=== PATIENT | female | born 1965 | race American Indian/Alaskan Native ===

== ENCOUNTER 2019-11-11 15:04 | Inpatient (IN) | payer SELFPAY ==
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
[2019-11-11] MEDS ORDERED: ONDANSETRON 4 MG ODT TAB PO ONE (18:42)
[2019-11-11] MEDS ORDERED: KETOROLAC 30 MG/1 ML INJ IM ONE (18:42)
[2019-11-11] MEDS ORDERED: SODIUM CHLORIDE 0.9% 1000 ML 1,000 ML IV ONE (19:28)
[2019-11-11 19:46] LABS: Basophils % (Auto) 0.6 % (0.0-1.8); Eosinophils % (Auto) 0.5 % (0.0-4.3); Hematocrit 33.9 % (30.3-42.9); Hemoglobin 11.8 gm/dl (10.1-14.3); Lymphocytes # (Auto) 2.3 K/mm3 (1.2-5.4); Lymphocytes % (Auto) 33.7 % (13.4-35.0); Mean Corpuscular HGB Conc 35 % (30-34); Mean Corpuscular Volume 93 fl (79-97); Monocytes # (Auto) 0.7 K/mm3 (0.0-0.8); Monocytes % (Auto) 9.9 % (0.0-7.3); Red Blood Count 3.66 M/mm3 (3.65-5.03); Red Cell Distribution Width 15.8 % (13.2-15.2)
[2019-11-11 19:58] LABS: INR 1.1 (0.87-1.13)
[2019-11-11 19:59] LABS: Partial Thromboplastin Time 25.8 Sec. (24.2-36.6)
--- NOTE | 2019-11-11 20:01 | Cat Scan Report ---
CT BRAIN: WITHOUT CONTRAST INDICATION / CLINICAL INFORMATION: headache. COMPARISON: None available. FINDINGS: BRAIN/INTRACRANIAL STRUCTURES: Unenhanced CT images of the brain demonstrate no evidence of acute int racranial abnormality. Ventricles and sulci are normal in size and shape. There is no evidence of hemorrhage or mass. There are no abnormal extra-axial fluid collections. EXTRACRANIAL STRUCTURES: Unremarkable. IMPRESSION: Negative unenhanced CT of the brain. All CT scans at this location are performed using dose reduction to ALARA by means of automated expos ure control. Signer Name: Andrew Lisa MD Signed: 11/11/2019 7:56 PM Workstation Name: [id number]
[2019-11-11 20:19] LABS: BUN/Creatinine Ratio 23; Blood Urea Nitrogen 14 mg/dL (7-17); Calcium 9.1 mg/dL (8.4-10.2); Hemolysis Index 91
[2019-11-11 20:21] LABS: Alanine Aminotransferase 25 units/L (7-56)
[2019-11-11] MEDS ORDERED: dexAMETHasone 20 MG/5 ML VIAL IV ONE (20:23)
[2019-11-11 20:36] LABS: Chol/HDL Ratio 4.02 %; HDL Cholesterol 46 mg/dL (40-59); LDL Cholesterol,Direct 132 mg/dL (50-130)
[2019-11-11 20:38] LABS: Platelet Count TNR K/mm3 (140-440)
--- NOTE | 2019-11-11 20:48 | XRay Report ---
CHEST 2 VIEWS INDICATION / CLINICAL INFORMATION: dyspnea. COMPARISON: None available. FINDINGS: SUPPORT DEVICES: None. HEART / MEDIASTINUM: No significant abnormality. LUNGS / PLEURA: No significant pulmonary or pleural abnormality. No pneumothorax. ADDITIONAL FINDINGS: No significant additional findings. IMPRESSION: 1. No acute findings. Signer Name: Marce Mcguire MD Signed: 11/11/2019 8:44 PM Workstation Name: [id number]
[2019-11-11 22:05] LABS: Bilirubin,Urine NEG (Negative); Blood,Urine MOD (Negative); Color,Urine Yellow (Yellow); Protein,Urine <15 mg/dL mg/dL (Negative); Urobilinogen,Urine < 2.0 mg/dL (<2.0)
[2019-11-11] MEDS ORDERED: MAGNESIUM HYDROXIDE (MOM) ORAL LIQD UDC PO PRN (23:36)
[2019-11-11] MEDS ORDERED: NITROGLYCERIN 0.4 MG TAB SUBL SL PRN (23:36)
[2019-11-11] MEDS ORDERED: ONDANSETRON 4 MG/2 ML INJ IV ONE (23:43)
[2019-11-11] MEDS ORDERED: MORPHINE 4 MG/1 ML INJ IV ONE (23:43)
[2019-11-12 00:04] LABS: Bilirubin,Direct 0.5 mg/dL (0-0.2)
[2019-11-12] MEDS ORDERED: ONDANSETRON 4 MG/2 ML INJ ONE (00:32)
[2019-11-12] MEDS ORDERED: MORPHINE 4 MG/1 ML INJ ONE (00:32)
[2019-11-12 00:36] LABS: Basophils % (Auto) 0.3 % (0.0-1.8); Hematocrit 31.9 % (30.3-42.9); Hemoglobin 11.2 gm/dl (10.1-14.3); Lymphocytes # (Auto) 0.9 K/mm3 (1.2-5.4); Mean Corpuscular HGB Conc 35 % (30-34); Mean Corpuscular Volume 92 fl (79-97); Monocytes # (Auto) 0.2 K/mm3 (0.0-0.8); Monocytes % (Auto) 3.2 % (0.0-7.3); Red Blood Count 3.47 M/mm3 (3.65-5.03); Red Cell Distribution Width 15.7 % (13.2-15.2)
[2019-11-12 00:45] LABS: Platelet Count 12 K/mm3 (140-440)
[2019-11-12 00:58] LABS: BUN/Creatinine Ratio 20; Blood Urea Nitrogen 14 mg/dL (7-17); Hemolysis Index 12
[2019-11-12] MEDS: SODIUM CHLORIDE 0.9% 1000 ML 1,000 ML IV SCH ×2 (02:50→17:42)
--- NOTE | 2019-11-12 03:10 | History and Physical Report ---
History of Present Illness Date of examination: 11/12/19 Date of admission: 11/11/19 23:20 Chief complaint: Headache Blurry vision History of present illness: 54-year-old female presenting to the emergency room today complaining of persistent headache. Headache is said to be frontal. She denies any fever or chills and denies any neck pain however she has been having some blurry vision and occasional double vision. She denies any fall and denies any head injury, denies any slurred speech or weakness in the extremities. Patient denies any chest pain but has had occasional shortness of breath especially on exertion, she also indicates that she had an episode of bloody urine. She denies any dysuria and denies any fever or chills Work-up in the emergency room did not reveal any significant findings on the CT of the head however patient had an elevated troponin and also had a low platelet count. EKG was within normal limits. She was given a dose of Decadron IV. Past History Past Surgical History: hysterectomy, Other (Nephrostomy tube placement in the past) Social history: other (Occasional marijuana use) Family history: no significant family history Medications and Allergies Allergies Allergy/AdvReac Type Severity Reaction Status Date / Time No Known Allergies Allergy Unverified 08/03/13 21:24 Home Medications Medication Instructions Recorded Confirmed Last Taken Type No Known Home Medications [No 11/12/19 11/12/19 Unknown History Reported Home Medications] Active Meds: Active Medications Acetaminophen (Tylenol) 650 mg PO Q4H PRN PRN Reason: Pain MILD(1-3)/Fever >100.5/LEE Sodium Chloride (Nacl 0.9% 1000 Ml) 1,000 mls @ 75 mls/hr IV DIRECT PRAVEEN Last Admin: 11/12/19 02:50 Dose: 75 mls/hr Documented by: Magnesium Hydroxide (Milk Of Magnesia) 30 ml PO Q4H PRN PRN Reason: Constipation Morphine Sulfate (Morphine) 2 mg IV Q4H PRN PRN Reason: Pain, Moderate (4-6) Nitroglycerin (Nitrostat) 0.4 mg SL Q5M PRN PRN Reason: Chest Pain Ondansetron HCl (Zofran) 4 mg IV Q8H PRN PRN Reason: Nausea And Vomiting Sodium Chloride (Sodium Chloride Flush Syringe 10 Ml) 10 ml IV BID PRAVEEN Sodium Chloride (Sodium Chloride Flush Syringe 10 Ml) 10 ml IV PRN PRN PRN Reason: LINE FLUSH Last Admin: 11/12/19 02:50 Dose: 10 ml Documented by: Review of Systems Constitutional: no fever, no chills Eyes: bilateral: blurred vision Cardiovascular: no chest pain, no palpitations, no syncope, no lightheadedness Respiratory: no cough, no shortness of breath, no dyspnea on exertion, no congestion Gastrointestinal: no abdominal pain, no nausea, no vomiting Neurological: headaches, no weakness, no parathesias, no numbness, no change in speech, no confusion, no memory loss, no gait dysfunction Exam - Constitutional Vitals: Temp Pulse Resp BP Pulse Ox 98.4 F 88 18 134/79 95 11/12/19 02:05 11/12/19 02:05 11/12/19 02:05 11/12/19 02:05 11/12/19 02:05 General appearance: Present: no acute distress, well-nourished - EENT Eyes: Present: PERRL, EOM intact ENT: hearing intact, clear oral mucosa, dentition normal - Neck Neck: Present: supple, normal ROM - Respiratory Respiratory effort: normal Respiratory: bilateral: CTA - Cardiovascular Rhythm: regular Heart Sounds: Present: S1 & S2 - Extremities Extremities: no ischemia, pulses intact, No edema, Full ROM Peripheral Pulses: within normal limits - Abdominal General gastrointestinal: Present: soft, non-tender, non-distended - Integumentary Integumentary: Present: clear, warm, dry - Psychiatric Psychiatric: appropriate mood/affect, intact judgment & insight - Neurologic Neurologic: CNII-XII intact, moves all extremities Results - Labs CBC & Chem 7: 11/12/19 05:54 11/12/19 05:54 Labs: Abnormal lab results 11/11/19 11/11/19 11/11/19 Range/Units 19:25 19:25 20:55 RBC (3.65-5.03) M/mm3 MCHC 35 H (30-34) % RDW 15.8 H (13.2-15.2) % Plt Count 14 L* (140-440) K/mm3 Lymph % (Auto) (13.4-35.0) % [place] % (Auto) 9.9 H (0.0-7.3) % Lymph # (1.2-5.4) K/mm3 Seg Neutrophils % (40.0-70.0) % Sodium 136 L (137-145) mmol/L Carbon Dioxide 19 L (22-30) mmol/L Creatinine 0.6 L (0.7-1.2) mg/dL Glucose 101 H (65-100) mg/dL Total Bilirubin 3.20 H (0.1-1.2) mg/dL Direct Bilirubin (0-0.2) mg/dL AST 62 H (5-40) units/L Lactate Dehydrogenase (91-180) units/L Troponin T 0.419 H* (0.00-0.029) ng/mL LDL Cholesterol Direct 132 H (50-130) mg/dL 11/11/19 11/11/19 11/11/19 Range/Units 22:38 23:24 23:59 RBC 3.47 L (3.65-5.03) M/mm3 MCHC 35 H (30-34) % RDW 15.7 H (13.2-15.2) % Plt Count 12 L* (140-440) K/mm3 Lymph % (Auto) 13.0 L (13.4-35.0) % [place] % (Auto) (0.0-7.3) % Lymph # 0.9 L (1.2-5.4) K/mm3 Seg Neutrophils % 83.5 H (40.0-70.0) % Sodium (137-145) mmol/L Carbon Dioxide (22-30) mmol/L Creatinine (0.7-1.2) mg/dL Glucose (65-100) mg/dL Total Bilirubin 3.20 H (0.1-1.2) mg/dL Direct Bilirubin 0.5 H (0-0.2) mg/dL AST (5-40) units/L Lactate Dehydrogenase 1022 H (91-180) units/L Troponin T 0.418 H* (0.00-0.029) ng/mL LDL Cholesterol Direct (50-130) mg/dL 11/11/19 Range/Units 23:59 RBC (3.65-5.03) M/mm3 MCHC (30-34) % RDW (13.2-15.2) % Plt Count (140-440) K/mm3 Lymph % (Auto) (13.4-35.0) % [place] % (Auto) (0.0-7.3) % Lymph # (1.2-5.4) K/mm3 Seg Neutrophils % (40.0-70.0) % Sodium (137-145) mmol/L Carbon Dioxide (22-30) mmol/L Creatinine (0.7-1.2) mg/dL Glucose 143 H (65-100) mg/dL Total Bilirubin (0.1-1.2) mg/dL Direct Bilirubin (0-0.2) mg/dL AST (5-40) units/L Lactate Dehydrogenase (91-180) units/L Troponin T (0.00-0.029) ng/mL LDL Cholesterol Direct (50-130) mg/dL Assessment and Plan - Patient Problems (1) Headache, acute Current Visit: Yes Status: Acute Qualifiers: Headache type: post-traumatic Intractability: not intractable Qualified Code(s): G44.319 - Acute post-traumatic headache, not intractable Plan to address problem: Patient has received analgesic medication with improvement . Work-up so far has been negative. We will place a consult to neurology for evaluation and recommendation. We will also schedule for MRI of the brain. (2) Non-STEMI (non-ST elevated myocardial infarction) Current Visit: Yes Status: Acute Plan to address problem: Patient has denied any chest pain. We will trend cardiac enzymes and monitor EKG. General Repair Mechanic has been consulted for further evaluation and recommendation. (3) Thrombocytopenia Current Visit: Yes Status: Acute Plan to address problem: We will monitor CBC. We also monitor for bleeding. Patient had an episode of hematuria which has since resolved. Heel Buffer was consulted by the ER physician and patient will be promptly evaluated. Patient has received a dose of Decadron in the emergency room. Will check LDH and bilirubin levels. (4) DVT prophylaxis Current Visit: Yes Status: Acute Plan to address problem: Patient has been placed on sequential compression device. Will hold anticoagulation in view of the low platelet counts. (5) Full code status Current Visit: Yes Status: Acute
[2019-11-12] MEDS: MORPHINE 2 MG/1 ML INJ IV PRN ×3 (06:12→18:22)
[2019-11-12 06:32] LABS: Basophils % (Auto) 0.2 % (0.0-1.8); Hematocrit 31.1 % (30.3-42.9); Hemoglobin 10.8 gm/dl (10.1-14.3); Lymphocytes # (Auto) 0.9 K/mm3 (1.2-5.4); Lymphocytes % (Auto) 15.3 % (13.4-35.0); Mean Corpuscular HGB Conc 35 % (30-34); Mean Corpuscular Volume 92 fl (79-97); Monocytes # (Auto) 0.3 K/mm3 (0.0-0.8); Monocytes % (Auto) 5.6 % (0.0-7.3); Red Blood Count 3.37 M/mm3 (3.65-5.03); Red Cell Distribution Width 15.7 % (13.2-15.2)
[2019-11-12 06:38] LABS: Platelet Count 9 K/mm3 (140-440)
[2019-11-12 06:46] LABS: INR 1.11 (0.87-1.13)
[2019-11-12 06:47] LABS: Partial Thromboplastin Time 24.9 Sec. (24.2-36.6)
[2019-11-12 06:52] LABS: BUN/Creatinine Ratio 21; Blood Urea Nitrogen 15 mg/dL (7-17); Calcium 8.7 mg/dL (8.4-10.2); Hemolysis Index 17
--- NOTE | 2019-11-12 08:05 | Event Note ---
Date: 11/12/19 ? [facility] [id number]
[2019-11-12] MEDS ORDERED: IMMUNE GLOBULIN GAMMA IV SCH (09:00)
[2019-11-12] MEDS: ONDANSETRON 4 MG/2 ML INJ IV PRN (09:28)
[2019-11-12] MEDS: PANTOPRAZOLE 40 MG TAB PO SCH (09:28)
[2019-11-12] MEDS: predniSONE 20 MG TAB PO SCH (09:28)
--- NOTE | 2019-11-12 10:58 | Progress Note ---
Subjective Date of service: 11/12/19 Interval history: my idea also on the event note and certainly headaches develop with low platelet count since platelet lysis releases serotonin abnormal counts confirms x two further hx is iniitited to review advise low platelet count precautions Objective - Vital Sign Vital Signs - 12hr 11/11/19 11/12/19 11/12/19 23:00 00:01 01:01 Temperature Pulse Rate 84 79 81 Pulse Rate [ Apical] Respiratory 20 19 15 Rate Blood Pressure 136/90 136/90 130/80 O2 Sat by Pulse 96 96 95 Oximetry 11/12/19 11/12/19 11/12/19 02:05 02:30 04:57 Temperature 98.4 F 98.2 F Pulse Rate 88 86 Pulse Rate [ 84 Apical] Respiratory 18 18 18 Rate Blood Pressure 134/79 128/87 O2 Sat by Pulse 95 95 96 Oximetry 11/12/19 11/12/19 06:12 06:42 Temperature Pulse Rate Pulse Rate [ Apical] Respiratory 18 18 Rate Blood Pressure O2 Sat by Pulse Oximetry - Laboratory Findings CBC and BMP: 11/12/19 05:54 11/12/19 05:54 Abnormal Lab Findings: Abnormal Labs 11/11/19 11/11/19 11/11/19 19:25 19:25 20:55 RBC MCHC 35 H RDW 15.8 H Plt Count 14 L* Lymph % (Auto) [place] % (Auto) 9.9 H Lymph # Seg Neutrophils % Sodium 136 L Carbon Dioxide 19 L Creatinine 0.6 L Glucose 101 H Total Bilirubin 3.20 H Direct Bilirubin AST 62 H Lactate Dehydrogenase Troponin T 0.419 H* LDL Cholesterol Direct 132 H 11/11/19 11/11/19 11/11/19 22:38 23:24 23:59 RBC 3.47 L MCHC 35 H RDW 15.7 H Plt Count 12 L* Lymph % (Auto) 13.0 L [place] % (Auto) Lymph # 0.9 L Seg Neutrophils % 83.5 H Sodium Carbon Dioxide Creatinine Glucose Total Bilirubin 3.20 H Direct Bilirubin 0.5 H AST Lactate Dehydrogenase 1022 H Troponin T 0.418 H* LDL Cholesterol Direct 11/11/19 11/12/19 11/12/19 23:59 05:54 05:54 RBC 3.37 L MCHC 35 H RDW 15.7 H Plt Count 9 L* Lymph % (Auto) [place] % (Auto) Lymph # 0.9 L Seg Neutrophils % 78.9 H Sodium Carbon Dioxide 19 L Creatinine Glucose 143 H 133 H Total Bilirubin Direct Bilirubin AST Lactate Dehydrogenase Troponin T LDL Cholesterol Direct 11/12/19 05:54 RBC MCHC RDW Plt Count Lymph % (Auto) [place] % (Auto) Lymph # Seg Neutrophils % Sodium Carbon Dioxide Creatinine Glucose Total Bilirubin Direct Bilirubin AST Lactate Dehydrogenase Troponin T 0.246 H* D LDL Cholesterol Direct
[2019-11-12 11:04] LABS: Iron 143 ug/dL (37-170); Total Iron Binding Capacity 240 mcg/dL (250-450)
[2019-11-12] MEDS ORDERED: FLU VACC QUAD 2019-20 (3 YR UP)/PF 60 MCG/0.5 ML SYRINGE IM ONE (12:00)
[2019-11-12] MEDS ORDERED: ACETAMINOPHEN 500 MG TAB PO ONE (13:00)
[2019-11-12] MEDS ORDERED: GLY IV ONE (13:00)
[2019-11-12] MEDS ORDERED: IGA OV50 IV ONE (13:00)
[2019-11-12] MEDS ORDERED: diphenhydrAMINE 50 MG/ML VIAL IV ONE (13:00)
[2019-11-12] MEDS ORDERED: IMMUN GLOB IV ONE (13:00)
--- NOTE | 2019-11-12 14:13 | Consultation ---
History of Present Illness Consult date: 11/12/19 Requesting physician: PARADISE KWON Consult reason: elevated troponin History of present illness: 54-year-old patient with no past medical history history started having headache in disturbance in vision came to emergency room was found to have low platelets in the single digits. With abnormal troponin. Patient denies any chest pain or shortness of breath or syncope. States was in relatively good health denies any past medical history of hypertension diabetes cholesterol or anemia. Denies any syncopal episode or seizure type activity. Past History Past Medical History: denies: No medical history Past Surgical History: hysterectomy, Other (Nephrostomy tube placement in the past) Social history: other (Occasional marijuana use) Family history: no significant family history Medications and Allergies Allergies Allergy/AdvReac Type Severity Reaction Status Date / Time No Known Allergies Allergy Unverified 08/03/13 21:24 Home Medications Medication Instructions Recorded Confirmed Last Taken Type No Known Home Medications [No 11/12/19 11/12/19 Unknown History Reported Home Medications] Active Meds: Active Medications Acetaminophen (Tylenol) 650 mg PO Q4H PRN PRN Reason: Pain MILD(1-3)/Fever >100.5/LEE Sodium Chloride (Nacl 0.9% 1000 Ml) 1,000 mls @ 75 mls/hr IV DIRECT PRAVEEN Last Admin: 11/12/19 02:50 Dose: 75 mls/hr Documented by: IMMUN GLOB G(IGG)/GLY/IGA OV50 40 gm/ Miscellaneous Information 400 mls @ 80 mls/hr IV ONCE ONE Stop: 11/12/19 17:59 Last Admin: 11/12/19 13:00 Dose: 80 mls/hr Documented by: Magnesium Hydroxide (Milk Of Magnesia) 30 ml PO Q4H PRN PRN Reason: Constipation Morphine Sulfate (Morphine) 2 mg IV Q4H PRN PRN Reason: Pain, Moderate (4-6) Last Admin: 11/12/19 06:12 Dose: 2 mg Documented by: Nitroglycerin (Nitrostat) 0.4 mg SL Q5M PRN PRN Reason: Chest Pain Ondansetron HCl (Zofran) 4 mg IV Q8H PRN PRN Reason: Nausea And Vomiting Last Admin: 11/12/19 09:28 Dose: 4 mg Documented by: Pantoprazole Sodium (Protonix) 40 mg PO QDAY [facility] Last Admin: 11/12/19 09:28 Dose: 40 mg Documented by: Prednisone (Deltasone) 60 mg PO QDAY [facility] Stop: 11/17/19 23:59 Last Admin: 11/12/19 09:28 Dose: 60 mg Documented by: Sodium Chloride (Sodium Chloride Flush Syringe 10 Ml) 10 ml IV BID [facility] Last Admin: 11/12/19 12:34 Dose: 10 ml Documented by: Sodium Chloride (Sodium Chloride Flush Syringe 10 Ml) 10 ml IV PRN PRN PRN Reason: LINE FLUSH Last Admin: 11/12/19 02:50 Dose: 10 ml Documented by: Review of Systems All systems: negative (as per HPI) Physical Examination Vital Signs Temp Pulse Resp BP Pulse Ox 98.2 F 43 L 18 127/54 100 11/11/19 16:55 11/11/19 16:55 11/11/19 16:55 11/11/19 16:55 11/11/19 16:55 General appearance: no acute distress, well-nourished HEENT: Positive: PERRL, Mucus Membranes Moist Neck: Positive: neck supple, trachea midline Cardiac: Positive: Reg Rate and Rhythm, S1/S2. Negative: Audible Murmur Lungs: Positive: clear to auscultation, Normal Breath Sounds Neuro: Positive: Grossly Intact Abdomen: Positive: Soft, Active Bowel Sounds. Negative: Tender, Distended Female genitourinary: deferred Skin: Positive: Clear Incision: Cardiac Cath Site Musculoskeletal: No Pain, Normal Range of Motion Extremities: Present: normal. Absent: edema Results 11/12/19 05:54 11/12/19 05:54 Cardiac Enzymes 11/11/19 11/11/19 Range/Units 19:25 23:24 AST 62 H (5-40) units/L Lactate Dehydrogenase 1022 H (91-180) units/L Coagulation 11/11/19 11/12/19 Range/Units 19:25 05:54 PT 14.3 14.5 (12.2-14.9) Sec. INR 1.10 1.11 (0.87-1.13) APTT 25.8 24.9 (24.2-36.6) Sec. Lipids 11/11/19 Range/Units 19:25 Triglycerides 105 (2-149) mg/dL Cholesterol 185 (50-199) mg/dL HDL Cholesterol 46 (40-59) mg/dL Cholesterol/HDL Ratio 4.02 % CBC 11/11/19 11/11/19 11/11/19 Range/Units 19:25 20:55 23:59 WBC 6.8 6.8 (4.5-11.0) K/mm3 RBC 3.66 3.47 L (3.65-5.03) M/mm3 Hgb 11.8 11.2 (10.1-14.3) gm/dl Hct 33.9 31.9 (30.3-42.9) % Plt Count TNR 14 L* 12 L* Lymph # 2.3 0.9 L (1.2-5.4) K/mm3 [place] # 0.7 0.2 (0.0-0.8) K/mm3 Eos # 0.0 0.0 (0.0-0.4) K/mm3 Baso # 0.0 0.0 (0.0-0.1) K/mm3 11/12/19 Range/Units 05:54 WBC 6.1 (4.5-11.0) K/mm3 RBC 3.37 L (3.65-5.03) M/mm3 Hgb 10.8 (10.1-14.3) gm/dl Hct 31.1 (30.3-42.9) % Plt Count 9 L* Lymph # 0.9 L (1.2-5.4) K/mm3 [place] # 0.3 (0.0-0.8) K/mm3 Eos # 0.0 (0.0-0.4) K/mm3 Baso # 0.0 (0.0-0.1) K/mm3 Comprehensive Metabolic Panel 11/11/19 11/11/19 11/11/19 Range/Units 19:25 23:24 23:59 Sodium 136 L 141 (137-145) mmol/L Potassium 4.0 4.4 (3.6-5.0) mmol/L Chloride 100.0 104.9 (98-107) mmol/L Carbon Dioxide 19 L 23 (22-30) mmol/L BUN 14 14 (7-17) mg/dL Creatinine 0.6 L 0.7 (0.7-1.2) mg/dL Glucose 101 H 143 H (65-100) mg/dL Calcium 9.1 9.0 (8.4-10.2) mg/dL Direct Bilirubin 0.5 H (0-0.2) mg/dL Indirect Bilirubin 2.7 mg/dL AST 62 H (5-40) units/L ALT 25 (7-56) units/L Alkaline Phosphatase 53 (35-129) units/L Total Protein 7.1 (6.3-8.2) g/dL Albumin 4.0 (3.9-5) g/dL 11/12/19 Range/Units 05:54 Sodium 140 (137-145) mmol/L Potassium 4.5 (3.6-5.0) mmol/L Chloride 105.7 (98-107) mmol/L Carbon Dioxide 19 L (22-30) mmol/L BUN 15 (7-17) mg/dL Creatinine 0.7 (0.7-1.2) mg/dL Glucose 133 H (65-100) mg/dL Calcium 8.7 (8.4-10.2) mg/dL Direct Bilirubin (0-0.2) mg/dL Indirect Bilirubin mg/dL AST (5-40) units/L ALT (7-56) units/L Alkaline Phosphatase (35-129) units/L Total Protein (6.3-8.2) g/dL Albumin (3.9-5) g/dL EKG interpretations - Telemetry EKG Rhythm: Sinus Rhythm (normal sinus rhythm nonspecific ST-T's) Assessment and Plan In view of abnormal troponin will do an echocardiogram for LV function. Patient is not a candidate for oral anticoagulation given low platelets. Monitor heart rate on remote telemetry. May consider low-dose beta russell if need be - Patient Problems (1) Non-STEMI (non-ST elevated myocardial infarction) Current Visit: Yes Status: Acute (2) TIA (transient ischemic attack) Current Visit: Yes Status: Acute (3) Thrombocytopenia Current Visit: Yes Status: Acute
--- NOTE | 2019-11-12 15:28 | Event Note ---
Date: 11/12/19 Patient seen and examined stable at this time intermittently throughout the day reported recurrent headaches. Started again during administration of gammaglobulin this has been held. I reevaluation patient ambulatory, nontoxic appearing. We will continue to monitor patient's progress. Discussed case with air twist operator.
--- NOTE | 2019-11-12 15:38 | Progress Note ---
Assessment and Plan Assessment and plan: Patient is a 54-year-old female presenting to the emergency room today complaining of persistent headache. Headache is said to be frontal. She denies any fever or chills and denies any neck pain however she has been having some blurry vision and occasional double vision. She denies any fall and denies any head injury, denies any slurred speech or weakness in the extremities. Patient denies any chest pain but has had occasional shortness of breath especially on exertion, she also indicates that she had an episode of bloody urine. She denies any dysuria and denies any fever or chills Work-up in the emergency room did not reveal any significant findings on the CT of the head however patient had an elevated troponin and also had a low platelet count. EKG was within normal limits. She was given a dose of Decadron IV. 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 * During the stay patient continues to have intermittent recurrent blurry vision and headaches but subsiding in intensity. Patient Problems (1) Headache, acute Current Visit: Yes Status: Acute Qualifiers: Headache type: post-traumatic Intractability: not intractable Qualified Code(s): G44.319 - Acute post-traumatic headache, not intractable Plan to address problem: Patient has received analgesic medication with improvement. Work-up so far has been negative. Neurology for evaluation and recommendation noted. We will also schedule for MRI of the brain. (2) Non-STEMI (non-ST elevated myocardial infarction) Current Visit: Yes Status: Acute Plan to address problem: Patient has denied any chest pain. We will trend cardiac enzymes and monitor EKG. Sample Puller Input noted Will Start on Low dose BB Patient not a candidate for Anticogulation due to Low plt (3) Thrombocytopenia Concerning for ITP Current Visit: Yes Status: Acute Plan to address problem: We will monitor CBC. We also monitor for bleeding. Patient had an episode of hematuria which has since resolved. Antique Jewelry Repairer was consulted by the ER physician and patient will be promptly evaluated. Patient has received a dose of Decadron in the emergency room. Will check LDH and bilirubin levels. (4) DVT prophylaxis Current Visit: Yes Status: Acute Plan to address problem: Patient has been placed on sequential compression device. Will hold anticoagulation in view of the low platelet counts. (5) Full code status Current Visit: Yes Status: Acute Plan of care discussed with the the patinet and nursing staff. History Interval history: Patient seen and examined this morning ambulating brushing her teeth family at bedside no new complaint reports resolution of headache. Denies any prior history with platelets. She also denies any blurry vision at this time. Hospitalist Physical - Physical exam Narrative exam: VITAL SIGNS: Reviewed. GENERAL: The patient appears normally developed, Vital signs as documented. HEAD: No signs of head trauma. EYES: Pupils are equal. Extraocular motions intact. EARS: Hearing grossly intact. MOUTH: Oropharynx is normal. NECK: No adenopathy, no JVD. CHEST: Chest with clear breath sounds bilaterally. No wheezes, rales, or rhonchi. CARDIAC: Regular rate and rhythm. S1 and S2, without murmurs, gallops, or rubs. VASCULAR: No Edema. Peripheral pulses normal and equal in all extremities. ABDOMEN: Soft, non tender and non distended. No rebound or guarding, and no masses palpated. Bowel Sounds normal. MUSCULOSKELETAL: Good range of motion of all major joints. Extremities without clubbing, cyanosis or edema. NEUROLOGIC EXAM: Alert and oriented x 3 No focal sensory or strength deficits. Speech normal. Follows commands. PSYCHIATRIC: Mood normal. SKIN: detail exam as documented in skin assessment, no petechiae noted. - Constitutional Vitals: Temp Pulse Resp BP Pulse Ox 99 F 117 H 20 155/87 99 11/12/19 14:13 11/12/19 14:13 11/12/19 14:13 11/12/19 14:13 11/12/19 14:13 General appearance: Present: no acute distress, well-nourished Results - Labs CBC & Chem 7: 11/12/19 05:54 11/12/19 05:54 Labs: Laboratory Last Values WBC 6.1 K/mm3 (4.5-11.0) 11/12/19 05:54 RBC 3.37 M/mm3 (3.65-5.03) L 11/12/19 05:54 Hgb 10.8 gm/dl (10.1-14.3) 11/12/19 05:54 Hct 31.1 % (30.3-42.9) 11/12/19 05:54 MCV 92 fl (79-97) 11/12/19 05:54 MCH 32 pg (28-32) 11/12/19 05:54 MCHC 35 % (30-34) H 11/12/19 05:54 RDW 15.7 % (13.2-15.2) H 11/12/19 05:54 Plt Count 9 K/mm3 (140-440) L* 11/12/19 05:54 Lymph % (Auto) 15.3 % (13.4-35.0) 11/12/19 05:54 [place] % (Auto) 5.6 % (0.0-7.3) 11/12/19 05:54 Eos % (Auto) 0.0 % (0.0-4.3) 11/12/19 05:54 Baso % (Auto) 0.2 % (0.0-1.8) 11/12/19 05:54 Lymph # 0.9 K/mm3 (1.2-5.4) L 11/12/19 05:54 [place] # 0.3 K/mm3 (0.0-0.8) 11/12/19 05:54 Eos # 0.0 K/mm3 (0.0-0.4) 11/12/19 05:54 Baso # 0.0 K/mm3 (0.0-0.1) 11/12/19 05:54 Seg Neutrophils % 78.9 % (40.0-70.0) H 11/12/19 05:54 Seg Neutrophils # 4.8 K/mm3 (1.8-7.7) 11/12/19 05:54 PT 14.5 Sec. (12.2-14.9) 11/12/19 05:54 INR 1.11 (0.87-1.13) 11/12/19 05:54 APTT 24.9 Sec. (24.2-36.6) 11/12/19 05:54 Sodium 140 mmol/L (137-145) 11/12/19 05:54 Potassium 4.5 mmol/L (3.6-5.0) 11/12/19 05:54 Chloride 105.7 mmol/L (98-107) 11/12/19 05:54 Carbon Dioxide 19 mmol/L (22-30) L 11/12/19 05:54 Anion Gap 20 mmol/L 11/12/19 05:54 BUN 15 mg/dL (7-17) 11/12/19 05:54 Creatinine 0.7 mg/dL (0.7-1.2) 11/12/19 05:54 Estimated GFR > 60 ml/min 11/12/19 05:54 BUN/Creatinine Ratio 21 % 11/12/19 05:54 Glucose 133 mg/dL (65-100) H 11/12/19 05:54 Calcium 8.7 mg/dL (8.4-10.2) 11/12/19 05:54 Iron 143 ug/dL (37-170) 11/12/19 10:23 TIBC 240 mcg/dL (250-450) L 11/12/19 10:23 Ferritin 911.5 ng/mL (13.0-400.0) H 11/12/19 10:23 Total Bilirubin 3.20 mg/dL (0.1-1.2) H 11/11/19 23:24 Direct Bilirubin 0.5 mg/dL (0-0.2) H 11/11/19 23:24 Indirect Bilirubin 2.7 mg/dL 11/11/19 23:24 AST 62 units/L (5-40) H 11/11/19 19:25 ALT 25 units/L (7-56) 11/11/19 19:25 Alkaline Phosphatase 53 units/L (35-129) 11/11/19 19:25 Lactate Dehydrogenase 1022 units/L (91-180) H 11/11/19 23:24 Troponin T 0.246 ng/mL (0.00-0.029) H* D 11/12/19 05:54 NT-Pro-B Natriuret Pep 633.4 pg/mL (0-900) 11/11/19 19:31 Total Protein 7.1 g/dL (6.3-8.2) 11/11/19 19:25 Albumin 4.0 g/dL (3.9-5) 11/11/19 19:25 Albumin/Globulin Ratio 1.3 % 11/11/19 19:25 Triglycerides 105 mg/dL (2-149) 11/11/19 19:25 Cholesterol 185 mg/dL (50-199) 11/11/19 19:25 LDL Cholesterol Direct 132 mg/dL (50-130) H 11/11/19 19:25 HDL Cholesterol 46 mg/dL (40-59) 11/11/19 19:25 Cholesterol/HDL Ratio 4.02 % 11/11/19 19: Vitamin B12 701.6 pg/mL (211-911) 11/12/19: Folate > 20 ng/mL (7.3-26.0) 11/12/19 10: TSH 3.110 mlU/mL (0.270-4.200) 11/11/19 19:25 Urine Color Yellow (Yellow) 11/11/19 21: Urine Turbidity Clear (Clear) 11/11/19 21: Urine pH 7.0 (5.0-7.0) 11/11/19: Ur Specific Mobile 1.008 (1.003-1.030) 11/11/19: Urine Protein <15 mg/dl mg/dL (Negative) 11/11/19: Urine Glucose (UA) Neg mg/dL (Negative) 11/11/19: Urine Ketones Neg mg/dL (Negative) 11/11/19: Urine Blood Mod (Negative) 11/11/19 21: Urine Nitrite Neg (Negative) 11/11/19: Urine Bilirubin Neg (Negative) 11/11/19: Urine Urobilinogen < 2.0 mg/dL (<2.0) 11/11/19: Ur Leukocyte Esterase Neg (Negative) 11/11/19 21: Urine WBC (Auto) 1.0 /HPF (0.0-6.0) 11/11/19: Urine RBC (Auto) 2.0 /HPF (0.0-6.0) 11/11/19: U Epithel Cells (Auto) 1.0 /HPF (0-13.0) 11/11/19: HIV 1&2 Antibody Rapid Non react (Non React) 11/12/19: HIV P24 Antigen Non react (Non React) 11/12/19 10: Active Medications - Current Medications Current Medications: Generic Name Dose Route Start Last Admin Trade Name Freq PRN Reason Stop Dose Admin Acetaminophen 650 mg 11/11/19 23:36 Tylenol PO Q4H PRN Pain MILD(1-3)/Fever >100.5/LEE Sodium Chloride 1,000 mls @ 75 mls/hr 11/11/19 23:45 11/12/19 02:50 Nacl 0.9% 1000 Ml IV 75 mls/hr DIRECT PRAVEEN Administration IMMUN GLOB G(IGG)/GLY/IGA OV50 400 mls @ 80 mls/hr 11/12/19 13:00 11/12/19 13:00 40 gm/ Miscellaneous IV 11/12/19 17:59 80 mls/hr Information ONCE ONE Administration Magnesium Hydroxide 30 ml 11/11/19 23:36 Milk Of Magnesia PO Q4H PRN Constipation Morphine Sulfate 2 mg 11/11/19 23:36 11/12/19 14:37 Morphine IV 2 mg Q4H PRN Administration Pain, Moderate (4-6) Nitroglycerin 0.4 mg 11/11/19 23:36 Nitrostat SL Q5M PRN Chest Pain Ondansetron HCl 4 mg 11/11/19 23:36 11/12/19 09:28 Zofran IV 4 mg Q8H PRN Administration Nausea And Vomiting Pantoprazole Sodium 40 mg 11/12/19 10:00 11/12/19 09:28 Protonix PO 40 mg QDAY PRAVEEN Administration Prednisone 60 mg 11/12/19 10:00 11/12/19 09:28 Deltasone PO 11/17/19 23:59 60 mg QDAY PRAVEEN Administration Sodium Chloride 10 ml 11/12/19 10:00 11/12/19 12:34 Sodium Chloride Flush Syringe 10 Ml IV 10 ml BID PRAVEEN Administration Sodium Chloride 10 ml 11/11/19 23:36 11/12/19 02:50 Sodium Chloride Flush Syringe 10 Ml IV 10 ml PRN PRN Administration LINE FLUSH
--- NOTE | 2019-11-12 21:09 | Consultation ---
REFERRING PHYSICIAN: Dr. Howard, Dr. Félix Simon/Dr. Bruce Shepherd. REASON FOR CONSULTATION: Thrombocytopenia. HISTORY OF PRESENT ILLNESS: I saw the patient, a 54-year-old female in the medical floor. The patient came to the hospital because of persistent headache in the frontal area. No fever or chills. She had some blurry vision and double vision. CT head was done. This did not show any major issues. Blood test showed low platelets of 9. I was consulted for same. Dexamethasone has been given. The patient denies any previous low platelets. History of recent fever, chills a few weeks ago. 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 At this time, no vomiting, no diarrhea. No chest pain, no shortness of breath, no abdominal pain. No hematemesis, no hematochezia. No skin bruises. PAST MEDICAL HISTORY: Hysterectomy, ureteral injuries. SOCIAL HISTORY: History of occasional marijuana usage. FAMILY HISTORY: Noncontributory. ALLERGIES: None. PHYSICAL EXAMINATION: VITAL SIGNS: Temperature 98, pulse 86, respirations 18, BP 128/87. HEENT: No pallor, icterus present. NECK: No neck lymph nodes. HEART: S1, S2. LUNGS: Clear to auscultation. ABDOMEN: Soft. EXTREMITIES: No calf tenderness. NEUROLOGIC: Alert, awake, oriented. LABORATORY DATA: White cell 6, hemoglobin 10.8, MCV 92, and platelet is 9. PT, PTT normal. Potassium 4.5, creatinine 0.7, calcium 8.7, total bilirubin 3.2, direct 0.5, indirect 2.7, LDH 1000, AST 62. Troponin 0.418. RADIOLOGY: CT head was negative. ASSESSMENT AND PLAN: 1. Thrombocytopenia. This could be immune thrombocytopenic purpura. We will do deficiency investigations, will do human immunodeficiency virus testing. 2. LDH elevated. This may be secondary to LFT abnormalities. 3. High indirect bilirubin, etiology unclear. 4. History of marijuana usage. 5. History of recent malaise until this episode. This may have a role in the low platelets. 6. 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 We will also place the patient on prednisone and proton pump inhibitor and follow the patient. 7. History of ureteral damage. 8. History of hysterectomy. JOB# [id number] CARL/TOMÁS
[2019-11-12] MEDS: carvediloL 3.125 MG TAB PO SCH (21:16)
[2019-11-13] MEDS: ACETAMINOPHEN 325 MG TAB PO PRN (01:25)
[2019-11-13] MEDS: MORPHINE 2 MG/1 ML INJ IV PRN (01:38)
[2019-11-13] MEDS ORDERED: HYDROmorphone 1 MG/1 ML INJ IV ONE (02:20)
--- NOTE | 2019-11-13 02:22 | Event Note ---
Date: 11/13/19 Responded to code mets called. Patient is awake and responsive in mild distress with complaints of headache. Patient just returned from CT scan, previously received morphine before going . New orders received for Dilaudid, awaiting CT results for follow-up.
--- NOTE | 2019-11-13 02:27 | Cat Scan Report ---
CT HEAD/BRAIN WO CON INDICATION / CLINICAL INFORMATION: Headache. TECHNIQUE: All CT scans at this location are performed using CT dose reduction for ALARA by means of automated e xposure control. COMPARISON: Yesterday. FINDINGS: The ventricular system is normal in size and configuration. No focal lesion or mass effect is seen. T here is no evidence of intracranial hemorrhage or major vessel occlusion. The calvarium is intact. Th e visualized paranasal sinuses and mastoid air cells are clear. No significant interval change has oc curred since the prior study. IMPRESSION: No acute abnormality or significant change. Signer Name: Griffin Dey MD Signed: 11/13/2019 2:23 AM Workstation Name: [id number]
[2019-11-13 09:09] LABS: Hematocrit 28.1 % (30.3-42.9); Hemoglobin 9.5 gm/dl (10.1-14.3); Mean Corpuscular HGB Conc 34 % (30-34); Mean Corpuscular Volume 95 fl (79-97); Red Blood Count 2.96 M/mm3 (3.65-5.03); Red Cell Distribution Width 16.6 % (13.2-15.2)
[2019-11-13 09:21] LABS: BUN/Creatinine Ratio 24; Blood Urea Nitrogen 19 mg/dL (7-17); Calcium 8.5 mg/dL (8.4-10.2); Hemolysis Index 18
[2019-11-13 09:26] LABS: Platelet Count 13 K/mm3 (140-440)
--- NOTE | 2019-11-13 10:08 | Progress Note ---
Assessment and Plan Patient's echocardiogram shows normally functioning without significant regurgitations patient's abnormal troponin will treat medically at this time in view of low platelets not a candidate for anticoagulation in view of no chest pain shortness of breath will hold off any ischemic workup at this time patient is being treated for thrombocytopenia - Patient Problems (1) Non-STEMI (non-ST elevated myocardial infarction) Current Visit: Yes Status: Acute (2) TIA (transient ischemic attack) Current Visit: Yes Status: Acute (3) Thrombocytopenia Current Visit: Yes Status: Acute Subjective Date of service: 11/13/19 Principal diagnosis: nstemi Interval history: feeling weak no cp or sob Objective Vital Signs Temp Pulse Resp BP BP Pulse Ox 11/13/19 05:34 98.8 F 64 18 132/87 97 11/13/19 04:05 62 18 121/71 99 11/13/19 02:50 64 154/91 11/13/19 02:40 57 L 155/89 11/13/19 02:30 22 11/13/19 02:15 72 136/103 11/13/19 02:00 96 11/13/19 01:38 22 11/13/19 01:31 98.1 F 18 156/93 11/13/19 01:30 54 L 156/93 11/13/19 01:25 18 11/12/19 21:50 99.1 F 86 17 127/77 98 11/12/19 21:16 82 118/71 11/12/19 21:02 97.9 F 82 18 118/71 96 11/12/19 17:34 99.0 F 103 H 22 134/80 98 11/12/19 17:00 97 F L 107 H 20 128/78 11/12/19 14:13 99 F 117 H 20 155/87 99 11/12/19 13:35 99 F 91 H 20 133/78 99 11/12/19 11:50 99.2 F 83 22 121/71 92 - Physical Examination General: Appears Well HEENT: Positive: PERRL, Mucus Membranes Moist Neck: Positive: neck supple, trachea midline Cardiac: Positive: Reg Rate and Rhythm Lungs: Positive: clear to auscultation Neuro: Positive: Grossly Intact Abdomen: Positive: Soft, Active Bowel Sounds. Negative: Tender, Distended Skin: Positive: Clear Incision: Cardiac Cath Site Musculoskeletal: No Pain, Normal Range of Motion Extremities: Present: normal. Absent: edema - Labs and Meds CBC 11/13/19 Range/Units 08:22 WBC 7.3 (4.5-11.0) K/mm3 RBC 2.96 L (3.65-5.03) M/mm3 Hgb 9.5 L (10.1-14.3) gm/dl Hct 28.1 L (30.3-42.9) % Plt Count 13 L* (140-440) K/mm3 Comprehensive Metabolic Panel 11/13/19 Range/Units 08:22 Sodium 142 (137-145) mmol/L Potassium 4.2 (3.6-5.0) mmol/L Chloride 107.0 (98-107) mmol/L Carbon Dioxide 19 L (22-30) mmol/L BUN 19 H (7-17) mg/dL Creatinine 0.8 (0.7-1.2) mg/dL Glucose 101 H (65-100) mg/dL Calcium 8.5 (8.4-10.2) mg/dL - Imaging and Cardiology Echo: image reviewed (normal lv function, mild tr and no as or mr) - Telemetry EKG Rhythm: Sinus Rhythm
[2019-11-13] MEDS: ONDANSETRON 4 MG/2 ML INJ IV PRN (10:31)
[2019-11-13] MEDS: PANTOPRAZOLE 40 MG TAB PO SCH (10:32)
[2019-11-13] MEDS: carvediloL 3.125 MG TAB PO SCH ×2 (11:01→22:59)
[2019-11-13] MEDS: predniSONE 20 MG TAB PO SCH (11:02)
[2019-11-13] MEDS ORDERED: SODIUM CHLORIDE 0.9% 1000 ML 1,000 ML IV ONE (12:00)
[2019-11-13] MEDS ORDERED: ONDANSETRON 4 MG/2 ML INJ IV PRN (13:17)
--- NOTE | 2019-11-13 13:36 | Progress Note ---
Subjective Date of service: 11/13/19 Principal diagnosis: nstemi Interval history: cross check of the CT from today careful check of areas that are typical for ptechael hemorrhage in ITP... definitely do not see small areas of bleed no no intracranial bleed or brain edema noted Objective - Vital Sign Vital Signs - 12hr 11/13/19 11/13/19 11/13/19 01:38 02:00 02:15 Temperature Pulse Rate 72 Respiratory 22 Rate Blood Pressure Blood Pressure 136/103 [Right] O2 Sat by Pulse 96 Oximetry 11/13/19 11/13/19 11/13/19 02:30 02:40 02:50 Temperature Pulse Rate 57 L 64 Respiratory 22 Rate Blood Pressure Blood Pressure 155/89 154/91 [Right] O2 Sat by Pulse Oximetry 11/13/19 11/13/19 11/13/19 04:05 05:34 11:01 Temperature 98.8 F Pulse Rate 62 64 111 H Respiratory 18 18 Rate Blood Pressure 132/87 142/100 Blood Pressure 121/71 [Right] O2 Sat by Pulse 99 97 Oximetry 11/13/19 11:30 Temperature 98.8 F Pulse Rate 68 Respiratory 22 Rate Blood Pressure 132/81 Blood Pressure [Right] O2 Sat by Pulse 95 Oximetry - Laboratory Findings CBC and BMP: 11/13/19 08:22 11/13/19 08:22 Abnormal Lab Findings: Abnormal Labs 11/11/19 11/11/19 11/11/19 19:25 19:25 20:55 RBC Hgb Hct MCHC 35 H RDW 15.8 H Plt Count 14 L* Lymph % (Auto) [place] % (Auto) 9.9 H Lymph # Seg Neutrophils % Sodium 136 L Carbon Dioxide 19 L BUN Creatinine 0.6 L Glucose 101 H POC Glucose TIBC Ferritin Total Bilirubin 3.20 H Direct Bilirubin AST 62 H Lactate Dehydrogenase Troponin T 0.419 H* LDL Cholesterol Direct 132 H 11/11/19 11/11/19 11/11/19 22:38 23:24 23:59 RBC 3.47 L Hgb Hct MCHC 35 H RDW 15.7 H Plt Count 12 L* Lymph % (Auto) 13.0 L [place] % (Auto) Lymph # 0.9 L Seg Neutrophils % 83.5 H Sodium Carbon Dioxide BUN Creatinine Glucose POC Glucose TIBC Ferritin Total Bilirubin 3.20 H Direct Bilirubin 0.5 H AST Lactate Dehydrogenase 1022 H Troponin T 0.418 H* LDL Cholesterol Direct 11/11/19 11/12/19 11/12/19 23:59 05:54 05:54 RBC 3.37 L Hgb Hct MCHC 35 H RDW 15.7 H Plt Count 9 L* Lymph % (Auto) [place] % (Auto) Lymph # 0.9 L Seg Neutrophils % 78.9 H Sodium Carbon Dioxide 19 L BUN Creatinine Glucose 143 H 133 H POC Glucose TIBC Ferritin Total Bilirubin Direct Bilirubin AST Lactate Dehydrogenase Troponin T LDL Cholesterol Direct 11/12/19 11/12/19 11/12/19 05:54 10:23 10:23 RBC Hgb Hct MCHC RDW Plt Count Lymph % (Auto) [place] % (Auto) Lymph # Seg Neutrophils % Sodium Carbon Dioxide BUN Creatinine Glucose POC Glucose TIBC 240 L Ferritin 911.5 H Total Bilirubin Direct Bilirubin AST Lactate Dehydrogenase Troponin T 0.246 H* D LDL Cholesterol Direct 11/13/19 11/13/19 11/13/19 02:26 08:22 08:22 RBC 2.96 L Hgb 9.5 L Hct 28.1 L MCHC RDW 16.6 H Plt Count 13 L* Lymph % (Auto) [place] % (Auto) Lymph # Seg Neutrophils % Sodium Carbon Dioxide 19 L BUN 19 H Creatinine Glucose 101 H POC Glucose 112 H TIBC Ferritin Total Bilirubin Direct Bilirubin AST Lactate Dehydrogenase Troponin T LDL Cholesterol Direct
[2019-11-13 14:36] LABS: Albumin 4.2 g/dL (3.9-5); Bilirubin,Direct 0.4 mg/dL (0-0.2)
[2019-11-13] MEDS: oxyCODONE /ACETAMINOPHEN 5-325MG TAB PO PRN ×2 (15:12→20:48)
[2019-11-13] MEDS: VERAPAMIL 80 MG TAB PO SCH ×2 (15:12→23:00)
--- NOTE | 2019-11-13 15:15 | Progress Note ---
Assessment and Plan Assessment and plan: Patient is a 54-year-old female presenting to the emergency room today complaining of persistent headache. Headache is said to be frontal. She denies any fever or chills and denies any neck pain however she has been having some blurry vision and occasional double vision. She denies any fall and denies any head injury, denies any slurred speech or weakness in the extremities. Patient denies any chest pain but has had occasional shortness of breath especially on exertion, she also indicates that she had an episode of bloody urine. She denies any dysuria and denies any fever or chills Work-up in the emergency room did not reveal any significant findings on the CT of the head however patient had an elevated troponin and also had a low platelet count. EKG was within normal limits. She was given a dose of Decadron IV. 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 * During the stay patient continues to have intermittent recurrent blurry vision and headaches but subsiding in intensity. * Repeat imaging study this November 13, 2019 g as we are unable to get an MRI . Noncontrast CT head was negative. May need to repeat with contrast for further evaluation. Patient Problems (1) Headache, acute Current Visit: Yes Status: Acute Qualifiers: Headache type: post-traumatic Intractability: not intractable Qualified Code(s): G44.319 - Acute post-traumatic headache, not intractable Plan to address problem: Patient has received analgesic medication with improvement. Work-up so far has been negative. Neurology for evaluation and recommendation noted. We will also schedule for MRI of the brain. Discussed with neurology this could be secondary to lysis syndrome from serotonin in a patient with low platelets According to neurology "cross check of the CT from today careful check of areas that are typical for ptechael hemorrhage in ITP... definitely do not see small areas of bleed no no intracranial bleed or brain edema noted" (2) Non-STEMI (non-ST elevated myocardial infarction) Current Visit: Yes Status: Acute Plan to address problem: Patient has denied any chest pain. We will trend cardiac enzymes and monitor EKG. Cook Barbecue Input noted Continue on Low dose BB Patient not a candidate for Anticogulation due to Low plt (3) Thrombocytopenia Concerning for ITP Current Visit: Yes Status: Acute Plan to address problem: We will monitor CBC. We also monitor for bleeding. Patient had an episode of hematuria which has since resolved. Adhesion Tester was consulted by the ER physician and patient will be promptly evaluated. Patient has received a dose of Decadron in the emergency room. Will check LDH and bilirubin levels. Gammaglobulin may need to be held due to recurrent headaches and blurry vision during infusion. Nevertheless we will give a bolus of fluid as this sometimes will be helpful. Defer to agricultural equipment design engineer oncology for further directions. (4) DVT prophylaxis Current Visit: Yes Status: Acute Plan to address problem: Patient has been placed on sequential compression device. Will hold anticoagulation in view of the low platelet counts. (5) Full code status Current Visit: Yes Status: Acute Plan of care discussed with the the patinet and nursing staff. Patient still with debilitating headache although no phonophobia photophobia associated. History Interval history: Patient seen and examined this morning overnight patient reported to have recurrent severe headache with blurry vision still persisting this morning although intensity has decreased. Imaging study obtained last night was unrevealing. Hospitalist Physical - Physical exam Narrative exam: VITAL SIGNS: Reviewed. GENERAL: The patient appears normally developed, appears uncomfortable. Vital signs as documented. HEAD: No signs of head trauma. EYES: Pupils are equal. Extraocular motions intact. EARS: Hearing grossly intact. MOUTH: Oropharynx is normal. NECK: No adenopathy, no JVD. CHEST: Chest with clear breath sounds bilaterally. No wheezes, rales, or rhonchi. CARDIAC: Regular rate and rhythm. S1 and S2, without murmurs, gallops, or rubs. VASCULAR: No Edema. Peripheral pulses normal and equal in all extremities. ABDOMEN: Soft, non tender and non distended. No rebound or guarding, and no masses palpated. Bowel Sounds normal. MUSCULOSKELETAL: Good range of motion of all major joints. Extremities without clubbing, cyanosis or edema. NEUROLOGIC EXAM: Alert and oriented x 3 No focal sensory or strength deficits. Speech normal. Follows commands. PSYCHIATRIC: Mood normal. SKIN: detail exam as documented in skin assessment, no petechiae noted. - Constitutional Vitals: Temp Pulse Resp BP Pulse Ox 98.8 F 68 22 132/82 95 11/13/19 11:30 11/13/19 15:12 11/13/19 11:30 11/13/19 15:12 11/13/19 11:30 General appearance: Present: no acute distress, well-nourished Results - Labs CBC & Chem 7: 11/13/19 08:22 11/13/19 08:22 Labs: Laboratory Last Values WBC 7.3 K/mm3 (4.5-11.0) 11/13/19 08:22 RBC 2.96 M/mm3 (3.65-5.03) L 11/13/19 08:22 Hgb 9.5 gm/dl (10.1-14.3) L 11/13/19 08:22 Hct 28.1 % (30.3-42.9) L 11/13/19 08:22 MCV 95 fl (79-97) 11/13/19 08:22 MCH 32 pg (28-32) 11/13/19 08:22 MCHC 34 % (30-34) 11/13/19 08:22 RDW 16.6 % (13.2-15.2) H 11/13/19 08:22 Plt Count 13 K/mm3 (140-440) L* 11/13/19 08:22 Lymph % (Auto) 15.3 % (13.4-35.0) 11/12/19 05:54 [place] % (Auto) 5.6 % (0.0-7.3) 11/12/19 05:54 Eos % (Auto) 0.0 % (0.0-4.3) 11/12/19 05:54 Baso % (Auto) 0.2 % (0.0-1.8) 11/12/19 05:54 Lymph # 0.9 K/mm3 (1.2-5.4) L 11/12/19 05:54 [place] # 0.3 K/mm3 (0.0-0.8) 11/12/19 05:54 Eos # 0.0 K/mm3 (0.0-0.4) 11/12/19 05:54 Baso # 0.0 K/mm3 (0.0-0.1) 11/12/19 05:54 Seg Neutrophils % 78.9 % (40.0-70.0) H 11/12/19 05:54 Seg Neutrophils # 4.8 K/mm3 (1.8-7.7) 11/12/19 05:54 PT 14.5 Sec. (12.2-14.9) 11/12/19 05:54 INR 1.11 (0.87-1.13) 11/12/19 05:54 APTT 24.9 Sec. (24.2-36.6) 11/12/19 05:54 Sodium 142 mmol/L (137-145) 11/13/19 08:22 Potassium 4.2 mmol/L (3.6-5.0) 11/13/19 08:22 Chloride 107.0 mmol/L (98-107) 11/13/19 08:22 Carbon Dioxide 19 mmol/L (22-30) L 11/13/19 08:22 Anion Gap 20 mmol/L 11/13/19 08:22 BUN 19 mg/dL (7-17) H 11/13/19 08:22 Creatinine 0.8 mg/dL (0.7-1.2) 11/13/19 08:22 Estimated GFR > 60 ml/min 11/13/19 08:22 BUN/Creatinine Ratio 24 % 11/13/19 08:22 Glucose 101 mg/dL (65-100) H 11/13/19 08:22 POC Glucose 112 (70-105) H 11/13/19 02:26 Calcium 8.5 mg/dL (8.4-10.2) 11/13/19 08:22 Iron 143 ug/dL (37-170) 11/12/19 10:23 TIBC 240 mcg/dL (250-450) L 11/12/19 10:23 Ferritin 911.5 ng/mL (13.0-400.0) H 11/12/19 10:23 Total Bilirubin 2.70 mg/dL (0.1-1.2) H 11/13/19 08:22 Direct Bilirubin 0.4 mg/dL (0-0.2) H 11/13/19 08:22 Indirect Bilirubin 2.3 mg/dL 11/13/19 08:22 AST 61 units/L (5-40) H 11/13/19 08:22 ALT 49 units/L (7-56) 11/13/19 08:22 Alkaline Phosphatase 63 units/L (35-129) 11/13/19 08:22 Lactate Dehydrogenase 1022 units/L (91-180) H 11/11/19 23:24 Troponin T 0.246 ng/mL (0.00-0.029) H* D 11/12/19 05:54 NT-Pro-B Natriuret Pep 633.4 pg/mL (0-900) 11/11/19 19:31 Total Protein 7.0 g/dL (6.3-8.2) 11/13/19 08:22 Albumin 4.2 g/dL (3.9-5) 11/13/19 08:22 Albumin/Globulin Ratio 1.5 % 11/13/19 08:22 Triglycerides 105 mg/dL (2-149) 11/11/19 19:25 Cholesterol 185 mg/dL (50-199) 11/11/19 19:25 LDL Cholesterol Direct 132 mg/dL (50-130) H 11/11/19 19:25 HDL Cholesterol 46 mg/dL (40-59) 11/11/19 19:25 Cholesterol/HDL Ratio 4.02 % 11/11/19 19:25 Vitamin B12 701.6 pg/mL (211-911) 11/12/19 10:23 Folate > 20 ng/mL (7.3-26.0) 11/12/19 10:23 TSH 3.110 mlU/mL (0.270-4.200) 11/11/19 19:25 Urine Color Yellow (Yellow) 11/11/19 21: Urine Turbidity Clear (Clear) 11/11/19 21: Urine pH 7.0 (5.0-7.0) 11/11/19 21: Ur Specific [place] 1.008 (1.003-1.030) 11/11/19 21: Urine Protein <15 mg/dl mg/dL (Negative) 11/11/19 21: Urine Glucose (UA) Neg mg/dL (Negative) 11/11/19 21: Urine Ketones Neg mg/dL (Negative) 11/11/19 21: Urine Blood Mod (Negative) 11/11/19 21: Urine Nitrite Neg (Negative) 11/11/19 21: Urine Bilirubin Neg (Negative) 11/11/19: Urine Urobilinogen < 2.0 mg/dL (<2.0) 11/11/19 21: Ur Leukocyte Esterase Neg (Negative) 11/11/19 21:26 Urine WBC (Auto) 1.0 /HPF (0.0-6.0) 11/11/19 21:26 Urine RBC (Auto) 2.0 /HPF (0.0-6.0) 11/11/19 21:26 U Epithel Cells (Auto) 1.0 /HPF (0-13.0) 11/11/19 21:26 HIV 1&2 Antibody Rapid Non react (Non React) 11/12/19 10:23 HIV P24 Antigen Non react (Non React) 11/12/19 10:23 Active Medications - Current Medications Current Medications: Generic Name Dose Route Start Last Admin Trade Name Freq PRN Reason Stop Dose Admin Acetaminophen 650 mg 11/11/19 23:36 11/13/19 01:25 Tylenol PO 650 mg Q4H PRN Administration Pain MILD(1-3)/Fever >100.5/LEE Carvedilol 3.125 mg 11/12/19 22:00 11/13/19 11:01 Coreg PO 3.125 mg BID PRAVEEN Administration Sodium Chloride 1,000 mls @ 75 mls/hr 11/11/19 23:45 11/12/19 17:42 Nacl 0.9% 1000 Ml IV 75 mls/hr DIRECT PRAVEEN Administration Magnesium Hydroxide 30 ml 11/11/19 23:36 Milk Of Magnesia PO Q4H PRN Constipation Morphine Sulfate 2 mg 11/11/19 23:36 11/13/19 01:38 Morphine IV 2 mg Q4H PRN Administration Pain, Moderate (4-6) Ondansetron HCl 4 mg 11/13/19 13:17 Zofran IV Q4H PRN nausea Oxycodone/Acetaminophen 1 tab 11/13/19 12:00 11/13/19 15:12 Percocet 5/325 PO 1 tab Q6H PRN Administration Pain, Moderate (4-6) Pantoprazole Sodium 40 mg 11/12/19 10:00 11/13/19 10:32 Protonix PO 40 mg QDAY PRAVEEN Administration Prednisone 60 mg 11/12/19 10:00 11/13/19 11:02 Deltasone PO 11/17/19 23:59 60 mg QDAY PRAVEEN Administration Sodium Chloride 10 ml 11/12/19 10:00 11/13/19 10:44 Sodium Chloride Flush Syringe 10 Ml IV 10 ml BID PRAVEEN Administration Sodium Chloride 10 ml 11/11/19 23:36 11/12/19 02:50 Sodium Chloride Flush Syringe 10 Ml IV 10 ml PRN PRN Administration LINE FLUSH Verapamil HCl 40 mg 11/13/19 14:00 11/13/19 15:12 Calan PO 40 mg Q8HR PRAVEEN Administration
[2019-11-13] MEDS ORDERED: GLY IV ONE (16:00)
[2019-11-13] MEDS ORDERED: IMMUNE GLOBULIN IV ONE (16:00)
[2019-11-13] MEDS ORDERED: IGA OV50 IV ONE (16:00)
[2019-11-13] MEDS ORDERED: IMMUN GLOB IV ONE (16:00)
[2019-11-13] MEDS ORDERED: [UNRECOGNIZED DRUG - OTHER] IV ONE (16:00)
--- NOTE | 2019-11-13 16:18 | Cat Scan Report ---
CT head/brain wo/w con INDICATION / CLINICAL INFORMATION: 54 years Female; blurry vision. TECHNIQUE: Routine CT head with and without contrast. All CT scans at this location are performed usi ng CT dose reduction for TAHIRA by means of automated exposure control. COMPARISON: 11/13 and 11/11/2027. FINDINGS: BRAIN / INTRACRANIAL CONTENTS: There are small areas of peripheral decreased attenuation in the infer ior parietal lobule posteriorly on the right. Very small branch MCA infarcts may be present. These fi ndings are much more apparent when compared with prior exams. No associated enhancement seen followin g contrast. Otherwise, no acute hemorrhage, mass effect, midline shift, hydrocephalus, or acute, large territori al infarct. No chronic infarct or atrophy appreciated. There may be minimal, nonspecific white matter disease. No other signs of abnormal enhancement seen following contrast administration. CRANIOCERVICAL JUNCTION: No significant abnormality. ORBITS: No significant abnormality of visualized orbits. SINUSES / MASTOIDS: No significant abnormality the visualized paranasal sinuses or mastoid air cells. ADDITIONAL FINDINGS: None. IMPRESSION: 1. Subtle areas of decreased attenuation peripherally in the posterior right parietal lobe, which cou ld represent small branch MCA infarcts. Diffusion imaging by MRI may be helpful for further evaluatio n, if clinically warranted. 2. Otherwise, no focal mass, hemorrhage, hydrocephalus, or large infarct appreciated. Signer Name: Hero López MD, III Signed: 11/13/2019 4:13 PM Workstation Name: [id number]
[2019-11-13] MEDS ORDERED: CYCLOBENZAPRINE 10 MG TAB PO ONE (20:00)
[2019-11-13] MEDS: HYDROmorphone 1 MG/1 ML INJ IV PRN (20:57)
[2019-11-14] MEDS: HYDROmorphone 1 MG/1 ML INJ IV PRN ×4 (00:09→18:51)
[2019-11-14] MEDS: VERAPAMIL 80 MG TAB PO SCH ×3 (06:07→22:51)
--- NOTE | 2019-11-14 07:07 | Hem/Onc Progress Note ---
Assessment and Plan 1. Thrombocytopenia. This could be immune thrombocytopenic purpura. deficiency investigations, human immunodeficiency virus testing. 2. LDH elevated. This may be secondary to LFT abnormalities. 3. High indirect bilirubin, etiology unclear. 4. History of marijuana usage. 5. History of recent malaise until this episode. This may have a role in the low platelets. 6. 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 the patient on prednisone and proton pump inhibitor and follow the patient. 7. History of ureteral damage. 8. History of hysterectomy. On IVIG trial - day 3 today - will await CBC pt on steroids and PPI - b12 - folate normal day 2 started today AM will do labs today MRI head planned - Patient Problems (1) Thrombocytopenia Current Visit: Yes Status: Acute Subjective Date of service: 11/14/19 Principal diagnosis: LOW PLT Interval history: h/o headache due MRI head Objective - Exam Narrative Exam: Pain - none General appearance - alert Performance status limited self care Eyes - no icterus ENT - no bleeding LNs cervical not palpable Neck - no LN Respiratory Normal - on o2 Breath sounds - CTA anteriorly CVS S1 S2 + Extremities nil acute General GI Soft Rectal deferred female - deferred Skin warm Musculoskeletal - moving limbs Neurologically alert awake - Constitutional Vitals: Last Vital Signs Temp 98.3 F 11/14/19 04:00 Pulse 76 11/14/19 06:07 Resp 20 11/14/19 04:00 BP 123/76 11/14/19 06:07 Pulse Ox 94 11/14/19 04:00 - Labs Lab Results: Laboratory Results - last 24 hr 11/13/19 11/13/19 11/13/19 08:22 08:22 08:22 WBC 7.3 RBC 2.96 L Hgb 9.5 L Hct 28.1 L MCV 95 MCH 32 MCHC 34 RDW 16.6 H Plt Count 13 L* Sodium 142 Potassium 4.2 Chloride 107.0 Carbon Dioxide 19 L Anion Gap 20 BUN 19 H Creatinine 0.8 Estimated GFR > 60 BUN/Creatinine Ratio 24 Glucose 101 H Calcium 8.5 Total Bilirubin 2.70 H Direct Bilirubin 0.4 H Indirect Bilirubin 2.3 AST 61 H ALT 49 Alkaline Phosphatase 63 Total Protein 7.0 Albumin 4.2 Albumin/Globulin Ratio 1.5 Medications & Allergies - Medications Allergies/Adverse Reactions: Allergies No Known Allergies Allergy (Unverified 08/03/13 21:24) Home Medications: Home Medications Medication Instructions Recorded Confirmed Last Taken Type No Known Home Medications [No 11/12/19 11/12/19 Unknown History Reported Home Medications] Active Medications: Generic Name Dose Route Start Last Admin Trade Name Freq PRN Reason Stop Dose Admin Acetaminophen 650 mg 11/11/19 23:36 11/13/19 01:25 Tylenol PO 650 mg Q4H PRN Administration Pain MILD(1-3)/Fever >100.5/LEE Carvedilol 3.125 mg 11/12/19 22:00 11/13/19 22:59 Coreg PO 3.125 mg BID PRAVEEN Administration Hydromorphone HCl 0.5 mg 11/13/19 18:51 11/14/19 00:09 Dilaudid IV 0.5 mg Q3H PRN Administration Pain , Severe (7-10) Sodium Chloride 1,000 mls @ 75 mls/hr 11/11/19 23:45 11/12/19 17:42 Nacl 0.9% 1000 Ml IV 75 mls/hr DIRECT PRAVEEN Administration Magnesium Hydroxide 30 ml 11/11/19 23:36 Milk Of Magnesia PO Q4H PRN Constipation Morphine Sulfate 2 mg 11/11/19 23:36 11/13/19 01:38 Morphine IV 2 mg Q4H PRN Administration Pain, Moderate (4-6) Ondansetron HCl 4 mg 11/13/19 13:17 Zofran IV Q4H PRN nausea Oxycodone/Acetaminophen 1 tab 11/13/19 12:00 11/13/19 20:48 Percocet 5/325 PO 1 tab Q6H PRN Administration Pain, Moderate (4-6) Pantoprazole Sodium 40 mg 11/12/19 10:00 11/13/19 10:32 Protonix PO 40 mg QDAY PRAVEEN Administration Prednisone 60 mg 11/12/19 10:00 11/13/19 11:02 Deltasone PO 11/17/19 23:59 60 mg QDAY PRAVEEN Administration Sodium Chloride 10 ml 11/12/19 10:00 11/13/19 23:08 Sodium Chloride Flush Syringe 10 Ml IV 10 ml BID PRAVEEN Administration Sodium Chloride 10 ml 11/11/19 23:36 11/12/19 02:50 Sodium Chloride Flush Syringe 10 Ml IV 10 ml PRN PRN Administration LINE FLUSH Verapamil HCl 40 mg 11/13/19 14:00 11/14/19 06:07 Calan PO 40 mg Q8HR PRAVEEN Administration
--- NOTE | 2019-11-14 08:12 | Progress Note ---
Subjective Date of service: 11/14/19 Principal diagnosis: LOW PLT Interval history: p'an to check the MRI today the last CT prersonally checked carefully and is normal Heme note checked suspect one issue was medication induced sedation see event note Objective - Vital Sign Vital Signs - 12hr 11/13/19 11/13/19 11/13/19 21:38 22:59 23:00 Temperature 98.4 F Pulse Rate 84 84 84 Respiratory 18 Rate Blood Pressure 125/85 125/85 125/85 O2 Sat by Pulse 99 85 Oximetry 11/14/19 11/14/19 04:00 06:07 Temperature 98.3 F Pulse Rate 75 76 Respiratory 20 Rate Blood Pressure 123/76 123/76 O2 Sat by Pulse 94 Oximetry - Laboratory Findings CBC and BMP: 11/13/19 08:22 11/13/19 08:22 Abnormal Lab Findings: Abnormal Labs 11/11/19 11/11/19 11/11/19 19:25 19:25 20:55 RBC Hgb Hct MCHC 35 H RDW 15.8 H Plt Count 14 L* Lymph % (Auto) [place] % (Auto) 9.9 H Lymph # Seg Neutrophils % Sodium 136 L Carbon Dioxide 19 L BUN Creatinine 0.6 L Glucose 101 H POC Glucose TIBC Ferritin Total Bilirubin 3.20 H Direct Bilirubin AST 62 H Lactate Dehydrogenase Troponin T 0.419 H* LDL Cholesterol Direct 132 H 11/11/19 11/11/19 11/11/19 22:38 23:24 23:59 RBC 3.47 L Hgb Hct MCHC 35 H RDW 15.7 H Plt Count 12 L* Lymph % (Auto) 13.0 L [place] % (Auto) Lymph # 0.9 L Seg Neutrophils % 83.5 H Sodium Carbon Dioxide BUN Creatinine Glucose POC Glucose TIBC Ferritin Total Bilirubin 3.20 H Direct Bilirubin 0.5 H AST Lactate Dehydrogenase 1022 H Troponin T 0.418 H* LDL Cholesterol Direct 11/11/19 11/12/19 11/12/19 23:59 05:54 05:54 RBC 3.37 L Hgb Hct MCHC 35 H RDW 15.7 H Plt Count 9 L* Lymph % (Auto) [place] % (Auto) Lymph # 0.9 L Seg Neutrophils % 78.9 H Sodium Carbon Dioxide 19 L BUN Creatinine Glucose 143 H 133 H POC Glucose TIBC Ferritin Total Bilirubin Direct Bilirubin AST Lactate Dehydrogenase Troponin T LDL Cholesterol Direct 11/12/19 11/12/19 11/12/19 05:54 10:23 10:23 RBC Hgb Hct MCHC RDW Plt Count Lymph % (Auto) [place] % (Auto) Lymph # Seg Neutrophils % Sodium Carbon Dioxide BUN Creatinine Glucose POC Glucose TIBC 240 L Ferritin 911.5 H Total Bilirubin Direct Bilirubin AST Lactate Dehydrogenase Troponin T 0.246 H* D LDL Cholesterol Direct 11/13/19 11/13/19 11/13/19 02:26 08:22 08:22 RBC 2.96 L Hgb 9.5 L Hct 28.1 L MCHC RDW 16.6 H Plt Count 13 L* Lymph % (Auto) [place] % (Auto) Lymph # Seg Neutrophils % Sodium Carbon Dioxide 19 L BUN 19 H Creatinine Glucose 101 H POC Glucose 112 H TIBC Ferritin Total Bilirubin Direct Bilirubin AST Lactate Dehydrogenase Troponin T LDL Cholesterol Direct 11/13/19 08:22 RBC Hgb Hct MCHC RDW Plt Count Lymph % (Auto) [place] % (Auto) Lymph # Seg Neutrophils % Sodium Carbon Dioxide BUN Creatinine Glucose POC Glucose TIBC Ferritin Total Bilirubin 2.70 H Direct Bilirubin 0.4 H AST 61 H Lactate Dehydrogenase Troponin T LDL Cholesterol Direct
[2019-11-14] MEDS: oxyCODONE /ACETAMINOPHEN 5-325MG TAB PO PRN ×2 (09:48→22:55)
[2019-11-14] MEDS: PANTOPRAZOLE 40 MG TAB PO SCH (09:49)
[2019-11-14] MEDS: predniSONE 20 MG TAB PO SCH (09:49)
[2019-11-14 09:55] LABS: Basophils % (Auto) 0.4 % (0.0-1.8); Eosinophils % (Auto) 0.3 % (0.0-4.3); Hematocrit 25.6 % (30.3-42.9); Hemoglobin 8.9 gm/dl (10.1-14.3); Lymphocytes # (Auto) 2.3 K/mm3 (1.2-5.4); Mean Corpuscular HGB Conc 35 % (30-34); Mean Corpuscular Volume 94 fl (79-97); Monocytes # (Auto) 0.7 K/mm3 (0.0-0.8); Monocytes % (Auto) 9.4 % (0.0-7.3); Red Blood Count 2.72 M/mm3 (3.65-5.03)
[2019-11-14] MEDS: carvediloL 3.125 MG TAB PO SCH ×2 (09:55→22:49)
[2019-11-14 10:07] LABS: Platelet Count 14 K/mm3 (140-440)
[2019-11-14 10:17] LABS: Alanine Aminotransferase 89 units/L (7-56); Albumin 3.8 g/dL (3.9-5); BUN/Creatinine Ratio 26; Blood Urea Nitrogen 18 mg/dL (7-17); Calcium 8.5 mg/dL (8.4-10.2); Hemolysis Index 11
--- NOTE | 2019-11-14 10:55 | Progress Note ---
Assessment and Plan Patient's echocardiogram shows normally functioning without significant regurgitations patient's abnormal troponin will treat medically at this time in view of low platelets not a candidate for anticoagulation in view of no chest pain shortness of breath will hold off any ischemic workup at this time patient is being treated for thrombocytopenia The patient has been seen in conjunction with Dr. Waldo De La Vega who agrees with the assessment and plan of care. - Patient Problems (1) Anemia Current Visit: Yes Status: Acute (2) Thrombocytopenia Current Visit: Yes Status: Acute (3) Idiopathic thrombocytopenic purpura (ITP) Current Visit: Yes Status: Suspected (4) TIA (transient ischemic attack) Current Visit: Yes Status: Suspected (5) Non-STEMI (non-ST elevated myocardial infarction) Current Visit: Yes Status: Acute Plan to address problem: suspect type II Subjective Date of service: 11/14/19 Principal diagnosis: LOW PLT Interval history: pt resting in bed, no current cardiac complaints. daughter at bedside. in SR/SB on tele, HR 40s overnight. Objective Last Vital Signs Temp 98.3 F 11/14/19 04:00 Pulse 76 11/14/19 06:07 Resp 20 11/14/19 04:00 BP 139/86 11/14/19 09:55 Pulse Ox 94 11/14/19 04:00 - Physical Examination General: Appears Well HEENT: Positive: PERRL, Mucus Membranes Moist Neck: Positive: neck supple, trachea midline Cardiac: Positive: Reg Rate and Rhythm, S1/S2 Lungs: Positive: Decreased Breath Sounds Neuro: Positive: Grossly Intact Abdomen: Positive: Soft, Active Bowel Sounds. Negative: Tender, Distended Skin: Positive: Clear Incision: Cardiac Cath Site Musculoskeletal: No Pain, Normal Range of Motion Extremities: Present: normal. Absent: edema - Labs and Meds Cardiac Enzymes 11/13/19 11/14/19 Range/Units 08:22 09:08 AST 61 H 72 H (5-40) units/L CBC 11/14/19 Range/Units 09:08 WBC 7.6 (4.5-11.0) K/mm3 RBC 2.72 L (3.65-5.03) M/mm3 Hgb 8.9 L (10.1-14.3) gm/dl Hct 25.6 L (30.3-42.9) % Plt Count 14 L* (140-440) K/mm3 Lymph # 2.3 (1.2-5.4) K/mm3 [place] # 0.7 (0.0-0.8) K/mm3 Eos # 0.0 (0.0-0.4) K/mm3 Baso # 0.0 (0.0-0.1) K/mm3 Comprehensive Metabolic Panel 11/13/19 11/14/19 Range/Units 08:22 09:08 Sodium 141 (137-145) mmol/L Potassium 3.5 L (3.6-5.0) mmol/L Chloride 105.4 (98-107) mmol/L Carbon Dioxide 21 L (22-30) mmol/L BUN 18 H (7-17) mg/dL Creatinine 0.7 (0.7-1.2) mg/dL Glucose 108 H (65-100) mg/dL Calcium 8.5 (8.4-10.2) mg/dL Direct Bilirubin 0.4 H (0-0.2) mg/dL Indirect Bilirubin 2.3 mg/dL AST 61 H 72 H (5-40) units/L ALT 49 89 H (7-56) units/L Alkaline Phosphatase 63 65 (35-129) units/L Total Protein 7.0 7.5 (6.3-8.2) g/dL Albumin 4.2 3.8 L (3.9-5) g/dL - Imaging and Cardiology Echo: image reviewed (normal lv function, mild tr and no as or mr)
--- NOTE | 2019-11-14 13:47 | Magnetic Resonance Report ---
Unenhanced and contrast-enhanced MR scan of the brain: INDICATION / CLINICAL INFORMATION: Blurred vision; headaches; dizziness TECHNIQUE: Multiplanar, multisequence MR images of the brain were noncontrast MRI brain normal brain MR obtained before and after 17 mL of MultiHance COMPARISON: CT scan of the head from 11/13/2019 and 11/11/2019 FINDINGS: BRAIN / INTRACRANIAL CONTENTS: This is an abnormal MRI scan. Subacute infarction is seen in the right temporal occipital border zone , more than 8 hours old but less than 3 days old. Ischemic changes are also seen in the left occipita l lobe without diffusion changes. This infarction is probably more than several days old but less jazmín n 2 weeks old. In the gradient echo images, hemorrhagic changes are seen. In the contrast enhanced series, subtle parenchymal enhancement is seen bilaterally. I do not see int ravascular or meningeal enhancement. Volume loss is seen in the cerebellar vermis. Brainstem is normal. There may be subtle chronic ischemic changes in the right corpus stratum.. Craniocervical junction: No significant abnormality Vascular flow-voids: Normal Orbits and paranasal sinuses: Normal CRANIOCERVICAL JUNCTION: No significant abnormality. VASCULAR FLOW-VOIDS: No significant abnormality. ORBITS: No significant abnormality of visualized orbits. SINUSES / MASTOIDS: No significant abnormality of visualized sinuses and mastoid air cells. ADDITIONAL FINDINGS: None. IMPRESSION: Subacute infarction in the right occipital lobe Infarction in the left occipital lobe ligament. Base but less than 2 weeks old No hemorrhagic changes Signer Name: Darien Gray MD Signed: 11/14/2019 1:43 PM Workstation Name: [id number]
[2019-11-14] MEDS: SODIUM CHLORIDE 0.9% 1000 ML 1,000 ML IV SCH (14:48)
--- NOTE | 2019-11-14 15:28 | Progress Note ---
Assessment and Plan Assessment and plan: Patient is a 54-year-old female presenting to the emergency room today complaining of persistent headache. Headache is said to be frontal. She denies any fever or chills and denies any neck pain however she has been having some blurry vision and occasional double vision. She denies any fall and denies any head injury, denies any slurred speech or weakness in the extremities. Patient denies any chest pain but has had occasional shortness of breath especially on exertion, she also indicates that she had an episode of bloody urine. She denies any dysuria and denies any fever or chills Work-up in the emergency room did not reveal any significant findings on the CT of the head however patient had an elevated troponin and also had a low platelet count. EKG was within normal limits. She was given a dose of Decadron IV. 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 * During the stay patient continues to have intermittent recurrent blurry vision and headaches but subsiding in intensity. * Repeat imaging study this November 13, 2019 g as we are unable to get an MRI . Noncontrast CT head was negative. May need to repeat with contrast for further evaluation. Patient Problems (1) Headache, acute Current Visit: Yes Status: Acute Qualifiers: Headache type: post-traumatic Intractability: not intractable Qualified Code(s): G44.319 - Acute post-traumatic headache, not intractable Plan to address problem: Patient has received analgesic medication with improvement. Work-up so far has been negative. Neurology for evaluation and recommendation noted. We will also schedule for MRI of the brain. Discussed with neurology this could be secondary to lysis syndrome from serotonin in a patient with low platelets According to neurology "cross check of the CT from today careful check of areas that are typical for ptechael hemorrhage in ITP... definitely do not see small areas of bleed no no intracranial bleed or brain edema noted" (2) Thrombocytopenia Concerning for ITP Current Visit: Yes Status: Acute Plan to address problem: We will monitor CBC. We also monitor for bleeding. Patient had an episode of hematuria which has since resolved. Assembled [employer] Repairer was consulted by the ER physician and patient will be promptly evaluated. Patient has received a dose of Decadron in the emergency room. Will check LDH and bilirubin levels. Gammaglobulin may need to be held due to recurrent headaches and blurry vision during infusion. Nevertheless we will give a bolus of fluid as this sometimes will be helpful. Defer to line builder oncology for further directions. (4) Non-STEMI (non-ST elevated myocardial infarction) Current Visit: Yes Status: Acute Plan to address problem: Patient has denied any chest pain. We will trend cardiac enzymes and monitor EKG. Edge Inker Input noted Continue on Low dose BB Patient not a candidate for Anticogulation due to Low plt (3) DVT prophylaxis Current Visit: Yes Status: Acute Plan to address problem: Patient has been placed on sequential compression device. Will hold anticoagulation in view of the low platelet counts. (5) Full code status Current Visit: Yes Status: Acute Plan of care discussed with the the patinet and nursing staff. Patient still with debilitating headache although no phonophobia photophobia associated. unfortuately the patient hads not had a diakysis [facility]mber [facility] History Interval history: Patient seen and examined this morning overnight patient reported to have recurrent severe headache with blurry vision still persisting this morning although intensity has decreased. still with lethargy intermittently. Hospitalist Physical - Physical exam Narrative exam: VITAL SIGNS: Reviewed. GENERAL: The patient appears normally developed, appears uncomfortable. Vital signs as documented. HEAD: No signs of head trauma. EYES: Pupils are equal. Extraocular motions intact. EARS: Hearing grossly intact. MOUTH: Oropharynx is normal. NECK: No adenopathy, no JVD. CHEST: Chest with clear breath sounds bilaterally. No wheezes, rales, or rhonchi. CARDIAC: Regular rate and rhythm. S1 and S2, without murmurs, gallops, or rubs. VASCULAR: No Edema. Peripheral pulses normal and equal in all extremities. ABDOMEN: Soft, non tender and non distended. No rebound or guarding, and no masses palpated. Bowel Sounds normal. MUSCULOSKELETAL: Good range of motion of all major joints. Extremities without clubbing, cyanosis or edema. NEUROLOGIC EXAM: Alert and oriented x 3 No focal sensory or strength deficits. Speech normal. Follows commands. PSYCHIATRIC: Mood normal. SKIN: detail exam as documented in skin assessment, no petechiae noted. - Constitutional Vitals: Temp Pulse Resp BP Pulse Ox 98.4 F 70 18 134/73 94 11/14/19 12:36 11/14/19 14:50 11/14/19 12:36 11/14/19 14:50 11/14/19 12:36 General appearance: Present: no acute distress, well-nourished Results - Labs CBC & Chem 7: 11/14/19 09:08 11/14/19 09:08 Labs: Laboratory Last Values WBC 7.6 K/mm3 (4.5-11.0) 11/14/19 09:08 RBC 2.72 M/mm3 (3.65-5.03) L 11/14/19 09:08 Hgb 8.9 gm/dl (10.1-14.3) L 11/14/19 09:08 Hct 25.6 % (30.3-42.9) L 11/14/19 09:08 MCV 94 fl (79-97) 11/14/19 09:08 MCH 33 pg (28-32) H 11/14/19 09:08 MCHC 35 % (30-34) H 11/14/19 09:08 RDW 17.0 % (13.2-15.2) H 11/14/19 09:08 Plt Count 14 K/mm3 (140-440) L* 11/14/19 09:08 Lymph % (Auto) 31.0 % (13.4-35.0) 11/14/19 09:08 [place] % (Auto) 9.4 % (0.0-7.3) H 11/14/19 09:08 Eos % (Auto) 0.3 % (0.0-4.3) 11/14/19 09:08 Baso % (Auto) 0.4 % (0.0-1.8) 11/14/19 09:08 Lymph # 2.3 K/mm3 (1.2-5.4) 11/14/19 09:08 [place] # 0.7 K/mm3 (0.0-0.8) 11/14/19 09:08 Eos # 0.0 K/mm3 (0.0-0.4) 11/14/19 09:08 Baso # 0.0 K/mm3 (0.0-0.1) 11/14/19 09:08 Add Manual Diff Complete 11/14/19 09:08 Seg Neutrophils % 58.9 % (40.0-70.0) 11/14/19 09:08 Seg Neutrophils # 4.5 K/mm3 (1.8-7.7) 11/14/19 09:08 PT 14.5 Sec. (12.2-14.9) 11/12/19 05:54 INR 1.11 (0.87-1.13) 11/12/19 05:54 APTT 24.9 Sec. (24.2-36.6) 11/12/19 05:54 Sodium 141 mmol/L (137-145) 11/14/19 09:08 Potassium 3.5 mmol/L (3.6-5.0) L 11/14/19 09:08 Chloride 105.4 mmol/L (98-107) 11/14/19 09:08 Carbon Dioxide 21 mmol/L (22-30) L 11/14/19 09:08 Anion Gap 18 mmol/L 11/14/19 09:08 BUN 18 mg/dL (7-17) H 11/14/19 09:08 Creatinine 0.7 mg/dL (0.7-1.2) 11/14/19 09:08 Estimated GFR > 60 ml/min 11/14/19 09:08 BUN/Creatinine Ratio 26 % 11/14/19 09:08 Glucose 108 mg/dL (65-100) H 11/14/19 09:08 POC Glucose 112 (70-105) H 11/13/19 02:26 Calcium 8.5 mg/dL (8.4-10.2) 11/14/19 09:08 Iron 143 ug/dL (37-170) 11/12/19 10:23 TIBC 240 mcg/dL (250-450) L 11/12/19 10:23 Ferritin 911.5 ng/mL (13.0-400.0) H 11/12/19 10:23 Total Bilirubin 3.00 mg/dL (0.1-1.2) H 11/14/19 09:08 Direct Bilirubin 0.4 mg/dL (0-0.2) H 11/13/19 08:22 Indirect Bilirubin 2.3 mg/dL 11/13/19 08:22 AST 72 units/L (5-40) H 11/14/19 09:08 ALT 89 units/L (7-56) H 11/14/19 09:08 Alkaline Phosphatase 65 units/L (35-129) 11/14/19 09:08 Lactate Dehydrogenase 1022 units/L (91-180) H 11/11/19 23:24 Troponin T 0.246 ng/mL (0.00-0.029) H* D 11/12/19 05:54 NT-Pro-B Natriuret Pep 633.4 pg/mL (0-900) 11/11/19 19:31 Total Protein 7.5 g/dL (6.3-8.2) 11/14/19 09:08 Albumin 3.8 g/dL (3.9-5) L 11/14/19 09:08 Albumin/Globulin Ratio 1.0 % 11/14/19 09:08 Triglycerides 105 mg/dL (2-149) 11/11/19 19:25 Cholesterol 185 mg/dL (50-199) 11/11/19 19:25 LDL Cholesterol Direct 132 mg/dL (50-130) H 11/11/19 19:25 HDL Cholesterol 46 mg/dL (40-59) 11/11/19 19:25 Cholesterol/HDL Ratio 4.02 % 11/11/19 19:25 Vitamin B12 701.6 pg/mL (211-911) 11/12/19 10:23 Folate > 20 ng/mL (7.3-26.0) 11/12/19 10:23 TSH 3.110 mlU/mL (0.270-4.200) 11/11/19 19:25 Urine Color Yellow (Yellow) 11/11/19 21:26 Urine Turbidity Clear (Clear) 11/11/19 21: Urine pH 7.0 (5.0-7.0) 11/11/19 21:26 Ur Specific [place] 1.008 (1.003-1.030) 11/11/19 21: Urine Protein <15 mg/dl mg/dL (Negative) 11/11/19 21: Urine Glucose (UA) Neg mg/dL (Negative) 11/11/19 21: Urine Ketones Neg mg/dL (Negative) 11/11/19 21: Urine Blood Mod (Negative) 11/11/19 21: Urine Nitrite Neg (Negative) 11/11/19 21: Urine Bilirubin Neg (Negative) 11/11/19 21: Urine Urobilinogen < 2.0 mg/dL (<2.0) 11/11/19 21:26 Ur Leukocyte Esterase Neg (Negative) 11/11/19 21:26 Urine WBC (Auto) 1.0 /HPF (0.0-6.0) 11/11/19 21:26 Urine RBC (Auto) 2.0 /HPF (0.0-6.0) 11/11/19 21:26 U Epithel Cells (Auto) 1.0 /HPF (0-13.0) 11/11/19 21:26 HIV 1&2 Antibody Rapid Non react (Non React) 11/12/19 10:23 HIV P24 Antigen Non react (Non React) 11/12/19 10:23 Active Medications - Current Medications Current Medications: Generic Name Dose Route Start Last Admin Trade Name Freq PRN Reason Stop Dose Admin Acetaminophen 650 mg 11/11/19 23:36 11/13/19 01:25 Tylenol PO 650 mg Q4H PRN Administration Pain MILD(1-3)/Fever >100.5/LEE Carvedilol 3.125 mg 11/12/19 22:00 11/14/19 09:55 Coreg PO 3.125 mg BID PRAVEEN Administration Hydromorphone HCl 0.5 mg 11/13/19 18:51 11/14/19 10:30 Dilaudid IV 0.5 mg Q3H PRN Administration Pain , Severe (7-10) Sodium Chloride 1,000 mls @ 75 mls/hr 11/11/19 23:45 11/14/19 14:48 Nacl 0.9% 1000 Ml IV 75 mls/hr DIRECT PRAVEEN Administration Magnesium Hydroxide 30 ml 11/11/19 23:36 Milk Of Magnesia PO Q4H PRN Constipation Morphine Sulfate 2 mg 11/11/19 23:36 11/13/19 01:38 Morphine IV 2 mg Q4H PRN Administration Pain, Moderate (4-6) Ondansetron HCl 4 mg 11/13/19 13:17 11/14/19 07:54 Zofran IV 4 mg Q4H PRN Administration nausea Oxycodone/Acetaminophen 1 tab 11/13/19 12:00 11/14/19 09:48 Percocet 5/325 PO 1 tab Q6H PRN Administration Pain, Moderate (4-6) Pantoprazole Sodium 40 mg 11/12/19 10:00 11/14/19 09:49 Protonix PO 40 mg QDAY PRAVEEN Administration Prednisone 60 mg 11/12/19 10:00 11/14/19 09:49 Deltasone PO 11/17/19 23:59 60 mg QDAY PRAVEEN Administration Sodium Chloride 10 ml 11/12/19 10:00 11/14/19 10:06 Sodium Chloride Flush Syringe 10 Ml IV 10 ml BID PRAVEEN Administration Sodium Chloride 10 ml 11/11/19 23:36 11/12/19 02:50 Sodium Chloride Flush Syringe 10 Ml IV 10 ml PRN PRN Administration LINE FLUSH Verapamil HCl 40 mg 11/13/19 14:00 11/14/19 14:50 Calan PO Not Given Q8HR PRAVEEN
[2019-11-15] MEDS: VERAPAMIL 80 MG TAB PO SCH ×3 (06:03→23:02)
--- NOTE | 2019-11-15 07:47 | Hem/Onc Progress Note ---
Assessment and Plan 1. Thrombocytopenia. This could be immune thrombocytopenic purpura. deficiency investigations, human immunodeficiency virus testing. 2. LDH elevated. This may be secondary to LFT abnormalities. 3. High indirect bilirubin, etiology unclear. 4. History of marijuana usage. 5. History of recent malaise until this episode. This may have a role in the low platelets. 6. 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 the patient was started on prednisone and proton pump inhibitor and follow the patient. 7. History of ureteral damage. 8. History of hysterectomy. s/p 1 and half day of IVIG trial - stopped due to headache MRI brain done agitation - ? cause ? steroid psychosis - will hold and follow - Patient Problems (1) Thrombocytopenia Current Visit: Yes Status: Acute Subjective Date of service: 11/15/19 Principal diagnosis: ITP Interval history: headache - confusion Objective - Exam Narrative Exam: Pain - none General appearance - alert Performance status limited self care Eyes - no icterus ENT - no bleeding LNs cervical not palpable Neck - no LN Respiratory Normal - on o2 Breath sounds - CTA anteriorly CVS S1 S2 + Extremities nil acute General GI Soft Rectal deferred female - deferred Skin warm Musculoskeletal - moving limbs Neurologically awake agitated - Constitutional Vitals: Last Vital Signs Temp 98.3 F 11/15/19 05:01 Pulse 82 11/15/19 05:01 Resp 20 11/15/19 05:01 BP 137/79 11/15/19 05:01 Pulse Ox 97 11/15/19 05:01 - Labs Lab Results: Laboratory Results - last 24 hr 11/14/19 11/14/19 11/14/19 09:08 09:08 16:15 WBC 7.6 RBC 2.72 L Hgb 8.9 L Hct 25.6 L MCV 94 MCH 33 H MCHC 35 H RDW 17.0 H Plt Count 14 L* Lymph % (Auto) 31.0 [place] % (Auto) 9.4 H Eos % (Auto) 0.3 Baso % (Auto) 0.4 Lymph # 2.3 [place] # 0.7 Eos # 0.0 Baso # 0.0 Add Manual Diff Complete Seg Neutrophils % 58.9 Seg Neutrophils # 4.5 Sodium 141 Potassium 3.5 L Chloride 105.4 Carbon Dioxide 21 L Anion Gap 18 BUN 18 H Creatinine 0.7 Estimated GFR > 60 BUN/Creatinine Ratio 26 Glucose 108 H Calcium 8.5 Total Bilirubin 3.00 H AST 72 H ALT 89 H Alkaline Phosphatase 65 Total Protein 7.5 Albumin 3.8 L Albumin/Globulin Ratio 1.0 Rheumatoid Factor < 10 Medications & Allergies - Medications Allergies/Adverse Reactions: Allergies No Known Allergies Allergy (Unverified 08/03/13 21:24) Home Medications: Home Medications Medication Instructions Recorded Confirmed Last Taken Type No Known Home Medications [No 11/12/19 11/12/19 Unknown History Reported Home Medications] Active Medications: Generic Name Dose Route Start Last Admin Trade Name Freq PRN Reason Stop Dose Admin Acetaminophen 650 mg 11/11/19 23:36 11/13/19 01:25 Tylenol PO 650 mg Q4H PRN Administration Pain MILD(1-3)/Fever >100.5/LEE Atorvastatin Calcium 40 mg 11/14/19 22:00 11/14/19 22:50 Lipitor PO Not Given QHS PRAVEEN Carvedilol 3.125 mg 11/12/19 22:00 11/14/19 22:49 Coreg PO Not Given BID PRAVEEN Sodium Chloride 1,000 mls @ 75 mls/hr 11/11/19 23:45 11/14/19 14:48 Nacl 0.9% 1000 Ml IV 75 mls/hr DIRECT PRAVEEN Administration Magnesium Hydroxide 30 ml 11/11/19 23:36 Milk Of Magnesia PO Q4H PRN Constipation Morphine Sulfate 2 mg 11/11/19 23:36 11/13/19 01:38 Morphine IV 2 mg Q4H PRN Administration Pain, Moderate (4-6) Ondansetron HCl 4 mg 11/13/19 13:17 11/14/19 07:54 Zofran IV 4 mg Q4H PRN Administration nausea Oxycodone/Acetaminophen 1 tab 11/13/19 12:00 11/14/19 22:55 Percocet 5/325 PO 1 tab Q6H PRN Administration Pain, Moderate (4-6) Pantoprazole Sodium 40 mg 11/12/19 10:00 11/14/19 09:49 Protonix PO 40 mg QDAY PRAVEEN Administration Prednisone 60 mg 11/12/19 10:00 11/14/19 09:49 Deltasone PO 11/17/19 23:59 60 mg QDAY PRAVEEN Administration Sodium Chloride 10 ml 11/12/19 10:00 11/14/19 10:06 Sodium Chloride Flush Syringe 10 Ml IV 10 ml BID PRAVEEN Administration Sodium Chloride 10 ml 11/11/19 23:36 11/12/19 02:50 Sodium Chloride Flush Syringe 10 Ml IV 10 ml PRN PRN Administration LINE FLUSH Verapamil HCl 40 mg 11/13/19 14:00 11/14/19 22:51 Calan PO Not Given Q8HR PRAVEEN
[2019-11-15] MEDS: carvediloL 3.125 MG TAB PO SCH ×2 (10:10→23:01)
[2019-11-15] MEDS: ACETAMINOPHEN 325 MG TAB PO PRN ×3 (10:11→20:03)
[2019-11-15] MEDS: PANTOPRAZOLE 40 MG TAB PO SCH (10:11)
--- NOTE | 2019-11-15 11:44 | Progress Note ---
Assessment and Plan Brain MRI shows subacute infarction in right occipital lobe, infarction in the left occipital lobe ligament. neurology is following. Patient's echocardiogram shows normally functioning without significant regurgitations patient's abnormal troponin will treat medically at this time in view of low platelets not a candidate for anticoagulation in view of no chest pain shortness of breath will hold off any ischemic workup at this time patient is being treated for thrombocytopenia The patient has been seen in conjunction with Dr. Waldo De La Vega who agrees with the assessment and plan of care. - Patient Problems (1) CVA (cerebral vascular accident) Current Visit: Yes Status: Acute (2) Anemia Current Visit: Yes Status: Acute (3) Thrombocytopenia Current Visit: Yes Status: Acute (4) Idiopathic thrombocytopenic purpura (ITP) Current Visit: Yes Status: Suspected (5) Non-STEMI (non-ST elevated myocardial infarction) Current Visit: Yes Status: Acute Plan to address problem: suspect type II Subjective Date of service: 11/15/19 Principal diagnosis: LOW PLT Interval history: pt resting in bed, no current cardiac complaints, c/o headache. daughter at bedside states that pt has been disoriented. in SR/SB on tele, HR 40s overnight. Objective Last Vital Signs Temp 98.3 F 11/15/19 05:01 Pulse 82 11/15/19 10:10 Resp 20 11/15/19 05:01 BP 144/85 11/15/19 10:10 Pulse Ox 97 11/15/19 05:01 - Physical Examination General: Appears Well HEENT: Positive: PERRL, Mucus Membranes Moist Neck: Positive: neck supple, trachea midline Cardiac: Positive: Reg Rate and Rhythm, S1/S2 Lungs: Positive: Decreased Breath Sounds Neuro: Positive: Grossly Intact Abdomen: Positive: Soft, Active Bowel Sounds. Negative: Tender, Distended Skin: Positive: Clear Incision: Cardiac Cath Site Musculoskeletal: No Pain, Normal Range of Motion Extremities: Present: normal. Absent: edema - Imaging and Cardiology Echo: image reviewed (normal lv function, mild tr and no as or mr)
[2019-11-15 13:47] LABS: Hematocrit 26.3 % (30.3-42.9); Hemoglobin 9.4 gm/dl (10.1-14.3); Mean Corpuscular HGB Conc 36 % (30-34); Mean Corpuscular Volume 93 fl (79-97); Red Blood Count 2.84 M/mm3 (3.65-5.03); Red Cell Distribution Width 16.7 % (13.2-15.2)
[2019-11-15 14:10] LABS: Alanine Aminotransferase 61 units/L (7-56); Albumin 3.9 g/dL (3.9-5); BUN/Creatinine Ratio 19; Blood Urea Nitrogen 13 mg/dL (7-17); Calcium 8.9 mg/dL (8.4-10.2); Hemolysis Index 12
[2019-11-15 15:58] LABS: Platelet Count 14 K/mm3 (140-440)
--- NOTE | 2019-11-15 16:48 | Vascular Lab Report ---
Bilateral Carotid Doppler Ultrasound INDICATION : CVA TECHNIQUE: Grayscale and color Doppler imaging performed through the neck. COMPARISON: None FINDINGS: Right: There is no significant atherosclerotic disease. Peak systolic velocity in the CCA is 57 cm/ s with end-diastolic velocity of 18 cm/s. Peak systolic velocity in the proximal ICA is 89 cm/s with end-diastolic velocity of 32 cm/s. ICA to CCA ratio is less than 2. There is antegrade flow in the E CA and the vertebral artery. Left: There is no significant atherosclerotic disease. Peak systolic velocity in the CCA is 78 cm/s w ith end-diastolic velocity of 30 cm/s. Peak systolic velocity in the proximal ICA is 79 cm/s with end -diastolic velocity of 41 cm/s. ICA to CCA ratio is less than 2. There is antegrade flow in the ECA and the vertebral artery. IMPRESSION: No hemodynamically significant stenosis by NASCET criteria. Signer Name: Yobany Granado MD Signed: 11/15/2019 4:44 PM Workstation Name: [id number]
[2019-11-15] MEDS: SODIUM CHLORIDE 0.9% 1000 ML 1,000 ML IV SCH (19:14)
--- NOTE | 2019-11-15 22:11 | Progress Note ---
Assessment and Plan Assessment and plan: Patient is a 54-year-old woman without any known chronic medical problems who presents to [facility] ED with persistent headache and vision disturbances. She was admitted on 11/12/2019 as plt count was 14 then 9. Troponin level was 0.419 with normal renal function. Cardiology consulted, no heparin given or intervention done as platelet count was 9. Senior Military Analyst was consulted and suspected ITP and started IGG and steroids. Acute CVA: treat with statin, no aspirin due to severely low plt ITP s/p IGG: continue steroids, Heme/Onc pending NSTEMI with type II NM: medical management Hypokalemia: replete as needed History Interval history: Patient was seen and examined. 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 Overnight uneventful as no events directly reported to me. Patient denies any chest pain, shortness breath, nausea/vomiting or severe headaches. Imaging, nursing note, chart, labs and old chart reviewed. Discussed with patient with daughter Jocelyn at bedside. Hospitalist Physical - Physical exam Narrative exam: Gen: ill appearing, WDWN, NAD, Awake, Alert, Orientated HEENT: NCAT, EOMI, PERRL, OP Clear Neck: supple, no adenopathy, no thyromegaly, no JVD CVS/Heart: RRR, normal S1S2, pulses present bilaterally Chest/Lungs: CTA B, Symmetrical chest expansion, good air entry bilaterally GI/Abdomen: soft, NTND, good bowel sounds, no guarding or rebound /Bladder: no suprapubic tenderness, no CVA or paraspinal tenderness Extermity/Skin: no c/c/e, no obvious rash MSK: FROM x 4 Neuro: CN 2-12 grossly intact except for vision, no new focal deficits, personality change, Psych: odd behavior, not her baseline. One minute she is fine and resting comfortably then next second, she quickly grabs her forehead and pouts, then she refuses to take medicine, her daughter Jocelyn has to give the tylenol in apples auce, in a playful child like way (mimi-mimi here comes the train way) - Constitutional Vitals: Temp Pulse Resp BP Pulse Ox 99.6 F 78 16 119/65 98 11/15/19 16:15 11/15/19 16:15 11/15/19 16:15 11/15/19 16:14 11/15/19 16:15 General appearance: Present: no acute distress, well-nourished Results - Labs CBC & Chem 7: 11/15/19 13:02 11/15/19 13:02 Labs: Laboratory Last Values WBC 8.0 K/mm3 (4.5-11.0) 11/15/19 13:02 RBC 2.84 M/mm3 (3.65-5.03) L 11/15/19 13:02 Hgb 9.4 gm/dl (10.1-14.3) L 11/15/19 13:02 Hct 26.3 % (30.3-42.9) L 11/15/19 13:02 MCV 93 fl (79-97) 11/15/19 13:02 MCH 33 pg (28-32) H 11/15/19 13:02 MCHC 36 % (30-34) H 11/15/19 13:02 RDW 16.7 % (13.2-15.2) H 11/15/19 13:02 Plt Count 14 K/mm3 (140-440) L* 11/15/19 13:02 Lymph % (Auto) 31.0 % (13.4-35.0) 11/14/19 09:08 [place] % (Auto) 9.4 % (0.0-7.3) H 11/14/19 09:08 Eos % (Auto) 0.3 % (0.0-4.3) 11/14/19 09:08 Baso % (Auto) 0.4 % (0.0-1.8) 11/14/19 09:08 Lymph # 2.3 K/mm3 (1.2-5.4) 11/14/19 09:08 [place] # 0.7 K/mm3 (0.0-0.8) 11/14/19 09:08 Eos # 0.0 K/mm3 (0.0-0.4) 11/14/19 09:08 Baso # 0.0 K/mm3 (0.0-0.1) 11/14/19 09:08 Add Manual Diff Complete 11/14/19 09:08 Seg Neutrophils % 58.9 % (40.0-70.0) 11/14/19 09:08 Seg Neutrophils # 4.5 K/mm3 (1.8-7.7) 11/14/19 09:08 PT 14.5 Sec. (12.2-14.9) 11/12/19 05:54 INR 1.11 (0.87-1.13) 11/12/19 05:54 APTT 24.9 Sec. (24.2-36.6) 11/12/19 05:54 Sodium 141 mmol/L (137-145) 11/15/19 13:02 Potassium 3.2 mmol/L (3.6-5.0) L 11/15/19 13:02 Chloride 102.3 mmol/L (98-107) 11/15/19 13:02 Carbon Dioxide 25 mmol/L (22-30) 11/15/19 13:02 Anion Gap 17 mmol/L 11/15/19 13:02 BUN 13 mg/dL (7-17) 11/15/19 13:02 Creatinine 0.7 mg/dL (0.7-1.2) 11/15/19 13:02 Estimated GFR > 60 ml/min 11/15/19 13:02 BUN/Creatinine Ratio 19 % 11/15/19 13:02 Glucose 109 mg/dL (65-100) H 11/15/19 13:02 POC Glucose 112 (70-105) H 11/13/19 02:26 Calcium 8.9 mg/dL (8.4-10.2) 11/15/19 13:02 Iron 143 ug/dL (37-170) 11/12/19 10:23 TIBC 240 mcg/dL (250-450) L 11/12/19 10:23 Ferritin 911.5 ng/mL (13.0-400.0) H 11/12/19 10:23 Total Bilirubin 4.40 mg/dL (0.1-1.2) H 11/15/19 13:02 Direct Bilirubin 0.4 mg/dL (0-0.2) H 11/13/19 08:22 Indirect Bilirubin 2.3 mg/dL 11/13/19 08:22 AST 57 units/L (5-40) H 11/15/19 13:02 ALT 61 units/L (7-56) H 11/15/19 13:02 Alkaline Phosphatase 62 units/L (35-129) 11/15/19 13:02 Lactate Dehydrogenase 1022 units/L (91-180) H 11/11/19 23:24 Troponin T 0.246 ng/mL (0.00-0.029) H* D 11/12/19 05:54 NT-Pro-B Natriuret Pep 633.4 pg/mL (0-900) 11/11/19 19:31 Total Protein 7.5 g/dL (6.3-8.2) 11/15/19 13:02 Albumin 3.9 g/dL (3.9-5) 11/15/19 13:02 Albumin/Globulin Ratio 1.1 % 11/15/19 13:02 Triglycerides 105 mg/dL (2-149) 11/11/19 19:25 Cholesterol 185 mg/dL (50-199) 11/11/19 19:25 LDL Cholesterol Direct 132 mg/dL (50-130) H 11/11/19 19:25 HDL Cholesterol 46 mg/dL (40-59) 11/11/19 19:25 Cholesterol/HDL Ratio 4.02 % 11/11/19 19:25 Vitamin B12 701.6 pg/mL (211-911) 11/12/19 10:23 Folate > 20 ng/mL (7.3-26.0) 11/12/19 10:23 TSH 3.110 mlU/mL (0.270-4.200) 11/11/19 19:25 Urine Color Yellow (Yellow) 11/11/19 21:26 Urine Turbidity Clear (Clear) 11/11/19 21: Urine pH 7.0 (5.0-7.0) 11/11/19 21:26 Ur Specific [place] 1.008 (1.003-1.030) 11/11/19 21: Urine Protein <15 mg/dl mg/dL (Negative) 11/11/19 21: Urine Glucose (UA) Neg mg/dL (Negative) 11/11/19 21: Urine Ketones Neg mg/dL (Negative) 11/11/19 21: Urine Blood Mod (Negative) 11/11/19 21: Urine Nitrite Neg (Negative) 11/11/19 21: Urine Bilirubin Neg (Negative) 11/11/19 21: Urine Urobilinogen < 2.0 mg/dL (<2.0) 11/11/19 21:26 Ur Leukocyte Esterase Neg (Negative) 11/11/19 21:26 Urine WBC (Auto) 1.0 /HPF (0.0-6.0) 11/11/19 21:26 Urine RBC (Auto) 2.0 /HPF (0.0-6.0) 11/11/19 21:26 U Epithel Cells (Auto) 1.0 /HPF (0-13.0) 11/11/19 21:26 Rheumatoid Factor < 10 IU/ml (0-13) 11/14/19 16:15 HIV 1&2 Antibody Rapid Non react (Non React) 11/12/19 10:23 HIV P24 Antigen Non react (Non React) 11/12/19 10:23 Active Medications - Current Medications Current Medications: Generic Name Dose Route Start Last Admin Trade Name Freq PRN Reason Stop Dose Admin Acetaminophen 650 mg 11/11/19 23:36 11/15/19 20:03 Tylenol PO 650 mg Q4H PRN Administration Pain MILD(1-3)/Fever >100.5/LEE Atorvastatin Calcium 40 mg 11/14/19 22:00 11/14/19 22:50 Lipitor PO Not Given QHS PRAVEEN Carvedilol 3.125 mg 11/12/19 22:00 11/15/19 10:10 Coreg PO 3.125 mg BID PRAVEEN Administration Sodium Chloride 1,000 mls @ 75 mls/hr 11/11/19 23:45 11/15/19 19:14 Nacl 0.9% 1000 Ml IV 75 mls/hr DIRECT PRAVEEN Administration Magnesium Hydroxide 30 ml 11/11/19 23:36 Milk Of Magnesia PO Q4H PRN Constipation Morphine Sulfate 2 mg 11/11/19 23:36 11/13/19 01:38 Morphine IV 2 mg Q4H PRN Administration Pain, Moderate (4-6) Ondansetron HCl 4 mg 11/13/19 13:17 11/14/19 07:54 Zofran IV 4 mg Q4H PRN Administration nausea Oxycodone/Acetaminophen 1 tab 11/13/19 12:00 11/14/19 09:48 Percocet 5/325 PO 1 tab Q6H PRN Administration Pain, Moderate (4-6) Pantoprazole Sodium 40 mg 11/12/19 10:00 11/15/19 10:11 Protonix PO 40 mg QDAY PRAVEEN Administration Sodium Chloride 10 ml 11/12/19 10:00 11/15/19 10:12 Sodium Chloride Flush Syringe 10 Ml IV 10 ml BID PRAVEEN Administration Sodium Chloride 10 ml 11/11/19 23:36 11/12/19 02:50 Sodium Chloride Flush Syringe 10 Ml IV 10 ml PRN PRN Administration LINE FLUSH Verapamil HCl 40 mg 11/13/19 14:00 11/15/19 13:16 Calan PO Not Given Q8HR PRAVEEN
[2019-11-16] MEDS: ACETAMINOPHEN 325 MG TAB PO PRN ×4 (00:40→22:04)
[2019-11-16] MEDS: VERAPAMIL 80 MG TAB PO SCH (06:04)
--- NOTE | 2019-11-16 07:41 | Hem/Onc Progress Note ---
Assessment and Plan 1. Thrombocytopenia. This could be immune thrombocytopenic purpura. deficiency investigations, human immunodeficiency virus testing. 2. LDH elevated. This may be secondary to LFT abnormalities. 3. High indirect bilirubin, etiology unclear. 4. History of marijuana usage. 5. History of recent malaise until this episode. This may have a role in the low platelets. 6. 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 the patient was started on prednisone and proton pump inhibitor and follow the patient. 7. History of ureteral damage. 8. History of hysterectomy. s/p 1 and half day of IVIG trial - stopped due to headache MRI brain done agitation - ? cause ? steroid psychosis - was held for 1 day will restart prednisone - family wants lower dose explained taht it is 1mg/kg - they are keen for lower dose will give 50 mg daily d/w dr turner - ? CVA - neurologist - urine TOX - Patient Problems (1) Thrombocytopenia Current Visit: Yes Status: Acute Subjective Date of service: 11/16/19 Principal diagnosis: LOW PLT - ITP Interval history: headache since thursday less confused family thinks IVIG daughter wants lower dose steroids Objective - Exam Narrative Exam: Pain - none General appearance - alert Performance status limited self care Eyes - no icterus ENT - no bleeding LNs cervical not palpable Neck - no LN Respiratory Normal - on o2 Breath sounds - CTA anteriorly CVS S1 S2 + Extremities nil acute General GI Soft Rectal deferred female - deferred Skin warm Musculoskeletal - moving limbs Neurologically awake - answers Questions - Constitutional Vitals: Last Vital Signs Temp 98.3 F 11/16/19 05:56 Pulse 80 11/16/19 06:04 Resp 18 11/16/19 05:56 BP 115/75 11/16/19 06:04 Pulse Ox 96 11/16/19 05:57 - Labs Lab Results: Laboratory Results - last 24 hr 11/15/19 11/15/19 13:02 13:02 WBC 8.0 RBC 2.84 L Hgb 9.4 L Hct 26.3 L MCV 93 MCH 33 H MCHC 36 H RDW 16.7 H Plt Count 14 L* Sodium 141 Potassium 3.2 L Chloride 102.3 Carbon Dioxide 25 Anion Gap 17 BUN 13 Creatinine 0.7 Estimated GFR > 60 BUN/Creatinine Ratio 19 Glucose 109 H Calcium 8.9 Total Bilirubin 4.40 H AST 57 H ALT 61 H Alkaline Phosphatase 62 Total Protein 7.5 Albumin 3.9 Albumin/Globulin Ratio 1.1 Medications & Allergies - Medications Allergies/Adverse Reactions: Allergies No Known Allergies Allergy (Unverified 08/03/13 21:24) Home Medications: Home Medications Medication Instructions Recorded Confirmed Last Taken Type No Known Home Medications [No 11/12/19 11/12/19 Unknown History Reported Home Medications] Active Medications: Generic Name Dose Route Start Last Admin Trade Name Freq PRN Reason Stop Dose Admin Acetaminophen 650 mg 11/11/19 23:36 11/16/19 00:40 Tylenol PO 650 mg Q4H PRN Administration Pain MILD(1-3)/Fever >100.5/LEE Atorvastatin Calcium 40 mg 11/14/19 22:00 11/15/19 23:01 Lipitor PO 40 mg QHS PRAVEEN Administration Carvedilol 3.125 mg 11/12/19 22:00 11/15/19 23:01 Coreg PO 3.125 mg BID PRAVEEN Administration Sodium Chloride 1,000 mls @ 75 mls/hr 11/11/19 23:45 11/15/19 19:14 Nacl 0.9% 1000 Ml IV 75 mls/hr DIRECT PRAVEEN Administration Magnesium Hydroxide 30 ml 11/11/19 23:36 Milk Of Magnesia PO Q4H PRN Constipation Morphine Sulfate 2 mg 11/11/19 23:36 11/13/19 01:38 Morphine IV 2 mg Q4H PRN Administration Pain, Moderate (4-6) Ondansetron HCl 4 mg 11/13/19 13:17 11/14/19 07:54 Zofran IV 4 mg Q4H PRN Administration nausea Oxycodone/Acetaminophen 1 tab 11/13/19 12:00 11/14/19 09:48 Percocet 5/325 PO 1 tab Q6H PRN Administration Pain, Moderate (4-6) Pantoprazole Sodium 40 mg 11/12/19 10:00 11/15/19 10:11 Protonix PO 40 mg QDAY PRAVEEN Administration Sodium Chloride 10 ml 11/12/19 10:00 11/15/19 23:10 Sodium Chloride Flush Syringe 10 Ml IV 10 ml BID PRAVEEN Administration Sodium Chloride 10 ml 11/11/19 23:36 11/12/19 02:50 Sodium Chloride Flush Syringe 10 Ml IV 10 ml PRN PRN Administration LINE FLUSH Verapamil HCl 40 mg 11/13/19 14:00 11/16/19 06:04 Calan PO Not Given Q8HR PRAVEEN
--- NOTE | 2019-11-16 08:34 | Progress Note ---
Assessment and Plan Assessment and plan: Patient is a 54-year-old woman with history of urinary retention problems and marijuana use who presents to [facility] ED with persistent headache and vision disturbances. She was admitted on 11/12/2019 as plt count was 14 then 9. Troponin level was 0.419 with normal renal function. Cardiology consulted, no he debi given or intervention done as platelet count was 9. Human Resources Officer was consulted and suspected ITP and started IGG and steroids. * CT brain with and without contrast IMPRESSION: 1. Subtle areas of decreased attenuation peripherally in the posterior right parietal lobe, which could represent small branch MCA infarcts. Diffusion imaging by MRI may be helpful for further evaluation, if clinically warranted. 2. Otherwise, no focal mass, hemorrhage, hydrocephalus, or large infarct appreciated. * Brain MRI with and without contrast IMPRESSION: Subacute infarction in the right occipital lobe Infarction in the left occipital lobe ligament. Base but less than 2 weeks old No hemorrhagic changes * Carotid doppler IMPRESSION: No hemodynamically significant stenosis by NASCET criteria. * 2v CXR IMPRESSION: 1. No acute findings. * TTE Conclusions: Mild to moderated LVH, est EF 55-60%, abnormal LV diastolic function, mild AR Acute Ischemic stroke/CVA with persistent headache: treat with statin, no aspirin due to severely low plt Thrombocytopenia, suspected ITP s/p IGG: continue steroids, Heme/Onc consulted, input noted, monitor CBC closely Acute metabolic encephalopathy, poa: treat medically NSTEMI: medical management, Cardiology consulted, input noted Hypokalemia: replete as needed H/o Urinary retention 2014: need more collateral information h/o Marijuana use: UDS requested by Dr. Coker DVT ppx: SCD only due to severe low plt counts full code Disposition: continue inpatient care, d/c once plt counts stabilize and cleared by Cardiology Patient has been on Black seed oil which can cause plt dysfunction/ITP History Interval history: Patient was seen and examined. 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 Overnight uneventful as no events directly reported to me. Patient denies any chest pain, shortness breath, nausea/vomiting or severe headaches. Imaging, nursing note, chart, labs and old chart reviewed. Discussed with patient with daughter Jocelyn at bedside. Hospitalist Physical - Physical exam Narrative exam: Gen: ill appearing, WDWN, NAD, Awake, Alert, Orientated HEENT: NCAT, EOMI, PERRL, OP Clear Neck: supple, no adenopathy, no thyromegaly, no JVD CVS/Heart: RRR, normal S1S2, pulses present bilaterally Chest/Lungs: CTA B, Symmetrical chest expansion, good air entry bilaterally GI/Abdomen: soft, NTND, good bowel sounds, no guarding or rebound /Bladder: no suprapubic tenderness, no CVA or paraspinal tenderness Extermity/Skin: no c/c/e, no obvious rash MSK: FROM x 4 Neuro: CN 2-12 grossly intact except for vision, no new focal deficits, personality change, Psych: odd behavior, not her baseline. One minute she is fine and resting comfortably then next second, she quickly grabs her forehead and pouts, then she refuses to take medicine, her daughter Jocelyn has to give the tylenol in applesauce, in a playful child like way (mimi-mimi here comes the train way) - Constitutional Vitals: Temp Pulse Resp BP Pulse Ox 98.3 F 80 18 115/75 96 11/16/19 05:56 11/16/19 06:04 11/16/19 05:56 11/16/19 06:04 11/16/19 05:57 General appearance: Present: no acute distress, well-nourished Results - Labs CBC & Chem 7: 11/16/19 09:07 11/15/19 13:02 Labs: Laboratory Last Values WBC 8.0 K/mm3 (4.5-11.0) 11/15/19 13:02 RBC 2.84 M/mm3 (3.65-5.03) L 11/15/19 13:02 Hgb 9.4 gm/dl (10.1-14.3) L 11/15/19 13:02 Hct 26.3 % (30.3-42.9) L 11/15/19 13:02 MCV 93 fl (79-97) 11/15/19 13:02 MCH 33 pg (28-32) H 11/15/19 13:02 MCHC 36 % (30-34) H 11/15/19 13:02 RDW 16.7 % (13.2-15.2) H 11/15/19 13:02 Plt Count 14 K/mm3 (140-440) L* 11/15/19 13:02 Lymph % (Auto) 31.0 % (13.4-35.0) 11/14/19 09:08 [place] % (Auto) 9.4 % (0.0-7.3) H 11/14/19 09:08 Eos % (Auto) 0.3 % (0.0-4.3) 11/14/19 09:08 Baso % (Auto) 0.4 % (0.0-1.8) 11/14/19 09:08 Lymph # 2.3 K/mm3 (1.2-5.4) 11/14/19 09:08 [place] # 0.7 K/mm3 (0.0-0.8) 11/14/19 09:08 Eos # 0.0 K/mm3 (0.0-0.4) 11/14/19 09:08 Baso # 0.0 K/mm3 (0.0-0.1) 11/14/19 09:08 Add Manual Diff Complete 11/14/19 09:08 Seg Neutrophils % 58.9 % (40.0-70.0) 11/14/19 09:08 Seg Neutrophils # 4.5 K/mm3 (1.8-7.7) 11/14/19 09:08 PT 14.5 Sec. (12.2-14.9) 11/12/19 05:54 INR 1.11 (0.87-1.13) 11/12/19 05:54 APTT 24.9 Sec. (24.2-36.6) 11/12/19 05:54 Sodium 141 mmol/L (137-145) 11/15/19 13:02 Potassium 3.2 mmol/L (3.6-5.0) L 11/15/19 13:02 Chloride 102.3 mmol/L (98-107) 11/15/19 13:02 Carbon Dioxide 25 mmol/L (22-30) 11/15/19 13:02 Anion Gap 17 mmol/L 11/15/19 13:02 BUN 13 mg/dL (7-17) 11/15/19 13:02 Creatinine 0.7 mg/dL (0.7-1.2) 11/15/19 13:02 Estimated GFR > 60 ml/min 11/15/19 13:02 BUN/Creatinine Ratio 19 % 11/15/19 13:02 Glucose 109 mg/dL (65-100) H 11/15/19 13:02 POC Glucose 112 (70-105) H 11/13/19 02:26 Calcium 8.9 mg/dL (8.4-10.2) 11/15/19 13:02 Iron 143 ug/dL (37-170) 11/12/19 10:23 TIBC 240 mcg/dL (250-450) L 11/12/19 10:23 Ferritin 911.5 ng/mL (13.0-400.0) H 11/12/19 10:23 Total Bilirubin 4.40 mg/dL (0.1-1.2) H 11/15/19 13:02 Direct Bilirubin 0.4 mg/dL (0-0.2) H 11/13/19 08:22 Indirect Bilirubin 2.3 mg/dL 11/13/19 08:22 AST 57 units/L (5-40) H 11/15/19 13:02 ALT 61 units/L (7-56) H 11/15/19 13:02 Alkaline Phosphatase 62 units/L (35-129) 11/15/19 13:02 Lactate Dehydrogenase 1022 units/L (91-180) H 11/11/19 23:24 Troponin T 0.246 ng/mL (0.00-0.029) H* D 11/12/19 05:54 NT-Pro-B Natriuret Pep 633.4 pg/mL (0-900) 11/11/19 19:31 Total Protein 7.5 g/dL (6.3-8.2) 11/15/19 13:02 Albumin 3.9 g/dL (3.9-5) 11/15/19 13:02 Albumin/Globulin Ratio 1.1 % 11/15/19 13:02 Triglycerides 105 mg/dL (2-149) 11/11/19 19:25 Cholesterol 185 mg/dL (50-199) 11/11/19 19:25 LDL Cholesterol Direct 132 mg/dL (50-130) H 11/11/19 19:25 HDL Cholesterol 46 mg/dL (40-59) 11/11/19 19:25 Cholesterol/HDL Ratio 4.02 % 11/11/19 19:25 Vitamin B12 701.6 pg/mL (211-911) 11/12/19 10: Folate > 20 ng/mL (7.3-26.0) 11/12/19 10: TSH 3.110 mlU/mL (0.270-4.200) 11/11/19 19:25 Urine Color Yellow (Yellow) 11/11/19 21: Urine Turbidity Clear (Clear) 11/11/19 21: Urine pH 7.0 (5.0-7.0) 11/11/19 21: Ur Specific [place] 1.008 (1.003-1.030) 11/11/19 21: Urine Protein <15 mg/dl mg/dL (Negative) 11/11/19 21: Urine Glucose (UA) Neg mg/dL (Negative) 11/11/19: Urine Ketones Neg mg/dL (Negative) 11/11/19 21: Urine Blood Mod (Negative) 11/11/19 21: Urine Nitrite Neg (Negative) 11/11/19 21: Urine Bilirubin Neg (Negative) 11/11/19 21: Urine Urobilinogen < 2.0 mg/dL (<2.0) 11/11/19 21:26 Ur Leukocyte Esterase Neg (Negative) 11/11/19 21: Urine WBC (Auto) 1.0 /HPF (0.0-6.0) 11/11/19 21: Urine RBC (Auto) 2.0 /HPF (0.0-6.0) 11/11/19 21: U Epithel Cells (Auto) 1.0 /HPF (0-13.0) 11/11/19 21: Rheumatoid Factor < 10 IU/ml (0-13) 11/14/19 16:15 HIV 1&2 Antibody Rapid Non react (Non React) 11/12/19 10:23 HIV P24 Antigen Non react (Non React) 11/12/19 10:23 Active Medications - Current Medications Current Medications: Generic Name Dose Route Start Last Admin Trade Name Freq PRN Reason Stop Dose Admin Acetaminophen 650 mg 11/11/19 23:36 11/16/19 08:18 Tylenol PO 650 mg Q4H PRN Administration Pain MILD(1-3)/Fever >100.5/LEE Atorvastatin Calcium 40 mg 11/14/19 22:00 11/15/19 23:01 Lipitor PO 40 mg QHS PRAVEEN Administration Carvedilol 3.125 mg 11/12/19 22:00 11/15/19 23:01 Coreg PO 3.125 mg BID PRAVEEN Administration Sodium Chloride 1,000 mls @ 75 mls/hr 11/11/19 23:45 11/15/19 19:14 Nacl 0.9% 1000 Ml IV 75 mls/hr DIRECT PRAVEEN Administration Magnesium Hydroxide 30 ml 11/11/19 23:36 11/16/19 08:17 Milk Of Magnesia PO 30 ml Q4H PRN Administration Constipation Morphine Sulfate 2 mg 11/11/19 23:36 11/13/19 01:38 Morphine IV 2 mg Q4H PRN Administration Pain, Moderate (4-6) Ondansetron HCl 4 mg 11/13/19 13:17 11/14/19 07:54 Zofran IV 4 mg Q4H PRN Administration nausea Oxycodone/Acetaminophen 1 tab 11/13/19 12:00 11/14/19 09:48 Percocet 5/325 PO 1 tab Q6H PRN Administration Pain, Moderate (4-6) Pantoprazole Sodium 40 mg 11/12/19 10:00 11/15/19 10:11 Protonix PO 40 mg QDAY PRAVEEN Administration Sodium Chloride 10 ml 11/12/19 10:00 11/15/19 23:10 Sodium Chloride Flush Syringe 10 Ml IV 10 ml BID PRAVEEN Administration Sodium Chloride 10 ml 11/11/19 23:36 11/12/19 02:50 Sodium Chloride Flush Syringe 10 Ml IV 10 ml PRN PRN Administration LINE FLUSH Verapamil HCl 40 mg 11/13/19 14:00 11/16/19 06:04 Calan PO Not Given Q8HR PRAVEEN
[2019-11-16] MEDS: PANTOPRAZOLE 40 MG TAB PO SCH (09:51)
[2019-11-16] MEDS: predniSONE 50 MG TAB PO SCH (09:51)
[2019-11-16] MEDS: carvediloL 3.125 MG TAB PO SCH ×2 (09:52→22:00)
[2019-11-16 09:53] LABS: Hematocrit 25.6 % (30.3-42.9); Mean Corpuscular HGB Conc 35 % (30-34); Mean Corpuscular Volume 94 fl (79-97); Red Blood Count 2.71 M/mm3 (3.65-5.03); Red Cell Distribution Width 17.3 % (13.2-15.2)
[2019-11-16] MEDS: SODIUM CHLORIDE 0.9% 1000 ML 1,000 ML IV SCH ×2 (10:47→23:53)
[2019-11-16 10:50] LABS: Platelet Count 12 K/mm3 (140-440)
--- NOTE | 2019-11-16 11:03 | Progress Note ---
Assessment and Plan Brain MRI shows subacute infarction in right occipital lobe, infarction in the left occipital lobe ligament. neurology is following. Patient's echocardiogram shows normally functioning without significant regurgitations patient's abnormal troponin will treat medically at this time in view of low platelets not a candidate for anticoagulation in view of no chest pain shortness of breath will hold off any ischemic workup at this time patient is being treated for thrombocytopenia currently stable cardiac status. nothing further to add from cardiac perspective at this time. will follow on as needed basis. The patient has been seen in conjunction with Dr. KAYLA De La Vega who agrees with the assessment and plan of care. - Patient Problems (1) CVA (cerebral vascular accident) Current Visit: Yes Status: Acute (2) Anemia Current Visit: Yes Status: Acute (3) Thrombocytopenia Current Visit: Yes Status: Acute (4) Idiopathic thrombocytopenic purpura (ITP) Current Visit: Yes Status: Suspected (5) Non-STEMI (non-ST elevated myocardial infarction) Current Visit: Yes Status: Acute Subjective Date of service: 11/16/19 Principal diagnosis: LOW PLT - ITP Interval history: pt resting in bed, no current cardiac complaints, remains intermittently confused but responding appropriately to commands. daughter at bedside. in SR/SB on tele. Objective Last Vital Signs Temp 98.3 F 11/16/19 05:56 Pulse 92 H 11/16/19 09:52 Resp 18 11/16/19 05:56 BP 107/71 11/16/19 09:52 Pulse Ox 96 11/16/19 05:57 - Physical Examination General: No Apparent Distress HEENT: Positive: PERRL, Mucus Membranes Moist Neck: Positive: neck supple, trachea midline Cardiac: Positive: Reg Rate and Rhythm, S1/S2 Lungs: Positive: Decreased Breath Sounds Neuro: Positive: Grossly Intact Abdomen: Positive: Soft, Active Bowel Sounds. Negative: Tender, Distended Skin: Positive: Clear Incision: Cardiac Cath Site Musculoskeletal: No Pain, Normal Range of Motion Extremities: Present: normal. Absent: edema - Labs and Meds Cardiac Enzymes 11/15/19 Range/Units 13:02 AST 57 H (5-40) units/L CBC 11/15/19 11/16/19 Range/Units 13:02 09:07 WBC 8.0 6.9 (4.5-11.0) K/mm3 RBC 2.84 L 2.71 L (3.65-5.03) M/mm3 Hgb 9.4 L 9.0 L (10.1-14.3) gm/dl Hct 26.3 L 25.6 L (30.3-42.9) % Plt Count 14 L* 12 L* (140-440) K/mm3 Comprehensive Metabolic Panel 11/15/19 Range/Units 13:02 Sodium 141 (137-145) mmol/L Potassium 3.2 L (3.6-5.0) mmol/L Chloride 102.3 (98-107) mmol/L Carbon Dioxide 25 (22-30) mmol/L BUN 13 (7-17) mg/dL Creatinine 0.7 (0.7-1.2) mg/dL Glucose 109 H (65-100) mg/dL Calcium 8.9 (8.4-10.2) mg/dL AST 57 H (5-40) units/L ALT 61 H (7-56) units/L Alkaline Phosphatase 62 (35-129) units/L Total Protein 7.5 (6.3-8.2) g/dL Albumin 3.9 (3.9-5) g/dL - Imaging and Cardiology Echo: image reviewed (normal lv function, mild tr and no as or mr)
[2019-11-16] MEDS: oxyCODONE /ACETAMINOPHEN 5-325MG TAB PO PRN (23:56)
[2019-11-17] MEDS: ACETAMINOPHEN 325 MG TAB PO PRN ×2 (04:31→12:50)
--- NOTE | 2019-11-17 07:32 | Hem/Onc Progress Note ---
Assessment and Plan 1. Thrombocytopenia. This could be immune thrombocytopenic purpura. deficiency investigations, human immunodeficiency virus testing. 2. LDH elevated. This may be secondary to LFT abnormalities. 3. High indirect bilirubin, etiology unclear. 4. History of marijuana usage. 5. History of recent malaise until this episode. This may have a role in the low platelets. 6. 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 the patient was started on prednisone and proton pump inhibitor and follow the patient. 7. History of ureteral damage. 8. History of hysterectomy. s/p 1 and half day of IVIG trial - stopped due to headache MRI brain done agitation - ? cause ? steroid psychosis - was held for 1 day restarted prednisone on 11/16 - family wants lower dose explained that it is 1mg/kg - they are keen for lower dose will give 50 mg daily on 11/16 - d/w dr turner - ? CVA - neurologist - urine TOX 11/17 - blood sugar monitoring urine tox d/w family that prednisone dose is not really changing option of IVIG back vs Anti D pt to do blood tests now option of dexa - but family reluctant for high dose steroids they want to restart IVIG reviewed UPTODATE medical data - Patient Problems (1) Thrombocytopenia Current Visit: Yes Status: Acute Subjective Date of service: 11/17/19 Principal diagnosis: ITP Interval history: headache + no bleeding Objective - Exam Narrative Exam: Pain - none General appearance - alert Performance status limited self care Eyes - no icterus ENT - no bleeding LNs cervical not palpable Neck - no LN Respiratory Normal - on o2 Breath sounds - CTA anteriorly CVS S1 S2 + Extremities nil acute General GI Soft Rectal deferred female - deferred Skin warm Musculoskeletal - moving limbs Neurologically awake - answers Questions - Constitutional Vitals: Last Vital Signs Temp 98.6 F 11/17/19 05:21 Pulse 87 11/17/19 05:21 Resp 18 11/17/19 05:21 BP 145/87 11/17/19 05:21 Pulse Ox 99 11/17/19 05:21 - Labs Lab Results: Laboratory Results - last 24 hr 11/16/19 09:07 WBC 6.9 RBC 2.71 L Hgb 9.0 L Hct 25.6 L MCV 94 MCH 33 H MCHC 35 H RDW 17.3 H Plt Count 12 L* Medications & Allergies - Medications Allergies/Adverse Reactions: Allergies No Known Allergies Allergy (Unverified 08/03/13 21:24) Home Medications: Home Medications Medication Instructions Recorded Confirmed Last Taken Type No Known Home Medications [No 11/12/19 11/12/19 Unknown History Reported Home Medications] Active Medications: Generic Name Dose Route Start Last Admin Trade Name Freq PRN Reason Stop Dose Admin Acetaminophen 650 mg 11/11/19 23:36 11/17/19 04:31 Tylenol PO 650 mg Q4H PRN Administration Pain MILD(1-3)/Fever >100.5/LEE Atorvastatin Calcium 40 mg 11/14/19 22:00 11/16/19 22:00 Lipitor PO 40 mg QHS PRAVEEN Administration Carvedilol 3.125 mg 11/12/19 22:00 11/16/19 22:00 Coreg PO 3.125 mg BID PRAVEEN Administration Sodium Chloride 1,000 mls @ 75 mls/hr 11/11/19 23:45 11/16/19 23:53 Nacl 0.9% 1000 Ml IV 75 mls/hr DIRECT PRAVEEN Administration Magnesium Hydroxide 30 ml 11/11/19 23:36 11/16/19 08:17 Milk Of Magnesia PO 30 ml Q4H PRN Administration Constipation Morphine Sulfate 2 mg 11/11/19 23:36 11/13/19 01:38 Morphine IV 2 mg Q4H PRN Administration Pain, Moderate (4-6) Ondansetron HCl 4 mg 11/13/19 13:17 11/14/19 07:54 Zofran IV 4 mg Q4H PRN Administration nausea Oxycodone/Acetaminophen 1 tab 11/13/19 12:00 11/16/19 23:56 Percocet 5/325 PO 1 tab Q6H PRN Administration Pain, Moderate (4-6) Pantoprazole Sodium 40 mg 11/12/19 10:00 11/16/19 09:51 Protonix PO 40 mg QDAY PRAVEEN Administration Prednisone 50 mg 11/16/19 10:00 11/16/19 09:51 Deltasone PO 50 mg QDAY PRAVEEN Administration Sodium Chloride 10 ml 11/12/19 10:00 11/16/19 21:50 Sodium Chloride Flush Syringe 10 Ml IV 10 ml BID PRAVEEN Administration Sodium Chloride 10 ml 11/11/19 23:36 11/12/19 02:50 Sodium Chloride Flush Syringe 10 Ml IV 10 ml PRN PRN Administration LINE FLUSH
[2019-11-17 09:51] LABS: Hematocrit 24.3 % (30.3-42.9); Hemoglobin 8.4 gm/dl (10.1-14.3); Mean Corpuscular HGB Conc 35 % (30-34); Mean Corpuscular Volume 96 fl (79-97); Red Blood Count 2.52 M/mm3 (3.65-5.03); Red Cell Distribution Width 19.1 % (13.2-15.2)
[2019-11-17 10:08] LABS: BUN/Creatinine Ratio 19; Blood Urea Nitrogen 13 mg/dL (7-17); Calcium 8.5 mg/dL (8.4-10.2); Hemolysis Index 16
[2019-11-17 10:47] LABS: Platelet Count 17 K/mm3 (140-440)
[2019-11-17] MEDS: carvediloL 3.125 MG TAB PO SCH ×2 (10:50→22:43)
[2019-11-17] MEDS: PANTOPRAZOLE 40 MG TAB PO SCH (10:51)
[2019-11-17] MEDS: predniSONE 50 MG TAB PO SCH (10:51)
[2019-11-17] MEDS ORDERED: IMMUN GLOB IV SCH (12:00)
[2019-11-17] MEDS ORDERED: GLY IV SCH (12:00)
[2019-11-17] MEDS ORDERED: IGA OV50 IV SCH (12:00)
[2019-11-17] MEDS: MORPHINE 2 MG/1 ML INJ IV PRN ×3 (14:07→22:38)
[2019-11-17] MEDS: SODIUM CHLORIDE 0.9% 1000 ML 1,000 ML IV SCH (14:08)
[2019-11-17 14:14] LABS: Amphetamine Screen,Urine PRESUMPTIVE NEGATIVE; Benzodiazepines Screen,Urine PRESUMPTIVE NEGATIVE; Cannabinoid Screen,Urine PRESUMPTIVE NEGATIVE; Cocaine Screen,Urine PRESUMPTIVE NEGATIVE; Methadone Screen,Urine PRESUMPTIVE NEGATIVE; Opiate Screen,Urine PRESUMPTIVE NEGATIVE
[2019-11-17] MEDS: [UNRECOGNIZED DRUG - OTHER] IV SCH (15:20)
--- NOTE | 2019-11-17 18:04 | Progress Note ---
Assessment and Plan Assessment and plan: Patient is a 54-year-old woman with history of urinary retention problems and marijuana use who presents to [facility] with persistent headache and vision disturbances. She was admitted on 11/12/2019 as plt count was 14 then 9. Troponin level was 0.419 with normal renal function. Cardiology consulted, no he debi given or intervention done as platelet count was 9. Senior Logistics Manager was consulted and suspected ITP and started IGG and steroids. * CT brain with and without contrast IMPRESSION: 1. Subtle areas of decreased attenuation peripherally in the posterior right parietal lobe, which could represent small branch MCA infarcts. Diffusion imaging by MRI may be helpful for further evaluation, if clinically warranted. 2. Otherwise, no focal mass, hemorrhage, hydrocephalus, or large infarct appreciated. * Brain MRI with and without contrast IMPRESSION: Subacute infarction in the right occipital lobe Infarction in the left occipital lobe ligament. Base but less than 2 weeks old No hemorrhagic changes * Carotid doppler IMPRESSION: No hemodynamically significant stenosis by NASCET criteria. * 2v CXR IMPRESSION: 1. No acute findings. * TTE Conclusions: Mild to moderated LVH, est EF 55-60%, abnormal LV diastolic function, mild W[place] Acute Ischemic stroke/CVA with persistent headache: treat with statin, no aspirin due to severely low plt Thrombocytopenia, suspected ITP s/p IGG: continue steroids, Heme/Onc consulted, input noted, monitor CBC closely Acute metabolic encephalopathy, poa: treat medically NSTEMI: medical management, Cardiology consulted, input noted Hypokalemia: replete as needed H/o Urinary retention 2014: need more collateral information h/o Marijuana use: UDS requested by Dr. Coker DVT ppx: SCD only due to severe low plt counts full code Disposition: continue inpatient care, d/c once plt counts stabilize and cleared by Cardiology Patient has been on Black seed oil which can cause plt dysfunction/ITP History Interval history: Patient was seen and examined. 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 Overnight uneventful as no events directly reported to me. Patient denies any chest pain, shortness breath, nausea/vomiting or severe headaches. Imaging, nursing note, chart, labs and old chart reviewed. Discussed with patient with daughter Jocelyn at bedside. Hospitalist Physical - Physical exam Narrative exam: Gen: ill appearing, WDWN, NAD, Awake, Alert, Orientated HEENT: NCAT, EOMI, PERRL, OP Clear Neck: supple, no adenopathy, no thyromegaly, no JVD CVS/Heart: RRR, normal S1S2, pulses present bilaterally Chest/Lungs: CTA B, Symmetrical chest expansion, good air entry bilaterally GI/Abdomen: soft, NTND, good bowel sounds, no guarding or rebound /Bladder: no suprapubic tenderness, no CVA or paraspinal tenderness Extermity/Skin: no c/c/e, no obvious rash MSK: FROM x 4 Neuro: CN 2-12 grossly intact except for vision, no new focal deficits, personality change, Psych: odd behavior, not her baseline. One minute she is fine and resting comfortably then next second, she quickly grabs her forehead and pouts, then she refuses to take medicine, her daughter Jocelyn has to give the tylenol in applesauce, in a playful child like way (mimi-mimi here comes the train way) - Constitutional Vitals: Temp Pulse Resp BP Pulse Ox 99.9 F H 89 20 134/78 99 11/17/19 15:55 11/17/19 15:55 11/17/19 16:13 11/17/19 15:55 11/17/19 15:55 General appearance: Present: no acute distress, well-nourished Results - Labs CBC & Chem 7: 11/17/19 09:24 11/17/19 09:24 Labs: Laboratory Last Values WBC 9.1 K/mm3 (4.5-11.0) 11/17/19 09:24 RBC 2.52 M/mm3 (3.65-5.03) L 11/17/19 09:24 Hgb 8.4 gm/dl (10.1-14.3) L 11/17/19 09:24 Hct 24.3 % (30.3-42.9) L 11/17/19 09:24 MCV 96 fl (79-97) 11/17/19 09:24 MCH 33 pg (28-32) H 11/17/19 09:24 MCHC 35 % (30-34) H 11/17/19 09:24 RDW 19.1 % (13.2-15.2) H 11/17/19 09:24 Plt Count 17 K/mm3 (140-440) L* 11/17/19 09:24 Lymph % (Auto) 31.0 % (13.4-35.0) 11/14/19 09:08 [place] % (Auto) 9.4 % (0.0-7.3) H 11/14/19 09:08 Eos % (Auto) 0.3 % (0.0-4.3) 11/14/19 09:08 Baso % (Auto) 0.4 % (0.0-1.8) 11/14/19 09:08 Lymph # 2.3 K/mm3 (1.2-5.4) 11/14/19 09:08 [place] # 0.7 K/mm3 (0.0-0.8) 11/14/19 09:08 Eos # 0.0 K/mm3 (0.0-0.4) 11/14/19 09:08 Baso # 0.0 K/mm3 (0.0-0.1) 11/14/19 09:08 Add Manual Diff Complete 11/14/19 09:08 Seg Neutrophils % 58.9 % (40.0-70.0) 11/14/19 09:08 Seg Neutrophils # 4.5 K/mm3 (1.8-7.7) 11/14/19 09:08 Percent Retic 16.24 % (0.78-2.58) H 11/17/19 09:24 PT 14.5 Sec. (12.2-14.9) 11/12/19 05:54 INR 1.11 (0.87-1.13) 11/12/19 05:54 APTT 24.9 Sec. (24.2-36.6) 11/12/19 05:54 Sodium 140 mmol/L (137-145) 11/17/19 09:24 Potassium 3.6 mmol/L (3.6-5.0) 11/17/19 09:24 Chloride 106.8 mmol/L (98-107) 11/17/19 09:24 Carbon Dioxide 19 mmol/L (22-30) L 11/17/19 09:24 Anion Gap 18 mmol/L 11/17/19 09:24 BUN 13 mg/dL (7-17) 11/17/19 09:24 Creatinine 0.7 mg/dL (0.7-1.2) 11/17/19 09:24 Estimated GFR > 60 ml/min 11/17/19 09:24 BUN/Creatinine Ratio 19 % 11/17/19 09:24 Glucose 141 mg/dL (65-100) H 11/17/19 09:24 POC Glucose 112 (70-105) H 11/13/19 02:26 Calcium 8.5 mg/dL (8.4-10.2) 11/17/19 09:24 Iron 143 ug/dL (37-170) 11/12/19 10:23 TIBC 240 mcg/dL (250-450) L 11/12/19 10:23 Ferritin 911.5 ng/mL (13.0-400.0) H 11/12/19 10:23 Total Bilirubin 4.40 mg/dL (0.1-1.2) H 11/15/19 13:02 Direct Bilirubin 0.4 mg/dL (0-0.2) H 11/13/19 08:22 Indirect Bilirubin 2.3 mg/dL 11/13/19 08:22 AST 57 units/L (5-40) H 11/15/19 13:02 ALT 61 units/L (7-56) H 11/15/19 13:02 Alkaline Phosphatase 62 units/L (35-129) 11/15/19 13:02 Lactate Dehydrogenase 1022 units/L (91-180) H 11/11/19 23:24 Troponin T 0.246 ng/mL (0.00-0.029) H* D 11/12/19 05:54 NT-Pro-B Natriuret Pep 633.4 pg/mL (0-900) 11/11/19 19:31 Total Protein 7.5 g/dL (6.3-8.2) 11/15/19 13:02 Albumin 3.9 g/dL (3.9-5) 11/15/19 13:02 Albumin/Globulin Ratio 1.1 % 11/15/19 13:02 Triglycerides 105 mg/dL (2-149) 11/11/19 19:25 Cholesterol 185 mg/dL (50-199) 11/11/19 19:25 LDL Cholesterol Direct 132 mg/dL (50-130) H 11/11/19 19:25 HDL Cholesterol 46 mg/dL (40-59) 11/11/19 19:25 Cholesterol/HDL Ratio 4.02 % 11/11/19 19: Vitamin B12 701.6 pg/mL (211-911) 11/12/19: Folate > 20 ng/mL (7.3-26.0) 11/12/19 10: TSH 3.110 mlU/mL (0.270-4.200) 11/11/19 19:25 Urine Color Yellow (Yellow) 11/11/19 21: Urine Turbidity Clear (Clear) 11/11/19 21: Urine pH 7.0 (5.0-7.0) 11/11/19 21: Ur Specific [place] 1.008 (1.003-1.030) 11/11/19 21: Urine Protein <15 mg/dl mg/dL (Negative) 11/11/19: Urine Glucose (UA) Neg mg/dL (Negative) 11/11/19 21: Urine Ketones Neg mg/dL (Negative) 11/11/19 21: Urine Blood Mod (Negative) 11/11/19 21: Urine Nitrite Neg (Negative) 11/11/19 21: Urine Bilirubin Neg (Negative) 11/11/19: Urine Urobilinogen < 2.0 mg/dL (<2.0) 11/11/19 21:26 Ur Leukocyte Esterase Neg (Negative) 11/11/19 21: Urine WBC (Auto) 1.0 /HPF (0.0-6.0) 11/11/19 21: Urine RBC (Auto) 2.0 /HPF (0.0-6.0) 11/11/19 21:26 U Epithel Cells (Auto) 1.0 /HPF (0-13.0) 11/11/19 21:26 Urine Opiates Screen Presumptive negative 11/17/19 13:10 Urine Methadone Screen Presumptive negative 11/17/19 13:10 Ur Barbiturates Screen Presumptive negative 11/17/19 13:10 Ur Phencyclidine Scrn Presumptive negative 11/17/19 13:10 Ur Amphetamines Screen Presumptive negative 11/17/19 13:10 U Benzodiazepines Scrn Presumptive negative 11/17/19 13:10 Urine Cocaine Screen Presumptive negative 11/17/19 13:10 U Marijuana (THC) Screen Presumptive negative 11/17/19 13:10 Drugs of Abuse Note Disclamer 11/17/19 13:10 Rheumatoid Factor < 10 IU/ml (0-13) 11/14/19 16:15 HIV 1&2 Antibody Rapid Non react (Non React) 11/12/19 10:23 HIV P24 Antigen Non react (Non React) 11/12/19 10:23 Blood Type B POSITIVE 11/17/19 09:24 Direct Antiglob Test Negative 11/17/19 09:24 NATALI, Poly Interpret Negative 11/17/19 09:24 Active Medications - Current Medications Current Medications: Generic Name Dose Route Start Last Admin Trade Name Freq PRN Reason Stop Dose Admin Acetaminophen 650 mg 11/11/19 23:36 11/17/19 12:50 Tylenol PO 650 mg Q4H PRN Administration Pain MILD(1-3)/Fever >100.5/LEE Atorvastatin Calcium 40 mg 11/14/19 22:00 11/16/19 22:00 Lipitor PO 40 mg QHS PRAVEEN Administration Carvedilol 3.125 mg 11/12/19 22:00 11/17/19 10:50 Coreg PO 3.125 mg BID PRAVEEN Administration Sodium Chloride 1,000 mls @ 75 mls/hr 11/11/19 23:45 11/17/19 14:08 Nacl 0.9% 1000 Ml IV 75 mls/hr DIRECT PRAVEEN Administration IMMUN GLOBG(IGG)/MALT/IGA OV50 400 mls @ 50 mls/hr 11/17/19 14:00 11/17/19 15:20 40 gm/ Sodium Chloride IV 11/19/19 19:59 50 mls/hr Q24HR@1200 PRAVEEN Administration Magnesium Hydroxide 30 ml 11/11/19 23:36 11/16/19 08:17 Milk Of Magnesia PO 30 ml Q4H PRN Administration Constipation Morphine Sulfate 2 mg 11/11/19 23:36 11/17/19 16:13 Morphine IV 2 mg Q4H PRN Administration Pain, Moderate (4-6) Ondansetron HCl 4 mg 11/13/19 13:17 11/14/19 07:54 Zofran IV 4 mg Q4H PRN Administration nausea Oxycodone/Acetaminophen 1 tab 11/13/19 12:00 11/16/19 23:56 Percocet 5/325 PO 1 tab Q6H PRN Administration Pain, Moderate (4-6) Pantoprazole Sodium 40 mg 11/12/19 10:00 11/17/19 10:51 Protonix PO 40 mg QDAY PRAVEEN Administration Prednisone 50 mg 11/16/19 10:00 11/17/19 10:51 Deltasone PO 50 mg QDAY PRAVEEN Administration Sodium Chloride 10 ml 11/12/19 10:00 11/17/19 10:51 Sodium Chloride Flush Syringe 10 Ml IV 10 ml BID PRAVEEN Administration Sodium Chloride 10 ml 11/11/19 23:36 11/12/19 02:50 Sodium Chloride Flush Syringe 10 Ml IV 10 ml PRN PRN Administration LINE FLUSH
[2019-11-17 21:41] LABS: ANA Screen, IFA Positive (Negative)
[2019-11-18] MEDS: oxyCODONE /ACETAMINOPHEN 5-325MG TAB PO PRN (04:26)
--- NOTE | 2019-11-18 06:52 | Hem/Onc Progress Note ---
Assessment and Plan 1. Thrombocytopenia. This could be immune thrombocytopenic purpura. deficiency investigations, human immunodeficiency virus testing. 2. LDH elevated. This may be secondary to LFT abnormalities. 3. High indirect bilirubin, etiology unclear. 4. History of marijuana usage. 5. History of recent malaise until this episode. This may have a role in the low platelets. 6. 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 the patient was started on prednisone and proton pump inhibitor and follow the patient. 7. History of ureteral damage. 8. History of hysterectomy. s/p 1 and half day of IVIG trial - stopped due to headache MRI brain done agitation - ? cause ? steroid psychosis - was held for 1 day restarted prednisone on 11/16 - family wants lower dose explained that it is 1mg/kg - they are keen for lower dose will give 50 mg daily 11/18 - blood sugar monitoring urine tox done - negative colin negative blood group B Rh + d/w family that prednisone dose is not really changing option of IVIG back vs Anti D option of dexa - but family reluctant for high dose steroids on IVIG day 3 reviewed UPTODATE medical data if no improvement - ? need Rituxan pt also has anemia - with high LDH - ? hemolytic - will follow same Price syndrome a possibility high indirect bili - high LDH - Patient Problems (1) Thrombocytopenia Current Visit: Yes Status: Acute Subjective Date of service: 11/18/19 Principal diagnosis: ITP - anemia Interval history: s/p IVIG Objective - Exam Narrative Exam: Pain - none General appearance - alert Performance status limited self care Eyes - no icterus ENT - no bleeding LNs cervical not palpable Neck - no LN Respiratory Normal - on o2 Breath sounds - CTA anteriorly CVS S1 S2 + Extremities nil acute General GI Soft Rectal deferred female - deferred Skin warm Musculoskeletal - moving limbs Neurologically awake - answers Questions - Constitutional Vitals: Last Vital Signs Temp 99.2 F 11/18/19 04:29 Pulse 63 11/18/19 04:29 Resp 16 11/18/19 05:26 BP 130/63 11/18/19 04:29 Pulse Ox 100 11/18/19 04:29 - Labs Lab Results: Laboratory Results - last 24 hr 11/14/19 11/17/19 11/17/19 16:15 09:24 09:24 WBC 9.1 RBC 2.52 L Hgb 8.4 L Hct 24.3 L MCV 96 MCH 33 H MCHC 35 H RDW 19.1 H Plt Count 17 L* Percent Retic Sodium 140 Potassium 3.6 Chloride 106.8 Carbon Dioxide 19 L Anion Gap 18 BUN 13 Creatinine 0.7 Estimated GFR > 60 BUN/Creatinine Ratio 19 Glucose 141 H Calcium 8.5 Urine Opiates Screen Urine Methadone Screen Ur Barbiturates Screen Ur Phencyclidine Scrn Ur Amphetamines Screen U Benzodiazepines Scrn Urine Cocaine Screen U Marijuana (THC) Screen Drugs of Abuse Note KHADAR Screen Positive H Blood Type Direct Antiglob Test NATALI, Poly Interpret 11/17/19 11/17/19 11/17/19 09:24 09:24 13:10 WBC RBC Hgb Hct MCV MCH MCHC RDW Plt Count Percent Retic 16.24 H Sodium Potassium Chloride Carbon Dioxide Anion Gap BUN Creatinine Estimated GFR BUN/Creatinine Ratio Glucose Calcium Urine Opiates Screen Presumptive negative Urine Methadone Screen Presumptive negative Ur Barbiturates Screen Presumptive negative Ur Phencyclidine Scrn Presumptive negative Ur Amphetamines Screen Presumptive negative U Benzodiazepines Scrn Presumptive negative Urine Cocaine Screen Presumptive negative U Marijuana (THC) Screen Presumptive negative Drugs of Abuse Note Disclamer KHADAR Screen Blood Type B POSITIVE Direct Antiglob Test Negative NATALI, Poly Interpret Negative Medications & Allergies - Medications Allergies/Adverse Reactions: Allergies No Known Allergies Allergy (Unverified 08/03/13 21:24) Home Medications: Home Medications Medication Instructions Recorded Confirmed Last Taken Type No Known Home Medications [No 11/12/19 11/12/19 Unknown History Reported Home Medications] Active Medications: Generic Name Dose Route Start Last Admin Trade Name [place] PRN Reason Stop Dose Admin Acetaminophen 650 mg 11/11/19 23:36 11/17/19 12:50 Tylenol PO 650 mg Q4H PRN Administration Pain MILD(1-3)/Fever >100.5/LEE Atorvastatin Calcium 40 mg 11/14/19 22:00 11/17/19 22:43 Lipitor PO 40 mg QHS PRAVEEN Administration Carvedilol 3.125 mg 11/12/19 22:00 11/17/19 22:43 Coreg PO 3.125 mg BID PRAVEEN Administration Sodium Chloride 1,000 mls @ 75 mls/hr 11/11/19 23:45 11/17/19 14:08 Nacl 0.9% 1000 Ml IV 75 mls/hr DIRECT PRAVEEN Administration IMMUN GLOBG(IGG)/MALT/IGA OV50 400 mls @ 50 mls/hr 11/17/19 14:00 11/17/19 15:20 40 gm/ Sodium Chloride IV 11/19/19 19:59 50 mls/hr Q24HR@1200 PRAVEEN Administration Magnesium Hydroxide 30 ml 11/11/19 23:36 11/16/19 08:17 Milk Of Magnesia PO 30 ml Q4H PRN Administration Constipation Morphine Sulfate 2 mg 11/11/19 23:36 11/17/19 22:38 Morphine IV 2 mg Q4H PRN Administration Pain, Moderate (4-6) Ondansetron HCl 4 mg 11/13/19 13:17 11/14/19 07:54 Zofran IV 4 mg Q4H PRN Administration nausea Oxycodone/Acetaminophen 1 tab 11/13/19 12:00 11/18/19 04:26 Percocet 5/325 PO 1 tab Q6H PRN Administration Pain, Moderate (4-6) Pantoprazole Sodium 40 mg 11/12/19 10:00 11/17/19 10:51 Protonix PO 40 mg QDAY PRAVEEN Administration Prednisone 50 mg 11/16/19 10:00 11/17/19 10:51 Deltasone PO 50 mg QDAY PRAVEEN Administration Sodium Chloride 10 ml 11/12/19 10:00 11/17/19 22:46 Sodium Chloride Flush Syringe 10 Ml IV 10 ml BID PRAVEEN Administration Sodium Chloride 10 ml 11/11/19 23:36 11/12/19 02:50 Sodium Chloride Flush Syringe 10 Ml IV 10 ml PRN PRN Administration LINE FLUSH
[2019-11-18 07:12] LABS: Hematocrit 23.1 % (30.3-42.9); Hemoglobin 7.9 gm/dl (10.1-14.3); Mean Corpuscular HGB Conc 34 % (30-34); Mean Corpuscular Volume 97 fl (79-97); Red Blood Count 2.37 M/mm3 (3.65-5.03)
[2019-11-18 07:24] LABS: Red Cell Distribution Width 20.8 % (13.2-15.2)
[2019-11-18 08:19] LABS: BUN/Creatinine Ratio 21; Blood Urea Nitrogen 15 mg/dL (7-17); Calcium 8.7 mg/dL (8.4-10.2); Hemolysis Index 6
[2019-11-18 08:39] LABS: Platelet Count 10 K/mm3 (140-440)
[2019-11-18] MEDS: carvediloL 3.125 MG TAB PO SCH ×2 (10:00→22:24)
[2019-11-18] MEDS: predniSONE 50 MG TAB PO SCH (10:00)
[2019-11-18] MEDS: PANTOPRAZOLE 40 MG TAB PO SCH (10:00)
--- NOTE | 2019-11-18 16:41 | Progress Note ---
Assessment and Plan Assessment and plan: Patient is a 54-year-old woman with history of urinary retention problems and marijuana use who presents to [facility] ED with persistent headache and vision disturbances. She was admitted on 11/12/2019 as plt count was 14 then 9. Troponin level was 0.419 with normal renal function. Cardiology consulted, no he debi given or intervention done as platelet count was 9. Cmo was consulted and suspected ITP and started IGG and steroids. Patient has been on Black seed oil which can cause plt dysfunction/ITP * CT brain with and without contrast IMPRESSION: 1. Subtle areas of decreased attenuation peripherally in the posterior right parietal lobe, which could represent small branch MCA infarcts. Diffusion imaging by MRI may be helpful for further evaluation, if clinically warranted. 2. Otherwise, no focal mass, hemorrhage, hydrocephalus, or large infarct appreciated. * Brain MRI with and without contrast IMPRESSION: Subacute infarction in the right occipital lobe Infarction in the left occipital lobe ligament. Base but less than 2 weeks old No hemorrhagic changes * Carotid doppler IMPRESSION: No hemodynamically significant stenosis by NASCET criteria. * 2v CXR IMPRESSION: 1. No acute findings. * TTE Conclusions: Mild to moderated LVH, est EF 55-60%, abnormal LV diastolic function, mild NV Acute Ischemic stroke/CVA with persistent headache: treat with statin, no aspirin due to severely low plt Thrombocytopenia, suspected ITP s/p IGG: continue steroids, Heme/Onc consulted, input noted, monitor CBC closely Acute metabolic encephalopathy, poa: treat medically NSTEMI: medical management, Cardiology consulted, input noted Hypokalemia: replete as needed H/o Urinary retention 2013: need more collateral information h/o Marijuana use: UDS requested by Dr. Coker DVT ppx: SCD only due to severe low plt counts full code Disposition: continue inpatient care, d/c once plt counts stabilize and cleared by Cardiology IVIG started on 11/12/2019 and then on 11/13/2019 IVIG infusion was stopped prior to completion of the second bottle due to headaches. Then Brain MRI was done on 11/14/2019. I started following patient on 11/15/2019. IVIG infusion started back again on 11/17/2019. So, patient had 1.5 of IVIG and stopped on day 2 prior to the completion of the second bottle. History Interval history: Patient was seen and examined. 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 Overnight uneventful as no events directly reported to me. Patient denies any chest pain, shortness breath, nausea/vomiting or severe headaches. Imaging, nursing note, chart, labs and old chart reviewed. Discussed with patient with daughter Jocelyn at bedside. Hospitalist Physical - Physical exam Narrative exam: Gen: ill appearing, WDWN, NAD, Awake, Alert, Orientated HEENT: NCAT, EOMI, PERRL, OP Clear Neck: supple, no adenopathy, no thyromegaly, no JVD CVS/Heart: RRR, normal S1S2, pulses present bilaterally Chest/Lungs: CTA B, Symmetrical chest expansion, good air entry bilaterally GI/Abdomen: soft, NTND, good bowel sounds, no guarding or rebound /Bladder: no suprapubic tenderness, no CVA or paraspinal tenderness Extermity/Skin: no c/c/e, no obvious rash MSK: FROM x 4 Neuro: CN 2-12 grossly intact except for vision, no new focal deficits, personality change, Psych: odd behavior, not her baseline. One minute she is fine and resting comfortably then next second, she quickly grabs her forehead and pouts, then she refuses to take medicine, her daughter Jocelyn has to give the tylenol in applesauce, in a playful child like way (mimi-mimi here comes the train way) - Constitutional Vitals: Temp Pulse Resp BP Pulse Ox 98.2 F 70 16 116/81 98 11/18/19 12:20 11/18/19 12:20 11/18/19 12:20 11/18/19 12:20 11/18/19 12:20 General appearance: Present: no acute distress, well-nourished Results - Labs CBC & Chem 7: 11/18/19 06:52 11/18/19 06:52 Labs: Laboratory Last Values WBC 9.5 K/mm3 (4.5-11.0) 11/18/19 06:52 RBC 2.37 M/mm3 (3.65-5.03) L 11/18/19 06:52 Hgb 7.9 gm/dl (10.1-14.3) L 11/18/19 06:52 Hct 23.1 % (30.3-42.9) L 11/18/19 06:52 MCV 97 fl (79-97) 11/18/19 06:52 MCH 33 pg (28-32) H 11/18/19 06:52 MCHC 34 % (30-34) 11/18/19 06:52 RDW 20.8 % (13.2-15.2) H 11/18/19 06:52 Plt Count 10 K/mm3 (140-440) L* 11/18/19 06:52 Lymph % (Auto) 31.0 % (13.4-35.0) 11/14/19 09:08 [place] % (Auto) 9.4 % (0.0-7.3) H 11/14/19 09:08 Eos % (Auto) 0.3 % (0.0-4.3) 11/14/19 09:08 Baso % (Auto) 0.4 % (0.0-1.8) 11/14/19 09:08 Lymph # 2.3 K/mm3 (1.2-5.4) 11/14/19 09:08 [place] # 0.7 K/mm3 (0.0-0.8) 11/14/19 09:08 Eos # 0.0 K/mm3 (0.0-0.4) 11/14/19 09:08 Baso # 0.0 K/mm3 (0.0-0.1) 11/14/19 09:08 Add Manual Diff Complete 11/14/19 09:08 Seg Neutrophils % 58.9 % (40.0-70.0) 11/14/19 09:08 Seg Neutrophils # 4.5 K/mm3 (1.8-7.7) 11/14/19 09:08 Percent Retic 16.24 % (0.78-2.58) H 11/17/19 09:24 PT 14.5 Sec. (12.2-14.9) 11/12/19 05:54 INR 1.11 (0.87-1.13) 11/12/19 05:54 APTT 24.9 Sec. (24.2-36.6) 11/12/19 05:54 Sodium 141 mmol/L (137-145) 11/18/19 06:52 Potassium 3.4 mmol/L (3.6-5.0) L 11/18/19 06:52 Chloride 105.0 mmol/L (98-107) 11/18/19 06:52 Carbon Dioxide 21 mmol/L (22-30) L 11/18/19 06:52 Anion Gap 18 mmol/L 11/18/19 06:52 BUN 15 mg/dL (7-17) 11/18/19 06:52 Creatinine 0.7 mg/dL (0.7-1.2) 11/18/19 06:52 Estimated GFR > 60 ml/min 11/18/19 06:52 BUN/Creatinine Ratio 21 % 11/18/19 06:52 Glucose 112 mg/dL (65-100) H 11/18/19 06:52 POC Glucose 112 (70-105) H 11/13/19 02:26 Calcium 8.7 mg/dL (8.4-10.2) 11/18/19 06:52 Iron 143 ug/dL (37-170) 11/12/19 10:23 TIBC 240 mcg/dL (250-450) L 11/12/19 10:23 Ferritin 911.5 ng/mL (13.0-400.0) H 11/12/19 10:23 Total Bilirubin 4.40 mg/dL (0.1-1.2) H 11/15/19 13:02 Direct Bilirubin 0.4 mg/dL (0-0.2) H 11/13/19 08:22 Indirect Bilirubin 2.3 mg/dL 11/13/19 08:22 AST 57 units/L (5-40) H 11/15/19 13:02 ALT 61 units/L (7-56) H 11/15/19 13:02 Alkaline Phosphatase 62 units/L (35-129) 11/15/19 13:02 Lactate Dehydrogenase 1022 units/L (91-180) H 11/11/19 23:24 Troponin T 0.246 ng/mL (0.00-0.029) H* D 11/12/19 05:54 NT-Pro-B Natriuret Pep 633.4 pg/mL (0-900) 11/11/19 19:31 Total Protein 7.5 g/dL (6.3-8.2) 11/15/19 13:02 Albumin 3.9 g/dL (3.9-5) 11/15/19 13:02 Albumin/Globulin Ratio 1.1 % 11/15/19 13:02 Triglycerides 105 mg/dL (2-149) 11/11/19 19: Cholesterol 185 mg/dL (50-199) 11/11/19 19:25 LDL Cholesterol Direct 132 mg/dL (50-130) H 11/11/19 19:25 HDL Cholesterol 46 mg/dL (40-59) 11/11/19 19:25 Cholesterol/HDL Ratio 4.02 % 11/11/19 19: Vitamin B12 701.6 pg/mL (211-911) 11/12/19 10: Folate > 20 ng/mL (7.3-26.0) 11/12/19 10: TSH 3.110 mlU/mL (0.270-4.200) 11/11/19 19: Urine Color Yellow (Yellow) 11/11/19 21: Urine Turbidity Clear (Clear) 11/11/19 21: Urine pH 7.0 (5.0-7.0) 11/11/19 21: Ur Specific [place] 1.008 (1.003-1.030) 11/11/19 21: Urine Protein <15 mg/dl mg/dL (Negative) 11/11/19 21: Urine Glucose (UA) Neg mg/dL (Negative) 11/11/19 21: Urine Ketones Neg mg/dL (Negative) 11/11/19 21: Urine Blood Mod (Negative) 11/11/19 21: Urine Nitrite Neg (Negative) 11/11/19 21: Urine Bilirubin Neg (Negative) 11/11/19 21: Urine Urobilinogen < 2.0 mg/dL (<2.0) 11/11/19 21:26 Ur Leukocyte Esterase Neg (Negative) 11/11/19 21:26 Urine WBC (Auto) 1.0 /HPF (0.0-6.0) 11/11/19 21:26 Urine RBC (Auto) 2.0 /HPF (0.0-6.0) 11/11/19 21: U Epithel Cells (Auto) 1.0 /HPF (0-13.0) 11/11/19 21:26 Urine Opiates Screen Presumptive negative 11/17/19 13:10 Urine Methadone Screen Presumptive negative 11/17/19 13:10 Ur Barbiturates Screen Presumptive negative 11/17/19 13:10 Ur Phencyclidine Scrn Presumptive negative 11/17/19 13:10 Ur Amphetamines Screen Presumptive negative 11/17/19 13:10 U Benzodiazepines Scrn Presumptive negative 11/17/19 13:10 Urine Cocaine Screen Presumptive negative 11/17/19 13:10 U Marijuana (THC) Screen Presumptive negative 11/17/19 13:10 Drugs of Abuse Note Disclamer 11/17/19 13:10 Rheumatoid Factor < 10 IU/ml (0-13) 11/14/19 16:15 KHADAR Screen Positive (Negative) H 11/14/19 16:15 HIV 1&2 Antibody Rapid Non react (Non React) 11/12/19 10:23 HIV P24 Antigen Non react (Non React) 11/12/19 10:23 Blood Type B POSITIVE 11/17/19 09:24 Direct Antiglob Test Negative 11/17/19 09:24 NATALI, Poly Interpret Negative 11/17/19 09:24 Active Medications - Current Medications Current Medications: Generic Name Dose Route Start Last Admin Trade Name Freq PRN Reason Stop Dose Admin Acetaminophen 650 mg 11/11/19 23:36 11/17/19 12:50 Tylenol PO 650 mg Q4H PRN Administration Pain MILD(1-3)/Fever >100.5/LEE Atorvastatin Calcium 40 mg 11/14/19 22:00 11/17/19 22:43 Lipitor PO 40 mg QHS PRAVEEN Administration Carvedilol 3.125 mg 11/12/19 22:00 11/17/19 22:43 Coreg PO 3.125 mg BID PRAVEEN Administration Sodium Chloride 1,000 mls @ 75 mls/hr 11/11/19 23:45 11/17/19 14:08 Nacl 0.9% 1000 Ml IV 75 mls/hr DIRECT PRAVEEN Administration IMMUN GLOBG(IGG)/MALT/IGA OV50 400 mls @ 50 mls/hr 11/17/19 14:00 11/17/19 15:20 40 gm/ Sodium Chloride IV 11/19/19 19:59 50 mls/hr Q24HR@1200 PRAVEEN Administration Magnesium Hydroxide 30 ml 11/11/19 23:36 11/16/19 08:17 Milk Of Magnesia PO 30 ml Q4H PRN Administration Constipation Morphine Sulfate 2 mg 11/11/19 23:36 11/17/19 22:38 Morphine IV 2 mg Q4H PRN Administration Pain, Moderate (4-6) Ondansetron HCl 4 mg 11/13/19 13:17 11/14/19 07:54 Zofran IV 4 mg Q4H PRN Administration nausea Oxycodone/Acetaminophen 1 tab 11/13/19 12:00 11/18/19 04:26 Percocet 5/325 PO 1 tab Q6H PRN Administration Pain, Moderate (4-6) Pantoprazole Sodium 40 mg 11/12/19 10:00 11/17/19 10:51 Protonix PO 40 mg QDAY PRAVEEN Administration Prednisone 50 mg 11/16/19 10:00 11/17/19 10:51 Deltasone PO 50 mg QDAY PRAVEEN Administration Sodium Chloride 10 ml 11/12/19 10:00 11/17/19 22:46 Sodium Chloride Flush Syringe 10 Ml IV 10 ml BID PRAVEEN Administration Sodium Chloride 10 ml 11/11/19 23:36 11/12/19 02:50 Sodium Chloride Flush Syringe 10 Ml IV 10 ml PRN PRN Administration LINE FLUSH Nutrition/Malnutrition Assess - Dietary Evaluation Nutrition/Malnutrition Findings: Nutrition Notes Start: 11/18/19 11:15 Freq: Status: Active Protocol: Document 11/18/19 11:16 IDALIA (Rec: 11/18/19 11:30 IDALIA [id number]) Co-Sign 11/18/19 11:16 LP Nutrition Notes Need for Assessment generated from: LOS Initial or Follow up Assessment Current Diagnosis Stroke Other Pertinent Diagnosis Headache, blurry vision, acute CVA Current Diet Cardiac Labs/Tests Reviewed Pertinent Medications Lipitor Prednisone Height 5 ft 4 in Weight 86.8 kg [place] Body Weight (kg) 54.54 BMI 32.8 Intake Prior to Admission Good Subjective/Other Information RD screen for LOS. Pt reported no wt loss. Pt stated that her appetite has been bad and the food doesn't taste good due to her being sick. 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 Pt ate 0% of breakfast. Preferences were noted. Ensure offered, pt denied it. Burn Absent Trauma Absent GI Symptoms None Current % PO Negligible Minimum of two criteria No Energy Intake (non-severe) <75% Estimated Energy Requirement >7 days #1 Nutrition Diagnosis Inadequate oral intake Etiology Decreased appetite As Evidenced by Signs and Symptoms 0% of breakfast eaten Is patient on ventilator? No Is Patient Ambulatory and/or Out of Bed Yes REE-([place]-St. Jeor-ambulatory/OOB) [ 1882.400 NUTR.MSJOOB] Kcal/Kg value to use for calculation 18 Approximate Energy Requirements Using 1562 kcal/Kg Calculation Used for Recommendations Kcal/kg Additional Notes Protein: 57-71g (0.8-1g/kg AdjBW 71g) Fluid: 1 ml/kcal Nutrition Intervention Change Diet Order: Continue current Goal #1 Meet at least 75% of energy and protein needs Anticipated Discharge Needs: Cardiac diet Follow-Up By: 11/23/19 Additional Comments F/U for PO intakes
[2019-11-18] MEDS ORDERED: POTASSIUM CHLORIDE ER 20 MEQ TAB PO ONE (16:54)
[2019-11-18] MEDS: MORPHINE 2 MG/1 ML INJ IV PRN (20:36)
[2019-11-18] MEDS: ACETAMINOPHEN 325 MG TAB PO PRN (22:23)
[2019-11-19 07:49] LABS: Alanine Aminotransferase 37 units/L (7-56); Albumin 3.6 g/dL (3.9-5); BUN/Creatinine Ratio 17; Blood Urea Nitrogen 12 mg/dL (7-17); Calcium 8.7 mg/dL (8.4-10.2); Hemolysis Index 3
[2019-11-19 08:30] LABS: Hematocrit 24.3 % (30.3-42.9); Hemoglobin 8.3 gm/dl (10.1-14.3); Mean Corpuscular HGB Conc 34 % (30-34); Mean Corpuscular Volume 99 fl (79-97); Red Blood Count 2.46 M/mm3 (3.65-5.03)
[2019-11-19 08:33] LABS: Red Cell Distribution Width 22.3 % (13.2-15.2)
[2019-11-19 08:36] LABS: Platelet Count 19 K/mm3 (140-440)
[2019-11-19] MEDS: PANTOPRAZOLE 40 MG TAB PO SCH (09:42)
[2019-11-19] MEDS: carvediloL 3.125 MG TAB PO SCH ×2 (09:42→22:20)
[2019-11-19] MEDS: predniSONE 50 MG TAB PO SCH (09:42)
[2019-11-19] MEDS: [UNRECOGNIZED DRUG - OTHER] IV SCH ×2 (11:56→12:39)
--- NOTE | 2019-11-19 15:22 | Progress Note ---
Assessment and Plan Assessment and plan: Patient is a 54-year-old woman with history of urinary retention problems and marijuana use who presents to [facility] ED with persistent headache and vision disturbances. She was admitted on 11/12/2019 as plt count was 14 then 9. Troponin level was 0.419 with normal renal function. Cardiology consulted, no he debi given or intervention done as platelet count was 9. 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 Patient has been on Black seed oil which can cause plt dysfunction/ITP * CT brain with and without contrast IMPRESSION: 1. Subtle areas of decreased attenuation peripherally in the posterior right parietal lobe, which could represent small branch MCA infarcts. Diffusion imaging by MRI may be helpful for further evaluation, if clinically warranted. 2. Otherwise, no focal mass, hemorrhage, hydrocephalus, or large infarct appreciated. * Brain MRI with and without contrast IMPRESSION: Subacute infarction in the right occipital lobe Infarction in the left occipital lobe ligament. Base but less than 2 weeks old No hemorrhagic changes * Carotid doppler IMPRESSION: No hemodynamically significant stenosis by NASCET criteria. * 2v CXR IMPRESSION: 1. No acute findings. * TTE Conclusions: Mild to moderated LVH, est EF 55-60%, abnormal LV diastolic function, mild NV Acute Ischemic stroke/CVA with persistent headache: treat with statin, no aspirin due to severely low plt Thrombocytopenia, suspected ITP s/p IGG: continue steroids, Heme/Onc consulted, input noted, monitor CBC closely Acute metabolic encephalopathy, poa: treat medically NSTEMI: medical management, Cardiology consulted, input noted Hypokalemia: replete as needed H/o Urinary retention 2013: need more collateral information h/o Marijuana use: UDS requested by Dr. Coker DVT ppx: SCD only due to severe low plt counts full code Disposition: continue inpatient care, d/c once plt counts stabilize and cleared by Cardiology IVIG started on 11/12/2019 and then on 11/13/2019 IVIG infusion was stopped prior to completion of the second bottle due to headaches. Then Brain MRI was done on 11/14/2019. I started following patient on 11/15/2019. IVIG infusion started back again on 11/17/2019. So, patient had 1.5 of IVIG and stopped on day 2 prior to the completion of the second bottle. History Interval history: Patient was seen and examined. 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 Overnight uneventful as no events directly reported to me. Patient denies any chest pain, shortness breath, nausea/vomiting or severe headaches. Imaging, nursing note, chart, labs and old chart reviewed. Discussed with patient. Feeling better. Hospitalist Physical - Physical exam Narrative exam: Gen: ill appearing, WDWN, NAD, Awake, Alert, Orientated HEENT: NCAT, EOMI, PERRL, OP Clear Neck: supple, no adenopathy, no thyromegaly, no JVD CVS/Heart: RRR, normal S1S2, pulses present bilaterally Chest/Lungs: CTA B, Symmetrical chest expansion, good air entry bilaterally GI/Abdomen: soft, NTND, good bowel sounds, no guarding or rebound /Bladder: no suprapubic tenderness, no CVA or paraspinal tenderness Extermity/Skin: no c/c/e, no obvious rash MSK: FROM x 4 Neuro: CN 2-12 grossly intact except for vision, no new focal deficits, personality change, Psych: odd behavior, not her baseline. One minute she is fine and resting comfortably then next second, she quickly grabs her forehead and pouts, then she refuses to take medicine, her daughter Jocelyn has to give the tylenol in applesauce, in a playful child like way (mimi-mimi here comes the train way) - Constitutional Vitals: Temp Pulse Resp BP Pulse Ox 98.6 F 96 H 18 107/70 98 11/19/19 11:51 11/19/19 11:51 11/19/19 11:51 11/19/19 11:51 11/19/19 11:51 General appearance: Present: no acute distress, well-nourished Results - Labs CBC & Chem 7: 11/19/19 06:51 11/19/19 06:51 Labs: Laboratory Last Values WBC 8.2 K/mm3 (4.5-11.0) 11/19/19 06:51 RBC 2.46 M/mm3 (3.65-5.03) L 11/19/19 06:51 Hgb 8.3 gm/dl (10.1-14.3) L 11/19/19 06:51 Hct 24.3 % (30.3-42.9) L 11/19/19 06:51 MCV 99 fl (79-97) H 11/19/19 06:51 MCH 34 pg (28-32) H 11/19/19 06:51 MCHC 34 % (30-34) 11/19/19 06:51 RDW 22.3 % (13.2-15.2) H 11/19/19 06:51 Plt Count 19 K/mm3 (140-440) L* 11/19/19 06:51 Lymph % (Auto) 31.0 % (13.4-35.0) 11/14/19 09:08 [place] % (Auto) 9.4 % (0.0-7.3) H 11/14/19 09:08 Eos % (Auto) 0.3 % (0.0-4.3) 11/14/19 09:08 Baso % (Auto) 0.4 % (0.0-1.8) 11/14/19 09:08 Lymph # 2.3 K/mm3 (1.2-5.4) 11/14/19 09:08 [place] # 0.7 K/mm3 (0.0-0.8) 11/14/19 09:08 Eos # 0.0 K/mm3 (0.0-0.4) 11/14/19 09:08 Baso # 0.0 K/mm3 (0.0-0.1) 11/14/19 09:08 Add Manual Diff Complete 11/14/19 09:08 Seg Neutrophils % 58.9 % (40.0-70.0) 11/14/19 09:08 Seg Neutrophils # 4.5 K/mm3 (1.8-7.7) 11/14/19 09:08 Percent Retic 16.93 % (0.78-2.58) H 11/19/19 06:51 PT 14.5 Sec. (12.2-14.9) 11/12/19 05:54 INR 1.11 (0.87-1.13) 11/12/19 05:54 APTT 24.9 Sec. (24.2-36.6) 11/12/19 05:54 Sodium 139 mmol/L (137-145) 11/19/19 06:51 Potassium 3.4 mmol/L (3.6-5.0) L 11/19/19 06:51 Chloride 103.7 mmol/L (98-107) 11/19/19 06:51 Carbon Dioxide 23 mmol/L (22-30) 11/19/19 06:51 Anion Gap 16 mmol/L 11/19/19 06:51 BUN 12 mg/dL (7-17) 11/19/19 06:51 Creatinine 0.7 mg/dL (0.7-1.2) 11/19/19 06:51 Estimated GFR > 60 ml/min 11/19/19 06:51 BUN/Creatinine Ratio 17 % 11/19/19 06:51 Glucose 103 mg/dL (65-100) H 11/19/19 06:51 POC Glucose 129 (70-105) H 11/19/19 11:38 Calcium 8.7 mg/dL (8.4-10.2) 11/19/19 06:51 Iron 143 ug/dL (37-170) 11/12/19 10:23 TIBC 240 mcg/dL (250-450) L 11/12/19 10:23 Ferritin 911.5 ng/mL (13.0-400.0) H 11/12/19 10:23 Total Bilirubin 1.70 mg/dL (0.1-1.2) H 11/19/19 06:51 Direct Bilirubin 0.4 mg/dL (0-0.2) H 11/13/19 08:22 Indirect Bilirubin 2.3 mg/dL 11/13/19 08:22 AST 28 units/L (5-40) 11/19/19 06:51 ALT 37 units/L (7-56) 11/19/19 06:51 Alkaline Phosphatase 54 units/L (35-129) 11/19/19 06:51 Lactate Dehydrogenase 862 units/L (91-180) H 11/19/19 06:51 Troponin T 0.246 ng/mL (0.00-0.029) H* D 11/12/19 05:54 NT-Pro-B Natriuret Pep 633.4 pg/mL (0-900) 11/11/19 19:31 Total Protein 7.7 g/dL (6.3-8.2) 11/19/19 06:51 Albumin 3.6 g/dL (3.9-5) L 11/19/19 06:51 Albumin/Globulin Ratio 0.9 % 11/19/19 06:51 Triglycerides 105 mg/dL (2-149) 11/11/19 19:25 Cholesterol 185 mg/dL (50-199) 11/11/19 19:25 LDL Cholesterol Direct 132 mg/dL (50-130) H 11/11/19 19:25 HDL Cholesterol 46 mg/dL (40-59) 11/11/19 19:25 Cholesterol/HDL Ratio 4.02 % 11/11/19 19:25 Vitamin B12 701.6 pg/mL (211-911) 11/12/19 10: Folate > 20 ng/mL (7.3-26.0) 11/12/19 10:23 TSH 3.110 mlU/mL (0.270-4.200) 11/11/19 19:25 Urine Color Yellow (Yellow) 11/11/19 21: Urine Turbidity Clear (Clear) 11/11/19 21: Urine pH 7.0 (5.0-7.0) 11/11/19 21: Ur Specific [place] 1.008 (1.003-1.030) 11/11/19 21:26 Urine Protein <15 mg/dl mg/dL (Negative) 11/11/19 21:26 Urine Glucose (UA) Neg mg/dL (Negative) 11/11/19 21: Urine Ketones Neg mg/dL (Negative) 11/11/19 21:26 Urine Blood Mod (Negative) 11/11/19 21:26 Urine Nitrite Neg (Negative) 11/11/19 21: Urine Bilirubin Neg (Negative) 11/11/19 21: Urine Urobilinogen < 2.0 mg/dL (<2.0) 11/11/19 21:26 Ur Leukocyte Esterase Neg (Negative) 11/11/19 21:26 Urine WBC (Auto) 1.0 /HPF (0.0-6.0) 11/11/19 21:26 Urine RBC (Auto) 2.0 /HPF (0.0-6.0) 11/11/19 21:26 U Epithel Cells (Auto) 1.0 /HPF (0-13.0) 11/11/19 21:26 Urine Opiates Screen Presumptive negative 11/17/19 13:10 Urine Methadone Screen Presumptive negative 11/17/19 13:10 Ur Barbiturates Screen Presumptive negative 11/17/19 13:10 Ur Phencyclidine Scrn Presumptive negative 11/17/19 13:10 Ur Amphetamines Screen Presumptive negative 11/17/19 13:10 U Benzodiazepines Scrn Presumptive negative 11/17/19 13:10 Urine Cocaine Screen Presumptive negative 11/17/19 13:10 U Marijuana (THC) Screen Presumptive negative 11/17/19 13:10 Drugs of Abuse Note Disclamer 11/17/19 13:10 Rheumatoid Factor < 10 IU/ml (0-13) 11/14/19 16:15 KHADAR Screen Positive (Negative) H 11/14/19 16:15 HIV 1&2 Antibody Rapid Non react (Non React) 11/12/19 10:23 HIV P24 Antigen Non react (Non React) 11/12/19 10:23 Blood Type B POSITIVE 11/17/19 09:24 Direct Antiglob Test Negative 11/17/19 09:24 NATALI, Poly Interpret Negative 11/17/19 09:24 Active Medications - Current Medications Current Medications: Generic Name Dose Route Start Last Admin Trade Name Freq PRN Reason Stop Dose Admin Acetaminophen 650 mg 11/11/19 23:36 11/18/19 22:23 Tylenol PO 650 mg Q4H PRN Administration Pain MILD(1-3)/Fever >100.5/LEE Atorvastatin Calcium 40 mg 11/14/19 22:00 11/18/19 22:25 Lipitor PO 40 mg QHS PRAVEEN Administration Carvedilol 3.125 mg 11/12/19 22:00 11/19/19 09:42 Coreg PO 3.125 mg BID PRAVEEN Administration Sodium Chloride 1,000 mls @ 75 mls/hr 11/11/19 23:45 11/17/19 14:08 Nacl 0.9% 1000 Ml IV 75 mls/hr DIRECT PRAVEEN Administration IMMUN GLOBG(IGG)/MALT/IGA OV50 400 mls @ 50 mls/hr 11/17/19 14:00 11/19/19 12:39 40 gm/ Sodium Chloride IV 11/19/19 19:59 50 mls/hr Q24HR@1200 PRAVEEN Administration Magnesium Hydroxide 30 ml 11/11/19 23:36 11/16/19 08:17 Milk Of Magnesia PO 30 ml Q4H PRN Administration Constipation Morphine Sulfate 2 mg 11/11/19 23:36 01/17/20 20:36 Morphine IV 2 mg Q4H PRN Administration Pain, Moderate (4-6) Ondansetron HCl 4 mg 11/13/19 13:17 11/14/19 07:54 Zofran IV 4 mg Q4H PRN Administration nausea Oxycodone/Acetaminophen 1 tab 11/13/19 12:00 11/18/19 04:26 Percocet 5/325 PO 1 tab Q6H PRN Administration Pain, Moderate (4-6) Pantoprazole Sodium 40 mg 11/12/19 10:00 11/19/19 09:42 Protonix PO 40 mg QDAY PRAVEEN Administration Prednisone 50 mg 11/16/19 10:00 11/19/19 09:42 Deltasone PO 50 mg QDAY PRAVEEN Administration Sodium Chloride 10 ml 11/12/19 10:00 11/19/19 09:43 Sodium Chloride Flush Syringe 10 Ml IV Not Given BID PRAVEEN Sodium Chloride 10 ml 11/11/19 23:36 11/12/19 02:50 Sodium Chloride Flush Syringe 10 Ml IV 10 ml PRN PRN Administration LINE FLUSH Nutrition/Malnutrition Assess - Dietary Evaluation Nutrition/Malnutrition Findings: Nutrition Notes Start: 11/18/19 11:15 Freq: Status: Active Protocol: Document 11/18/19 11:16 IDALIA (Rec: 11/18/19 11:30 [email or web address] [id number]) Co-Sign 11/18/19 11:16 LP Nutrition Notes Need for Assessment generated from: LOS Initial or Follow up Assessment Current Diagnosis Stroke Other Pertinent Diagnosis Headache, blurry vision, acute CVA Current Diet Cardiac Labs/Tests Reviewed Pertinent Medications Lipitor Prednisone Height 5 ft 4 in Weight 86.8 kg [place] Body Weight (kg) 54.54 BMI 32.8 Intake Prior to Admission Good Subjective/Other Information RD screen for LOS. Pt reported no wt loss. Pt stated that her appetite has been bad and the food doesn't taste good due to her being sick. 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 Pt ate 0% of breakfast. Preferences were noted. Ensure offered, pt denied it. Burn Absent Trauma Absent GI Symptoms None Current % PO Negligible Minimum of two criteria No Energy Intake (non-severe) <75% Estimated Energy Requirement >7 days #1 Nutrition Diagnosis Inadequate oral intake Etiology Decreased appetite As Evidenced by Signs and Symptoms 0% of breakfast eaten Is patient on ventilator? No Is Patient Ambulatory and/or Out of Bed Yes REE-([place]-St. Jeor-ambulatory/OOB) [ 1882.400 NUTR.MSJOOB] Kcal/Kg value to use for calculation 18 Approximate Energy Requirements Using 1562 kcal/Kg Calculation Used for Recommendations Kcal/kg Additional Notes Protein: 57-71g (0.8-1g/kg AdjBW 71g) Fluid: 1 ml/kcal Nutrition Intervention Change Diet Order: Continue current Goal #1 Meet at least 75% of energy and protein needs Anticipated Discharge Needs: Cardiac diet Follow-Up By: 11/23/19 Additional Comments F/U for PO intakes
[2019-11-19] MEDS: SODIUM CHLORIDE 0.9% 1000 ML 1,000 ML IV SCH (18:13)
[2019-11-20] MEDS: SODIUM CHLORIDE 0.9% 1000 ML 1,000 ML IV SCH ×2 (07:56→22:17)
[2019-11-20] MEDS: carvediloL 3.125 MG TAB PO SCH ×2 (09:58→22:14)
[2019-11-20] MEDS: predniSONE 50 MG TAB PO SCH (09:58)
[2019-11-20] MEDS: PANTOPRAZOLE 40 MG TAB PO SCH (09:58)
[2019-11-20] MEDS: ACETAMINOPHEN 325 MG TAB PO PRN ×2 (10:03→22:14)
--- NOTE | 2019-11-20 11:22 | Progress Note ---
Assessment and Plan Assessment and plan: Patient is a 54-year-old woman with history of urinary retention problems and marijuana use who presents to [facility] ED with persistent headache and vision disturbances. She was admitted on 11/12/2019 as plt count was 14 then 9. Troponin level was 0.419 with normal renal function. Cardiology consulted, no he debi given or intervention done as platelet count was 9. Therapist Radiation was consulted and suspected ITP and started IGG and steroids. Patient has been on Black seed oil which can cause plt dysfunction/ITP * CT brain with and without contrast IMPRESSION: 1. Subtle areas of decreased attenuation peripherally in the posterior right parietal lobe, which could represent small branch MCA infarcts. Diffusion imaging by MRI may be helpful for further evaluation, if clinically warranted. 2. Otherwise, no focal mass, hemorrhage, hydrocephalus, or large infarct appreciated. * Brain MRI with and without contrast IMPRESSION: Subacute infarction in the right occipital lobe Infarction in the left occipital lobe ligament. Base but less than 2 weeks old No hemorrhagic changes * Carotid doppler IMPRESSION: No hemodynamically significant stenosis by NASCET criteria. * 2v CXR IMPRESSION: 1. No acute findings. * TTE Conclusions: Mild to moderated LVH, est EF 55-60%, abnormal LV diastolic function, mild [place] Acute Ischemic stroke/CVA with persistent headache: treat with statin, no aspirin due to severely low plt Thrombocytopenia, suspected ITP s/p IGG: continue steroids, Heme/Onc consulted, input noted, monitor CBC closely Acute metabolic encephalopathy, poa: treat medically NSTEMI: medical management, Cardiology consulted, input noted Hypokalemia: replete as needed H/o Urinary retention 2013: need more collateral information h/o Marijuana use: UDS requested by Dr. Coker DVT ppx: SCD only due to severe low plt counts full code Disposition: continue inpatient care, d/c once plt counts stabilize and cleared by Cardiology IVIG started on 11/12/2019 and then on 11/13/2019 IVIG infusion was stopped prior to completion of the second bottle due to headaches. Then Brain MRI was done on 11/14/2019. I started following patient on 11/15/2019. IVIG infusion started back again on 11/17/2019. So, patient had 1.5 of IVIG and stopped on day 2 prior to the completion of the second bottle. History Interval history: Patient was seen and examined. 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 Overnight uneventful as no events directly reported to me. Patient denies any chest pain, shortness breath, nausea/vomiting or severe headaches. Imaging, nursing note, chart, labs and old chart reviewed. Discussed with patient. She had headaches overnight Hospitalist Physical - Physical exam Narrative exam: Gen: ill appearing, WDWN, NAD, Awake, Alert, Orientated HEENT: NCAT, EOMI, PERRL, OP Clear Neck: supple, no adenopathy, no thyromegaly, no JVD CVS/Heart: RRR, normal S1S2, pulses present bilaterally Chest/Lungs: CTA B, Symmetrical chest expansion, good air entry bilaterally GI/Abdomen: soft, NTND, good bowel sounds, no guarding or rebound /Bladder: no suprapubic tenderness, no CVA or paraspinal tenderness Extermity/Skin: no c/c/e, no obvious rash MSK: FROM x 4 Neuro: CN 2-12 grossly intact except for vision, no new focal deficits, personality change, Psych: odd behavior, not her baseline. One minute she is fine and resting comfortably then next second, she quickly grabs her forehead and pouts, then she refuses to take medicine, her daughter Jocelyn has to give the tylenol in applesauce, in a playful child like way (mimi-mimi here comes the train way) - Constitutional Vitals: Temp Pulse Resp BP Pulse Ox 98.2 F 92 H 16 116/88 99 11/20/19 05:00 11/20/19 09:58 11/20/19 05:00 11/20/19 09:58 11/20/19 05:00 General appearance: Present: no acute distress, well-nourished Results - Labs CBC & Chem 7: 11/19/19 06:51 11/19/19 06:51 Labs: Laboratory Last Values WBC 8.2 K/mm3 (4.5-11.0) 11/19/19 06:51 RBC 2.46 M/mm3 (3.65-5.03) L 11/19/19 06:51 Hgb 8.3 gm/dl (10.1-14.3) L 11/19/19 06:51 Hct 24.3 % (30.3-42.9) L 11/19/19 06:51 MCV 99 fl (79-97) H 11/19/19 06:51 MCH 34 pg (28-32) H 11/19/19 06:51 MCHC 34 % (30-34) 11/19/19 06:51 RDW 22.3 % (13.2-15.2) H 11/19/19 06:51 Plt Count 19 K/mm3 (140-440) L* 11/19/19 06:51 Lymph % (Auto) 31.0 % (13.4-35.0) 11/14/19 09:08 [place] % (Auto) 9.4 % (0.0-7.3) H 11/14/19 09:08 Eos % (Auto) 0.3 % (0.0-4.3) 11/14/19 09:08 Baso % (Auto) 0.4 % (0.0-1.8) 11/14/19 09:08 Lymph # 2.3 K/mm3 (1.2-5.4) 11/14/19 09:08 [place] # 0.7 K/mm3 (0.0-0.8) 11/14/19 09:08 Eos # 0.0 K/mm3 (0.0-0.4) 11/14/19 09:08 Baso # 0.0 K/mm3 (0.0-0.1) 11/14/19 09:08 Add Manual Diff Complete 11/14/19 09:08 Seg Neutrophils % 58.9 % (40.0-70.0) 11/14/19 09:08 Seg Neutrophils # 4.5 K/mm3 (1.8-7.7) 11/14/19 09:08 Percent Retic 16.93 % (0.78-2.58) H 11/19/19 06:51 PT 14.5 Sec. (12.2-14.9) 11/12/19 05:54 INR 1.11 (0.87-1.13) 11/12/19 05:54 APTT 24.9 Sec. (24.2-36.6) 11/12/19 05:54 Sodium 139 mmol/L (137-145) 11/19/19 06:51 Potassium 3.4 mmol/L (3.6-5.0) L 11/19/19 06:51 Chloride 103.7 mmol/L (98-107) 11/19/19 06:51 Carbon Dioxide 23 mmol/L (22-30) 11/19/19 06:51 Anion Gap 16 mmol/L 11/19/19 06:51 BUN 12 mg/dL (7-17) 11/19/19 06:51 Creatinine 0.7 mg/dL (0.7-1.2) 11/19/19 06:51 Estimated GFR > 60 ml/min 11/19/19 06:51 BUN/Creatinine Ratio 17 % 11/19/19 06:51 Glucose 103 mg/dL (65-100) H 11/19/19 06:51 POC Glucose 88 (70-105) 11/20/19 08:28 Calcium 8.7 mg/dL (8.4-10.2) 11/19/19 06:51 Iron 143 ug/dL (37-170) 11/12/19 10:23 TIBC 240 mcg/dL (250-450) L 11/12/19 10:23 Ferritin 911.5 ng/mL (13.0-400.0) H 11/12/19 10:23 Total Bilirubin 1.70 mg/dL (0.1-1.2) H 11/19/19 06:51 Direct Bilirubin 0.4 mg/dL (0-0.2) H 11/13/19 08:22 Indirect Bilirubin 2.3 mg/dL 11/13/19 08:22 AST 28 units/L (5-40) 11/19/19 06:51 ALT 37 units/L (7-56) 11/19/19 06:51 Alkaline Phosphatase 54 units/L (35-129) 11/19/19 06:51 Lactate Dehydrogenase 862 units/L (91-180) H 11/19/19 06:51 Troponin T 0.246 ng/mL (0.00-0.029) H* D 11/12/19 05:54 NT-Pro-B Natriuret Pep 633.4 pg/mL (0-900) 11/11/19 19:31 Total Protein 7.7 g/dL (6.3-8.2) 11/19/19 06:51 Albumin 3.6 g/dL (3.9-5) L 11/19/19 06:51 Albumin/Globulin Ratio 0.9 % 11/19/19 06:51 Triglycerides 105 mg/dL (2-149) 11/11/19 19:25 Cholesterol 185 mg/dL (50-199) 11/11/19 19:25 LDL Cholesterol Direct 132 mg/dL (50-130) H 11/11/19 19:25 HDL Cholesterol 46 mg/dL (40-59) 11/11/19 19:25 Cholesterol/HDL Ratio 4.02 % 11/11/19 19:25 Vitamin B12 701.6 pg/mL (211-911) 11/12/19 10: Folate > 20 ng/mL (7.3-26.0) 11/12/19 10:23 TSH 3.110 mlU/mL (0.270-4.200) 11/11/19 19:25 Urine Color Yellow (Yellow) 11/11/19 21: Urine Turbidity Clear (Clear) 11/11/19 21: Urine pH 7.0 (5.0-7.0) 11/11/19 21: Ur Specific [place] 1.008 (1.003-1.030) 11/11/19 21:26 Urine Protein <15 mg/dl mg/dL (Negative) 11/11/19 21:26 Urine Glucose (UA) Neg mg/dL (Negative) 11/11/19 21: Urine Ketones Neg mg/dL (Negative) 11/11/19 21:26 Urine Blood Mod (Negative) 11/11/19 21:26 Urine Nitrite Neg (Negative) 11/11/19 21: Urine Bilirubin Neg (Negative) 11/11/19 21: Urine Urobilinogen < 2.0 mg/dL (<2.0) 11/11/19 21:26 Ur Leukocyte Esterase Neg (Negative) 11/11/19 21:26 Urine WBC (Auto) 1.0 /HPF (0.0-6.0) 11/11/19 21:26 Urine RBC (Auto) 2.0 /HPF (0.0-6.0) 11/11/19 21:26 U Epithel Cells (Auto) 1.0 /HPF (0-13.0) 11/11/19 21:26 Urine Opiates Screen Presumptive negative 11/17/19 13:10 Urine Methadone Screen Presumptive negative 11/17/19 13:10 Ur Barbiturates Screen Presumptive negative 11/17/19 13:10 Ur Phencyclidine Scrn Presumptive negative 11/17/19 13:10 Ur Amphetamines Screen Presumptive negative 11/17/19 13:10 U Benzodiazepines Scrn Presumptive negative 11/17/19 13:10 Urine Cocaine Screen Presumptive negative 11/17/19 13:10 U Marijuana (THC) Screen Presumptive negative 11/17/19 13:10 Drugs of Abuse Note Disclamer 11/17/19 13:10 Rheumatoid Factor < 10 IU/ml (0-13) 11/14/19 16:15 KHADAR Screen Positive (Negative) H 11/14/19 16:15 HIV 1&2 Antibody Rapid Non react (Non React) 11/12/19 10:23 HIV P24 Antigen Non react (Non React) 11/12/19 10:23 Blood Type B POSITIVE 11/17/19 09:24 Direct Antiglob Test Negative 11/17/19 09:24 NATALI, Poly Interpret Negative 11/17/19 09:24 Active Medications - Current Medications Current Medications: Generic Name Dose Route Start Last Admin Trade Name Freq PRN Reason Stop Dose Admin Acetaminophen 650 mg 11/11/19 23:36 11/20/19 10:03 Tylenol PO 650 mg Q4H PRN Administration Pain MILD(1-3)/Fever >100.5/LEE Atorvastatin Calcium 40 mg 11/14/19 22:00 11/19/19 22:20 Lipitor PO Not Given QHS PRAVEEN Carvedilol 3.125 mg 11/12/19 22:00 11/20/19 09:58 Coreg PO 3.125 mg BID PRAVEEN Administration Sodium Chloride 1,000 mls @ 75 mls/hr 11/11/19 23:45 11/20/19 07:56 Nacl 0.9% 1000 Ml IV 75 mls/hr DIRECT PRAVEEN Administration Magnesium Hydroxide 30 ml 11/11/19 23:36 11/16/19 08:17 Milk Of Magnesia PO 30 ml Q4H PRN Administration Constipation Morphine Sulfate 2 mg 11/11/19 23:36 11/18/19 20:36 Morphine IV 2 mg Q4H PRN Administration Pain, Moderate (4-6) Ondansetron HCl 4 mg 11/13/19 13:17 11/14/19 07:54 Zofran IV 4 mg Q4H PRN Administration nausea Oxycodone/Acetaminophen 1 tab 11/13/19 12:00 11/18/19 04:26 Percocet 5/325 PO 1 tab Q6H PRN Administration Pain, Moderate (4-6) Pantoprazole Sodium 40 mg 11/12/19 10:00 11/20/19 09:58 Protonix PO 40 mg QDAY PRAVEEN Administration Prednisone 50 mg 11/16/19 10:00 11/20/19 09:58 Deltasone PO 50 mg QDAY PRAVEEN Administration Sodium Chloride 10 ml 11/12/19 10:00 11/20/19 09:58 Sodium Chloride Flush Syringe 10 Ml IV Not Given BID PRAVEEN Sodium Chloride 10 ml 11/11/19 23:36 11/12/19 02:50 Sodium Chloride Flush Syringe 10 Ml IV 10 ml PRN PRN Administration LINE FLUSH Nutrition/Malnutrition Assess - Dietary Evaluation Nutrition/Malnutrition Findings: Nutrition Notes Start: 11/18/19 11:15 Freq: Status: Active Protocol: Document 11/18/19 11:16 IDALIA (Rec: 11/18/19 11:30 IDALIA [id number]) Co-Sign 11/18/19 11:16 LP Nutrition Notes Need for Assessment generated from: LOS Initial or Follow up Assessment Current Diagnosis Stroke Other Pertinent Diagnosis Headache, blurry vision, acute CVA Current Diet Cardiac Labs/Tests Reviewed Pertinent Medications Lipitor Prednisone Height 5 ft 4 in Weight 86.8 kg [place] Body Weight (kg) 54.54 BMI 32.8 Intake Prior to Admission Good Subjective/Other Information RD screen for LOS. Pt reported no wt loss. Pt stated that her appetite has been bad and the food doesn't taste good due to her being sick. 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 Pt ate 0% of breakfast. Preferences were noted. Ensure offered, pt denied it. Burn Absent Trauma Absent GI Symptoms None Current % PO Negligible Minimum of two criteria No Energy Intake (non-severe) <75% Estimated Energy Requirement >7 days #1 Nutrition Diagnosis Inadequate oral intake Etiology Decreased appetite As Evidenced by Signs and Symptoms 0% of breakfast eaten Is patient on ventilator? No Is Patient Ambulatory and/or Out of Bed Yes REE-(Cavalier-St. Jeor-ambulatory/OOB) [ 1882.400 NUTR.MSJOOB] Kcal/Kg value to use for calculation 18 Approximate Energy Requirements Using 1562 kcal/Kg Calculation Used for Recommendations Kcal/kg Additional Notes Protein: 57-71g (0.8-1g/kg AdjBW 71g) Fluid: 1 ml/kcal Nutrition Intervention Change Diet Order: Continue current Goal #1 Meet at least 75% of energy and protein needs Anticipated Discharge Needs: Cardiac diet Follow-Up By: 11/23/19 Additional Comments F/U for PO intakes
[2019-11-20 16:37] LABS: Hematocrit 27.8 % (30.3-42.9); Hemoglobin 9.3 gm/dl (10.1-14.3); Mean Corpuscular HGB Conc 34 % (30-34); Mean Corpuscular Volume 101 fl (79-97); Red Blood Count 2.74 M/mm3 (3.65-5.03)
[2019-11-20 16:49] LABS: Platelet Count 56 K/mm3 (140-440)
[2019-11-21 07:45] LABS: Hematocrit 23.8 % (30.3-42.9); Hemoglobin 8.1 gm/dl (10.1-14.3); Mean Corpuscular HGB Conc 34 % (30-34); Mean Corpuscular Volume 101 fl (79-97); Red Blood Count 2.36 M/mm3 (3.65-5.03)
--- NOTE | 2019-11-21 08:01 | Hem/Onc Progress Note ---
Assessment and Plan 1. Thrombocytopenia. This could be immune thrombocytopenic purpura. deficiency investigations, human immunodeficiency virus testing. 2. LDH elevated. This may be secondary to LFT abnormalities. 3. High indirect bilirubin, etiology unclear. 4. History of marijuana usage. 5. History of recent malaise until this episode. This may have a role in the low platelets. 6. 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 the patient was started on prednisone and proton pump inhibitor and follow the patient. 7. History of ureteral damage. 8. History of hysterectomy. s/p 1 and half day of IVIG trial - stopped due to headache MRI brain done agitation - ? cause ? steroid psychosis - was held for 1 day restarted prednisone on 11/16 - family wants lower dose explained that it is 1mg/kg - they are keen for lower dose will give 50 mg daily 11/18 - blood sugar monitoring urine tox done - negative colin negative blood group B Rh + d/w family that prednisone dose is not really changing option of IVIG back vs Anti D option of dexa - but family reluctant for high dose steroids reviewed UPTODATE medical data if no improvement - ? need Rituxan pt also has anemia - with high LDH - ? hemolytic - will follow same Price syndrome a possibility high indirect bili - high LDH PLT 56 on 11/20 - pending todays - if PLt > 50 - OP follow up an option with same dose steroids and also PPI - Patient Problems (1) Thrombocytopenia Current Visit: Yes Status: Acute Subjective Date of service: 11/21/19 Principal diagnosis: ITP Interval history: on steroids PO s/p IVIG Objective - Exam Narrative Exam: Pain - none General appearance - alert Performance status limited self care Eyes - no icterus ENT - no bleeding LNs cervical not palpable Neck - no LN Respiratory Normal - on o2 Breath sounds - CTA anteriorly CVS S1 S2 + Extremities nil acute General GI Soft Rectal deferred female - deferred Skin warm Musculoskeletal - moving limbs Neurologically awake - answers Questions - Constitutional Vitals: Last Vital Signs Temp 99.4 F 11/20/19 22:14 Pulse 102 H 11/20/19 22:14 Resp 18 11/20/19 23:14 BP 122/85 11/20/19 22:14 Pulse Ox 99 11/20/19 22:14 - Labs Lab Results: Laboratory Results - last 24 hr 11/20/19 11/20/19 11/20/19 08:28 11:25 16:08 WBC 9.3 RBC 2.74 L Hgb 9.3 L Hct 27.8 L MCV 101 H MCH 34 H MCHC 34 RDW 23.0 H Plt Count 56 L D POC Glucose 88 128 H 11/20/19 11/20/19 11/21/19 16:49 21:34 07:05 WBC 11.4 H RBC 2.36 L Hgb 8.1 L Hct 23.8 L MCV 101 H MCH 34 H MCHC 34 RDW 23.0 H Plt Count POC Glucose 127 H 121 H 11/21/19 07:58 WBC RBC Hgb Hct MCV MCH MCHC RDW Plt Count POC Glucose 87 Medications & Allergies - Medications Allergies/Adverse Reactions: Allergies No Known Allergies Allergy (Unverified 08/03/13 21:24) Home Medications: Home Medications Medication Instructions Recorded Confirmed Last Taken Type No Known Home Medications [No 11/12/19 11/12/19 Unknown History Reported Home Medications] Active Medications: Generic Name Dose Route Start Last Admin Trade Name Freq PRN Reason Stop Dose Admin Acetaminophen 650 mg 11/11/19 23:36 11/20/19 22:14 Tylenol PO 650 mg Q4H PRN Administration Pain MILD(1-3)/Fever >100.5/LEE Atorvastatin Calcium 40 mg 11/14/19 22:00 11/20/19 22:14 Lipitor PO 40 mg QHS PRAVEEN Administration Carvedilol 3.125 mg 11/12/19 22:00 11/20/19 22:14 Coreg PO 3.125 mg BID PRAVEEN Administration Sodium Chloride 1,000 mls @ 75 mls/hr 11/11/19 23:45 11/20/19 22:17 Nacl 0.9% 1000 Ml IV 75 mls/hr DIRECT PRAVEEN Administration Magnesium Hydroxide 30 ml 11/11/19 23:36 11/16/19 08:17 Milk Of Magnesia PO 30 ml Q4H PRN Administration Constipation Morphine Sulfate 2 mg 11/11/19 23:36 11/18/19 20:36 Morphine IV 2 mg Q4H PRN Administration Pain, Moderate (4-6) Ondansetron HCl 4 mg 11/13/19 13:17 11/14/19 07:54 Zofran IV 4 mg Q4H PRN Administration nausea Oxycodone/Acetaminophen 1 tab 11/13/19 12:00 11/18/19 04:26 Percocet 5/325 PO 1 tab Q6H PRN Administration Pain, Moderate (4-6) Pantoprazole Sodium 40 mg 11/12/19 10:00 11/20/19 09:58 Protonix PO 40 mg QDAY PRAVEEN Administration Prednisone 50 mg 11/16/19 10:00 11/20/19 09:58 Deltasone PO 50 mg QDAY PRAVEEN Administration Sodium Chloride 10 ml 11/12/19 10:00 11/20/19 22:59 Sodium Chloride Flush Syringe 10 Ml IV Not Given BID PRAVEEN Sodium Chloride 10 ml 11/11/19 23:36 11/12/19 02:50 Sodium Chloride Flush Syringe 10 Ml IV 10 ml PRN PRN Administration LINE FLUSH
[2019-11-21 08:15] LABS: BUN/Creatinine Ratio 23; Blood Urea Nitrogen 16 mg/dL (7-17); Calcium 8.5 mg/dL (8.4-10.2)
[2019-11-21 08:16] LABS: Hemolysis Index 4
[2019-11-21 08:51] LABS: Platelet Count 51 K/mm3 (140-440)
[2019-11-21] MEDS ORDERED: POTASSIUM CHLORIDE ER 20 MEQ TAB PO SCH (09:00)
[2019-11-21] MEDS: PANTOPRAZOLE 40 MG TAB PO SCH (10:28)
[2019-11-21] MEDS: carvediloL 3.125 MG TAB PO SCH (10:29)
[2019-11-21] MEDS: predniSONE 50 MG TAB PO SCH (10:30)
--- NOTE | 2019-11-21 11:25 | Discharge Summary ---
Providers - Providers Date of Admission: 11/11/19 23:20 Date of discharge: 11/21/19 Attending physician: ERIC FELIPE 11/11/19 23:19 Consult to Physician [CONS] Stat Comment: Will evaluate the patient in the morning Consulting Provider: ANNA COKER Physician Instructions: Reason For Exam: Thrombocytopenia 11/12/19 08:52 Consult to Physician [CONS] Routine Comment: Consulting Provider: YRIS RAHMAN Physician Instructions: Reason For Exam: tia Primary care physician: MANAGER POLICY Hospitalization Condition: Stable Hospital course: Patient is a 54-year-old woman with history of urinary retention problems and marijuana use who presents to [facility] ED with persistent headache and vision disturbances. She was admitted on 11/12/2019 as plt count was 14 then 9. Troponin level was 0.419 with normal renal function. Cardiology consulted, no heparin given or intervention done as platelet count was 9. Respite Coordinator was consulted and suspected ITP and started IGG and steroids. Patient has been on Black seed oil which can cause plt dysfunction/ITP. IVIG started on 11/12/2019 and then on 11/13/2019 IVIG infusion but was stopped prior to completion of the second bottle due to headaches. Then Brain MRI was done on 11/14/2019, which showed a stroke prior to IVIG begun (subacute but new/acute to patient). I started following patient on 11/15/2019. IVIG infusion started back again on 11/17/2019. So, patient had 1.5 of IVIG and stopped on day 2 prior to the completion of the second bottle. She completed a total of 5 days of IVIG and plt count is [address] Coker has cleared to go home. * CT brain with and without contrast IMPRESSION: 1. Subtle areas of decreased attenuation peripherally in the posterior right parietal lobe, which could represent small branch MCA infarcts. Diffusion imaging by MRI may be helpful for further evaluation, if clinically warranted. 2. Otherwise, no focal mass, hemorrhage, hydrocephalus, or large infarct appreciated. * Brain MRI with and without contrast IMPRESSION: Subacute infarction in the right occipital lobe Infarction in the left occipital lobe ligament. Base but less than 2 weeks old No hemorrhagic changes * Carotid doppler IMPRESSION: No hemodynamically significant stenosis by NASCET criteria. * 2v CXR IMPRESSION: 1. No acute findings. * TTE Conclusions: Mild to moderated LVH, est EF 55-60%, abnormal LV diastolic function, mild [place] Acute Ischemic stroke/CVA with persistent headache: treat with statin, no aspirin due to severely low plt Thrombocytopenia, suspected ITP s/p IVIG: continue steroids, Heme/Onc consulted, input noted, monitor CBC closely Acute metabolic encephalopathy, poa: treat medically NSTEMI: medical management, Cardiology consulted, input noted, Dr. Henriquez, if no chest pains then medical management and outpatient follow up Hypokalemia: replete as needed H/o Urinary retention 2014: need more collateral information h/o Marijuana use: UDS requested by Dr. Coker DVT ppx: SCD only due to severe low plt counts full code Disposition: home Disposition: DC-01 TO HOME OR SELFCARE Time spent for discharge: 35 minutes Core Measure Documentation - Palliative Care Palliative Care/ Comfort Measures: Not Applicable - Core Measures Any of the following diagnoses?: acute [place], stroke - VTE Discharge Requirements Deep Vein Thrombosis/Pulmonary Embolism Present on Admission: No Has pt received <5 days of overlap therapy or INR<2.0: No Anticoagulant overlap therapy prescribed at discharge: No Contraindication No Overlap Therapy order at DC: Not Indicated - Acute IN Discharge Requirements Aspirin at discharge: No Reason for no aspirin on DC: Medical contraindication BHASKAR/ARB for LVSD if EF <40%: Not Applicable Beta russell at discharge: Yes Statin for LDL = or >100 mg/dl on DC: Yes - Stroke Discharge Requirements Statin for LDL = or >70 mg/dl on DC: Yes Anticoag for atrial fib/atrial flutter: No Reason for no anticoag for AF/F on DC: Not Indicated Antithrombotic for ischemic stroke: No Reason for no antithrombotic on DC: Medical Contraindication Exam - Physical Exam Narrative exam: Gen: ill appearing, WDWN, NAD, Awake, Alert, Orientated HEENT: NCAT, EOMI, PERRL, OP Clear Neck: supple, no adenopathy, no thyromegaly, no JVD CVS/Heart: RRR, normal S1S2, pulses present bilaterally Chest/Lungs: CTA B, Symmetrical chest expansion, good air entry bilaterally GI/Abdomen: soft, NTND, good bowel sounds, no guarding or rebound /Bladder: no suprapubic tenderness, no CVA or paraspinal tenderness Extermity/Skin: no c/c/e, no obvious rash MSK: FROM x 4 Neuro: CN 2-12 grossly intact except for vision, no new focal deficits, personality change, Psych: odd behavior, not her baseline. One minute she is fine and resting comfortably then next second, she quickly grabs her forehead and pouts, then she refuses to take medicine, her daughter Jocelyn has to give the tylenol in applesauce, in a playful child like way (mimi-mimi here comes the train way) - Constitutional Vitals: Temp Pulse Resp BP Pulse Ox 99.4 F 97 H 18 123/81 99 11/20/19 22:14 11/21/19 10:29 11/20/19 23:14 11/21/19 10:29 11/20/19 22:14 Plan Activity: no driving until cleared by PCP, other (no strenous activity unless cleared by PCP) Diet: low salt Additional Instructions: MUST see Dr. Coker in 1 week to see if you need anymore Prednisone. Must wean yourself off Prednisone under the care of Dr. Coker Follow up with: ANNA COKER MD [Staff Physician] - 7 Days KELLI HENRIQUEZ MD [Staff Physician] - 7 Days [facility] [Provider Group] - 7 Days Prescriptions: AtorvaSTATin [Lipitor] 40 mg PO QHS #30 tablet carvediloL [Coreg] 3.125 mg PO BID #60 tablet predniSONE [Deltasone] 50 mg PO QDAY #30 tablet Potassium Chloride [K-Dur] 1 tab PO QDAY #30 tablet oxyCODONE /ACETAMINOPHEN [Percocet 5/325 mg] 1 tab PO Q6H PRN #15 tablet PRN Reason: Pain , Severe (7-10) Pantoprazole [Protonix TAB] 40 mg PO QDAY #30 tablet
[2019-11-21 12:34] VITALS: BP 119/76
== END 2019-11-21 16:15 | disposition home or self-care (01) | DRG 64 ==
LOC: ED 15:04 → 3A 23:20
PROVIDERS: ADMIT Internal Medicine Geriatric Medicine; ATTEND Internal Medicine
DX: I63.9 Cerebral infarction, unspecified (principal); G93.41 Metabolic encephalopathy; I21.A1 Myocardial infarction type 2; D69.3 Immune thrombocytopenic purpura; D69.6 Thrombocytopenia, unspecified; F12.90 Cannabis use, unspecified, uncomplicated; G44.319 Acute post-traumatic headache, not intractable; E87.6 Hypokalemia; D64.9 Anemia, unspecified; Z90.710 Acquired absence of both cervix and uterus
CPT/HCPCS: 36415; 70450; 70470; 70553; 71046; 80048; 80053; 80061; 80076; 80307; 81001; 82247; 82248; 82271; 82607; 82728; 82747; 82962; 83010; 83550; 83615; 83880; 84443; 84484; 85025; 85027; 85045; 85049; 85610; 85730; 86038; 86431; 86880; 86900; 86901; 87806; 90686; 93005; 93010; 93306; 93880; 96361; 96372; 96374; 96375; G0378; A9270-GY; A9577; J1100; J1170; J1200; J1459; J1561; J1885; J2270; J2405; J7030; J7512; Q0162; Q9967

== ENCOUNTER 2019-12-13 16:27 | Inpatient (IN) | payer OTHER ==
[2019-12-13] MEDS ORDERED: ACETAMINOPHEN 500 MG TAB ONE (16:39)
[2019-12-13] MEDS ORDERED: ACETAMINOPHEN 500 MG TAB PO ONE (16:39)
--- NOTE | 2019-12-13 16:44 | Event Note ---
ED Screening Note Date of service: 12/13/19 Time: 16:40 ED Screening Note: 54 y/o female comes in for worsting headache. Patient recently had a CVA within the last 3 weeks. Exam no neuro deficits on neuro exam This initial assessment/diagnostic orders/clinical plan/treatment(s) is/are subj ect to change based on patients health status, clinical progression and re- assessment by fellow clinical providers in the ED. Further treatment and workup at subsequent clinical providers discretion. Patient/guardian urged not to elope from the ED as their condition may be serious if not clinically assessed and managed. Initial orders include:
[2019-12-13 17:13] LABS: Basophils % (Auto) 0.3 % (0.0-1.8); Eosinophils # (Auto) 0.1 K/mm3 (0.0-0.4); Eosinophils % (Auto) 0.6 % (0.0-4.3); Hematocrit 28.8 % (30.3-42.9); Hemoglobin 9.5 gm/dl (10.1-14.3); Lymphocytes # (Auto) 2.7 K/mm3 (1.2-5.4); Lymphocytes % (Auto) 31.7 % (13.4-35.0); Mean Corpuscular HGB Conc 33 % (30-34); Mean Corpuscular Volume 107 fl (79-97); Monocytes # (Auto) 0.7 K/mm3 (0.0-0.8); Monocytes % (Auto) 8.4 % (0.0-7.3)
[2019-12-13] MEDS ORDERED: MORPHINE 4 MG/1 ML INJ IV ONE (17:21)
[2019-12-13 17:22] LABS: Platelet Count 35 K/mm3 (140-440); Red Cell Distribution Width 21.1 % (13.2-15.2)
[2019-12-13] MEDS ORDERED: ONDANSETRON 4 MG/2 ML INJ IV ONE (17:22)
[2019-12-13 17:36] LABS: Alanine Aminotransferase 22 units/L (7-56); Albumin 4.1 g/dL (3.9-5); BUN/Creatinine Ratio 23; Blood Urea Nitrogen 21 mg/dL (7-17); Calcium 9.2 mg/dL (8.4-10.2); Hemolysis Index 61
--- NOTE | 2019-12-13 17:52 | Cat Scan Report ---
CT head/brain wo con INDICATION: worsening headache recent CVA. TECHNIQUE: CT without contrast. All CT scans at this location are performed using CT dose reduction for ALARA by means of automated exposure control. COMPARISON: Brain MRI on 11/14/2019 FINDINGS: There is expected maturation in the known recent bilateral occipital lobe infarcts. No definite new i nfarct is identified. There is normal zamora-white differentiation. There is no acute hemorrhage, hydro cephalus, or adverse mass effect. Paranasal sinuses are clear. IMPRESSION: 1. No acute intracranial abnormality. 2. Expected evolution of previously demonstrated occipital lobe infarcts. Findings called to Dr. Quach at 4:46 pm central time on 12/13/19. Signer Name: Jack Rivers MD Signed: 12/13/2019 5:47 PM Workstation Name: [id number]
--- NOTE | 2019-12-13 17:53 | Emergency Department Report ---
ED Neuro Deficit HPI - General Chief Complaint: Headache Stated Complaint: HEADACHE POSS STROKE Time Seen by Provider: 12/13/19 16:34 Source: patient Mode of arrival: Wheelchair Limitations: No Limitations - History of Present Illness Initial Comments: [facility] Tele[facility]urology [facility] Date of Service: 12/13/2019 17:22:10 Impression: RO Acute Ischemic Stroke Comments: 54 year old female who presents with severe headache in the setting of thrombocytopenia and recent stroke. Presentation is likely due to complex migraine but intracranial bleed and TIA should be ruled out. Mechanism of Stroke: Not Clear Metrics: Last Known Well: 12/12/2019 20:00:00 [facility] Notification Time: 12/13/2019 17:21:20 Arrival Time: 12/13/2019 16:27:00 Stamp Time: 12/13/2019 17:22:10 Time First Login Attempt: 12/13/2019 17:29:00 Video Start Time: 12/13/2019 17:29:00 Symptoms: Headache NIHSS Start Assessment Time: 12/13/2019 17:35:00 Patient is not a candidate for tPA. Patient was not deemed candidate for tPA thrombolytics because of Last Well Known Above 4.5 Hours. Video End Time: 12/13/2019 17:40:00 CT head was reviewed. Presentation is not suggestive of Large Vessel Occlusive disease. Advanced imaging is to be reviewed by ED physician and STACE[facility]. Advanced imaging CTA head and neck obtained. ED Physician notified of diagnostic impression and management plan on 12/13/2019 17:48:41 Our recommendations are outlined below. Recommendations: Activate Stroke Protocol Admission/Order Set Stroke/Telemetry Floor Neuro Checks Bedside Swallow Eval DVT Prophylaxis IV Fluids, Normal Saline Head of Bed Below 30 Degrees Euglycemia and Avoid Hyperthermia (PRN Acetaminophen) Hold Antithrombotics for Now Recommended Scan: MRI Head Without Contrast Echocardiogram - Transthoracic Echocardiogram Lipid Panel to Be Obtained, if Not Done in the Last Three Months Therapies: Physical Therapy, Occupational Therapy, Speech Therapy Assessment When Applicable Dysphaghia Screen: Swallow Evaluation, Bedside NPO Until Swallow Evaluation DVT prophylaxis: Choice of Primary Team Disposition: Follow up with Teleneurology Follow up Sign Out: Discussed with Emergency Department Provider History of Present Illness: Patient is a 54 year old Female. Patient was brought by EMS for symptoms of Headache 54 year old female who presents with severe headache. 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 This morning patient woke up at 4am with severe headache and right facial droop. Symptoms improved and then around 4pm symptoms recurred. On exam, however, symptoms seemed to have resolved except for the severe headache. 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 CT head was reviewed. Examination: 1A: Level of Consciousness - Alert; keenly responsive + 0 1B: Ask Month and Age - Both Questions Right + 0 1C: Blink Eyes & Squeeze Hands - Performs Both Tasks + 0 2: Test Horizontal Extraocular Movements - Normal + 0 3: Test Visual [place] - No Visual Loss + 0 4: Test Facial Palsy (Use Grimace if Obtunded) - Normal symmetry + 0 5A: Test Left Arm Motor Drift - No Drift for 10 Seconds + 0 5B: Test Right Arm Motor Drift - No Drift for 10 Seconds + 0 6A: Test Left Leg Motor Drift - No Drift for 5 Seconds + 0 6B: Test Right Leg Motor Drift - No Drift for 5 Seconds + 0 7: Test Limb Ataxia (FNF/Heel-Ibrahim) - No Ataxia + 0 8: Test Sensation - Normal; No sensory loss + 0 9: Test Language/Aphasia - Normal; No aphasia + 0 10: Test Dysarthria - Normal + 0 11: Test Extinction/Inattention - No abnormality + 0 NIHSS Score: 0 Patient was informed the Neurology Consult would happen via TeleHealth consult by way of interactive audio and video telecommunications and consented to receiving care in this manner. Due to the immediate potential for life-threatening deterioration due to underlying acute neurologic illness, I spent 35 minutes providing critical care. This time includes time for face to face visit via telemedicine, review of m edical records, imaging studies and discussion of findings with providers, the patient and/or family. Dr Gina Powers [facility] Case [id number] - Related Data Home Medications: Previous Rx's Medication Instructions Recorded Last Taken Type Acetaminophen [Acetaminophen TAB] 650 mg PO Q4H PRN #15 tablet 11/21/19 Unknown Rx AtorvaSTATin [Lipitor] 40 mg PO QHS #30 tablet 11/21/19 Unknown Rx Pantoprazole [Protonix TAB] 40 mg PO QDAY #30 tablet 11/21/19 Unknown Rx Potassium Chloride [K-Dur] 1 tab PO QDAY #30 tablet 11/21/19 Unknown Rx carvediloL [Coreg] 3.125 mg PO BID #60 tablet 11/21/19 Unknown Rx oxyCODONE /ACETAMINOPHEN [Percocet 1 tab PO Q6H PRN #15 tablet 11/21/19 Unknown Rx 5/325 mg] predniSONE [Deltasone] 50 mg PO QDAY #30 tablet 11/21/19 Unknown Rx Allergies/Adverse Reactions: Allergies Allergy/AdvReac Type Severity Reaction Status Date / Time No Known Allergies Allergy Verified 12/13/19 16:42 ED Review of Systems ROS: Stated complaint: HEADACHE POSS STROKE Other details as noted in HPI ED Past Medical Hx - Past Medical History Previous Medical History?: Yes Hx Hypertension: No Hx Heart Attack/AMI: Yes (non-STEMI(non-ST elevated myocardial infarction) Acute) Hx Congestive Heart Failure: No Hx Diabetes: No Hx Deep Vein Thrombosis: No Hx Headaches / Migraines: Yes Hx Asthma: No Hx COPD: No Hx Tuberculosis: No Hx HIV: No Additional medical history: urethral blockage - Surgical History Past Surgical History?: Yes Additional Surgical History: nephrostomy tube, hysterectomy - Social History Smoking Status: Never Smoker Substance Use Type: None - Medications Home Medications: Home Medications Medication Instructions Recorded Confirmed Last Taken Type Acetaminophen [Acetaminophen TAB] 650 mg PO Q4H PRN #15 tablet 11/21/19 Unknown Rx AtorvaSTATin [Lipitor] 40 mg PO QHS #30 tablet 11/21/19 Unknown Rx Pantoprazole [Protonix TAB] 40 mg PO QDAY #30 tablet 11/21/19 Unknown Rx Potassium Chloride [K-Dur] 1 tab PO QDAY #30 tablet 11/21/19 Unknown Rx carvediloL [Coreg] 3.125 mg PO BID #60 tablet 11/21/19 Unknown Rx oxyCODONE /ACETAMINOPHEN [Percocet 1 tab PO Q6H PRN #15 tablet 11/21/19 Unknown Rx 5/325 mg] predniSONE [Deltasone] 50 mg PO QDAY #30 tablet 11/21/19 Unknown Rx ED Neuro Physical Exam - General Limitations: No Limitations Suspected Stroke: Yes - NIHSS Assessment Interval: Baseline 1a. Level of Consciousness: alert/keenly responsive 1b. LOC Questions: answers both correctly 1c. LOC Commands: performs tasks correctly 2. Best Gaze: normal 3. Visual: no visual loss 4. Facial Palsy: normal symmetrical movement 5b. Motor Arm Right: no drift 5a. Motor Arm Left: no drift 6a. Motor Leg Left: no drift 6b. Motor Leg Right: no drift 7. Limb Ataxia: absent 8. Sensory: normal 9. Best Language: no aphasia 10. Dysarthria: normal 11. Extinction/Inattention: no abnormality Total Score: 0 Stroke Severity: No Stroke Symptoms ED Course Vital Signs 12/13/19 12/13/19 16:36 17:07 Temperature 99.4 F Pulse Rate 105 H 93 H Respiratory 18 12 Rate Blood Pressure 144/89 142/85 [Right] O2 Sat by Pulse 99 100 Oximetry - Lab Data Result diagrams: 12/13/19 16:51 12/13/19 16:51 Lab Results 12/13/19 12/13/19 12/13/19 Range/Units 16:47 16:51 16:51 WBC 8.5 (4.5-11.0) K/mm3 RBC 2.70 L (3.65-5.03) M/mm3 Hgb 9.5 L (10.1-14.3) gm/dl Hct 28.8 L (30.3-42.9) % MCV 107 H (79-97) fl MCH 35 H (28-32) pg MCHC 33 (30-34) % RDW 21.1 H (13.2-15.2) % Plt Count 35 L (140-440) K/mm3 Lymph % (Auto) 31.7 (13.4-35.0) % [place] % (Auto) 8.4 H (0.0-7.3) % Eos % (Auto) 0.6 (0.0-4.3) % Baso % (Auto) 0.3 (0.0-1.8) % Lymph # 2.7 (1.2-5.4) K/mm3 [place] # 0.7 (0.0-0.8) K/mm3 Eos # 0.1 (0.0-0.4) K/mm3 Baso # 0.0 (0.0-0.1) K/mm3 Seg Neutrophils % 59.0 (40.0-70.0) % Seg Neutrophils # 5.0 (1.8-7.7) K/mm3 Sodium 141 (137-145) mmol/L Potassium 3.7 (3.6-5.0) mmol/L Chloride 102.8 (98-107) mmol/L Carbon Dioxide 20 L (22-30) mmol/L Anion Gap 22 mmol/L BUN 21 H (7-17) mg/dL Creatinine 0.9 (0.7-1.2) mg/dL Estimated GFR > 60 ml/min BUN/Creatinine Ratio 23 % Glucose 102 H (65-100) mg/dL POC Glucose 114 H (70-105) Calcium 9.2 (8.4-10.2) mg/dL Total Bilirubin 3.70 H (0.1-1.2) mg/dL AST 47 H (5-40) units/L ALT 22 (7-56) units/L Alkaline Phosphatase 47 (35-129) units/L Total Protein 7.3 (6.3-8.2) g/dL Albumin 4.1 (3.9-5) g/dL Albumin/Globulin Ratio 1.3 % 12/13/19 Range/Units 17:45 WBC (4.5-11.0) K/mm3 RBC (3.65-5.03) M/mm3 Hgb (10.1-14.3) gm/dl Hct (30.3-42.9) % MCV (79-97) fl MCH (28-32) pg MCHC (30-34) % RDW (13.2-15.2) % Plt Count (140-440) K/mm3 Lymph % (Auto) (13.4-35.0) % [place] % (Auto) (0.0-7.3) % Eos % (Auto) (0.0-4.3) % Baso % (Auto) (0.0-1.8) % Lymph # (1.2-5.4) K/mm3 [place] # (0.0-0.8) K/mm3 Eos # (0.0-0.4) K/mm3 Baso # (0.0-0.1) K/mm3 Seg Neutrophils % (40.0-70.0) % Seg Neutrophils # (1.8-7.7) K/mm3 Sodium (137-145) mmol/L Potassium (3.6-5.0) mmol/L Chloride (98-107) mmol/L Carbon Dioxide (22-30) mmol/L Anion Gap mmol/L BUN (7-17) mg/dL Creatinine (0.7-1.2) mg/dL Estimated GFR ml/min BUN/Creatinine Ratio % Glucose (65-100) mg/dL POC Glucose 113 H (70-105) Calcium (8.4-10.2) mg/dL Total Bilirubin (0.1-1.2) mg/dL AST (5-40) units/L ALT (7-56) units/L Alkaline Phosphatase (35-129) units/L Total Protein (6.3-8.2) g/dL Albumin (3.9-5) g/dL Albumin/Globulin Ratio % Critical care attestation.: If time is entered above; I have spent that time in minutes in the direct care of this critically ill patient, excluding procedure time. ED Disposition Clinical Impression: Headache Disposition: [id number] OP ADMIT IP TO THIS HOSP Is pt being admited?: Yes Does the pt Need Aspirin: No Condition: Stable
[2019-12-13 18:03] LABS: INR 1.07 (0.87-1.13); Partial Thromboplastin Time 23.2 Sec. (24.2-36.6)
[2019-12-13 18:04] LABS: Thrombin Time 16.4 Sec. (15.1-19.6)
[2019-12-13 18:09] LABS: Creatine Kinase MB 1.7 ng/mL (0.0-4.0)
[2019-12-13 19:24] LABS: Chol/HDL Ratio 3.08 %
--- NOTE | 2019-12-13 19:45 | Emergency Department Report ---
ED Neuro Deficit HPI - General Chief Complaint: Headache Stated Complaint: HEADACHE POSS STROKE Time Seen by Provider: 12/13/19 16:34 Source: patient Mode of arrival: Wheelchair Limitations: No Limitations - History of Present Illness Initial Comments: Patient is a 54-year-old F [place] female who is presenting with probable TIA. Patient was recently released from our hospital on 11/21/2019 with a diagnosis of ITP. Patient was on IVIG and steroid therapies. Patient's platelet count did increase to 51 before being discharged. During the patient's clinical stay the patient was found to have a subacute CVA found on MRI on 11/14/2019. This was thought to be at least close to 2 weeks old. Patient did have some headaches but no focal neurological deficits during her actual visit. Patient states this morning approximately 4 AM she was awakened with a severe headache and right facial droop. Patient states that the facial droop stopped approximately 10 minutes after it began. She is continued to have off-and-on headaches throughout the day however. Patient did not try to seek evaluation at the 4 AM. Patient was with her daughter 4 PM and the daughter witnessed another episode of the right-sided facial droop. Patient also was having difficulty raising the right arm and speaking at that time. Her daughter states that symptoms lasted approximately 10 minutes and seemed to resolve although the patient's headache has persisted. Patient denies any focal neurological deficits on her arrival. She denies cough cold congestion fevers chills nausea vomiting. - Related Data Home Medications: Previous Rx's Medication Instructions Recorded Last Taken Type Acetaminophen [Acetaminophen TAB] 650 mg PO Q4H PRN #15 tablet 11/21/19 Unknown Rx AtorvaSTATin [Lipitor] 40 mg PO QHS #30 tablet 11/21/19 Unknown Rx Pantoprazole [Protonix TAB] 40 mg PO QDAY #30 tablet 11/21/19 Unknown Rx Potassium Chloride [K-Dur] 1 tab PO QDAY #30 tablet 11/21/19 Unknown Rx carvediloL [Coreg] 3.125 mg PO BID #60 tablet 11/21/19 Unknown Rx oxyCODONE /ACETAMINOPHEN [Percocet 1 tab PO Q6H PRN #15 tablet 11/21/19 Unknown Rx 5/325 mg] predniSONE [Deltasone] 50 mg PO QDAY #30 tablet 11/21/19 Unknown Rx Allergies/Adverse Reactions: Allergies Allergy/AdvReac Type Severity Reaction Status Date / Time No Known Allergies Allergy Verified 12/13/19 16:42 ED Review of Systems ROS: Stated complaint: HEADACHE POSS STROKE Other details as noted in HPI Comment: All other systems reviewed and negative ED Past Medical Hx - Past Medical History Previous Medical History?: Yes Hx Hypertension: No Hx Heart Attack/AMI: Yes (non-STEMI(non-ST elevated myocardial infarction) Acute) Hx Congestive Heart Failure: No Hx Diabetes: No Hx Deep Vein Thrombosis: No Hx Headaches / Migraines: Yes Hx Asthma: No Hx COPD: No Hx Tuberculosis: No Hx HIV: No Additional medical history: urethral blockage - Surgical History Past Surgical History?: Yes Additional Surgical History: nephrostomy tube, hysterectomy - Social History Smoking Status: Never Smoker Substance Use Type: None - Medications Home Medications: Home Medications Medication Instructions Recorded Confirmed Last Taken Type Acetaminophen [Acetaminophen TAB] 650 mg PO Q4H PRN #15 tablet 11/21/19 Unknown Rx AtorvaSTATin [Lipitor] 40 mg PO QHS #30 tablet 11/21/19 Unknown Rx Pantoprazole [Protonix TAB] 40 mg PO QDAY #30 tablet 11/21/19 Unknown Rx Potassium Chloride [K-Dur] 1 tab PO QDAY #30 tablet 11/21/19 Unknown Rx carvediloL [Coreg] 3.125 mg PO BID #60 tablet 11/21/19 Unknown Rx oxyCODONE /ACETAMINOPHEN [Percocet 1 tab PO Q6H PRN #15 tablet 11/21/19 Unknown Rx 5/325 mg] predniSONE [Deltasone] 50 mg PO QDAY #30 tablet 11/21/19 Unknown Rx ED Neuro Physical Exam - General Limitations: No Limitations General appearance: alert, in distress (secondary to pain) - Head Head exam: Present: atraumatic, normocephalic - Eye Eye exam: Present: normal appearance, PERRL, EOMI - ENT ENT exam: Present: mucous membranes moist - Neck Neck exam: Present: normal inspection - Respiratory Respiratory exam: Present: normal lung sounds bilaterally. Absent: respiratory distress, wheezes, rales, rhonchi - Cardiovascular Cardiovascular Exam: Present: regular rate, normal rhythm, normal heart sounds. Absent: systolic murmur, diastolic murmur, rubs, gallop - GI/Abdominal GI/Abdominal exam: Present: soft, normal bowel sounds. Absent: distended, tenderness, guarding, rebound - Extremities Exam Extremities exam: Present: normal inspection - Back Exam Back exam: Present: normal inspection - Neurological Exam Neurological exam: Present: alert, oriented X3 - NIHSS Assessment Interval: Baseline 1a. Level of Consciousness: alert/keenly responsive 1b. LOC Questions: answers both correctly 1c. LOC Commands: performs tasks correctly 2. Best Gaze: normal 3. Visual: no visual loss 4. Facial Palsy: normal symmetrical movement 5b. Motor Arm Right: no drift 5a. Motor Arm Left: no drift 6a. Motor Leg Left: no drift 6b. Motor Leg Right: no drift 7. Limb Ataxia: absent 8. Sensory: normal 9. Best Language: no aphasia 10. Dysarthria: normal 11. Extinction/Inattention: no abnormality Total Score: 0 Stroke Severity: No Stroke Symptoms - Psychiatric Psychiatric exam: Present: normal affect, normal mood - Skin Skin exam: Present: warm, dry, intact, normal color. Absent: rash ED Course Vital Signs 12/13/19 12/13/19 12/13/19 16:36 17:04 17:07 Temperature 99.4 F Pulse Rate 105 H 98 H 93 H Respiratory 18 12 12 Rate Blood Pressure Blood Pressure 144/89 142/85 [Right] O2 Sat by Pulse 99 100 Oximetry 12/13/19 12/13/19 12/13/19 17:15 17:33 17:44 Temperature Pulse Rate 84 Respiratory 15 20 Rate Blood Pressure 142/85 142/85 Blood Pressure [Right] O2 Sat by Pulse 100 Oximetry 12/13/19 12/13/19 12/13/19 17:45 18:00 18:15 Temperature Pulse Rate 100 H 89 93 H Respiratory 19 20 20 Rate Blood Pressure 126/83 119/67 132/78 Blood Pressure [Right] O2 Sat by Pulse 97 99 97 Oximetry 12/13/19 12/13/19 12/13/19 18:30 18:43 18:45 Temperature Pulse Rate 97 H 96 H Respiratory 20 18 17 Rate Blood Pressure 128/84 113/76 Blood Pressure [Right] O2 Sat by Pulse 97 95 Oximetry 12/13/19 19:00 Temperature Pulse Rate 91 H Respiratory 13 Rate Blood Pressure 111/76 Blood Pressure [Right] O2 Sat by Pulse 97 Oximetry - Lab Data Result diagrams: 12/13/19 16:51 12/13/19 16:51 Lab Results 12/13/19 12/13/1912/13/20 Range/Units 16:47 16:51 16:51 WBC 8.5 (4.5-11.0) K/mm3 RBC 2.70 L (3.65-5.03) M/mm3 Hgb 9.5 L (10.1-14.3) gm/dl Hct 28.8 L (30.3-42.9) % MCV 107 H (79-97) fl MCH 35 H (28-32) pg MCHC 33 (30-34) % RDW 21.1 H (13.2-15.2) % Plt Count 35 L (140-440) K/mm3 Lymph % (Auto) 31.7 (13.4-35.0) % [place] % (Auto) 8.4 H (0.0-7.3) % Eos % (Auto) 0.6 (0.0-4.3) % Baso % (Auto) 0.3 (0.0-1.8) % Lymph # 2.7 (1.2-5.4) K/mm3 [place] # 0.7 (0.0-0.8) K/mm3 Eos # 0.1 (0.0-0.4) K/mm3 Baso # 0.0 (0.0-0.1) K/mm3 Seg Neutrophils % 59.0 (40.0-70.0) % Seg Neutrophils # 5.0 (1.8-7.7) K/mm3 PT (12.2-14.9) Sec. INR (0.87-1.13) APTT (24.2-36.6) Sec. Thrombin Time (15.1-19.6) Sec. Sodium 141 (137-145) mmol/L Potassium 3.7 (3.6-5.0) mmol/L Chloride 102.8 (98-107) mmol/L Carbon Dioxide 20 L (22-30) mmol/L Anion Gap 22 mmol/L BUN 21 H (7-17) mg/dL Creatinine 0.9 (0.7-1.2) mg/dL Estimated GFR > 60 ml/min BUN/Creatinine Ratio 23 % Glucose 102 H (65-100) mg/dL POC Glucose 114 H (70-105) Calcium 9.2 (8.4-10.2) mg/dL Total Bilirubin 3.70 H (0.1-1.2) mg/dL AST 47 H (5-40) units/L ALT 22 (7-56) units/L Alkaline Phosphatase 47 (35-129) units/L Total Creatine Kinase (30-135) units/L CK-MB (CK-2) (0.0-4.0) ng/mL CK-MB (CK-2) Rel Index (0-4) Troponin T (0.00-0.029) ng/mL Total Protein 7.3 (6.3-8.2) g/dL Albumin 4.1 (3.9-5) g/dL Albumin/Globulin Ratio 1.3 % Triglycerides (2-149) mg/dL Cholesterol (50-199) mg/dL LDL Cholesterol Direct (50-130) mg/dL HDL Cholesterol (40-59) mg/dL Cholesterol/HDL Ratio % 12/13/19 12/13/19 12/13/19 Range/Units 17:45 17:46 17:46 WBC (4.5-11.0) K/mm3 RBC (3.65-5.03) M/mm3 Hgb (10.1-14.3) gm/dl Hct (30.3-42.9) % MCV (79-97) fl MCH (28-32) pg MCHC (30-34) % RDW (13.2-15.2) % Plt Count (140-440) K/mm3 Lymph % (Auto) (13.4-35.0) % [place] % (Auto) (0.0-7.3) % Eos % (Auto) (0.0-4.3) % Baso % (Auto) (0.0-1.8) % Lymph # (1.2-5.4) K/mm3 [place] # (0.0-0.8) K/mm3 Eos # (0.0-0.4) K/mm3 Baso # (0.0-0.1) K/mm3 Seg Neutrophils % (40.0-70.0) % Seg Neutrophils # (1.8-7.7) K/mm3 PT 14.0 (12.2-14.9) Sec. INR 1.07 (0.87-1.13) APTT 23.2 L (24.2-36.6) Sec. Thrombin Time 16.4 (15.1-19.6) Sec. Sodium (137-145) mmol/L Potassium (3.6-5.0) mmol/L Chloride (98-107) mmol/L Carbon Dioxide (22-30) mmol/L Anion Gap mmol/L BUN (7-17) mg/dL Creatinine (0.7-1.2) mg/dL Estimated GFR ml/min BUN/Creatinine Ratio % Glucose (65-100) mg/dL POC Glucose 113 H (70-105) Calcium (8.4-10.2) mg/dL Total Bilirubin (0.1-1.2) mg/dL AST (5-40) units/L ALT (7-56) units/L Alkaline Phosphatase (35-129) units/L Total Creatine Kinase 51 (30-135) units/L CK-MB (CK-2) 1.7 (0.0-4.0) ng/mL CK-MB (CK-2) Rel Index 3.3 (0-4) Troponin T 0.090 H (0.00-0.029) ng/mL Total Protein (6.3-8.2) g/dL Albumin (3.9-5) g/dL Albumin/Globulin Ratio % Triglycerides 149 (2-149) mg/dL Cholesterol 139 (50-199) mg/dL LDL Cholesterol Direct 80 (50-130) mg/dL HDL Cholesterol 45 (40-59) mg/dL Cholesterol/HDL Ratio 3.08 % - EKG Data -: EKG Interpreted by Ut EKG shows normal: sinus rhythm, axis, intervals, QRS complexes, ST-T waves Rate: normal Interpretation: [facility] - Radiology Data CT head/brain wo con INDICATION: worsening headache recent CVA. TECHNIQUE: CT without contrast. All CT scans at this location are performed using CT dose reduction for ALARA by means of automated exposure control. COMPARISON: Brain MRI on 11/14/2019 FINDINGS: There is expected maturation in the known recent bilateral occipital lobe infarcts. No definite new infarct is identified. There is normal zamora-white differentiation. There is no acute hemorrhage, hydrocephalus, or adverse mass effect. Paranasal sinuses are clear. IMPRESSION: 1. No acute intracranial abnormality. 2. Expected evolution of previously demonstrated occipital lobe infarcts. Findings called to Dr. Quach at 4:46 pm central time on 12/13/19. Signer Name: Jack Rivers MD Signed: 12/13/2019 5:47 PM Workstation Name: [id number] Transcribed By: SIERRA Dictated By: Jack Rivers MD Electronically Authenticated By: Jack Rivers MD Signed Date/Time: 12/13/19 1747 - Medical Decision Making Patient is a 54-year-old F [place] female recently was diagnosed with ITP and MRI showed that she had a subacute stroke sometime in the last 2 to 3 weeks from today. Patient is here for neurological symptoms that have come and gone at least twice today they have been accompanied with a headache. Patient likely with complicated/complex migraine with brief neurological deficits however TIA cannot be ruled out at this time. Teleneurologist has suggested the patient be admitted to the hospital for further management and possible MRI to be defin itive Critical care attestation.: If time is entered above; I have spent that time in minutes in the direct care of this critically ill patient, excluding procedure time. ED Disposition Disposition: DC-09 OP ADMIT IP TO THIS HOSP Condition: Stable
[2019-12-13] MEDS ORDERED: PROMETHAZINE 25 MG RECT SUPP PR PRN (20:04)
[2019-12-13] MEDS ORDERED: ONDANSETRON 4 MG/2 ML INJ IV PRN (20:04)
[2019-12-13] MEDS ORDERED: MAGNESIUM HYDROXIDE (MOM) ORAL LIQD UDC PO PRN (20:04)
[2019-12-13] MEDS ORDERED: SODIUM CHLORIDE 0.9% 1000 ML 1,000 ML IV SCH (20:15)
--- NOTE | 2019-12-13 20:22 | Cat Scan Report ---
CTA HEAD AND NECK WITH CONTRAST HISTORY: Transient CVA symptoms COMPARISON: Head CT done earlier on 12/13/2019. Brain MRI on 11/14/2019. TECHNIQUE: All CT scans at this location are performed using CT dose reduction for ALARA by means of automated exposure control.. 3-D/MIP reformats postprocessed. Percentage stenosis is determined by d irect quantitative measurements of diseased internal carotid artery diameter compared with normal dis kashmir internal carotid artery reference segments or by criteria similar to NASCET where applicable. CONTRAST: 100 ml of Omnipaque 350 FINDINGS: CTA HEAD: Intracranial vertebral arteries: No significant abnormality. Basilar artery: No significant abnormality. Posterior cerebral arteries: No significant abnormality. Intracranial internal carotid arteries: No significant abnormality. Anterior cerebral arteries: No significant abnormality. Middle cerebral arteries: No significant abnormality. Dural venous sinuses:Not optimally opacified. No significant abnormality. CTA NECK: Aortic arch: No significant abnormality. Cervical vertebral arteries: No significant abnormality. Common carotid arteries: No significant abnormality. Cervical internal carotid arteries: No significant abnormality. Additional findings: None. IMPRESSION: 1. No significant stenosis or large vessel occlusion in the cervical or intracranial arteries. Signer Name: Jack Rivers MD Signed: 12/13/2019 8:17 PM Workstation Name: [id number]
--- NOTE | 2019-12-13 21:39 | History and Physical Report ---
History of Present Illness Date of examination: 12/13/19 Date of admission: 12/13/19 20:04 Chief complaint: Right facial droop, slurred speech, headache History of present illness: 54-year-old -[place] female with history of thrombocytopenia (suspicion for ITP), CVA, NSTEMI, migraines, and urethral blockage who presents to [facility] ED with complaints of headache, right facial droop and slurred speech. Patient's and daughter present at bedside and have assisted with providing history. Patient states that around 4 AM this morning she was awakened with severe frontal headache and right facial droop. Her symptoms resolved within 10 minutes then she went back to bed. She states that she continued to have headaches on and off throughout the day. At approximately 4 PM this afternoon patient complained of severe frontal headache. At this time her daughter noticed her speech was slurred, she had a right facial droop, had difficulty raising her right arm. Again, her symptoms resolved in about 10 to 15 minutes. Under advice of her daughter patient decided to seek medical treatment. Upon arrival to our facility patient's neuro symptoms have resolved. Tele-neurology was consulted and evaluated patient. Denies nausea, vomiting, fever, headache, visual disturbances, alterations in gait, or recent sick contact. At the time of my examination she is sitting up in stretcher and talking with family. She has 5/5 motor strength in all extremities with no drift. Her speech is normal, and no facial droop is noted. Will admit for further evaluation and treatment. Will consult inpatient neurology. Medications and Allergies Allergies Allergy/AdvReac Type Severity Reaction Status Date / Time No Known Allergies Allergy Verified 12/13/19 16:42 Home Medications Medication Instructions Recorded Confirmed Last Taken Type AtorvaSTATin [Lipitor] 40 mg PO QHS #30 tablet 11/21/19 12/13/19 Unknown Rx Potassium Chloride [K-Dur] 1 tab PO QDAY #30 tablet 11/21/19 12/13/19 Unknown Rx carvediloL [Coreg] 3.125 mg PO BID #60 tablet 11/21/19 12/13/19 Unknown Rx oxyCODONE /ACETAMINOPHEN [Percocet 1 tab PO Q6H PRN #15 tablet 11/21/19 12/13/19 Unknown Rx 5/325 mg] predniSONE [Deltasone] 50 mg PO QDAY #30 tablet 11/21/19 12/13/19 Unknown Rx Active Meds: Active Medications Acetaminophen (Tylenol) 650 mg PO Q4H PRN PRN Reason: Pain, Mild (1-3) Atorvastatin Calcium (Lipitor) 40 mg PO QHS PR[facility]EN Bisacodyl (Dulcolax) [address] QDAY PRN PRN Reason: Constipation Docusate Sodium (Colace) 100 mg PO BID [facility] Sodium Chloride (Nacl 0.9% 1000 Ml) 1,000 mls @ 75 mls/hr IV DIRECT PRAVEEN Stop: 12/14/19 11:00 Magnesium Hydroxide (Milk Of Magnesia) 30 ml PO Q4H PRN PRN Reason: Constipation Ondansetron HCl (Zofran) 4 mg IV Q8H PRN PRN Reason: Nausea And Vomiting Prednisone (Deltasone) 50 mg PO QDAY PRAVEEN Promethazine HCl (Phenergan) [address] Q6H PRN PRN Reason: Nausea And Vomiting Sodium Chloride (Sodium Chloride Flush Syringe 10 Ml) 10 ml IV PRN PRN PRN Reason: LINE FLUSH Stop: 12/13/19 23:59 Exam - Constitutional Vitals: Temp Pulse Resp BP Pulse Ox 99.4 F 95 H 15 105/68 100 12/13/19 16:36 12/13/19 21:01 12/13/19 21:01 12/13/19 21:01 12/13/19 21:01 Results - Labs CBC & Chem 7: 12/13/19 16:51 12/13/19 16:51 Labs: Laboratory Last Values WBC 8.5 K/mm3 (4.5-11.0) 12/13/19 16:51 RBC 2.70 M/mm3 (3.65-5.03) L 12/13/19 16:51 Hgb 9.5 gm/dl (10.1-14.3) L 12/13/19 16:51 Hct 28.8 % (30.3-42.9) L 12/13/19 16:51 MCV 107 fl (79-97) H 12/13/19 16:51 MCH 35 pg (28-32) H 12/13/19 16:51 MCHC 33 % (30-34) 12/13/19 16:51 RDW 21.1 % (13.2-15.2) H 12/13/19 16:51 Plt Count 35 K/mm3 (140-440) L 12/13/19 16:51 Lymph % (Auto) 31.7 % (13.4-35.0) 12/13/19 16:51 [place] % (Auto) 8.4 % (0.0-7.3) H 12/13/19 16:51 Eos % (Auto) 0.6 % (0.0-4.3) 12/13/19 16:51 Baso % (Auto) 0.3 % (0.0-1.8) 12/13/19 16:51 Lymph # 2.7 K/mm3 (1.2-5.4) 12/13/19 16:51 [place] # 0.7 K/mm3 (0.0-0.8) 12/13/19 16:51 Eos # 0.1 K/mm3 (0.0-0.4) 12/13/19 16:51 Baso # 0.0 K/mm3 (0.0-0.1) 12/13/19 16:51 Seg Neutrophils % 59.0 % (40.0-70.0) 12/13/19 16:51 Seg Neutrophils # 5.0 K/mm3 (1.8-7.7) 12/13/19 16:51 PT 14.0 Sec. (12.2-14.9) 12/13/19 17:46 INR 1.07 (0.87-1.13) 12/13/19 17:46 APTT 23.2 Sec. (24.2-36.6) L 12/13/19 17:46 Thrombin Time 16.4 Sec. (15.1-19.6) 12/13/19 17:46 Sodium 141 mmol/L (137-145) 12/13/19 16:51 Potassium 3.7 mmol/L (3.6-5.0) 12/13/19 16:51 Chloride 102.8 mmol/L (98-107) 12/13/19 16:51 Carbon Dioxide 20 mmol/L (22-30) L 12/13/19 16:51 Anion Gap 22 mmol/L 12/13/19 16:51 BUN 21 mg/dL (7-17) H 12/13/19 16:51 Creatinine 0.9 mg/dL (0.7-1.2) 12/13/19 16:51 Estimated GFR > 60 ml/min 12/13/19 16:51 BUN/Creatinine Ratio 23 % 12/13/19 16:51 Glucose 102 mg/dL (65-100) H 12/13/19 16:51 POC Glucose 113 (70-105) H 12/13/19 17:45 Calcium 9.2 mg/dL (8.4-10.2) 12/13/19 16:51 Total Bilirubin 3.70 mg/dL (0.1-1.2) H 12/13/19 16:51 AST 47 units/L (5-40) H 12/13/19 16:51 ALT 22 units/L (7-56) 12/13/19 16:51 Alkaline Phosphatase 47 units/L (35-129) 12/13/19 16:51 Total Creatine Kinase 51 units/L (30-135) 12/13/19 17:46 CK-MB (CK-2) 1.7 ng/mL (0.0-4.0) 12/13/19 17:46 CK-MB (CK-2) Rel Index 3.3 (0-4) 12/13/19 17:46 Troponin T 0.090 ng/mL (0.00-0.029) H 12/13/19 17:46 Total Protein 7.3 g/dL (6.3-8.2) 12/13/19 16:51 Albumin 4.1 g/dL (3.9-5) 12/13/19 16:51 Albumin/Globulin Ratio 1.3 % 12/13/19 16:51 Triglycerides 149 mg/dL (2-149) 12/13/19 17:46 Cholesterol 139 mg/dL (50-199) 12/13/19 17:46 LDL Cholesterol Direct 80 mg/dL (50-130) 12/13/19 17:46 HDL Cholesterol 45 mg/dL (40-59) 12/13/19 17:46 Cholesterol/HDL Ratio 3.08 % 12/13/19 17:46 - Imaging and Cardiology Imaging and Cardiology: CT Head: FINDINGS: There is expected maturation in the known recent bilateral occipital lobe infarcts. No definite new infarct is identified. There is normal zamora-white differentiation. There is no acute hemorrhage, hydrocephalus, or adverse mass effect. Paranasal sinuses are clear. IMPRESSION: 1. No acute intracranial abnormality. 2. Expected evolution of previously demonstrated occipital lobe infarcts. CT angio Head: FINDINGS: Intracranial vertebral arteries: No significant abnormality. Basilar artery: No significant abnormality. Posterior cerebral arteries: No significant abnormality. Intracranial internal carotid arteries: No significant abnormality. Anterior cerebral arteries: No significant abnormality. Middle cerebral arteries: No significant abnormality. Dural venous sinuses:Not optimally opacified. No significant abnormality. IMPRESSION: 1. No significant stenosis or large vessel occlusion in the cervical or intracranial arteries. CT angio Neck: Aortic arch: No significant abnormality. Cervical vertebral arteries: No significant abnormality. Common carotid arteries: No significant abnormality. Cervical internal carotid arteries: No significant abnormality. Additional findings: None. IMPRESSION: 1. No significant stenosis or large vessel occlusion in the cervical or intracranial arteries. Assessment and Plan Assessment and plan: 54-year-old -[place] female with history of thrombocytopenia (suspicion for ITP), CVA, NSTEMI, migraines, and urethral blockage who presents to [facility] ED with complaints of headache, right facial droop and slurred speech. TIA R/O CVA -CT Head shows Expected evolution of previously demonstrated occipital lobe infarcts. negative for acute intracranial abnormality -CT angio Head and CT angio Neck negative -Hx CVA MRI on 11/14/2019 revealed: Subacute infarction in the right occipital lobe Infarction in the left occipital lobe ligament. Base but less than 2 weeks old -Tele-Neurology consulted; recommendations appreciated -MRI Head and Echo pending -Neurology consulted -Neuro Checks -PT/OT eval pending -Speech eval Pending -On statin -Hold off on oral and anticoagulation due to thrombocytopenia -Continue supportive care Thrombocytopenia -Suspicion for ITP -Plt 35 on admission -Received trial of IVIG in -Currently on Prednisone -Continue Prednisone -Hematology (Dr. Coker) consulted Elevated Trop -at 0.090 -Continue to trend -Denies chest pain -Cardiology consulted Dehydration -Mild -BUN 21 -Gentle hydration with IVF -Continue to monitor labs DVT PPX -On SCD's -Hold off on systemic anticoagulation d/t thrombocytopenia Advance Directives: No VTE prophylaxis?: Mechanical
[2019-12-13] MEDS: DOCUSATE SODIUM 100 MG CAP PO SCH (22:53)
[2019-12-13] MEDS: carvediloL 3.125 MG TAB PO SCH (22:54)
[2019-12-14] MEDS: ACETAMINOPHEN 325 MG TAB PO PRN (03:00)
--- NOTE | 2019-12-14 07:54 | Hem/Onc Consultation ---
History of Present Illness - Reason for Consult Consult date: 12/14/19 LOW PLT Requesting physician: ERIC FELIPE - History of Present Illness h/o patient had headache. She also had right side weakness for 10 minutes She had a twisting of face lasting 5 minutes. She was here in the hospital a few weeks ago and platelet was less than 10 she received IVIG a few days course and she was discharged with prednisone she did not keep follow-up appointment to the clinic at discharge platelet for more than 50 stop I have been consulted as platelets now are in the 30s. Past History Past Medical History: other (low PLT - ITP) Medications and Allergies Allergies Allergy/AdvReac Type Severity Reaction Status Date / Time No Known Allergies Allergy Verified 12/13/19 16:42 Home Medications Medication Instructions Recorded Confirmed Last Taken Type AtorvaSTATin [Lipitor] 40 mg PO QHS #30 tablet 11/21/19 12/13/19 Unknown Rx Potassium Chloride [K-Dur] 1 tab PO QDAY #30 tablet 11/21/19 12/13/19 Unknown Rx carvediloL [Coreg] 3.125 mg PO BID #60 tablet 11/21/19 12/13/19 Unknown Rx oxyCODONE /ACETAMINOPHEN [Percocet 1 tab PO Q6H PRN #15 tablet 11/21/19 12/13/19 Unknown Rx 5/325 mg] predniSONE [Deltasone] 50 mg PO QDAY #30 tablet 11/21/19 12/13/19 Unknown Rx Active Meds: Active Medications Acetaminophen (Tylenol) 650 mg PO Q4H PRN PRN Reason: Pain, Mild (1-3) Last Admin: 12/14/19 03:00 Dose: 650 mg Documented by: Atorvastatin Calcium (Lipitor) 40 mg PO QHS [facility] Last Admin: 12/13/19 22:54 Dose: 40 mg Documented by: Bisacodyl (Dulcolax) 10 mg [place] QDAY PRN PRN Reason: Constipation Carvedilol (Coreg) 3.125 mg PO BID [facility] Last Admin: 12/13/19 22:54 Dose: Not Given Documented by: Docusate Sodium (Colace) 100 mg PO BID [facility] Last Admin: 12/13/19 22:53 Dose: 100 mg Documented by: Sodium Chloride (Nacl 0.9% 1000 Ml) 1,000 mls @ 75 mls/hr IV DIRECT [facility] Stop: 12/14/19 11:00 Last Admin: 12/14/19 04:00 Dose: 75 mls/hr Documented by: Magnesium Hydroxide (Milk Of Magnesia) 30 ml PO Q4H PRN PRN Reason: Constipation Ondansetron HCl (Zofran) 4 mg IV Q8H PRN PRN Reason: Nausea And Vomiting Oxycodone/Acetaminophen (Percocet 5/325) 1 tab PO Q6H PRN PRN Reason: Pain , Severe (7-10) Prednisone (Deltasone) 50 mg PO QDAY [facility] Promethazine HCl (Phenergan) 25 mg [place] Q6H PRN PRN Reason: Nausea And Vomiting Review of Systems Constitutional: no fever, no chills Ears, nose, mouth and throat: no epistaxis Cardiovascular: no chest pain, no palpitations Respiratory: no cough Gastrointestinal: no abdominal pain Rectal: no bleeding Neurological: headaches, motor disturbance (says rt arm weak for 10 mins and twisting fgace for 5 mins) Exam - Exam Narrative Exam: Vitals were reviewed. No pallor No icterus No neck lymph nodes Heart S1-S2 present Lungs clear to auscultation anteriorly Abdomen soft Leg no edema Female genitalia not examined alert awake oriented - Constitutional Vitals: Last Vital Signs Temp 97.4 F L 12/14/19 03:08 Pulse 64 12/14/19 04:29 Resp 22 12/14/19 07:28 BP 105/54 12/14/19 03:08 Pulse Ox 98 12/14/19 03:08 Results - Labs lab Results: Laboratory Results - last 24 hr 12/13/19 12/13/19 12/13/19 16:47 16:51 16:51 WBC 8.5 RBC 2.70 L Hgb 9.5 L Hct 28.8 L MCV 107 H MCH 35 H MCHC 33 RDW 21.1 H Plt Count 35 L Lymph % (Auto) 31.7 [place] % (Auto) 8.4 H Eos % (Auto) 0.6 Baso % (Auto) 0.3 Lymph # 2.7 [place] # 0.7 Eos # 0.1 Baso # 0.0 Seg Neutrophils % 59.0 Seg Neutrophils # 5.0 PT INR APTT Thrombin Time Sodium 141 Potassium 3.7 Chloride 102.8 Carbon Dioxide 20 L Anion Gap 22 BUN 21 H Creatinine 0.9 Estimated GFR > 60 BUN/Creatinine Ratio 23 Glucose 102 H POC Glucose 114 H Calcium 9.2 Total Bilirubin 3.70 H AST 47 H ALT 22 Alkaline Phosphatase 47 Total Creatine Kinase CK-MB (CK-2) CK-MB (CK-2) Rel Index Troponin T Total Protein 7.3 Albumin 4.1 Albumin/Globulin Ratio 1.3 Triglycerides Cholesterol LDL Cholesterol Direct HDL Cholesterol Cholesterol/HDL Ratio 12/13/19 12/13/19 12/13/19 17:45 17:46 17:46 WBC RBC Hgb Hct MCV MCH MCHC RDW Plt Count Lymph % (Auto) [place] % (Auto) Eos % (Auto) Baso % (Auto) Lymph # [place] # Eos # Baso # Seg Neutrophils % Seg Neutrophils # PT 14.0 INR 1.07 APTT 23.2 L Thrombin Time 16.4 Sodium Potassium Chloride Carbon Dioxide Anion Gap BUN Creatinine Estimated GFR BUN/Creatinine Ratio Glucose POC Glucose 113 H Calcium Total Bilirubin AST ALT Alkaline Phosphatase Total Creatine Kinase 51 CK-MB (CK-2) 1.7 CK-MB (CK-2) Rel Index 3.3 Troponin T 0.090 H Total Protein Albumin Albumin/Globulin Ratio Triglycerides 149 Cholesterol 139 LDL Cholesterol Direct 80 HDL Cholesterol 45 Cholesterol/HDL Ratio 3.08 12/13/19 20:35 WBC RBC Hgb Hct MCV MCH MCHC RDW Plt Count Lymph % (Auto) [place] % (Auto) Eos % (Auto) Baso % (Auto) Lymph # [place] # Eos # Baso # Seg Neutrophils % Seg Neutrophils # PT INR APTT Thrombin Time Sodium Potassium Chloride Carbon Dioxide Anion Gap BUN Creatinine Estimated GFR BUN/Creatinine Ratio Glucose POC Glucose Calcium Total Bilirubin AST ALT Alkaline Phosphatase Total Creatine Kinase CK-MB (CK-2) CK-MB (CK-2) Rel Index Troponin T 0.077 H Total Protein Albumin Albumin/Globulin Ratio Triglycerides Cholesterol LDL Cholesterol Direct HDL Cholesterol Cholesterol/HDL Ratio Assessment and Plan Patient had low platelet at admission it was in the 30s. In past platelets were less than 10 and she received a few days of IVIG. She was discharged with prednisone however she did not keep follow-up appointment. As per the daughter patient is still taking prednisone the dose is unclear. She came to the hospital this time because of severe headache right arm weakness and twisting her face neurology has been consulted Regarding low platelets we will give prednisone 1 mg/kg grams and follow the patient I reviewed the deficiency investigations done last time. Today hemoglobin was 9.5 MCV 107 in recent past and mid-November serum iron was 143 ferritin 900 total bilirubin 3.7 B12 701 folate more than 20 Patient's MCV is high we will do haptoglobin LDH Colin testing. 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 In past colin negative blood group B Rh + pt also has anemia - with high LDH - ? hemolytic - will follow same Price syndrome a possibility high indirect bili - high LDH - Patient Problems (1) Thrombocytopenia Current Visit: No Status: Acute
[2019-12-14] MEDS: DOCUSATE SODIUM 100 MG CAP PO SCH ×2 (10:34→21:09)
[2019-12-14] MEDS: predniSONE 50 MG TAB PO SCH (10:34)
--- NOTE | 2019-12-14 10:34 | Consultation ---
History of Present Illness Consult date: 12/14/19 Requesting physician: JOHN GUO Consult reason: elevated troponin History of present illness: Pt is a 46 y.o. AA female with a past medical hx of CVA and chronic thrombocytopenia with suspected ITP. She has been seen by our practice during prior hospitalizations. Pt presented with c/o headache, intermittent loss of vision, facial droop, and right arm weakness that started yesterday morning. She states that her sx resolved in about 15 min. Pt also reports SOB, SOTO, and orthopnea that has been ongoing since her previous discharge s/p CVA in November. She denies CP, palpitations, and edema. Cardiology has been consulted for elevated troponin. ECG shows no acute ischemic changes. Last echo completed 11/11/19 - showed EF 55-60%; mild-mod LVH; abnormal LV diastolic function; mild pulmonic regurg. Past History Past Medical History: stroke, other (low PLT - ITP) Past Surgical History: No surgical history Social history: denies: smoking, alcohol abuse, prescription drug abuse Family history: no significant family history Medications and Allergies Allergies Allergy/AdvReac Type Severity Reaction Status Date / Time No Known Allergies Allergy Verified 12/13/19 16:42 Home Medications Medication Instructions Recorded Confirmed Last Taken Type AtorvaSTATin [Lipitor] 40 mg PO QHS #30 tablet 11/21/19 12/13/19 Unknown Rx Potassium Chloride [K-Dur] 1 tab PO QDAY #30 tablet 11/21/19 12/13/19 Unknown Rx carvediloL [Coreg] 3.125 mg PO BID #60 tablet 11/21/19 12/13/19 Unknown Rx oxyCODONE /ACETAMINOPHEN [Percocet 1 tab PO Q6H PRN #15 tablet 11/21/19 12/13/19 Unknown Rx 5/325 mg] predniSONE [Deltasone] 50 mg PO QDAY #30 tablet 11/21/19 12/13/19 Unknown Rx Active Meds: Active Medications Acetaminophen (Tylenol) 650 mg PO Q4H PRN PRN Reason: Pain, Mild (1-3) Last Admin: 12/14/19 03:00 Dose: 650 mg Documented by: Atorvastatin Calcium (Lipitor) 40 mg PO QHS [facility] Last Admin: 12/13/19 22:54 Dose: 40 mg Documented by: Bisacodyl (Dulcolax) 10 mg [place] QDAY PRN PRN Reason: Constipation Carvedilol (Coreg) 3.125 mg PO BID [facility] Last Admin: 12/13/19 22:54 Dose: Not Given Documented by: Docusate Sodium (Colace) 100 mg PO BID [facility] Last Admin: 12/13/19 22:53 Dose: 100 mg Documented by: Sodium Chloride (Nacl 0.9% 1000 Ml) 1,000 mls @ 75 mls/hr IV DIRECT [facility] Stop: 12/14/19 11:00 Last Admin: 12/14/19 04:00 Dose: 75 mls/hr Documented by: Magnesium Hydroxide (Milk Of Magnesia) 30 ml PO Q4H PRN PRN Reason: Constipation Ondansetron HCl (Zofran) 4 mg IV Q8H PRN PRN Reason: Nausea And Vomiting Oxycodone/Acetaminophen (Percocet 5/325) 1 tab PO Q6H PRN PRN Reason: Pain , Severe (7-10) Prednisone (Deltasone) 50 mg PO QDAY [facility] Promethazine HCl (Phenergan) 25 mg [place] Q6H PRN PRN Reason: Nausea And Vomiting Review of Systems Constitutional: no fever, no chills Eyes: bilateral: loss of vision (intermittent loss of vision associated w/headache) Ears, nose, mouth and throat: no decreased hearing, no dysphagia Breasts: normal Cardiovascular: orthopnea, shortness of breath, dyspnea on exertion, no chest pain, no palpitations, no edema, no syncope, no lightheadedness Respiratory: shortness of breath, dyspnea on exertion, other (orthopnea), no cough Gastrointestinal: no abdominal pain, no nausea, no vomiting Genitourinary Female: no pelvic pain Musculoskeletal: muscle weakness (generalized muscle weakness s/p CVA), no muscle cramps Integumentary: no rash, no wounds Neurological: headaches, loss of vision, no paralysis, no parathesias, no nu mbness, no tingling, no seizures, no syncope Endocrine: no cold intolerance, no heat intolerance Hematologic/Lymphatic: no easy bruising, no easy bleeding Allergic/Immunologic: no urticaria Physical Examination Last Vital Signs Temp 98.8 F 12/14/19 07:42 Pulse 92 H 12/14/19 07:42 Resp 18 12/14/19 07:42 BP 95/60 12/14/19 07:42 Pulse Ox 96 12/14/19 08:31 General appearance: no acute distress HEENT: Positive: PERRL, EOMI, Normocephaly, Mucus Membranes Moist Neck: Positive: neck supple, trachea midline Cardiac: Positive: Reg Rate and Rhythm, S1/S2 Lungs: Positive: clear to auscultation, No Wheeze, Rales, Rhonchi Neuro: Positive: Grossly Intact. Negative: Coordination Normal Abdomen: Positive: Soft, Active Bowel Sounds. Negative: Tender Skin: Positive: Clear. Negative: Rash, Wound Musculoskeletal: No Pain Extremities: Present: normal, upper extr. pulses, lower extr. pulses. Absent: edema Results 12/13/19 16:51 12/13/19 16:51 Cardiac Enzymes 12/13/19 12/13/19 12/14/19 Range/Units 16:51 17:46 08:14 AST 47 H (5-40) units/L Lactate Dehydrogenase 1073 H (91-180) units/L CK-MB (CK-2) 1.7 (0.0-4.0) ng/mL Coagulation 12/13/19 Range/Units 17:46 PT 14.0 (12.2-14.9) Sec. INR 1.07 (0.87-1.13) APTT 23.2 L (24.2-36.6) Sec. Lipids 12/13/19 Range/Units 17:46 Triglycerides 149 (2-149) mg/dL Cholesterol 139 (50-199) mg/dL HDL Cholesterol 45 (40-59) mg/dL Cholesterol/HDL Ratio 3.08 % CBC 12/13/19 Range/Units 16:51 WBC 8.5 (4.5-11.0) K/mm3 RBC 2.70 L (3.65-5.03) M/mm3 Hgb 9.5 L (10.1-14.3) gm/dl Hct 28.8 L (30.3-42.9) % Plt Count 35 L (140-440) K/mm3 Lymph # 2.7 (1.2-5.4) K/mm3 [place] # 0.7 (0.0-0.8) K/mm3 Eos # 0.1 (0.0-0.4) K/mm3 Baso # 0.0 (0.0-0.1) K/mm3 Comprehensive Metabolic Panel 12/13/19 Range/Units 16:51 Sodium 141 (137-145) mmol/L Potassium 3.7 (3.6-5.0) mmol/L Chloride 102.8 (98-107) mmol/L Carbon Dioxide 20 L (22-30) mmol/L BUN 21 H (7-17) mg/dL Creatinine 0.9 (0.7-1.2) mg/dL Glucose 102 H (65-100) mg/dL Calcium 9.2 (8.4-10.2) mg/dL AST 47 H (5-40) units/L ALT 22 (7-56) units/L Alkaline Phosphatase 47 (35-129) units/L Total Protein 7.3 (6.3-8.2) g/dL Albumin 4.1 (3.9-5) g/dL - Imaging and Cardiology Echo: pending, report reviewed (11/11/19 - EF 55-60%; mild-mod LVH; abnormal LV diastolic function; mild pulmonic regurg) EKG: report reviewed, image reviewed - EKG Interpretation EKG: no acute changes EKG interpretations - Telemetry EKG Rhythm: Sinus Rhythm (NSR/sinus tach) - EKG Sinus rhythms and dysrhythmias: sinus rhythm AV and intraventricular conduction: left anterior fascicular Assessment and Plan Minimal troponin elevation currently non-specific in setting of suspected CVA, anemia, and thrombocytopenia. Pt denies CP. ECG - no acute findings. Continue to trend Aldo. F/u ECG in AM. Limited echo w/bubble study pending. Will perform Lexiscan stress MPI tomorrow AM. NPO after midnight. Recommend outpatient f/u at [facility] for suspected ITP. Discussed with Dr. Coppola. The patient has been seen in conjunction with Dr. Reed, who agrees with the assessment and plan of care. - Patient Problems (1) CVA (cerebral vascular accident) Current Visit: Yes Status: Suspected (2) Headache, acute Current Visit: Yes Status: Acute Qualifiers: Headache type: post-traumatic Qualified Code(s): G44.319 - Acute post- traumatic headache, not intractable (3) Non-STEMI (non-ST elevated myocardial infarction) Current Visit: Yes Status: Chronic Plan to address problem: type 2 (4) Thrombocytopenia Current Visit: Yes Status: Chronic (5) Idiopathic thrombocytopenic purpura (ITP) Current Visit: Yes Status: Suspected (6) History of CVA (cerebrovascular accident) Current Visit: Yes Status: Chronic
[2019-12-14] MEDS: oxyCODONE /ACETAMINOPHEN 5-325MG TAB PO PRN ×2 (10:35→21:12)
--- NOTE | 2019-12-14 10:36 | Magnetic Resonance Report ---
MR brain wo con INDICATION / CLINICAL INFORMATION: 54 years Female; severe headaches, facial droop. TECHNIQUE: Multiplanar, multisequence MR images of the brain were obtained. COMPARISON: CT - 12/13/2019; MRI-11/14/2019 FINDINGS: BRAIN / INTRACRANIAL CONTENTS: Diffusion imaging demonstrates a small focus of increased signal near the head of the caudate on the left without ADC map abnormality. Subacute area of ischemia is suspect ed. Similar type findings are seen peripherally on prior MRI. At this point, embolic phenomenon might be a consideration. Minimal, cortical laminar necrosis seen in the inferior parietal lobule posteriorly on the right, whe re acute/subacute areas of ischemia or seen on prior MRI. Otherwise, no acute hemorrhage, mass effect, midline shift, hydrocephalus, or acute, large territori al infarct. No chronic infarct or atrophy. No significant white matter abnormality. CRANIOCERVICAL JUNCTION: No significant abnormality. VASCULAR FLOW-VOIDS: No significant abnormality. ORBITS: No significant abnormality of visualized orbits. SINUSES / MASTOIDS: Minimal mucosal thickening seen in the ethmoids. ADDITIONAL FINDINGS: None. IMPRESSION: 1. Small, subacute area of ischemia may be present near the head of the left caudate. Embolic phenome non might be consideration. Signer Name: Hero López MD, III Signed: 12/14/2019 10:31 AM Workstation Name: [id number]
[2019-12-14] MEDS: carvediloL 3.125 MG TAB PO SCH ×2 (11:37→21:08)
--- NOTE | 2019-12-14 15:00 | Progress Note ---
Assessment and Plan Assessment and plan: Patient is a 54-year-old -Mexican woman well known to me from recent discharge. She has ITP. She was treated with IVIG 5 days infusion and steroids. The ITP/low plt cause NSTEMI and CVA. I discharged her on 11/21/2019 with steroids and follow up with Dr. Coker but she did not due to lack of insurance. She presents now with headache, right facial droop and slurred speech. * CT Head IMPRESSION: 1. No acute intracranial abnormality. 2. Expected evolution of previously demonstrated occipital lobe infarcts. * CT angio Head IMPRESSION: 1. No significant stenosis or large vessel occlusion in the cervical or intracranial arteries. * CT angio Neck IMPRESSION: 1. No significant stenosis or large vessel occlusion in the cervical or intracranial arteries. * Brain MRI brain without contrast Impression: Small subacute area of ischemia maybe present near the head of the left caudate, Embolic phenomenon might be consideration Acute new CVA, subacute -CT Head shows Expected evolution of previously demonstrated occipital lobe infarcts. negative for acute intracranial abnormality -CT angio Head and CT angio Neck negative -Hx CVA MRI on 11/14/2019 revealed: Subacute infarction in the right occipital lobe Infarction in the left occipital lobe ligament. Base but less than 2 weeks old -Tele-Neurology consulted; recommendations appreciated -I consulted Neurology today -Neuro Checks -PT/OT eval pending -Speech eval Pending -On statin -Hold off on oral and anticoagulation due to thrombocytopenia -Continue supportive care -difficult decision regarding the use of Aspirin with such low plt Thrombocytopenia -Suspicion for ITP -Plt 35 on admission -Received trial of IVIG in -Currently on Prednisone -Continue Prednisone -Hematology (Dr. Coker) consulted Elevated Trop -at 0.090 -Continue to trend -Denies chest pain -Cardiology consulted Dehydration -Mild -BUN 21 -Gentle hydration with IVF -Continue to monitor labs DVT PPX -On SCD's -Hold off on systemic anticoagulation d/t thrombocytopenia History Interval history: Patient was seen and examined. Follow-up on current diagnosis of CVA. Overnight uneventful as no events directly reported to me. Patient denies any chest pain, shortness breath, nausea/vomiting or severe headaches. Imaging, nursing note, chart, labs and old chart reviewed. Discussed with patient. Hospitalist Physical - Physical exam Narrative exam: Gen: WDWN, NAD, Awake, Alert, Orientated HEENT: NCAT, EOMI, PERRL, OP Clear Neck: supple, no adenopathy, no thyromegaly, no JVD CVS/Heart: RRR, normal S1S2, pulses present bilaterally Chest/Lungs: CTA B, Symmetrical chest expansion, good air entry bilaterally GI/Abdomen: soft, NTND, good bowel sounds, no guarding or rebound /Bladder: no suprapubic tenderness, no CVA or paraspinal tenderness Extermity/Skin: no c/c/e, no obvious rash MSK: FROM x 4 Neuro: CN 2-12 grossly intact, no new focal deficits Psych: calm with mild cognitive impairment - Constitutional Vitals: Temp Pulse Resp BP Pulse Ox 98.6 F 94 H 18 99/61 98 12/14/19 11:28 12/14/19 11:28 12/14/19 11:28 12/14/19 11:28 12/14/19 11:28 General appearance: Present: no acute distress Results - Labs CBC & Chem 7: 12/13/19 16:51 12/13/19 16:51 Labs: Laboratory Last Values WBC 8.5 K/mm3 (4.5-11.0) 12/13/19 16:51 RBC 2.70 M/mm3 (3.65-5.03) L 12/13/19 16:51 Hgb 9.5 gm/dl (10.1-14.3) L 12/13/19 16:51 Hct 28.8 % (30.3-42.9) L 12/13/19 16:51 MCV 107 fl (79-97) H 12/13/19 16:51 MCH 35 pg (28-32) H 12/13/19 16:51 MCHC 33 % (30-34) 12/13/19 16:51 RDW 21.1 % (13.2-15.2) H 12/13/19 16:51 Plt Count 35 K/mm3 (140-440) L 12/13/19 16:51 Lymph % (Auto) 31.7 % (13.4-35.0) 12/13/19 16:51 [place] % (Auto) 8.4 % (0.0-7.3) H 12/13/19 16:51 Eos % (Auto) 0.6 % (0.0-4.3) 12/13/19 16:51 Baso % (Auto) 0.3 % (0.0-1.8) 12/13/19 16:51 Lymph # 2.7 K/mm3 (1.2-5.4) 12/13/19 16:51 [place] # 0.7 K/mm3 (0.0-0.8) 12/13/19 16:51 Eos # 0.1 K/mm3 (0.0-0.4) 12/13/19 16:51 Baso # 0.0 K/mm3 (0.0-0.1) 12/13/19 16:51 Seg Neutrophils % 59.0 % (40.0-70.0) 12/13/19 16:51 Seg Neutrophils # 5.0 K/mm3 (1.8-7.7) 12/13/19 16:51 PT 14.0 Sec. (12.2-14.9) 12/13/19 17:46 INR 1.07 (0.87-1.13) 12/13/19 17:46 APTT 23.2 Sec. (24.2-36.6) L 12/13/19 17:46 Thrombin Time 16.4 Sec. (15.1-19.6) 12/13/19 17:46 Sodium 141 mmol/L (137-145) 12/13/19 16:51 Potassium 3.7 mmol/L (3.6-5.0) 12/13/19 16:51 Chloride 102.8 mmol/L (98-107) 12/13/19 16:51 Carbon Dioxide 20 mmol/L (22-30) L 12/13/19 16:51 Anion Gap 22 mmol/L 12/13/19 16:51 BUN 21 mg/dL (7-17) H 12/13/19 16:51 Creatinine 0.9 mg/dL (0.7-1.2) 12/13/19 16:51 Estimated GFR > 60 ml/min 12/13/19 16:51 BUN/Creatinine Ratio 23 % 12/13/19 16:51 Glucose 102 mg/dL (65-100) H 12/13/19 16:51 POC Glucose 113 (70-105) H 12/13/19 17:45 Calcium 9.2 mg/dL (8.4-10.2) 12/13/19 16:51 Total Bilirubin 3.70 mg/dL (0.1-1.2) H 12/13/19 16:51 AST 47 units/L (5-40) H 12/13/19 16:51 ALT 22 units/L (7-56) 12/13/19 16:51 Alkaline Phosphatase 47 units/L (35-129) 12/13/19 16:51 Lactate Dehydrogenase 1073 units/L (91-180) H 12/14/19 08:14 Total Creatine Kinase 51 units/L (30-135) 12/13/19 17:46 CK-MB (CK-2) 1.7 ng/mL (0.0-4.0) 12/13/19 17:46 CK-MB (CK-2) Rel Index 3.3 (0-4) 12/13/19 17:46 Troponin T 0.077 ng/mL (0.00-0.029) H 12/13/19 20:35 Total Protein 7.3 g/dL (6.3-8.2) 12/13/19 16:51 Albumin 4.1 g/dL (3.9-5) 12/13/19 16:51 Albumin/Globulin Ratio 1.3 % 12/13/19 16:51 Triglycerides 149 mg/dL (2-149) 12/13/19 17:46 Cholesterol 139 mg/dL (50-199) 12/13/19 17:46 LDL Cholesterol Direct 80 mg/dL (50-130) 12/13/19 17:46 HDL Cholesterol 45 mg/dL (40-59) 12/13/19 17:46 Cholesterol/HDL Ratio 3.08 % 12/13/19 17:46 Direct Antiglob Test Negative 12/14/19 08:14 NATALI, Poly Interpret Negative 12/14/19 08:14 Active Medications - Current Medications Current Medications: Generic Name Dose Route Start Last Admin Trade Name Freq PRN Reason Stop Dose Admin Acetaminophen 650 mg 12/13/19 20:04 12/14/19 03:00 Tylenol PO 650 mg Q4H PRN Administration Pain, Mild (1-3) Atorvastatin Calcium 40 mg 12/13/19 22:00 12/13/19 22:54 Lipitor PO 40 mg QHS PRAVEEN Administration Bisacodyl 10 mg 12/13/19 20:04 Dulcolax AK QDAY PRN Constipation Carvedilol 3.125 mg 12/13/19 22:00 12/14/19 11:37 Coreg PO Not Given BID PRAVEEN Docusate Sodium 100 mg 12/13/19 22:00 12/14/19 10:34 Colace PO 100 mg BID PRAVEEN Administration Magnesium Hydroxide 30 ml 12/13/19 20:04 Milk Of Magnesia PO Q4H PRN Constipation Ondansetron HCl 4 mg 12/13/19 20:04 Zofran IV Q8H PRN Nausea And Vomiting Oxycodone/Acetaminophen 1 tab 12/13/19 21:57 12/14/19 10:35 Percocet 5/325 PO 1 tab Q6H PRN Administration Pain , Severe (7-10) Prednisone 50 mg 12/14/19 10:00 12/14/19 10:34 Deltasone PO 50 mg QDAY PRAVEEN Administration Promethazine HCl 25 mg 12/13/19 20:04 Phenergan AK Q6H PRN Nausea And Vomiting
--- NOTE | 2019-12-14 17:30 | Consultation ---
History of Present Illness Consult date: 12/14/19 Reason for Consult: Right-sided weakness, right facial droop Chief complaint: Right-sided weakness, right facial droop History of present illness: Patient is a 54-year-old woman with a history of thrombocytopenia, CAD, migraines, hyperlipidemia, history of CVA with no residual deficits. Yesterday, the patient woke up at 4 AM with a headache. And around 4 PM yesterday, she began to experience right facial droop and right arm weakness as well as slurred speech. The patient was then brought to [facility] for further evaluation. The patient had a stroke in November 2019, however was not placed on aspirin. The patient had significantly low platelets in November 2019, and received IVIG for this by hematology. At this time, the patient's right facial droop has resolved, as has her slurred speech and right arm weakness. The patient was not taking aspirin or Plavix at home. Past History Past Medical History: stroke, other (low PLT - ITP, CAD, migraines, hyperlipidemia) Past Surgical History: No surgical history Social history: lives with family. denies: smoking, alcohol abuse, prescription drug abuse Family history: no significant family history Medications and Allergies Allergies Allergy/AdvReac Type Severity Reaction Status Date / Time No Known Allergies Allergy Verified 12/13/19 16:42 Home Medications Medication Instructions Recorded Confirmed Last Taken Type AtorvaSTATin [Lipitor] 40 mg PO QHS #30 tablet 11/21/19 12/13/19 Unknown Rx Potassium Chloride [K-Dur] 1 tab PO QDAY #30 tablet 11/21/19 12/13/19 Unknown Rx carvediloL [Coreg] 3.125 mg PO BID #60 tablet 11/21/19 12/13/19 Unknown Rx oxyCODONE /ACETAMINOPHEN [Percocet 1 tab PO Q6H PRN #15 tablet 11/21/19 12/13/19 Unknown Rx 5/325 mg] predniSONE [Deltasone] 50 mg PO QDAY #30 tablet 11/21/19 12/13/19 Unknown Rx Active Meds: Active Medications Acetaminophen (Tylenol) 650 mg PO Q4H PRN PRN Reason: Pain, Mild (1-3) Last Admin: 12/14/19 03:00 Dose: 650 mg Documented by: Atorvastatin Calcium (Lipitor) 40 mg PO QHS [facility] Last Admin: 12/13/19 22:54 Dose: 40 mg Documented by: Bisacodyl (Dulcolax) 10 mg [place] QDAY PRN PRN Reason: Constipation Carvedilol (Coreg) 3.125 mg PO BID [facility] Last Admin: 12/14/19 11:37 Dose: Not Given Documented by: Docusate Sodium (Colace) 100 mg PO BID [facility] Last Admin: 12/14/19 10:34 Dose: 100 mg Documented by: Magnesium Hydroxide (Milk Of Magnesia) 30 ml PO Q4H PRN PRN Reason: Constipation Ondansetron HCl (Zofran) 4 mg IV Q8H PRN PRN Reason: Nausea And Vomiting Oxycodone/Acetaminophen (Percocet 5/325) 1 tab PO Q6H PRN PRN Reason: Pain , Severe (7-10) Last Admin: 12/14/19 10:35 Dose: 1 tab Documented by: Prednisone (Deltasone) 50 mg PO QDAY [facility] Last Admin: 12/14/19 10:34 Dose: 50 mg Documented by: Promethazine HCl (Phenergan) 25 mg [place] Q6H PRN PRN Reason: Nausea And Vomiting Review of Systems All systems: negative Neurological: weakness, change in speech Physical Examination - Vital Signs Vital Signs: Vital Signs Temp Pulse Resp BP Pulse Ox 99.4 F 105 H 18 144/89 99 12/13/19 16:36 12/13/19 16:36 12/13/19 16:36 12/13/19 16:36 12/13/19 16:36 - Physical Exam Narrative exam: Patient is alert, awake, oriented x4, follows complex commands. PERRL, EOMI, VF F, tongue midline, bilaterally intact to LT, no facial weakness noted. 5/5 strength in all extremities. Bilaterally intact light touch. Bilaterally intact to FTN and HTS. 2+ reflexes throughout. No dysarthria or aphasia noted. - Constitutional General appearance: comfortable - EENT EENT: Present: ATNC, PERRL, mucous membranes moist, hearing intact, vision intact - Respiratory Respiratory: Present: lungs clear, normal breath sounds - Cardiovascular Cardiovascular: Present: regular rate, normal S1, normal S2 Extremities: Present: no clubbing, cyanosis, no inflammation - Gastrointestinal Gastrointestinal: Present: normoactive bowel sounds, soft, non-tender - Integumentary Integumentary: Present: normal - Musculoskeletal Musculoskeletal: Present: no fluid collection - Psychiatric Psychiatric: Present: mood/affect appropriate - Level of Consciousness 1a. Level of Consciousness: alert/keenly responsive - LOC Questions 1b. LOC Questions: answers both correctly - LOC Command 1c. LOC Commands: performs tasks correctly - Best Gaze 2. Best Gaze: normal - Visual 3. Visual: no visual loss - Facial Palsy 4. Facial Palsy: normal symmetrical movement - Motor Arm 5a. Motor Arm Left: no drift 5b. Motor Arm Right: no drift - Motor Leg 6a. Motor Leg Left: no drift 6b. Motor Leg Right: no drift - Limb Ataxia 7. Limb Ataxia: absent - Sensory 8. Sensory: normal - Best Language 9. Best Language: no aphasia - Dysarthria 10. Dysarthria: normal - Extinction and Inattention 11. Extinction/Inattention: no abnormality - Scoring Total Score: 0 Stroke Severity: No Stroke Symptoms Results - Laboratory Findings CBC and BMP: 12/13/19 16:51 12/13/19 16:51 Abnormal Lab Findings: Abnormal Labs 12/13/19 12/13/19 12/13/19 16:47 16:51 16:51 RBC 2.70 L Hgb 9.5 L Hct 28.8 L MCV 107 H MCH 35 H RDW 21.1 H Plt Count 35 L [place] % (Auto) 8.4 H APTT Carbon Dioxide 20 L BUN 21 H Glucose 102 H POC Glucose 114 H Total Bilirubin 3.70 H AST 47 H Lactate Dehydrogenase Troponin T 12/13/19 12/13/19 12/13/19 17:45 17:46 17:46 RBC Hgb Hct MCV MCH RDW Plt Count [place] % (Auto) APTT 23.2 L Carbon Dioxide BUN Glucose POC Glucose 113 H Total Bilirubin AST Lactate Dehydrogenase Troponin T 0.090 H 12/13/19 12/14/19 20:35 08:14 RBC Hgb Hct MCV MCH RDW Plt Count [place] % (Auto) APTT Carbon Dioxide BUN Glucose POC Glucose Total Bilirubin AST Lactate Dehydrogenase 1073 H Troponin T 0.077 H Assessment and Plan Patient is a 54-year-old woman with a history of thrombocytopenia, CAD, migraines, hyperlipidemia, history of CVA with no residual deficits, who presents with right facial droop, right arm weakness, and slurred speech. According the patient's clinical findings, the patient has had an acute ischemic stroke. The etiology of her stroke may be paradoxical clot formation and thrombocytopenia, versus cardioembolic. Plan: 1. Stroke: - MRI brain: Revealed new infarct in the left subcortical region. - CTA head/neck: No significant stenosis. -MRI in November 14, 2019 revealed infarct in right occipital lobe and left frontal lobe. - Echo: EF 50 to 55%, LA normal size, bubble study negative. -Given patient's thrombocytopenia, will defer to hematology in regards to whether or not it would be okay for patient to take aspirin 81 mg daily. - Cont. statin. LDL goal <70 - Telemetry monitoring while in house - PT/OT/ST - DVT Ppx: Recommend lovenox if okay with hematology. -Would recommend ABIODUN, however given patient's thrombocytopenia, there is a significant hemorrhage risk. Therefore, would only recommend this once cleared by hematology. -As etiology of stroke is cryptogenic, would recommend long-term cardiac monitoring as outpatient with 30-day MCOT or ILR. -Further work-up of thrombocytopenia per hematology. 2. Hypertension: - Recommend BP goal of <220/120 to allow for permissive HTN for first 24-48 hours. Can target normotension after that. - Will continue to monitor patient. Thank you for allowing me to take part in the care of this patient. Main James MD Neurology
[2019-12-15 06:07] LABS: Hematocrit 23.7 % (30.3-42.9); Hemoglobin 7.8 gm/dl (10.1-14.3); Mean Corpuscular HGB Conc 33 % (30-34); Mean Corpuscular Volume 105 fl (79-97); Red Blood Count 2.27 M/mm3 (3.65-5.03)
[2019-12-15 06:20] LABS: Red Cell Distribution Width 20.4 % (13.2-15.2)
[2019-12-15 06:23] LABS: Platelet Count 10 K/mm3 (140-440)
[2019-12-15 06:31] LABS: BUN/Creatinine Ratio 17; Blood Urea Nitrogen 12 mg/dL (7-17); Calcium 8.7 mg/dL (8.4-10.2); Hemolysis Index 6
--- NOTE | 2019-12-15 07:38 | Hem/Onc Progress Note ---
Assessment and Plan Patient had low platelet at admission it was in the 30s. In past platelets were less than 10 and she received a few days of IVIG. She was discharged with prednisone however she did not keep follow-up appointment. As per the daughter patient is still taking prednisone the dose is unclear. She came to the hospital this time because of severe headache right arm weakness and twisting her face neurology has been consulted Regarding low platelets we will give prednisone 1 mg/kg grams and follow the patient I reviewed the deficiency investigations done last time. Today hemoglobin was 9.5 MCV 107 in recent past and mid-November serum iron was 143 ferritin 900 total bilirubin 3.7 B12 701 folate more than 20 Patient's MCV is high we will do haptoglobin LDH Colin testing. 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 In past colin negative blood group B Rh + pt also has anemia - with high LDH - ? hemolytic - will follow same Price syndrome a possibility high indirect bili - high LDH 12/15 - PLT 10 - neurology adv asa - not started as PLT low IVIG trial for Low plt ct prednisone - Patient Problems (1) Thrombocytopenia Current Visit: Yes Status: Chronic Subjective Date of service: 12/15/19 Principal diagnosis: ITP - anemia Interval history: headache Objective - Exam Narrative Exam: Vitals were reviewed. No pallor No icterus No neck lymph nodes Heart S1-S2 present Lungs clear to auscultation anteriorly Abdomen soft Leg no edema Female genitalia not examined alert awake oriented - Constitutional Vitals: Last Vital Signs Temp 98.0 F 12/15/19 03:58 Pulse 90 12/15/19 03:58 Resp 20 12/15/19 03:58 BP 111/77 12/15/19 03:58 Pulse Ox 92 12/15/19 03:58 - Labs Lab Results: Laboratory Results - last 24 hr 12/14/19 12/14/19 12/15/19 08:14 08:14 05:25 WBC 8.5 RBC 2.27 L Hgb 7.8 L Hct 23.7 L MCV 105 H MCH 35 H MCHC 33 RDW 20.4 H Plt Count 10 L* Sodium Potassium Chloride Carbon Dioxide Anion Gap BUN Creatinine Estimated GFR BUN/Creatinine Ratio Glucose Calcium Lactate Dehydrogenase 1073 H Troponin T Direct Antiglob Test Negative NATALI, Poly Interpret Negative 12/15/19 05:25 WBC RBC Hgb Hct MCV MCH MCHC RDW Plt Count Sodium 143 Potassium 3.5 L Chloride 106.1 Carbon Dioxide 23 Anion Gap 17 BUN 12 Creatinine 0.7 Estimated GFR > 60 BUN/Creatinine Ratio 17 Glucose 102 H Calcium 8.7 Lactate Dehydrogenase Troponin T 0.074 H Direct Antiglob Test NATALI, Poly Interpret Medications & Allergies - Medications Allergies/Adverse Reactions: Allergies No Known Allergies Allergy (Verified 12/13/19 16:42) Home Medications: Home Medications Medication Instructions Recorded Confirmed Last Taken Type AtorvaSTATin [Lipitor] 40 mg PO QHS #30 tablet 11/21/19 12/13/19 Unknown Rx Potassium Chloride [K-Dur] 1 tab PO QDAY #30 tablet 11/21/19 12/13/19 Unknown Rx carvediloL [Coreg] 3.125 mg PO BID #60 tablet 11/21/19 12/13/19 Unknown Rx oxyCODONE /ACETAMINOPHEN [Percocet 1 tab PO Q6H PRN #15 tablet 11/21/19 12/13/19 Unknown Rx 5/325 mg] predniSONE [Deltasone] 50 mg PO QDAY #30 tablet 11/21/19 12/13/19 Unknown Rx Active Medications: Generic Name Dose Route Start Last Admin Trade Name Freq PRN Reason Stop Dose Admin Acetaminophen 650 mg 12/13/19 20:04 12/14/19 03:00 Tylenol PO 650 mg Q4H PRN Administration Pain, Mild (1-3) Atorvastatin Calcium 40 mg 12/13/19 22:00 12/14/19 21:08 Lipitor PO 40 mg QHS PRAVEEN Administration Bisacodyl 10 mg 12/13/19 20:04 Dulcolax PA QDAY PRN Constipation Carvedilol 3.125 mg 12/13/19 22:00 12/14/19 21:08 Coreg PO 3.125 mg BID PRAVEEN Administration Docusate Sodium 100 mg 12/13/19 22:00 12/14/19 21:09 Colace PO 100 mg BID PRAVEEN Administration IMMUN GLOB G(IGG)/GLY/IGA OV50 301 mls @ 0 mls/hr 12/15/19 10:00 30 gm/ Miscellaneous IV 12/19/19 23:59 Information Q24HR PRAVEEN Magnesium Hydroxide 30 ml 12/13/19 20:04 Milk Of Magnesia PO Q4H PRN Constipation Ondansetron HCl 4 mg 12/13/19 20:04 Zofran IV Q8H PRN Nausea And Vomiting Oxycodone/Acetaminophen 1 tab 12/13/19 21:57 12/14/19 21:12 Percocet 5/325 PO 1 tab Q6H PRN Administration Pain , Severe (7-10) Prednisone 50 mg 12/14/19 10:00 12/14/19 10:34 Deltasone PO 50 mg QDAY PRAVEEN Administration Promethazine HCl 25 mg 12/13/19 20:04 Phenergan PA Q6H PRN Nausea And Vomiting
[2019-12-15] MEDS ORDERED: REGADENOSON 0.4 MG/5 ML INJ IV ONE ×2 (07:50→07:52)
[2019-12-15] MEDS ORDERED: ACETAMINOPHEN 325 MG TAB ONE (09:33)
[2019-12-15] MEDS: ACETAMINOPHEN 325 MG TAB PO PRN ×2 (09:33→21:31)
--- NOTE | 2019-12-15 09:56 | Progress Note ---
Assessment and Plan Minimal troponin elevation currently appears non-specific in setting of suspected CVA, anemia, and thrombocytopenia. Pt denies CP. ECG - no acute findings. Limited echo reviewed - no significant abnormalities, negative bubble study. Proceed with Lexiscan MPI stress test. Await findings. The patient has been seen in conjunction with Dr. Reed who agrees with the assessment and plan of care. - Patient Problems (1) CVA (cerebral vascular accident) Current Visit: Yes Status: Suspected (2) Headache, acute Current Visit: Yes Status: Acute Qualifiers: Headache type: post-traumatic Qualified Code(s): G44.319 - Acute post- traumatic headache, not intractable (3) Non-STEMI (non-ST elevated myocardial infarction) Current Visit: Yes Status: Chronic Plan to address problem: type 2 (4) Thrombocytopenia Current Visit: Yes Status: Chronic (5) Idiopathic thrombocytopenic purpura (ITP) Current Visit: Yes Status: Suspected (6) History of CVA (cerebrovascular accident) Current Visit: Yes Status: Chronic Subjective Date of service: 12/15/19 Principal diagnosis: ITP - anemia Interval history: pt for stress test. no current complaints. in SR on tele. Objective Last Vital Signs Temp 98.0 F 12/15/19 03:58 Pulse 90 12/15/19 03:58 Resp 16 12/15/19 09:33 BP 111/77 12/15/19 03:58 Pulse Ox 98 12/15/19 08:24 - Physical Examination General: No Apparent Distress HEENT: Positive: PERRL, EOMI, Normocephaly, Mucus Membranes Moist Neck: Positive: neck supple, trachea midline Cardiac: Positive: Reg Rate and Rhythm, S1/S2 Lungs: Positive: Decreased Breath Sounds Neuro: Positive: Grossly Intact. Negative: Coordination Normal Abdomen: Positive: Soft, Active Bowel Sounds. Negative: Tender Skin: Positive: Clear. Negative: Rash, Wound Musculoskeletal: No Pain Extremities: Present: normal, upper extr. pulses, lower extr. pulses. Absent: edema - Labs and Meds CBC 12/15/19 Range/Units 05:25 WBC 8.5 (4.5-11.0) K/mm3 RBC 2.27 L (3.65-5.03) M/mm3 Hgb 7.8 L (10.1-14.3) gm/dl Hct 23.7 L (30.3-42.9) % Plt Count 10 L* (140-440) K/mm3 Comprehensive Metabolic Panel 12/15/19 Range/Units 05:25 Sodium 143 (137-145) mmol/L Potassium 3.5 L (3.6-5.0) mmol/L Chloride 106.1 (98-107) mmol/L Carbon Dioxide 23 (22-30) mmol/L BUN 12 (7-17) mg/dL Creatinine 0.7 (0.7-1.2) mg/dL Glucose 102 H (65-100) mg/dL Calcium 8.7 (8.4-10.2) mg/dL - Imaging and Cardiology EKG: report reviewed, image reviewed Echo: pending, report reviewed (11/11/19 - EF 55-60%; mild-mod LVH; abnormal LV diastolic function; mild pulmonic regurg) - EKG Sinus rhythms and dysrhythmias: sinus rhythm AV and intraventricular conduction: left anterior fascicular
[2019-12-15] MEDS ORDERED: GLY IV SCH (10:00)
[2019-12-15] MEDS ORDERED: IGA OV50 IV SCH (10:00)
[2019-12-15] MEDS ORDERED: IMMUN GLOB IV SCH (10:00)
[2019-12-15] MEDS: carvediloL 3.125 MG TAB PO SCH ×2 (10:50→23:49)
--- NOTE | 2019-12-15 11:47 | Event Note ---
Date: 12/15/19 S/p lexiscan MPI stress test this AM which was negative. Currently stable cardiac status. Nothing further to add from cardiac perspective at this time. Will sign off. Recommend pt follow up in our office with Dr. Reed within 1-2 weeks ([phone]). Deion FRANCO NP / DR. REED
[2019-12-15] MEDS: DOCUSATE SODIUM 100 MG CAP PO SCH ×2 (11:50→21:28)
[2019-12-15] MEDS: predniSONE 50 MG TAB PO SCH (11:50)
[2019-12-15] MEDS: [UNRECOGNIZED DRUG - OTHER] IV SCH (11:50)
[2019-12-15] MEDS: MULTIVITAMINS ,THERAPEUTIC TAB PO SCH (11:50)
[2019-12-15] MEDS: IMMUNE GLOBULIN IV SCH (11:50)
--- NOTE | 2019-12-15 11:55 | Treadmill Report ---
REASON FOR STUDY: Shortness of breath and abnormal troponin. IMAGING PROTOCOL: The patient received 10 mCi of Technetium 99m Tetrofosmin for resting image and 28 mCi of Technetium 99m Tetrofosmin for stress imaging. The imaging for the whole procedure was completed 30-90 minutes following the initial injection of Technetium 99m Tetrofosmin. The SPECT imaging in the 180 degree arc was performed in the right anterior oblique projection. Computerized reconstruction of the images was performed for analysis. IMAGING RESULTS: Normal cavity size from stress to rest. Normal distribution of radionuclide in the anterior, inferior, septal, and apical regions. Gated SPECT, EF greater than 65% with no wall motion abnormality. The patient infused Lexiscan with no EKG changes. SUMMARY: 1. Negative Lexiscan EKG. 2. Normal rest and stress myocardial perfusion scan. No significant stress ischemia. No wall motion on Gated SPECT, EF greater than 65%. JOB# [id number] DEONNA/TOMÁS
--- NOTE | 2019-12-15 14:04 | Progress Note ---
Assessment and Plan Patient is a 54-year-old woman with a history of thrombocytopenia, CAD, migraines, hyperlipidemia, history of CVA with no residual deficits, who presents with right facial droop, right arm weakness, and slurred speech. According the patient's clinical findings, the patient has had an acute ischemic stroke. The etiology of her stroke may be paradoxical clot formation and thrombocytopenia, versus cardioembolic. Plan: 1. Stroke: - MRI brain: Revealed acute infarct in the left subcortical region. - CTA head/neck: No significant stenosis. -MRI in November 14, 2019 revealed infarct in right occipital lobe and left frontal lobe. - Echo: EF 50 to 55%, LA normal size, bubble study negative. -Given patient's thrombocytopenia, will defer to hematology in regards to whether or not it would be okay for patient to take aspirin 81 mg daily. - Cont. statin. LDL goal <70 - Telemetry monitoring while in house - PT/OT/ST - DVT Ppx: Recommend lovenox if okay with hematology. -Would recommend ABIODUN, however given patient's thrombocytopenia, there is a significant hemorrhage risk. Therefore, would only recommend this once cleared by hematology. -As etiology of stroke is cryptogenic, would recommend long-term cardiac monitoring as outpatient with 30-day MCOT or ILR. -Further work-up of thrombocytopenia per hematology. 2. Hypertension: - Recommend BP goal of normotension. - Will sign off his neurologic investigations are complete, and treatment plan is in place. Aspirin to be initiated once cleared by hematology. Please call with any questions. Thank you for allowing me to take part in the care of this patient. Main James MD Neurology Subjective Date of service: 12/15/19 Principal diagnosis: ITP - anemia Interval history: No acute events overnight. Objective - Exam Narrative Exam: Patient is alert, awake, oriented x4, follows complex commands. PERRL, EOMI, VF F, tongue midline, bilaterally intact to LT, no facial weakness noted. 5/5 strength in all extremities. Bilaterally intact light touch. Bilaterally intact to FTN and HTS. 2+ reflexes throughout. No dysarthria or aphasia noted. - Vital Sign Vital Signs - 12hr 12/15/19 12/15/19 12/15/19 03:58 08:24 09:33 Temperature 98.0 F Pulse Rate 90 Respiratory 20 16 Rate Blood Pressure 111/77 O2 Sat by Pulse 92 98 Oximetry 12/15/19 12/15/19 12/15/19 10:34 10:50 10:51 Temperature Pulse Rate Respiratory Rate Blood Pressure 126/86 145/76 126/80 O2 Sat by Pulse Oximetry 12/15/19 12/15/19 10:52 10:53 Temperature Pulse Rate Respiratory Rate Blood Pressure 122/80 129/78 O2 Sat by Pulse Oximetry - General Apperance Constitutional: comfortable - EENT EENT: ATNC, PERRL, mucous membranes moist, hearing intact, vision intact - Respiratory Respiratory: lungs clear, normal breath sounds - Cardiovascular Cardiovascular: regular rate, normal S1, normal S2 Extremities: no clubbing, cyanosis, no inflammation - Gastrointestinal Gastrointestinal: normoactive bowel sounds, soft, non-tender - Integumentary Integumentary: normal - Musculoskeletal Musculoskeletal: no fluid collection, no pain - Psychiatric Psychiatric: mood/affect appropriate - Laboratory Findings CBC and BMP: 12/15/19 05:25 12/15/19 05:25 Abnormal Lab Findings: Abnormal Labs 12/13/19 12/13/19 12/13/19 16:47 16:51 16:51 RBC 2.70 L Hgb 9.5 L Hct 28.8 L MCV 107 H MCH 35 H RDW 21.1 H Plt Count 35 L [place] % (Auto) 8.4 H APTT Potassium Carbon Dioxide 20 L BUN 21 H Glucose 102 H POC Glucose 114 H Total Bilirubin 3.70 H AST 47 H Lactate Dehydrogenase Troponin T 12/13/19 12/13/19 12/13/19 17:45 17:46 17:46 RBC Hgb Hct MCV MCH RDW Plt Count [place] % (Auto) APTT 23.2 L Potassium Carbon Dioxide BUN Glucose POC Glucose 113 H Total Bilirubin AST Lactate Dehydrogenase Troponin T 0.090 H 12/13/19 12/14/19 12/15/19 20:35 08:14 05:25 RBC 2.27 L Hgb 7.8 L Hct 23.7 L MCV 105 H MCH 35 H RDW 20.4 H Plt Count 10 L* [place] % (Auto) APTT Potassium Carbon Dioxide BUN Glucose POC Glucose Total Bilirubin AST Lactate Dehydrogenase 1073 H Troponin T 0.077 H 12/15/19 05:25 RBC Hgb Hct MCV MCH RDW Plt Count [place] % (Auto) APTT Potassium 3.5 L Carbon Dioxide BUN Glucose 102 H POC Glucose Total Bilirubin AST Lactate Dehydrogenase Troponin T 0.074 H
--- NOTE | 2019-12-15 16:26 | Progress Note ---
Assessment and Plan 1. Stroke: - MRI brain: Revealed acute infarct in the left subcortical region. - CTA head/neck: No significant stenosis. -MRI in November 14, 2019 revealed infarct in right occipital lobe and left frontal lobe. - Echo: EF 50 to 55%, LA normal size, bubble study negative. -Given patient's thrombocytopenia, will defer to hematology in regards to whether or not it would be okay for patient to take aspirin 81 mg daily. - Cont. statin. LDL goal <70 - Telemetry monitoring while in house - PT/OT/ST - DVT Ppx: Recommend lovenox if okay with hematology. -No ABIODUN at this point, however given patient's thrombocytopenia, there is a significant hemorrhage risk. -Further work-up of thrombocytopenia per hematology. 2. Hypertension: - Recommend BP goal of normotension. 3.Thrombocytopenia -Suspicion for ITP -Plt 35 on admission Today platelet count is 10,000 -Receiving IVIG and prednisone 60 mg/day Discussed with Dr. Coker Elevated Trop -at 0.090 -Continue to trend -Denies chest pain -Cardiology consulted Dehydration -Mild -BUN 21 -Gentle hydration with IVF -Continue to monitor labs DVT PPX -On SCD's -Hold off on systemic anticoagulation d/t thrombocytopenia Discharge planning issues Patient to be discharged once the platelet count is above 30,000 and to continue prednisone at home Patient is very noncompliant Subjective Date of service: 12/15/19 Principal diagnosis: ITP - anemia Interval history: Patient is a 54-year-old -[place] woman with recent discharge. She has ITP. She was treated with IVIG 5 days infusion and steroids. The ITP/low plt caused NSTEMI and CVA. Discharged on 11/21/2019 with steroids and follow up with Dr. Coker but she did not due to lack of insurance. She presents now with headache, right facial droop and slurred speech. Has acute CVA but with very minimal deficits. Near full strength in both upper and lower extremities. Able to walk without much support Objective - Constitutional Vitals: Vital Signs - 12hr 12/15/19 12/15/19 12/15/19 08:24 09:33 10:34 Respiratory 16 Rate Blood Pressure 126/86 O2 Sat by Pulse 98 Oximetry 12/15/19 12/15/19 12/15/19 10:50 10:51 10:52 Respiratory Rate Blood Pressure 145/76 126/80 122/80 O2 Sat by Pulse Oximetry 12/15/19 10:53 Respiratory Rate Blood Pressure 129/78 O2 Sat by Pulse Oximetry General appearance: Present: no acute distress, well-nourished - EENT Eyes: PERRL, EOM intact ENT: hearing intact, clear oral mucosa Ears: bilateral: normal - Neck Neck: supple, normal ROM - Respiratory Respiratory effort: normal Respiratory: bilateral: CTA - Breasts Breasts: normal - Cardiovascular Rhythm: regular Heart Sounds: Present: S1 & S2. Absent: gallop, rub Extremities: pulses intact, No edema, normal color, Full ROM - Gastrointestinal General gastrointestinal: Present: soft, non-tender, non-distended, normal bowel sounds - Genitourinary Female genitourinary: normal - Integumentary Integumentary: clear, warm, dry - Musculoskeletal Musculoskeletal: 1, strength equal bilaterally - Neurologic Neurologic: moves all extremities - Psychiatric Psychiatric: memory intact, appropriate mood/affect, intact judgment & insight - Labs CBC & Chem 7: 12/15/19 05:25 12/15/19 05:25 Labs: Abnormal lab results 12/15/19 12/15/19 Range/Units 05:25 05:25 RBC 2.27 L (3.65-5.03) M/mm3 Hgb 7.8 L (10.1-14.3) gm/dl Hct 23.7 L (30.3-42.9) % MCV 105 H (79-97) fl MCH 35 H (28-32) pg RDW 20.4 H (13.2-15.2) % Plt Count 10 L* (140-440) K/mm3 Potassium 3.5 L (3.6-5.0) mmol/L Glucose 102 H (65-100) mg/dL Troponin T 0.074 H (0.00-0.029) ng/mL
[2019-12-15] MEDS ORDERED: predniSONE 50 MG TAB PO SCH (16:39)
[2019-12-16 04:30] LABS: Basophils % (Auto) 0.2 % (0.0-1.8); Eosinophils % (Auto) 0.4 % (0.0-4.3); Hematocrit 24.6 % (30.3-42.9); Hemoglobin 8.1 gm/dl (10.1-14.3); Lymphocytes # (Auto) 2.6 K/mm3 (1.2-5.4); Lymphocytes % (Auto) 28.9 % (13.4-35.0); Mean Corpuscular HGB Conc 33 % (30-34); Mean Corpuscular Volume 105 fl (79-97); Monocytes # (Auto) 0.8 K/mm3 (0.0-0.8); Monocytes % (Auto) 8.7 % (0.0-7.3); Red Blood Count 2.34 M/mm3 (3.65-5.03)
[2019-12-16 04:32] LABS: Red Cell Distribution Width 20.2 % (13.2-15.2)
[2019-12-16 04:44] LABS: BUN/Creatinine Ratio 19; Blood Urea Nitrogen 13 mg/dL (7-17); Calcium 8.7 mg/dL (8.4-10.2); Hemolysis Index 6
[2019-12-16 05:24] LABS: Platelet Count 20.2 K/mm3 (140-440)
--- NOTE | 2019-12-16 06:54 | Hem/Onc Progress Note ---
Assessment and Plan Patient had low platelet at admission it was in the 30s. In past platelets were less than 10 and she received a few days of IVIG. She was discharged with prednisone however she did not keep follow-up appointment. As per the daughter patient is still taking prednisone the dose is unclear. She came to the hospital this time because of severe headache right arm weakness and twisting her face neurology has been consulted Regarding low platelets we will give prednisone 1 mg/kg grams and follow the patient I reviewed the deficiency investigations done last time. Today hemoglobin was 9.5 MCV 107 in recent past and mid-November serum iron was 143 ferritin 900 total bilirubin 3.7 B12 701 folate more than 20 Patient's MCV is high we will do haptoglobin LDH Colin testing. 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 In past colin negative blood group B Rh + pt also has anemia - with high LDH - ? hemolytic - will follow same high indirect bili - high LDH 12/16 - PLT 20 - neurology adv asa - not started as PLT low IVIG trial for Low plt ct prednisone Price syndrome a possibility - AIHA and ITP - Patient Problems (1) Thrombocytopenia Current Visit: Yes Status: Chronic Subjective Date of service: 12/16/19 Principal diagnosis: Price syndrome - ITP - AIHA Interval history: headache better Objective - Exam Narrative Exam: Vitals were reviewed. No pallor No icterus No neck lymph nodes Heart S1-S2 present Lungs clear to auscultation anteriorly Abdomen soft Leg no edema Female genitalia not examined alert awake oriented - Constitutional Vitals: Last Vital Signs Temp 97.9 F 12/16/19 04:08 Pulse 80 12/16/19 04:08 Resp 18 12/16/19 04:08 BP 108/62 12/16/19 04:08 Pulse Ox 96 12/16/19 04:08 - Labs Lab Results: Laboratory Results - last 24 hr 12/16/19 12/16/19 04:11 04:11 WBC 9.0 RBC 2.34 L Hgb 8.1 L Hct 24.6 L MCV 105 H MCH 35 H MCHC 33 RDW 20.2 H Plt Count 20.2 L D Lymph % (Auto) 28.9 [place] % (Auto) 8.7 H Eos % (Auto) 0.4 Baso % (Auto) 0.2 Lymph # 2.6 [place] # 0.8 Eos # 0.0 Baso # 0.0 Seg Neutrophils % 61.8 Seg Neutrophils # 5.5 Sodium 141 Potassium 3.8 Chloride 104.9 Carbon Dioxide 24 Anion Gap 16 BUN 13 Creatinine 0.7 Estimated GFR > 60 BUN/Creatinine Ratio 19 Glucose 100 Calcium 8.7 Medications & Allergies - Medications Allergies/Adverse Reactions: Allergies No Known Allergies Allergy (Verified 12/13/19 16:42) Home Medications: Home Medications Medication Instructions Recorded Confirmed Last Taken Type AtorvaSTATin [Lipitor] 40 mg PO QHS #30 tablet 11/21/19 12/13/19 Unknown Rx Potassium Chloride [K-Dur] 1 tab PO QDAY #30 tablet 11/21/19 12/13/19 Unknown Rx carvediloL [Coreg] 3.125 mg PO BID #60 tablet 11/21/19 12/13/19 Unknown Rx oxyCODONE /ACETAMINOPHEN [Percocet 1 tab PO Q6H PRN #15 tablet 11/21/19 12/13/19 Unknown Rx 5/325 mg] predniSONE [Deltasone] 50 mg PO QDAY #30 tablet 11/21/19 12/13/19 Unknown Rx Active Medications: Generic Name Dose Route Start Last Admin Trade Name Freq PRN Reason Stop Dose Admin Acetaminophen 650 mg 12/13/19 20:04 12/15/19 21:31 Tylenol PO 650 mg Q4H PRN Administration Pain, Mild (1-3) Atorvastatin Calcium 40 mg 12/13/19 22:00 12/15/19 21:28 Lipitor PO 40 mg QHS PRAVEEN Administration Bisacodyl 10 mg 12/13/19 20:04 Dulcolax [place] QDAY PRN Constipation Carvedilol 3.125 mg 12/13/19 22:00 12/15/19 23:49 Coreg PO 3.125 mg BID PRAVEEN Administration Docusate Sodium 100 mg 12/13/19 22:00 12/15/19 21:28 Colace PO 100 mg BID PRAVEEN Administration IMMUN GLOBG(IGG)/MALT/IGA OV50 400 mls @ 50 mls/hr 12/15/19 10:00 12/15/19 11:50 40 gm/ Miscellaneous IV 12/18/19 17:59 50 mls/hr Information DAILY PRAVEEN Administration Magnesium Hydroxide 30 ml 12/13/19 20:04 Milk Of Magnesia PO Q4H PRN Constipation Multivitamins 1 each 12/15/19 10:00 12/15/19 11:50 Theragran Tab PO 1 each QDAY PRAVEEN Administration Ondansetron HCl 4 mg 12/13/19 20:04 Zofran IV Q8H PRN Nausea And Vomiting Oxycodone/Acetaminophen 1 tab 12/13/19 21:57 12/14/19 21:12 Percocet 5/325 PO 1 tab Q6H PRN Administration Pain , Severe (7-10) Prednisone 60 mg 12/15/19 16:39 Deltasone PO QDAY PRAVEEN Promethazine HCl 25 mg 12/13/19 20:04 Phenergan TN Q6H PRN Nausea And Vomiting
[2019-12-16] MEDS: carvediloL 3.125 MG TAB PO SCH ×2 (09:31→21:32)
[2019-12-16] MEDS: MULTIVITAMINS ,THERAPEUTIC TAB PO SCH (09:32)
[2019-12-16] MEDS: DOCUSATE SODIUM 100 MG CAP PO SCH ×2 (09:32→21:32)
[2019-12-16] MEDS: ACETAMINOPHEN 325 MG TAB PO PRN ×2 (09:49→19:58)
[2019-12-16] MEDS: IMMUNE GLOBULIN IV SCH (11:07)
[2019-12-16] MEDS: [UNRECOGNIZED DRUG - OTHER] IV SCH (11:07)
[2019-12-16] MEDS: predniSONE 20 MG TAB PO SCH (17:13)
--- NOTE | 2019-12-16 18:56 | Progress Note ---
Assessment and Plan Assessment and plan: Patient is a 54-year-old -Sy[place] woman well known to me from recent discharge. She has ITP. She was treated with IVIG 5 days infusion and steroids. The ITP/low plt cause NSTEMI and CVA. I discharged her on 11/21/2019 with steroids and follow up with Dr. Coker but she did not due to lack of insurance. She presents now with headache, right facial droop and slurred speech. * CT Head IMPRESSION: 1. No acute intracranial abnormality. 2. Expected evolution of previously demonstrated occipital lobe infarcts. * CT angio Head IMPRESSION: 1. No significant stenosis or large vessel occlusion in the cervical or intracranial arteries. * CT angio Neck IMPRESSION: 1. No significant stenosis or large vessel occlusion in the cervical or intracranial arteries. * Brain MRI brain without contrast Impression: Small subacute area of ischemia maybe present near the head of the left caudate, Embolic phenomenon might be consideration Acute new CVA, subacute -CT Head shows Expected evolution of previously demonstrated occipital lobe infarcts. negative for acute intracranial abnormality -CT angio Head and CT angio Neck negative -Hx CVA MRI on 11/14/2019 revealed: Subacute infarction in the right occipital lobe Infarction in the left occipital lobe ligament. Base but less than 2 weeks old -Tele-Neurology consulted; recommendations appreciated -I consulted Neurology today -Neuro Checks -PT/OT eval pending -Speech eval Pending -On statin -Hold off on oral and anticoagulation due to thrombocytopenia -Continue supportive care -difficult decision regarding the use of Aspirin with such low plt Thrombocytopenia -Suspicion for ITP -Plt 35 on admission -IVIG Day 3/5 -Currently on Prednisone -Continue Prednisone -Hematology (Dr. Coker) consulted Elevated Trop -at 0.090 -Continue to trend -Denies chest pain -Cardiology consulted Dehydration -Mild -BUN 21 -Gentle hydration with IVF -Continue to monitor labs DVT PPX -On SCD's -Hold off on systemic anticoagulation d/t thrombocytopenia day 3/5 of IVIG History Interval history: Patient was seen and examined. Follow-up on current diagnosis of CVA. Overnight uneventful as no events directly reported to me. Patient denies any chest pain, shortness breath, nausea/vomiting or severe headaches. Imaging, nursing note, chart, labs and old chart reviewed. Discussed with patient. Hospitalist Physical - Physical exam Narrative exam: Gen: WDWN, NAD, Awake, Alert, Orientated HEENT: NCAT, EOMI, PERRL, OP Clear Neck: supple, no adenopathy, no thyromegaly, no JVD CVS/Heart: RRR, normal S1S2, pulses present bilaterally Chest/Lungs: CTA B, Symmetrical chest expansion, good air entry bilaterally GI/Abdomen: soft, NTND, good bowel sounds, no guarding or rebound /Bladder: no suprapubic tenderness, no CVA or paraspinal tenderness Extermity/Skin: no c/c/e, no obvious rash MSK: FROM x 4 Neuro: CN 2-12 grossly intact, no new focal deficits Psych: calm with mild cognitive impairment - Constitutional Vitals: Temp Pulse Resp BP Pulse Ox 98.4 F 96 H 18 106/63 98 12/16/19 15:55 12/16/19 15:55 12/16/19 15:55 12/16/19 15:55 12/16/19 15:55 General appearance: Present: no acute distress, well-nourished Results - Labs CBC & Chem 7: 12/16/19 04:11 12/16/19 04:11 Labs: Laboratory Last Values WBC 9.0 K/mm3 (4.5-11.0) 12/16/19 04:11 RBC 2.34 M/mm3 (3.65-5.03) L 12/16/19 04:11 Hgb 8.1 gm/dl (10.1-14.3) L 12/16/19 04:11 Hct 24.6 % (30.3-42.9) L 12/16/19 04:11 MCV 105 fl (79-97) H 12/16/19 04:11 MCH 35 pg (28-32) H 12/16/19 04:11 MCHC 33 % (30-34) 12/16/19 04:11 RDW 20.2 % (13.2-15.2) H 12/16/19 04:11 Plt Count 20.2 K/mm3 (140-440) L D 12/16/19 04:11 Lymph % (Auto) 28.9 % (13.4-35.0) 12/16/19 04:11 [place] % (Auto) 8.7 % (0.0-7.3) H 12/16/19 04:11 Eos % (Auto) 0.4 % (0.0-4.3) 12/16/19 04:11 Baso % (Auto) 0.2 % (0.0-1.8) 12/16/19 04:11 Lymph # 2.6 K/mm3 (1.2-5.4) 12/16/19 04:11 [place] # 0.8 K/mm3 (0.0-0.8) 12/16/19 04:11 Eos # 0.0 K/mm3 (0.0-0.4) 12/16/19 04:11 Baso # 0.0 K/mm3 (0.0-0.1) 12/16/19 04:11 Seg Neutrophils % 61.8 % (40.0-70.0) 12/16/19 04:11 Seg Neutrophils # 5.5 K/mm3 (1.8-7.7) 12/16/19 04:11 PT 14.0 Sec. (12.2-14.9) 12/13/19 17:46 INR 1.07 (0.87-1.13) 12/13/19 17:46 APTT 23.2 Sec. (24.2-36.6) L 12/13/19 17:46 Thrombin Time 16.4 Sec. (15.1-19.6) 12/13/19 17:46 Sodium 141 mmol/L (137-145) 12/16/19 04:11 Potassium 3.8 mmol/L (3.6-5.0) 12/16/19 04:11 Chloride 104.9 mmol/L (98-107) 12/16/19 04:11 Carbon Dioxide 24 mmol/L (22-30) 12/16/19 04:11 Anion Gap 16 mmol/L 12/16/19 04:11 BUN 13 mg/dL (7-17) 12/16/19 04:11 Creatinine 0.7 mg/dL (0.7-1.2) 12/16/19 04:11 Estimated GFR > 60 ml/min 12/16/19 04:11 BUN/Creatinine Ratio 19 % 12/16/19 04:11 Glucose 100 mg/dL (65-100) 12/16/19 04:11 POC Glucose 113 (70-105) H 12/13/19 17:45 Calcium 8.7 mg/dL (8.4-10.2) 12/16/19 04:11 Total Bilirubin 3.70 mg/dL (0.1-1.2) H 12/13/19 16:51 AST 47 units/L (5-40) H 12/13/19 16:51 ALT 22 units/L (7-56) 12/13/19 16:51 Alkaline Phosphatase 47 units/L (35-129) 12/13/19 16:51 Lactate Dehydrogenase 1073 units/L (91-180) H 12/14/19 08:14 Total Creatine Kinase 51 units/L (30-135) 12/13/19 17:46 CK-MB (CK-2) 1.7 ng/mL (0.0-4.0) 12/13/19 17:46 CK-MB (CK-2) Rel Index 3.3 (0-4) 12/13/19 17:46 Troponin T 0.074 ng/mL (0.00-0.029) H 12/15/19 05:25 Total Protein 7.3 g/dL (6.3-8.2) 12/13/19 16:51 Albumin 4.1 g/dL (3.9-5) 12/13/19 16:51 Albumin/Globulin Ratio 1.3 % 12/13/19 16:51 Triglycerides 149 mg/dL (2-149) 12/13/19 17:46 Cholesterol 139 mg/dL (50-199) 12/13/19 17:46 LDL Cholesterol Direct 80 mg/dL (50-130) 12/13/19 17:46 HDL Cholesterol 45 mg/dL (40-59) 12/13/19 17:46 Cholesterol/HDL Ratio 3.08 % 12/13/19 17:46 Direct Antiglob Test Negative 12/14/19 08:14 NATALI, Poly Interpret Negative 12/14/19 08:14 Active Medications - Current Medications Current Medications: Generic Name Dose Route Start Last Admin Trade Name Freq PRN Reason Stop Dose Admin Acetaminophen 650 mg 12/13/19 20:04 12/16/19 09:49 Tylenol PO 650 mg Q4H PRN Administration Pain, Mild (1-3) Atorvastatin Calcium 40 mg 12/13/19 22:00 12/15/19 21:28 Lipitor PO 40 mg QHS PRAVEEN Administration Bisacodyl 10 mg 12/13/19 20:04 Dulcolax DE QDAY PRN Constipation Carvedilol 3.125 mg 12/13/19 22:00 12/16/19 09:31 Coreg PO Not Given BID PRAVEEN Docusate Sodium 100 mg 12/13/19 22:00 12/16/19 09:32 Colace PO 100 mg BID PRAVEEN Administration IMMUN GLOBG(IGG)/MALT/IGA OV50 400 mls @ 50 mls/hr 12/15/19 10:00 12/16/19 11:07 40 gm/ Miscellaneous IV 12/16/19 20:00 50 mls/hr Information DAILY PRAVEEN Administration Immune Globulin 40 gm/ 400 mls @ 50 mls/hr 12/17/19 10:00 Miscellaneous Information IV 12/18/19 17:59 DAILY PRAVEEN Magnesium Hydroxide 30 ml 12/13/19 20:04 Milk Of Magnesia PO Q4H PRN Constipation Multivitamins 1 each 12/15/19 10:00 12/16/19 09:32 Theragran Tab PO 1 each QDAY PRAVEEN Administration Ondansetron HCl 4 mg 12/13/19 20:04 Zofran IV Q8H PRN Nausea And Vomiting Oxycodone/Acetaminophen 1 tab 12/13/19 21:57 12/14/19 21:12 Percocet 5/325 PO 1 tab Q6H PRN Administration Pain , Severe (7-10) Prednisone 60 mg 12/16/19 16:30 12/16/19 17:13 Deltasone PO Not Given QDAY [facility] Promethazine HCl 25 mg 12/13/19 20:04 Phenergan [place] Q6H PRN Nausea And Vomiting
[2019-12-16] MEDS: oxyCODONE /ACETAMINOPHEN 5-325MG TAB PO PRN (21:32)
[2019-12-17 06:59] LABS: Hematocrit 24.1 % (30.3-42.9); Mean Corpuscular HGB Conc 33 % (30-34); Mean Corpuscular Volume 107 fl (79-97); Red Blood Count 2.26 M/mm3 (3.65-5.03)
[2019-12-17 07:18] LABS: Red Cell Distribution Width 20.9 % (13.2-15.2)
[2019-12-17 07:20] LABS: Platelet Count 15 K/mm3 (140-440)
[2019-12-17] MEDS: carvediloL 3.125 MG TAB PO SCH ×2 (09:19→21:43)
[2019-12-17] MEDS: MULTIVITAMINS ,THERAPEUTIC TAB PO SCH (09:19)
[2019-12-17] MEDS: DOCUSATE SODIUM 100 MG CAP PO SCH ×2 (09:19→21:43)
[2019-12-17] MEDS: predniSONE 20 MG TAB PO SCH (09:19)
[2019-12-17] MEDS: oxyCODONE /ACETAMINOPHEN 5-325MG TAB PO PRN ×2 (09:23→21:44)
[2019-12-17] MEDS: IMMUNE GLOBULIN GAMMA IV SCH (10:15)
--- NOTE | 2019-12-17 14:30 | Hem/Onc Progress Note ---
Assessment and Plan Patient had low platelet at admission it was in the 30s. In past platelets were less than 10 and she received a few days of IVIG. She was discharged with prednisone however she did not keep follow-up appointment. As per the daughter patient is still taking prednisone the dose is unclear. She came to the hospital this time because of severe headache right arm weakness and twisting her face neurology has been consulted Regarding low platelets we will give prednisone 1 mg/kg grams and follow the patient I reviewed the deficiency investigations done last time. Today hemoglobin was 9.5 MCV 107 in recent past and mid-November serum iron was 143 ferritin 900 total bilirubin 3.7 B12 701 folate more than 20 Patient's MCV is high we will do haptoglobin LDH Colin testing. 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 In past colin negative blood group B Rh + pt also has anemia - with high LDH - ? hemolytic - will follow same high indirect bili - high LDH 12/17 - PLT 15 - neurology adv asa - not started as PLT low IVIG trial for Low plt ct prednisone Price syndrome a possibility - AIHA and ITP pharmacy review - to see if anything is adding to low plt and hemolytic anemia if no improvement - ? rituxan an option - will await thursday - thursday due to way the dose is coming - we are giving 40 mg daily for 4 days total - Patient Problems (1) Thrombocytopenia Current Visit: Yes Status: Chronic Subjective Date of service: 12/17/19 Principal diagnosis: itp - anemia Interval history: no bleeding Objective - Exam Narrative Exam: Vitals were reviewed. icterus + No neck lymph nodes Heart S1-S2 present Lungs clear to auscultation anteriorly Abdomen soft Leg no edema Female genitalia not examined alert awake oriented x3 - Constitutional Vitals: Last Vital Signs Temp 98.7 F 12/17/19 07:45 Pulse 81 12/17/19 08:41 Resp 18 12/17/19 07:45 BP 140/87 12/17/19 07:45 Pulse Ox 95 12/17/19 04:33 - Labs Lab Results: Laboratory Results - last 24 hr 12/14/19 12/17/19 08:14 05:12 WBC 9.5 RBC 2.26 L Hgb 8.0 L Hct 24.1 L MCV 107 H MCH 35 H MCHC 33 RDW 20.9 H Plt Count 15 L* Haptoglobin <8 L Medications & Allergies - Medications Allergies/Adverse Reactions: Allergies No Known Allergies Allergy (Verified 12/13/19 16:42) Home Medications: Home Medications Medication Instructions Recorded Confirmed Last Taken Type AtorvaSTATin [Lipitor] 40 mg PO QHS #30 tablet 11/21/19 12/13/19 Unknown Rx Potassium Chloride [K-Dur] 1 tab PO QDAY #30 tablet 11/21/19 12/13/19 Unknown Rx carvediloL [Coreg] 3.125 mg PO BID #60 tablet 11/21/19 12/13/19 Unknown Rx oxyCODONE /ACETAMINOPHEN [Percocet 1 tab PO Q6H PRN #15 tablet 11/21/19 12/13/19 Unknown Rx 5/325 mg] predniSONE [Deltasone] 50 mg PO QDAY #30 tablet 11/21/19 12/13/19 Unknown Rx Active Medications: Generic Name Dose Route Start Last Admin Trade Name Freq PRN Reason Stop Dose Admin Acetaminophen 650 mg 12/13/19 20:04 12/16/19 19:58 Tylenol PO 650 mg Q4H PRN Administration Pain, Mild (1-3) Atorvastatin Calcium 40 mg 12/13/19 22:00 12/16/19 21:32 Lipitor PO 40 mg QHS PRAVEEN Administration Bisacodyl 10 mg 12/13/19 20:04 Dulcolax ID QDAY PRN Constipation Carvedilol 3.125 mg 12/13/19 22:00 12/17/19 09:19 Coreg PO 3.125 mg BID PRAVEEN Administration Docusate Sodium 100 mg 12/13/19 22:00 12/17/19 09:19 Colace PO 100 mg BID PRAVEEN Administration Immune Globulin 40 gm/ 400 mls @ 50 mls/hr 12/17/19 10:00 12/17/19 10:15 Miscellaneous Information IV 12/18/19 17:59 50 mls/hr DAILY PRAVEEN Administration Magnesium Hydroxide 30 ml 12/13/19 20:04 Milk Of Magnesia PO Q4H PRN Constipation Multivitamins 1 each 12/15/19 10:00 12/17/19 09:19 Theragran Tab PO 1 each QDAY PRAVEEN Administration Ondansetron HCl 4 mg 12/13/19 20:04 Zofran IV Q8H PRN Nausea And Vomiting Oxycodone/Acetaminophen 1 tab 12/13/19 21:57 12/17/19 09:23 Percocet 5/325 PO 1 tab Q6H PRN Administration Pain , Severe (7-10) Prednisone 60 mg 12/16/19 16:30 12/17/19 09:19 Deltasone PO 60 mg QDAY PRAVEEN Administration Promethazine HCl 25 mg 12/13/19 20:04 Phenergan ID Q6H PRN Nausea And Vomiting
--- NOTE | 2019-12-17 17:54 | Progress Note ---
Assessment and Plan Assessment and plan: Patient is a 54-year-old -[place] woman well known to me from recent discharge. She has ITP. She was treated with IVIG 5 days infusion and steroids. The ITP/low plt cause NSTEMI and CVA. I discharged her on 11/21/2019 with steroids and follow up with Dr. Coker but she did not due to lack of insurance. She presents now with headache, right facial droop and slurred speech. * CT Head IMPRESSION: 1. No acute intracranial abnormality. 2. Expected evolution of previously demonstrated occipital lobe infarcts. * CT angio Head IMPRESSION: 1. No significant stenosis or large vessel occlusion in the cervical or intracranial arteries. * CT angio Neck IMPRESSION: 1. No significant stenosis or large vessel occlusion in the cervical or intracranial arteries. * Brain MRI brain without contrast Impression: Small subacute area of ischemia maybe present near the head of the left caudate, Embolic phenomenon might be consideration Acute new CVA, subacute -CT Head shows Expected evolution of previously demonstrated occipital lobe infarcts. negative for acute intracranial abnormality -CT angio Head and CT angio Neck negative -Hx CVA MRI on 11/14/2019 revealed: Subacute infarction in the right occipital lobe Infarction in the left occipital lobe ligament. Base but less than 2 weeks old -Tele-Neurology consulted; recommendations appreciated -I consulted Neurology today -Neuro Checks -PT/OT eval pending -Speech eval Pending -On statin -Hold off on oral and anticoagulation due to thrombocytopenia -Continue supportive care -difficult decision regarding the use of Aspirin with such low plt Thrombocytopenia -Suspicion for ITP -Plt 35 on admission -IVIG Day 3/5 -Currently on Prednisone -Continue Prednisone -Hematology (Dr. Coker) consulted Elevated Trop -at 0.090 -Continue to trend -Denies chest pain -Cardiology consulted Dehydration -Mild -BUN 21 -Gentle hydration with IVF -Continue to monitor labs DVT PPX -On SCD's -Hold off on systemic anticoagulation d/t thrombocytopenia IVIG per Hematology plt dropped today, will recheck in am History Interval history: Patient was seen and examined. Follow-up on current diagnosis of CVA. Overnight uneventful as no events directly reported to me. Patient denies any chest pain, shortness breath, nausea/vomiting or severe headaches. Imaging, nursing note, chart, labs and old chart reviewed. Discussed with patient. Hospitalist Physical - Physical exam Narrative exam: Gen: WDWN, NAD, Awake, Alert, Orientated HEENT: NCAT, EOMI, PERRL, OP Clear Neck: supple, no adenopathy, no thyromegaly, no JVD CVS/Heart: RRR, normal S1S2, pulses present bilaterally Chest/Lungs: CTA B, Symmetrical chest expansion, good air entry bilaterally GI/Abdomen: soft, NTND, good bowel sounds, no guarding or rebound /Bladder: no suprapubic tenderness, no CVA or paraspinal tenderness Extermity/Skin: no c/c/e, no obvious rash MSK: FROM x 4 Neuro: CN 2-12 grossly intact, no new focal deficits Psych: calm with mild cognitive impairment - Constitutional Vitals: Temp Pulse Resp BP Pulse Ox 98.7 F 81 18 140/87 95 12/17/19 07:45 12/17/19 08:41 12/17/19 07:45 12/17/19 07:45 12/17/19 04:33 General appearance: Present: no acute distress, well-nourished Results - Labs CBC & Chem 7: 12/17/19 05:12 12/16/19 04:11 Labs: Laboratory Last Values WBC 9.5 K/mm3 (4.5-11.0) 12/17/19 05:12 RBC 2.26 M/mm3 (3.65-5.03) L 12/17/19 05:12 Hgb 8.0 gm/dl (10.1-14.3) L 12/17/19 05:12 Hct 24.1 % (30.3-42.9) L 12/17/19 05:12 MCV 107 fl (79-97) H 12/17/19 05:12 MCH 35 pg (28-32) H 12/17/19 05:12 MCHC 33 % (30-34) 12/17/19 05:12 RDW 20.9 % (13.2-15.2) H 12/17/19 05:12 Plt Count 15 K/mm3 (140-440) L* 12/17/19 05:12 Lymph % (Auto) 28.9 % (13.4-35.0) 12/16/19 04:11 [place] % (Auto) 8.7 % (0.0-7.3) H 12/16/19 04:11 Eos % (Auto) 0.4 % (0.0-4.3) 12/16/19 04:11 Baso % (Auto) 0.2 % (0.0-1.8) 12/16/19 04:11 Lymph # 2.6 K/mm3 (1.2-5.4) 12/16/19 04:11 [place] # 0.8 K/mm3 (0.0-0.8) 12/16/19 04:11 Eos # 0.0 K/mm3 (0.0-0.4) 12/16/19 04:11 Baso # 0.0 K/mm3 (0.0-0.1) 12/16/19 04:11 Seg Neutrophils % 61.8 % (40.0-70.0) 12/16/19 04:11 Seg Neutrophils # 5.5 K/mm3 (1.8-7.7) 12/16/19 04:11 Haptoglobin <8 mg/dL (43-212) L 12/14/19 08:14 PT 14.0 Sec. (12.2-14.9) 12/13/19 17:46 INR 1.07 (0.87-1.13) 12/13/19 17:46 APTT 23.2 Sec. (24.2-36.6) L 12/13/19 17:46 Thrombin Time 16.4 Sec. (15.1-19.6) 12/13/19 17:46 Sodium 141 mmol/L (137-145) 12/16/19 04:11 Potassium 3.8 mmol/L (3.6-5.0) 12/16/19 04:11 Chloride 104.9 mmol/L (98-107) 12/16/19 04:11 Carbon Dioxide 24 mmol/L (22-30) 12/16/19 04:11 Anion Gap 16 mmol/L 12/16/19 04:11 BUN 13 mg/dL (7-17) 12/16/19 04:11 Creatinine 0.7 mg/dL (0.7-1.2) 12/16/19 04:11 Estimated GFR > 60 ml/min 12/16/19 04:11 BUN/Creatinine Ratio 19 % 12/16/19 04:11 Glucose 100 mg/dL (65-100) 12/16/19 04:11 POC Glucose 113 (70-105) H 12/13/19 17:45 Calcium 8.7 mg/dL (8.4-10.2) 12/16/19 04:11 Total Bilirubin 3.70 mg/dL (0.1-1.2) H 12/13/19 16:51 AST 47 units/L (5-40) H 12/13/19 16:51 ALT 22 units/L (7-56) 12/13/19 16:51 Alkaline Phosphatase 47 units/L (35-129) 12/13/19 16:51 Lactate Dehydrogenase 1073 units/L (91-180) H 12/14/19 08:14 Total Creatine Kinase 51 units/L (30-135) 12/13/19 17:46 CK-MB (CK-2) 1.7 ng/mL (0.0-4.0) 12/13/19 17:46 CK-MB (CK-2) Rel Index 3.3 (0-4) 12/13/19 17:46 Troponin T 0.074 ng/mL (0.00-0.029) H 12/15/19 05:25 Total Protein 7.3 g/dL (6.3-8.2) 12/13/19 16:51 Albumin 4.1 g/dL (3.9-5) 12/13/19 16:51 Albumin/Globulin Ratio 1.3 % 12/13/19 16:51 Triglycerides 149 mg/dL (2-149) 12/13/19 17:46 Cholesterol 139 mg/dL (50-199) 12/13/19 17:46 LDL Cholesterol Direct 80 mg/dL (50-130) 12/13/19 17:46 HDL Cholesterol 45 mg/dL (40-59) 12/13/19 17:46 Cholesterol/HDL Ratio 3.08 % 12/13/19 17:46 Direct Antiglob Test Negative 12/14/19 08:14 NATALI, Poly Interpret Negative 12/14/19 08:14 Active Medications - Current Medications Current Medications: Generic Name Dose Route Start Last Admin Trade Name Freq PRN Reason Stop Dose Admin Acetaminophen 650 mg 12/13/19 20:04 12/16/19 19:58 Tylenol PO 650 mg Q4H PRN Administration Pain, Mild (1-3) Atorvastatin Calcium 40 mg 12/13/19 22:00 12/16/19 21:32 Lipitor PO 40 mg QHS PRAVEEN Administration Bisacodyl 10 mg 12/13/19 20:04 Dulcolax CA QDAY PRN Constipation Carvedilol 3.125 mg 12/13/19 22:00 12/17/19 09:19 Coreg PO 3.125 mg BID PRAVEEN Administration Docusate Sodium 100 mg 12/13/19 22:00 12/17/19 09:19 Colace PO 100 mg BID PRAVEEN Administration Immune Globulin 40 gm/ 400 mls @ 50 mls/hr 12/17/19 10:00 12/17/19 10:15 Miscellaneous Information IV 12/18/19 17:59 50 mls/hr DAILY PRAVEEN Administration Magnesium Hydroxide 30 ml 12/13/19 20:04 Milk Of Magnesia PO Q4H PRN Constipation Multivitamins 1 each 12/15/19 10:00 12/17/19 09:19 Theragran Tab PO 1 each QDAY PRAVEEN Administration Ondansetron HCl 4 mg 12/13/19 20:04 Zofran IV Q8H PRN Nausea And Vomiting Oxycodone/Acetaminophen 1 tab 12/13/19 21:57 12/17/19 09:23 Percocet 5/325 PO 1 tab Q6H PRN Administration Pain , Severe (7-10) Prednisone 60 mg 12/16/19 16:30 12/17/19 09:19 Deltasone PO 60 mg QDAY PRAVEEN Administration Promethazine HCl 25 mg 12/13/19 20:04 Phenergan CA Q6H PRN Nausea And Vomiting
[2019-12-18 05:43] LABS: Hematocrit 24.6 % (30.3-42.9); Hemoglobin 8.4 gm/dl (10.1-14.3); Mean Corpuscular HGB Conc 34 % (30-34); Mean Corpuscular Volume 107 fl (79-97); Red Blood Count 2.31 M/mm3 (3.65-5.03); Red Cell Distribution Width 19.9 % (13.2-15.2)
[2019-12-18 05:45] LABS: Platelet Count 25 K/mm3 (140-440)
--- NOTE | 2019-12-18 08:58 | Progress Note ---
Assessment and Plan Assessment and plan: Patient is a 54-year-old -Turk[place] woman well known to me from recent discharge. She has ITP. She was treated with IVIG 5 days infusion and steroids. The ITP/low plt cause NSTEMI and CVA. I discharged her on 11/21/2019 with steroids and follow up with Dr. Coker but she did not due to lack of insurance. She presents now with headache, right facial droop and slurred speech. * CT Head IMPRESSION: 1. No acute intracranial abnormality. 2. Expected evolution of previously demonstrated occipital lobe infarcts. * CT angio Head IMPRESSION: 1. No significant stenosis or large vessel occlusion in the cervical or intracranial arteries. * CT angio Neck IMPRESSION: 1. No significant stenosis or large vessel occlusion in the cervical or intracranial arteries. * Brain MRI brain without contrast Impression: Small subacute area of ischemia maybe present near the head of the left caudate, Embolic phenomenon might be consideration Acute new CVA, subacute -CT Head shows Expected evolution of previously demonstrated occipital lobe infarcts. negative for acute intracranial abnormality -CT angio Head and CT angio Neck negative -Hx CVA MRI on 11/14/2019 revealed: Subacute infarction in the right occipital lobe Infarction in the left occipital lobe ligament. Base but less than 2 weeks old -Tele-Neurology consulted; recommendations appreciated -I consulted Neurology today -Neuro Checks -PT/OT eval pending -Speech eval Pending -On statin -Hold off on oral and anticoagulation due to thrombocytopenia -Continue supportive care -difficult decision regarding the use of Aspirin with such low plt Thrombocytopenia -Suspicion for ITP -Plt 35 on admission -IVIG Day 3/5 -Currently on Prednisone -Continue Prednisone -Hematology (Dr. Coker) consulted Elevated Trop -at 0.090 -Continue to trend -Denies chest pain -Cardiology consulted Dehydration -Mild -BUN 21 -Gentle hydration with IVF -Continue to monitor labs DVT PPX -On SCD's -Hold off on systemic anticoagulation d/t thrombocytopenia IVIG per Hematology plt up today to 25, will recheck in am History Interval history: Patient was seen and examined. Follow-up on current diagnosis of CVA. Overnight uneventful as no events directly reported to me. Patient denies any chest pain, shortness breath, nausea/vomiting or severe headaches. Imaging, nursing note, chart, labs and old chart reviewed. Discussed with patient. Hospitalist Physical - Physical exam Narrative exam: Gen: WDWN, NAD, Awake, Alert, Orientated HEENT: NCAT, EOMI, PERRL, OP Clear Neck: supple, no adenopathy, no thyromegaly, no JVD CVS/Heart: RRR, normal S1S2, pulses present bilaterally Chest/Lungs: CTA B, Symmetrical chest expansion, good air entry bilaterally GI/Abdomen: soft, NTND, good bowel sounds, no guarding or rebound /Bladder: no suprapubic tenderness, no CVA or paraspinal tenderness Extermity/Skin: no c/c/e, no obvious rash MSK: FROM x 4 Neuro: CN 2-12 grossly intact, no new focal deficits Psych: calm with mild cognitive impairment - Constitutional Vitals: Temp Pulse Resp BP Pulse Ox 98.6 F 86 18 106/62 98 12/18/19 03:41 12/18/19 03:41 12/18/19 03:41 12/18/19 03:41 12/18/19 03:41 General appearance: Present: no acute distress, well-nourished Results - Labs CBC & Chem 7: 12/18/19 04:42 12/16/19 04:11 Labs: Laboratory Last Values WBC 10.0 K/mm3 (4.5-11.0) 12/18/19 04:42 RBC 2.31 M/mm3 (3.65-5.03) L 12/18/19 04:42 Hgb 8.4 gm/dl (10.1-14.3) L 12/18/19 04:42 Hct 24.6 % (30.3-42.9) L 12/18/19 04:42 MCV 107 fl (79-97) H 12/18/19 04:42 MCH 36 pg (28-32) H 12/18/19 04:42 MCHC 34 % (30-34) 12/18/19 04:42 RDW 19.9 % (13.2-15.2) H 12/18/19 04:42 Plt Count 25 K/mm3 (140-440) L 12/18/19 04:42 Lymph % (Auto) 28.9 % (13.4-35.0) 12/16/19 04:11 [place] % (Auto) 8.7 % (0.0-7.3) H 12/16/19 04:11 Eos % (Auto) 0.4 % (0.0-4.3) 12/16/19 04:11 Baso % (Auto) 0.2 % (0.0-1.8) 12/16/19 04:11 Lymph # 2.6 K/mm3 (1.2-5.4) 12/16/19 04:11 [place] # 0.8 K/mm3 (0.0-0.8) 12/16/19 04:11 Eos # 0.0 K/mm3 (0.0-0.4) 12/16/19 04:11 Baso # 0.0 K/mm3 (0.0-0.1) 12/16/19 04:11 Seg Neutrophils % 61.8 % (40.0-70.0) 12/16/19 04:11 Seg Neutrophils # 5.5 K/mm3 (1.8-7.7) 12/16/19 04:11 Haptoglobin <8 mg/dL (43-212) L 12/14/19 08:14 PT 14.0 Sec. (12.2-14.9) 12/13/19 17:46 INR 1.07 (0.87-1.13) 12/13/19 17:46 APTT 23.2 Sec. (24.2-36.6) L 12/13/19 17:46 Thrombin Time 16.4 Sec. (15.1-19.6) 12/13/19 17:46 Sodium 141 mmol/L (137-145) 12/16/19 04:11 Potassium 3.8 mmol/L (3.6-5.0) 12/16/19 04:11 Chloride 104.9 mmol/L (98-107) 12/16/19 04:11 Carbon Dioxide 24 mmol/L (22-30) 12/16/19 04:11 Anion Gap 16 mmol/L 12/16/19 04:11 BUN 13 mg/dL (7-17) 12/16/19 04:11 Creatinine 0.7 mg/dL (0.7-1.2) 12/16/19 04:11 Estimated GFR > 60 ml/min 12/16/19 04:11 BUN/Creatinine Ratio 19 % 12/16/19 04:11 Glucose 100 mg/dL (65-100) 12/16/19 04:11 POC Glucose 113 (70-105) H 12/13/19 17:45 Calcium 8.7 mg/dL (8.4-10.2) 12/16/19 04:11 Total Bilirubin 3.70 mg/dL (0.1-1.2) H 12/13/19 16:51 AST 47 units/L (5-40) H 12/13/19 16:51 ALT 22 units/L (7-56) 12/13/19 16:51 Alkaline Phosphatase 47 units/L (35-129) 12/13/19 16:51 Lactate Dehydrogenase 1073 units/L (91-180) H 12/14/19 08:14 Total Creatine Kinase 51 units/L (30-135) 12/13/19 17:46 CK-MB (CK-2) 1.7 ng/mL (0.0-4.0) 12/13/19 17:46 CK-MB (CK-2) Rel Index 3.3 (0-4) 12/13/19 17:46 Troponin T 0.074 ng/mL (0.00-0.029) H 12/15/19 05:25 Total Protein 7.3 g/dL (6.3-8.2) 12/13/19 16:51 Albumin 4.1 g/dL (3.9-5) 12/13/19 16:51 Albumin/Globulin Ratio 1.3 % 12/13/19 16:51 Triglycerides 149 mg/dL (2-149) 12/13/19 17:46 Cholesterol 139 mg/dL (50-199) 12/13/19 17:46 LDL Cholesterol Direct 80 mg/dL (50-130) 12/13/19 17:46 HDL Cholesterol 45 mg/dL (40-59) 12/13/19 17:46 Cholesterol/HDL Ratio 3.08 % 12/13/19 17:46 Direct Antiglob Test Negative 12/14/19 08:14 NATALI, Poly Interpret Negative 12/14/19 08:14 Active Medications - Current Medications Current Medications: Generic Name Dose Route Start Last Admin Trade Name Freq PRN Reason Stop Dose Admin Acetaminophen 650 mg 12/13/19 20:04 12/16/19 19:58 Tylenol PO 650 mg Q4H PRN Administration Pain, Mild (1-3) Atorvastatin Calcium 40 mg 12/13/19 22:00 12/17/19 21:44 Lipitor PO 40 mg QHS PRAVEEN Administration Bisacodyl 10 mg 12/13/19 20:04 Dulcolax OR QDAY PRN Constipation Carvedilol 3.125 mg 12/13/19 22:00 12/17/19 21:43 Coreg PO 3.125 mg BID PRAVEEN Administration Docusate Sodium 100 mg 12/13/19 22:00 12/17/19 21:43 Colace PO 100 mg BID PRAVEEN Administration Immune Globulin 40 gm/ 400 mls @ 50 mls/hr 12/17/19 10:00 12/17/19 10:15 Miscellaneous Information IV 12/18/19 17:59 50 mls/hr DAILY PRAVEEN Administration Magnesium Hydroxide 30 ml 12/13/19 20:04 Milk Of Magnesia PO Q4H PRN Constipation Multivitamins 1 each 12/15/19 10:00 12/17/19 09:19 Theragran Tab PO 1 each QDAY PRAVEEN Administration Ondansetron HCl 4 mg 12/13/19 20:04 Zofran IV Q8H PRN Nausea And Vomiting Oxycodone/Acetaminophen 1 tab 12/13/19 21:57 12/17/19 21:44 Percocet 5/325 PO 1 tab Q6H PRN Administration Pain , Severe (7-10) Prednisone 60 mg 12/16/19 16:30 12/17/19 09:19 Deltasone PO 60 mg QDAY PRAVEEN Administration Promethazine HCl 25 mg 12/13/19 20:04 Phenergan OR Q6H PRN Nausea And Vomiting
[2019-12-18] MEDS: IMMUNE GLOBULIN GAMMA IV SCH (10:13)
[2019-12-18] MEDS: carvediloL 3.125 MG TAB PO SCH ×2 (10:13→21:35)
[2019-12-18] MEDS: predniSONE 20 MG TAB PO SCH (10:13)
[2019-12-18] MEDS: DOCUSATE SODIUM 100 MG CAP PO SCH ×2 (10:13→21:35)
[2019-12-18] MEDS: MULTIVITAMINS ,THERAPEUTIC TAB PO SCH (10:13)
[2019-12-18] MEDS: ACETAMINOPHEN 325 MG TAB PO PRN ×2 (17:49→22:06)
[2019-12-19 05:54] LABS: Hematocrit 25.9 % (30.3-42.9); Hemoglobin 8.5 gm/dl (10.1-14.3); Mean Corpuscular HGB Conc 33 % (30-34); Mean Corpuscular Volume 105 fl (79-97); Red Blood Count 2.46 M/mm3 (3.65-5.03); Red Cell Distribution Width 19.2 % (13.2-15.2)
[2019-12-19 05:56] LABS: Platelet Count 27 K/mm3 (140-440)
--- NOTE | 2019-12-19 07:07 | Hem/Onc Progress Note ---
Assessment and Plan #v ITP Patient had low platelet at admission it was in the 30s. In past platelets were less than 10 and she received a few days of IVIG. She was discharged with prednisone however she did not keep follow-up appointment. As per the daughter patient was still taking prednisone at admission the dose is unclear. # She came to the hospital this time because of severe headache right arm weakness and twisting her face neurology has been consulted Regarding low platelets -prednisone 1 mg/kg grams and follow the patient I reviewed the deficiency investigations done last time. # anemia hemoglobin was 9.5 MCV 107 in recent past and mid-November serum iron was 143 ferritin 900 total bilirubin 3.7 B12 701 folate more than 20 Patient's MCV is high we will do haptoglobin LDH Colin testing. 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 In past colin negative blood group B Rh + anemia - with high LDH - ? hemolytic - will follow same high indirect bili - high LDH 12/19 - PLT 27 - neurology adv asa - not started as PLT low IVIG trial for Low plt ct prednisone Price syndrome a possibility - AIHA and ITP pharmacy review will help - to see if anything is adding to low plt and hemolytic anemia if no improvement - ? rituxan an option - will await thursday - thursday due to way the dose was done by pharmacy - we gave 40 GM IVIG daily for 4 days total - last dose 12/18 spoke to pharmacy - Patient Problems (1) Thrombocytopenia Current Visit: Yes Status: Chronic Subjective Date of service: 12/19/19 Principal diagnosis: anemia - ITP Interval history: no bleeding Objective - Exam Narrative Exam: Vitals were reviewed. icterus + No neck lymph nodes Heart S1-S2 present Lungs clear to auscultation anteriorly Abdomen soft Leg no edema Female genitalia not examined alert awake oriented x3 - Constitutional Vitals: Last Vital Signs Temp 98.6 F 12/19/19 04:09 Pulse 80 12/19/19 04:09 Resp 18 12/19/19 04:09 BP 111/65 12/19/19 04:09 Pulse Ox 98 12/19/19 04:09 - Labs Lab Results: Laboratory Results - last 24 hr 12/19/19 04:48 WBC 9.8 RBC 2.46 L Hgb 8.5 L Hct 25.9 L MCV 105 H MCH 35 H MCHC 33 RDW 19.2 H Plt Count 27 L Medications & Allergies - Medications Allergies/Adverse Reactions: Allergies No Known Allergies Allergy (Verified 12/13/19 16:42) Home Medications: Home Medications Medication Instructions Recorded Confirmed Last Taken Type AtorvaSTATin [Lipitor] 40 mg PO QHS #30 tablet 11/21/19 12/13/19 Unknown Rx Potassium Chloride [K-Dur] 1 tab PO QDAY #30 tablet 11/21/19 12/13/19 Unknown Rx carvediloL [Coreg] 3.125 mg PO BID #60 tablet 11/21/19 12/13/19 Unknown Rx oxyCODONE /ACETAMINOPHEN [Percocet 1 tab PO Q6H PRN #15 tablet 11/21/19 12/13/19 Unknown Rx 5/325 mg] predniSONE [Deltasone] 50 mg PO QDAY #30 tablet 11/21/19 12/13/19 Unknown Rx Active Medications: Generic Name Dose Route Start Last Admin Trade Name Freq PRN Reason Stop Dose Admin Acetaminophen 650 mg 12/13/19 20:04 12/18/19 22:06 Tylenol PO 650 mg Q4H PRN Administration Pain, Mild (1-3) Atorvastatin Calcium 40 mg 12/13/19 22:00 12/18/19 21:35 Lipitor PO 40 mg QHS PRAVEEN Administration Bisacodyl 10 mg 12/13/19 20:04 Dulcolax AR QDAY PRN Constipation Carvedilol 3.125 mg 12/13/19 22:00 12/18/19 21:35 Coreg PO 3.125 mg BID PRAVEEN Administration Docusate Sodium 100 mg 12/13/19 22:00 12/18/19 21:35 Colace PO 100 mg BID PRAVEEN Administration Magnesium Hydroxide 30 ml 12/13/19 20:04 Milk Of Magnesia PO Q4H PRN Constipation Multivitamins 1 each 12/15/19 10:00 12/18/19 10:13 Theragran Tab PO 1 each QDAY PRAVEEN Administration Ondansetron HCl 4 mg 12/13/19 20:04 Zofran IV Q8H PRN Nausea And Vomiting Oxycodone/Acetaminophen 1 tab 12/13/19 21:57 12/17/19 21:44 Percocet 5/325 PO 1 tab Q6H PRN Administration Pain , Severe (7-10) Prednisone 60 mg 12/16/19 16:30 12/18/19 10:13 Deltasone PO 60 mg QDAY PRAVEEN Administration Promethazine HCl 25 mg 12/13/19 20:04 Phenergan AR Q6H PRN Nausea And Vomiting
[2019-12-19] MEDS: oxyCODONE /ACETAMINOPHEN 5-325MG TAB PO PRN ×2 (08:30→15:30)
[2019-12-19] MEDS: carvediloL 3.125 MG TAB PO SCH ×2 (09:52→22:32)
[2019-12-19] MEDS: MULTIVITAMINS ,THERAPEUTIC TAB PO SCH (09:52)
[2019-12-19] MEDS: DOCUSATE SODIUM 100 MG CAP PO SCH ×2 (09:52→22:32)
[2019-12-19] MEDS: predniSONE 20 MG TAB PO SCH (09:52)
--- NOTE | 2019-12-19 11:13 | Progress Note ---
Assessment and Plan Assessment and plan: Patient is a 54-year-old -[place] woman well known to me from recent discharge. She has ITP. She was treated with IVIG 5 days infusion and steroids. The ITP/low plt cause NSTEMI and CVA. I discharged her on 11/21/2019 with steroids and follow up with Dr. Coker but she did not due to lack of insurance. She presents now with headache, right facial droop and slurred speech. * CT Head IMPRESSION: 1. No acute intracranial abnormality. 2. Expected evolution of previously demonstrated occipital lobe infarcts. * CT angio Head IMPRESSION: 1. No significant stenosis or large vessel occlusion in the cervical or intracranial arteries. * CT angio Neck IMPRESSION: 1. No significant stenosis or large vessel occlusion in the cervical or intracranial arteries. * Brain MRI brain without contrast Impression: Small subacute area of ischemia maybe present near the head of the left caudate, Embolic phenomenon might be consideration Acute new CVA, subacute -CT Head shows Expected evolution of previously demonstrated occipital lobe infarcts. negative for acute intracranial abnormality -CT angio Head and CT angio Neck negative -Hx CVA MRI on 11/14/2019 revealed: Subacute infarction in the right occipital lobe Infarction in the left occipital lobe ligament. Base but less than 2 weeks old -Tele-Neurology consulted; recommendations appreciated -I consulted Neurology today -Neuro Checks -PT/OT eval pending -Speech eval Pending -On statin -Hold off on oral and anticoagulation due to thrombocytopenia -Continue supportive care -difficult decision regarding the use of Aspirin with such low plt Thrombocytopenia -Suspicion for ITP -Plt 35 on admission -IVIG Day 3/5 -Currently on Prednisone -Continue Prednisone -Hematology (Dr. Coker) consulted Elevated Trop -at 0.090 -Continue to trend -Denies chest pain -Cardiology consulted Dehydration -Mild -BUN 21 -Gentle hydration with IVF -Continue to monitor labs DVT PPX -On SCD's -Hold off on systemic anticoagulation d/t thrombocytopenia IVIG per Hematology "due to way the dose was done by pharmacy - we gave 40 GM IVIG daily for 4 days total - last dose 12/18" per Dr. Coker plt up today to 27, will recheck in am Disposition; continue inpatient, plt too low to go home. trying to get to 50k. History Interval history: Patient was seen and examined. Follow-up on current diagnosis of CVA. Overnight uneventful as no events directly reported to me. Patient denies any chest pain, shortness breath, nausea/vomiting or severe headaches. Imaging, nursing note, chart, labs and old chart reviewed. Discussed with patient. Hospitalist Physical - Physical exam Narrative exam: Gen: WDWN, NAD, Awake, Alert, Orientated HEENT: NCAT, EOMI, PERRL, OP Clear Neck: supple, no adenopathy, no thyromegaly, no JVD CVS/Heart: RRR, normal S1S2, pulses present bilaterally Chest/Lungs: CTA B, Symmetrical chest expansion, good air entry bilaterally GI/Abdomen: soft, NTND, good bowel sounds, no guarding or rebound /Bladder: no suprapubic tenderness, no CVA or paraspinal tenderness Extermity/Skin: no c/c/e, no obvious rash MSK: FROM x 4 Neuro: CN 2-12 grossly intact, no new focal deficits Psych: calm with mild cognitive impairment - Constitutional Vitals: Temp Pulse Resp BP Pulse Ox 98.6 F 80 18 111/65 98 12/19/19 04:09 12/19/19 04:09 12/19/19 04:09 12/19/19 04:09 12/19/19 04:09 General appearance: Present: no acute distress, well-nourished Results - Labs CBC & Chem 7: 12/19/19 04:48 12/16/19 04:11 Labs: Laboratory Last Values WBC 9.8 K/mm3 (4.5-11.0) 12/19/19 04:48 RBC 2.46 M/mm3 (3.65-5.03) L 12/19/19 04:48 Hgb 8.5 gm/dl (10.1-14.3) L 12/19/19 04:48 Hct 25.9 % (30.3-42.9) L 12/19/19 04:48 MCV 105 fl (79-97) H 12/19/19 04:48 MCH 35 pg (28-32) H 12/19/19 04:48 MCHC 33 % (30-34) 12/19/19 04:48 RDW 19.2 % (13.2-15.2) H 12/19/19 04:48 Plt Count 27 K/mm3 (140-440) L 12/19/19 04:48 Lymph % (Auto) 28.9 % (13.4-35.0) 12/16/19 04:11 [place] % (Auto) 8.7 % (0.0-7.3) H 12/16/19 04:11 Eos % (Auto) 0.4 % (0.0-4.3) 12/16/19 04:11 Baso % (Auto) 0.2 % (0.0-1.8) 12/16/19 04:11 Lymph # 2.6 K/mm3 (1.2-5.4) 12/16/19 04:11 [place] # 0.8 K/mm3 (0.0-0.8) 12/16/19 04:11 Eos # 0.0 K/mm3 (0.0-0.4) 12/16/19 04:11 Baso # 0.0 K/mm3 (0.0-0.1) 12/16/19 04:11 Seg Neutrophils % 61.8 % (40.0-70.0) 12/16/19 04:11 Seg Neutrophils # 5.5 K/mm3 (1.8-7.7) 12/16/19 04:11 Haptoglobin <8 mg/dL (43-212) L 12/14/19 08:14 PT 14.0 Sec. (12.2-14.9) 12/13/19 17:46 INR 1.07 (0.87-1.13) 12/13/19 17:46 APTT 23.2 Sec. (24.2-36.6) L 12/13/19 17:46 Thrombin Time 16.4 Sec. (15.1-19.6) 12/13/19 17:46 Sodium 141 mmol/L (137-145) 12/16/19 04:11 Potassium 3.8 mmol/L (3.6-5.0) 12/16/19 04:11 Chloride 104.9 mmol/L (98-107) 12/16/19 04:11 Carbon Dioxide 24 mmol/L (22-30) 12/16/19 04:11 Anion Gap 16 mmol/L 12/16/19 04:11 BUN 13 mg/dL (7-17) 12/16/19 04:11 Creatinine 0.7 mg/dL (0.7-1.2) 12/16/19 04:11 Estimated GFR > 60 ml/min 12/16/19 04:11 BUN/Creatinine Ratio 19 % 12/16/19 04:11 Glucose 100 mg/dL (65-100) 12/16/19 04:11 POC Glucose 113 (70-105) H 12/13/19 17:45 Calcium 8.7 mg/dL (8.4-10.2) 12/16/19 04:11 Total Bilirubin 3.70 mg/dL (0.1-1.2) H 12/13/19 16:51 AST 47 units/L (5-40) H 12/13/19 16:51 ALT 22 units/L (7-56) 12/13/19 16:51 Alkaline Phosphatase 47 units/L (35-129) 12/13/19 16:51 Lactate Dehydrogenase 1073 units/L (91-180) H 12/14/19 08:14 Total Creatine Kinase 51 units/L (30-135) 12/13/19 17:46 CK-MB (CK-2) 1.7 ng/mL (0.0-4.0) 12/13/19 17:46 CK-MB (CK-2) Rel Index 3.3 (0-4) 12/13/19 17:46 Troponin T 0.074 ng/mL (0.00-0.029) H 12/15/19 05:25 Total Protein 7.3 g/dL (6.3-8.2) 12/13/19 16:51 Albumin 4.1 g/dL (3.9-5) 12/13/19 16:51 Albumin/Globulin Ratio 1.3 % 12/13/19 16:51 Triglycerides 149 mg/dL (2-149) 12/13/19 17:46 Cholesterol 139 mg/dL (50-199) 12/13/19 17:46 LDL Cholesterol Direct 80 mg/dL (50-130) 12/13/19 17:46 HDL Cholesterol 45 mg/dL (40-59) 12/13/19 17:46 Cholesterol/HDL Ratio 3.08 % 12/13/19 17:46 Direct Antiglob Test Negative 12/14/19 08:14 NATALI, Poly Interpret Negative 12/14/19 08:14 Active Medications - Current Medications Current Medications: Generic Name Dose Route Start Last Admin Trade Name Freq PRN Reason Stop Dose Admin Acetaminophen 650 mg 12/13/19 20:04 12/18/19 22:06 Tylenol PO 650 mg Q4H PRN Administration Pain, Mild (1-3) Atorvastatin Calcium 40 mg 12/13/19 22:00 12/18/19 21:35 Lipitor PO 40 mg QHS PRAVEEN Administration Bisacodyl 10 mg 12/13/19 20:04 Dulcolax [place] QDAY PRN Constipation Carvedilol 3.125 mg 12/13/19 22:00 12/19/19 09:52 Coreg PO 3.125 mg BID PRAVEEN Administration Docusate Sodium 100 mg 12/13/19 22:00 12/19/19 09:52 Colace PO 100 mg BID PRAVEEN Administration Magnesium Hydroxide 30 ml 12/13/19 20:04 Milk Of Magnesia PO Q4H PRN Constipation Multivitamins 1 each 12/15/19 10:00 12/19/19 09:52 Theragran Tab PO 1 each QDAY PRAVEEN Administration Ondansetron HCl 4 mg 12/13/19 20:04 Zofran IV Q8H PRN Nausea And Vomiting Oxycodone/Acetaminophen 1 tab 12/13/19 21:57 12/17/19 21:44 Percocet 5/325 PO 1 tab Q6H PRN Administration Pain , Severe (7-10) Prednisone 60 mg 12/16/19 16:30 12/19/19 09:52 Deltasone PO 60 mg QDAY PRAVEEN Administration Promethazine HCl 25 mg 12/13/19 20:04 Phenergan [place] Q6H PRN Nausea And Vomiting
[2019-12-19] MEDS: ACETAMINOPHEN 325 MG TAB PO PRN (22:33)
[2019-12-20 05:24] LABS: Hematocrit 26.3 % (30.3-42.9); Hemoglobin 8.8 gm/dl (10.1-14.3); Mean Corpuscular HGB Conc 33 % (30-34); Mean Corpuscular Volume 105 fl (79-97); Red Blood Count 2.51 M/mm3 (3.65-5.03)
[2019-12-20 06:21] LABS: Platelet Count 27 K/mm3 (140-440)
--- NOTE | 2019-12-20 07:26 | Hem/Onc Progress Note ---
Assessment and Plan #v ITP Patient had low platelet at admission it was in the 30s. In past platelets were less than 10 and she received a few days of IVIG. She was discharged with prednisone however she did not keep follow-up appointment. As per the daughter patient was still taking prednisone at admission the dose is unclear. # She came to the hospital this time because of severe headache right arm weakness and twisting her face neurology has been consulted Regarding low platelets -prednisone 1 mg/kg grams and follow the patient I reviewed the deficiency investigations done last time. # anemia hemoglobin was 9.5 MCV 107 in recent past and mid-November serum iron was 143 ferritin 900 total bilirubin 3.7 B12 701 folate more than 20 Patient's MCV is high we will do haptoglobin LDH Colin testing. 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 In past colin negative blood group B Rh + anemia - with high LDH - ? hemolytic - will follow same high indirect bili - high LDH 12/20 - PLT 27 - neurology adv asa - not started as PLT low IVIG trial for Low plt done ct prednisone Price syndrome a possibility - AIHA and ITP if no improvement - ? rituxan an option due to way the dose was done by pharmacy - we gave 40 GM IVIG daily for 4 days total - last dose 12/18 spoke to pharmacy on 12/19 will do bone marrow bx - as plt not improving as anticipated - Patient Problems (1) Thrombocytopenia Current Visit: Yes Status: Chronic Subjective Date of service: 12/20/19 Principal diagnosis: low plt - anemia Interval history: no bleeding Objective - Exam Narrative Exam: Vitals were reviewed. icterus + No neck lymph nodes Heart S1-S2 present Lungs clear to auscultation anteriorly Abdomen soft Leg no edema Female genitalia not examined alert awake oriented x3 - Constitutional Vitals: Last Vital Signs Temp 98.2 F 12/20/19 04:49 Pulse 86 12/20/19 04:49 Resp 18 12/20/19 04:49 BP 104/71 12/20/19 04:49 Pulse Ox 98 12/20/19 04:49 - Labs Lab Results: Laboratory Results - last 24 hr 12/15/19 12/20/19 05:25 04:17 WBC 9.4 RBC 2.51 L Hgb 8.8 L Hct 26.3 L MCV 105 H MCH 35 H MCHC 33 RDW 19.0 H Plt Count 27 L Lupus Anticoagulant see below Medications & Allergies - Medications Allergies/Adverse Reactions: Allergies No Known Allergies Allergy (Verified 12/13/19 16:42) Home Medications: Home Medications Medication Instructions Recorded Confirmed Last Taken Type AtorvaSTATin [Lipitor] 40 mg PO QHS #30 tablet 11/21/19 12/13/19 Unknown Rx Potassium Chloride [K-Dur] 1 tab PO QDAY #30 tablet 11/21/19 12/13/19 Unknown Rx carvediloL [Coreg] 3.125 mg PO BID #60 tablet 11/21/19 12/13/19 Unknown Rx oxyCODONE /ACETAMINOPHEN [Percocet 1 tab PO Q6H PRN #15 tablet 11/21/19 12/13/19 Unknown Rx 5/325 mg] predniSONE [Deltasone] 50 mg PO QDAY #30 tablet 11/21/19 12/13/19 Unknown Rx Active Medications: Generic Name Dose Route Start Last Admin Trade Name Freq PRN Reason Stop Dose Admin Acetaminophen 650 mg 12/13/19 20:04 12/19/19 22:33 Tylenol PO 650 mg Q4H PRN Administration Pain, Mild (1-3) Atorvastatin Calcium 40 mg 12/13/19 22:00 12/19/19 22:32 Lipitor PO 40 mg QHS PRAVEEN Administration Bisacodyl 10 mg 12/13/19 20:04 Dulcolax [place] QDAY PRN Constipation Carvedilol 3.125 mg 12/13/19 22:00 12/19/19 22:32 Coreg PO 3.125 mg BID PRAVEEN Administration Docusate Sodium 100 mg 12/13/19 22:00 12/19/19 22:32 Colace PO 100 mg BID PRAVEEN Administration Magnesium Hydroxide 30 ml 12/13/19 20:04 Milk Of Magnesia PO Q4H PRN Constipation Multivitamins 1 each 12/15/19 10:00 12/19/19 09:52 Theragran Tab PO 1 each QDAY PRAVEEN Administration Ondansetron HCl 4 mg 12/13/19 20:04 Zofran IV Q8H PRN Nausea And Vomiting Oxycodone/Acetaminophen 1 tab 12/13/19 21:57 12/19/19 15:30 Percocet 5/325 PO 1 tab Q6H PRN Administration Pain , Severe (7-10) Prednisone 60 mg 12/16/19 16:30 12/19/19 09:52 Deltasone PO 60 mg QDAY PRAVEEN Administration Promethazine HCl 25 mg 12/13/19 20:04 Phenergan [place] Q6H PRN Nausea And Vomiting
[2019-12-20] MEDS: MULTIVITAMINS ,THERAPEUTIC TAB PO SCH (09:25)
[2019-12-20] MEDS: carvediloL 3.125 MG TAB PO SCH ×2 (09:25→22:22)
[2019-12-20] MEDS: predniSONE 20 MG TAB PO SCH (09:25)
[2019-12-20] MEDS: DOCUSATE SODIUM 100 MG CAP PO SCH ×2 (09:25→22:22)
[2019-12-20] MEDS ORDERED: HYDROmorphone 2 MG/1 ML INJ IV ONE (10:02)
[2019-12-20] MEDS ORDERED: ONDANSETRON 4 MG/2 ML INJ IV ONE (10:02)
[2019-12-20] MEDS ORDERED: HYDROmorphone 1 MG/1 ML INJ ONE (10:11)
--- NOTE | 2019-12-20 14:07 | Cat Scan Report ---
CT-GUIDED BONE MARROW ASPIRATION AND BIOPSY INDICATION : Thrombocytopenia PROCEDURE: The risks (including but not limited to bleeding and infection) and benefits were explain ed to the patient and informed consent was obtained. All CT examinations performed at this facility utilize dose modulation, iterative reconstruction or weight-based dosing, when appropriate, to reduce radiation dose to as low as reasonably achievable. A time out procedure was performed. The procedu re site was prepped and draped in the usual sterile fashion and lidocaine was used for local anesthes ia. Anxiolysis was accomplished with IV Dilaudid and Zofran. Under CT guidance, the right posterior iliac wing was selected for biopsy. An 11 gauge needle was ad vanced to the posterior margin of the iliac wing, cortex breached, and 4.5 mL bone marrow aspirate ob tained. The needle was then advanced and a bone marrow biopsy was obtained measuring approximately 2 cm. Samples were given directly to the glass technician/installer who was present during the exam. The patient tolerated the procedure well with no complications. IMPRESSION: Technically successful bone marrow aspirate and biopsy. Signer Name: Marek Lemos Jr, MD Signed: 12/20/2019 2:03 PM Workstation Name: [id number]
[2019-12-20 14:44] LABS: Basophils % (Manual) 0 % (0.0-1.8); Total Cells Counted 100
[2019-12-20 14:45] LABS: Eosinophils % (Manual) 0 % (0.0-4.3)
[2019-12-20 14:46] LABS: Anisocytosis 1+; Burr Cells 1+; Helmet Cells Few; Poikilocytosis 1+; Schistocytes Few
[2019-12-20 14:47] LABS: Platelet Estimate Consistent w Auto
--- NOTE | 2019-12-20 15:41 | Progress Note ---
Assessment and Plan Assessment and plan: 54-year-old -[place] woman well known to me from recent discharge. She has ITP. She was treated with IVIG 5 days infusion and steroids. The ITP/low plt cause NSTEMI and CVA. I discharged her on 11/21/2019 with steroids and follow up with Dr. Coker but she did not due to lack of insurance. She presents now with headache, right facial droop and slurred speech. * CT Head IMPRESSION: 1. No acute intracranial abnormality. 2. Expected evolution of previously demonstrated occipital lobe infarcts. * CT angio Head IMPRESSION: 1. No significant stenosis or large vessel occlusion in the cervical or intracranial arteries. * CT angio Neck IMPRESSION: 1. No significant stenosis or large vessel occlusion in the cervical or intracranial arteries. * Brain MRI brain without contrast Impression: Small subacute area of ischemia maybe present near the head of the left caudate, Embolic phenomenon might be consideration Acute new CVA, subacute -CT Head shows Expected evolution of previously demonstrated occipital lobe infarcts. negative for acute intracranial abnormality -CT angio Head and CT angio Neck negative -Hx CVA MRI on 11/14/2019 revealed: Subacute infarction in the right occipital lobe Infarction in the left occipital lobe ligament. Base but less than 2 weeks old -PT eval appreciated, patient home with no needs at time of discharge -On statin -Hold off on oral and anticoagulation due to thrombocytopenia, goal is to have platelets above 50 -Continue supportive care Thrombocytopenia, ITP Platelet counts remains low, currently 27. Patient has completed IVIG, continue steroids. Still not improving, hematology input appreciated, for bone marrow biopsy Elevated Trop Cardiology input appreciated, type II [place]. Dehydration Resolved with IV fluids DVT PPX -On SCD's -Hold off on systemic anticoagulation d/t thrombocytopenia Disposition; home when platelet count is above 50 History Interval history: Review of systems Constitutional: No fevers, no malaise, no joint pains CVS: No chest pain, no orthopnea, no dyspnea on exertion, no pedal edema GI: No abdominal pain, no diarrhea, no vomiting, no constipation Respiratory: no wheezing, no coughing Hospitalist Physical - Physical exam Narrative exam: General.: Appears well, no distress, nontoxic HEENT: Moist mucous membranes, extraocular muscles intact, no lymphadenopathy Neck: supple Cardiac: S1-S2 heard Lungs: clear to auscultation bilaterally Abdomen: soft , nontender, nondistended, bowel sounds positive Extremities: no edema clubbing or cyanosis Skin: no rash or lesions Neurologic: no gross focal deficits Psych: calm, and cooperative - Constitutional Vitals: Temp Pulse Resp BP Pulse Ox 98.7 F 94 H 18 110/68 100 12/20/19 12:11 12/20/19 11:54 12/20/19 12:11 12/20/19 12:11 12/20/19 11:28 General appearance: Present: no acute distress, well-nourished Results - Labs CBC & Chem 7: 12/20/19 04:17 12/16/19 04:11 Labs: Laboratory Last Values WBC 9.4 K/mm3 (4.5-11.0) 12/20/19 04:17 RBC 2.51 M/mm3 (3.65-5.03) L 12/20/19 04:17 Hgb 8.8 gm/dl (10.1-14.3) L 12/20/19 04:17 Hct 26.3 % (30.3-42.9) L 12/20/19 04:17 MCV 105 fl (79-97) H 12/20/19 04:17 MCH 35 pg (28-32) H 12/20/19 04:17 MCHC 33 % (30-34) 12/20/19 04:17 RDW 19.0 % (13.2-15.2) H 12/20/19 04:17 Plt Count 27 K/mm3 (140-440) L 12/20/19 04:17 Lymph % (Auto) 28.9 % (13.4-35.0) 12/16/19 04:11 [place] % (Auto) 8.7 % (0.0-7.3) H 12/16/19 04:11 Eos % (Auto) 0.4 % (0.0-4.3) 12/16/19 04:11 Baso % (Auto) 0.2 % (0.0-1.8) 12/16/19 04:11 Lymph # 2.6 K/mm3 (1.2-5.4) 12/16/19 04:11 [place] # 0.8 K/mm3 (0.0-0.8) 12/16/19 04:11 Eos # 0.0 K/mm3 (0.0-0.4) 12/16/19 04:11 Baso # 0.0 K/mm3 (0.0-0.1) 12/16/19 04:11 Total Counted 100 12/20/19 04:17 Seg Neutrophils % 61.8 % (40.0-70.0) 12/16/19 04:11 Seg Neuts % (Manual) 68.0 % (40.0-70.0) 12/20/19 04:17 Band Neutrophils % 0 % 12/20/19 04:17 Lymphocytes % (Manual) 25.0 % (13.4-35.0) 12/20/19 04:17 Reactive Lymphs % (Man) 0 % 12/20/19 04:17 Monocytes % (Manual) 7.0 % (0.0-7.3) 12/20/19 04:17 Eosinophils % (Manual) 0 % (0.0-4.3) 12/20/19 04:17 Basophils % (Manual) 0 % (0.0-1.8) 12/20/19 04:17 Metamyelocytes % 0 % 12/20/19 04:17 Myelocytes % 0 % 12/20/19 04:17 Promyelocytes % 0 % 12/20/19 04:17 Blast Cells % 0 % 12/20/19 04:17 Nucleated RBC % 4.0 % (0.0-0.9) H 12/20/19 04:17 Seg Neutrophils # 5.5 K/mm3 (1.8-7.7) 12/16/19 04:11 Seg Neutrophils # Man 6.4 K/mm3 (1.8-7.7) 12/20/19 04:17 Band Neutrophils # 0.0 K/mm3 12/20/19 04:17 Lymphocytes # (Manual) 2.4 K/mm3 (1.2-5.4) 12/20/19 04:17 Abs React Lymphs (Man) 0.0 K/mm3 12/20/19 04:17 Monocytes # (Manual) 0.7 K/mm3 (0.0-0.8) 12/20/19 04:17 Eosinophils # (Manual) 0.0 K/mm3 (0.0-0.4) 12/20/19 04:17 Basophils # (Manual) 0.0 K/mm3 (0.0-0.1) 12/20/19 04:17 Metamyelocytes # 0.0 K/mm3 12/20/19 04:17 Myelocytes # 0.0 K/mm3 12/20/19 04:17 Promyelocytes # 0.0 K/mm3 12/20/19 04:17 Blast Cells # 0.0 K/mm3 12/20/19 04:17 Platelet Estimate Consistent w auto 12/20/19 04:17 Polychromasia Few 12/20/19 04:17 Poikilocytosis 1+ 12/20/19 04:17 Anisocytosis 1+ 12/20/19 04:17 Helmet Cells Few 12/20/19 04:17 [place] Cells 1+ 12/20/19 04:17 Acanthocytes (Spur) Few 12/20/19 04:17 Schistocytes Few 12/20/19 04:17 Haptoglobin <8 mg/dL (43-212) L 12/14/19 08:14 Hem Pathologist Commnt No 12/20/19 04:17 PT 14.0 Sec. (12.2-14.9) 12/13/19 17:46 INR 1.07 (0.87-1.13) 12/13/19 17:46 APTT 23.2 Sec. (24.2-36.6) L 12/13/19 17:46 Thrombin Time 16.4 Sec. (15.1-19.6) 12/13/19 17:46 Lupus Anticoagulant see below 12/15/19 05:25 Sodium 141 mmol/L (137-145) 12/16/19 04:11 Potassium 3.8 mmol/L (3.6-5.0) 12/16/19 04:11 Chloride 104.9 mmol/L (98-107) 12/16/19 04:11 Carbon Dioxide 24 mmol/L (22-30) 12/16/19 04:11 Anion Gap 16 mmol/L 12/16/19 04:11 BUN 13 mg/dL (7-17) 12/16/19 04:11 Creatinine 0.7 mg/dL (0.7-1.2) 12/16/19 04:11 Estimated GFR > 60 ml/min 12/16/19 04:11 BUN/Creatinine Ratio 19 % 12/16/19 04:11 Glucose 100 mg/dL (65-100) 12/16/19 04:11 POC Glucose 113 (70-105) H 12/13/19 17:45 Calcium 8.7 mg/dL (8.4-10.2) 12/16/19 04:11 Total Bilirubin 3.70 mg/dL (0.1-1.2) H 12/13/19 16:51 AST 47 units/L (5-40) H 12/13/19 16:51 ALT 22 units/L (7-56) 12/13/19 16:51 Alkaline Phosphatase 47 units/L (35-129) 12/13/19 16:51 Lactate Dehydrogenase 1073 units/L (91-180) H 12/14/19 08:14 Total Creatine Kinase 51 units/L (30-135) 12/13/19 17:46 CK-MB (CK-2) 1.7 ng/mL (0.0-4.0) 12/13/19 17:46 CK-MB (CK-2) Rel Index 3.3 (0-4) 12/13/19 17:46 Troponin T 0.074 ng/mL (0.00-0.029) H 12/15/19 05:25 Total Protein 7.3 g/dL (6.3-8.2) 12/13/19 16:51 Albumin 4.1 g/dL (3.9-5) 12/13/19 16:51 Albumin/Globulin Ratio 1.3 % 12/13/19 16:51 Triglycerides 149 mg/dL (2-149) 12/13/19 17:46 Cholesterol 139 mg/dL (50-199) 12/13/19 17:46 LDL Cholesterol Direct 80 mg/dL (50-130) 12/13/19 17:46 HDL Cholesterol 45 mg/dL (40-59) 12/13/19 17:46 Cholesterol/HDL Ratio 3.08 % 12/13/19 17:46 Direct Antiglob Test Negative 12/14/19 08:14 NATALI, Poly Interpret Negative 12/14/19 08:14 Active Medications - Current Medications Current Medications: Generic Name Dose Route Start Last Admin Trade Name Freq PRN Reason Stop Dose Admin Acetaminophen 650 mg 12/13/19 20:04 12/19/19 22:33 Tylenol PO 650 mg Q4H PRN Administration Pain, Mild (1-3) Atorvastatin Calcium 40 mg 12/13/19 22:00 12/19/19 22:32 Lipitor PO 40 mg QHS PRAVEEN Administration Bisacodyl 10 mg 12/13/19 20:04 Dulcolax [place] QDAY PRN Constipation Carvedilol 3.125 mg 12/13/19 22:00 12/20/19 09:25 Coreg PO 3.125 mg BID PRAVEEN Administration Docusate Sodium 100 mg 12/13/19 22:00 12/20/19 09:25 Colace PO 100 mg BID PRAVEEN Administration Magnesium Hydroxide 30 ml 12/13/19 20:04 Milk Of Magnesia PO Q4H PRN Constipation Multivitamins 1 each 12/15/19 10:00 12/20/19 09:25 Theragran Tab PO 1 each QDAY PRAVEEN Administration Ondansetron HCl 4 mg 12/13/19 20:04 Zofran IV Q8H PRN Nausea And Vomiting Oxycodone/Acetaminophen 1 tab 12/13/19 21:57 12/19/19 15:30 Percocet 5/325 PO 1 tab Q6H PRN Administration Pain , Severe (7-10) Prednisone 60 mg 12/16/19 16:30 12/20/19 09:25 Deltasone PO 60 mg QDAY PRAVEEN Administration Promethazine HCl 25 mg 12/13/19 20:04 Phenergan [place] Q6H PRN Nausea And Vomiting
[2019-12-20] MEDS: oxyCODONE /ACETAMINOPHEN 5-325MG TAB PO PRN (22:20)
[2019-12-21 04:30] LABS: Hematocrit 27.3 % (30.3-42.9); Hemoglobin 9.2 gm/dl (10.1-14.3); Mean Corpuscular HGB Conc 34 % (30-34); Mean Corpuscular Volume 105 fl (79-97); Red Blood Count 2.61 M/mm3 (3.65-5.03); Red Cell Distribution Width 18.6 % (13.2-15.2)
[2019-12-21 04:35] LABS: Platelet Count 23 K/mm3 (140-440)
--- NOTE | 2019-12-21 06:52 | Hem/Onc Progress Note ---
Assessment and Plan #v ITP Patient had low platelet at admission it was in the 30s. In past platelets were less than 10 and she received a few days of IVIG. She was discharged with prednisone however she did not keep follow-up appointment. As per the daughter patient was still taking prednisone at admission the dose is unclear. # She came to the hospital this time because of severe headache right arm weakness and twisting her face neurology has been consulted Regarding low platelets -prednisone 1 mg/kg grams and follow the patient I reviewed the deficiency investigations done last time. # anemia hemoglobin was 9.5 MCV 107 in recent past and mid-November serum iron was 143 ferritin 900 total bilirubin 3.7 B12 701 folate more than 20 Patient's MCV is high we will do haptoglobin LDH Colin testing. 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 In past colin negative blood group B Rh + anemia - with high LDH - ? hemolytic - will follow same high indirect bili - high LDH neurology adv asa - not started as PLT low IVIG trial for Low plt done s/p prednisone Price syndrome a possibility - AIHA and ITP if no improvement - ? rituxan an option due to way the dose was done by pharmacy - we gave 40 GM IVIG daily for 4 days total - last dose 12/18 spoke to pharmacy on 12/19 s/p bone marrow bx 12/20 - - as plt not improving as anticipated d/w pathologist reg bmbx and clinical scenario 12/21 - plt 23k will add pepcid - PLT low before pepcid started bl sugar monitor - hospitalist to follow - Patient Problems (1) Thrombocytopenia Current Visit: Yes Status: Chronic Subjective Date of service: 12/21/19 Principal diagnosis: itp - anemia Interval history: pt had bmbx no bleeding d/w RN Objective - Exam Narrative Exam: Vitals were reviewed. icterus + No neck lymph nodes Heart S1-S2 present Lungs clear to auscultation anteriorly Abdomen soft Leg no edema Female genitalia not examined alert awake oriented x3 - Constitutional Vitals: Last Vital Signs Temp 98.8 F 12/21/19 05:28 Pulse 77 12/21/19 05:28 Resp 18 12/21/19 05:28 BP 115/71 12/21/19 05:28 Pulse Ox 98 12/21/19 05:28 - Labs Lab Results: Laboratory Results - last 24 hr 12/20/19 12/21/19 04:17 03:36 WBC 9.4 8.6 RBC 2.51 L 2.61 L Hgb 8.8 L 9.2 L Hct 26.3 L 27.3 L MCV 105 H 105 H MCH 35 H 35 H MCHC 33 34 RDW 19.0 H 18.6 H Plt Count 27 L 23 L Total Counted 100 Seg Neuts % (Manual) 68.0 Band Neutrophils % 0 Lymphocytes % (Manual) 25.0 Reactive Lymphs % (Man) 0 Monocytes % (Manual) 7.0 Eosinophils % (Manual) 0 Basophils % (Manual) 0 Metamyelocytes % 0 Myelocytes % 0 Promyelocytes % 0 Blast Cells % 0 Nucleated RBC % 4.0 H Seg Neutrophils # Man 6.4 Band Neutrophils # 0.0 Lymphocytes # (Manual) 2.4 Abs React Lymphs (Man) 0.0 Monocytes # (Manual) 0.7 Eosinophils # (Manual) 0.0 Basophils # (Manual) 0.0 Metamyelocytes # 0.0 Myelocytes # 0.0 Promyelocytes # 0.0 Blast Cells # 0.0 Platelet Estimate Consistent w auto Polychromasia Few Poikilocytosis 1+ Anisocytosis 1+ Helmet Cells Few Linette Cells 1+ Acanthocytes (Spur) Few Schistocytes Few Hem Pathologist Commnt No Medications & Allergies - Medications Allergies/Adverse Reactions: Allergies No Known Allergies Allergy (Verified 12/13/19 16:42) Home Medications: Home Medications Medication Instructions Recorded Confirmed Last Taken Type AtorvaSTATin [Lipitor] 40 mg PO QHS #30 tablet 11/21/19 12/13/19 Unknown Rx Potassium Chloride [K-Dur] 1 tab PO QDAY #30 tablet 11/21/19 12/13/19 Unknown Rx carvediloL [Coreg] 3.125 mg PO BID #60 tablet 11/21/19 12/13/19 Unknown Rx oxyCODONE /ACETAMINOPHEN [Percocet 1 tab PO Q6H PRN #15 tablet 11/21/19 12/13/19 Unknown Rx 5/325 mg] predniSONE [Deltasone] 50 mg PO QDAY #30 tablet 11/21/19 12/13/19 Unknown Rx Active Medications: Generic Name Dose Route Start Last Admin Trade Name Freq PRN Reason Stop Dose Admin Acetaminophen 650 mg 12/13/19 20:04 12/19/19 22:33 Tylenol PO 650 mg Q4H PRN Administration Pain, Mild (1-3) Atorvastatin Calcium 40 mg 12/13/19 22:00 12/20/19 22:22 Lipitor PO 40 mg QHS PRAVEEN Administration Bisacodyl 10 mg 12/13/19 20:04 Dulcolax NC QDAY PRN Constipation Carvedilol 3.125 mg 12/13/19 22:00 12/20/19 22:22 Coreg PO 3.125 mg BID PRAVEEN Administration Docusate Sodium 100 mg 12/13/19 22:00 12/20/19 22:22 Colace PO 100 mg BID PRAVEEN Administration Magnesium Hydroxide 30 ml 12/13/19 20:04 Milk Of Magnesia PO Q4H PRN Constipation Multivitamins 1 each 12/15/19 10:00 12/20/19 09:25 Theragran Tab PO 1 each QDAY PRAVEEN Administration Ondansetron HCl 4 mg 12/13/19 20:04 Zofran IV Q8H PRN Nausea And Vomiting Oxycodone/Acetaminophen 1 tab 12/13/19 21:57 12/20/19 22:20 Percocet 5/325 PO 1 tab Q6H PRN Administration Pain , Severe (7-10) Prednisone 60 mg 12/16/19 16:30 12/20/19 09:25 Deltasone PO 60 mg QDAY PRAVEEN Administration Promethazine HCl 25 mg 12/13/19 20:04 Phenergan NC Q6H PRN Nausea And Vomiting
[2019-12-21] MEDS: DOCUSATE SODIUM 100 MG CAP PO SCH ×2 (09:13→21:23)
[2019-12-21] MEDS: MULTIVITAMINS ,THERAPEUTIC TAB PO SCH (09:13)
[2019-12-21] MEDS: FAMOTIDINE 20 MG TAB PO SCH ×2 (09:13→21:23)
[2019-12-21] MEDS: predniSONE 20 MG TAB PO SCH (09:13)
[2019-12-21] MEDS: carvediloL 3.125 MG TAB PO SCH ×2 (09:14→21:23)
[2019-12-21] MEDS: oxyCODONE /ACETAMINOPHEN 5-325MG TAB PO PRN (09:51)
[2019-12-21] MEDS ORDERED: SODIUM CHLORIDE 0.9% 500 ML 500 ML IV SCH (17:45)
--- NOTE | 2019-12-21 17:47 | Progress Note ---
Assessment and Plan Assessment and plan: 54-year-old -[place] woman well known to me from recent discharge. She has ITP. She was treated with IVIG 5 days infusion and steroids. The ITP/low plt cause NSTEMI and CVA. I discharged her on 11/21/2019 with steroids and follow up with Dr. Coker but she did not due to lack of insurance. She presents now with headache, right facial droop and slurred speech. * CT Head IMPRESSION: 1. No acute intracranial abnormality. 2. Expected evolution of previously demonstrated occipital lobe infarcts. * CT angio Head IMPRESSION: 1. No significant stenosis or large vessel occlusion in the cervical or intracranial arteries. * CT angio Neck IMPRESSION: 1. No significant stenosis or large vessel occlusion in the cervical or intracranial arteries. * Brain MRI brain without contrast Impression: Small subacute area of ischemia maybe present near the head of the left caudate, Embolic phenomenon might be consideration Acute new CVA, subacute -CT Head shows Expected evolution of previously demonstrated occipital lobe infarcts. negative for acute intracranial abnormality -CT angio Head and CT angio Neck negative -Hx CVA MRI on 11/14/2019 revealed: Subacute infarction in the right occipital lobe Infarction in the left occipital lobe ligament. Base but less than 2 weeks old -PT eval appreciated, patient home with no needs at time of discharge -On statin -Hold off on oral and anticoagulation due to thrombocytopenia, goal is to have platelets above 50 before she can be given any such medications -Continue supportive care Thrombocytopenia, ITP Platelet counts remains low, currently 20s. Patient has completed IVIG, continue steroids. Still not improving, hematology input appreciated, sp bone marrow biopsy -We will give a dose of platelets now. Elevated Trop Cardiology input appreciated, type II CT. Dehydration Resolved with IV fluids DVT PPX -On SCD's -Hold off on systemic anticoagulation d/t thrombocytopenia Patient denies any GERD or indigestion. Pepcid discontinued Disposition; home when platelet count is above 50 History Interval history: Review of systems Constitutional: No fevers, no malaise, no joint pains CVS: No chest pain, no orthopnea, no dyspnea on exertion, no pedal edema GI: No abdominal pain, no diarrhea, no vomiting, no constipation Respiratory: no wheezing, no coughing Hospitalist Physical - Physical exam Narrative exam: General.: Appears well, no distress, nontoxic HEENT: Moist mucous membranes, extraocular muscles intact, no lymphadenopathy Neck: supple Cardiac: S1-S2 heard Lungs: clear to auscultation bilaterally Abdomen: soft , nontender, nondistended, bowel sounds positive Extremities: no edema clubbing or cyanosis Skin: no rash or lesions Neurologic: no gross focal deficits Psych: calm, and cooperative - Constitutional Vitals: Temp Pulse Resp BP Pulse Ox 98.6 F 93 H 16 124/75 96 12/21/19 07:43 12/21/19 12:02 12/21/19 11:00 12/21/19 12:02 12/21/19 12:02 General appearance: Present: no acute distress, well-nourished Results - Labs CBC & Chem 7: 12/21/19 03:36 12/16/19 04:11 Labs: Laboratory Last Values WBC 8.6 K/mm3 (4.5-11.0) 12/21/19 03:36 RBC 2.61 M/mm3 (3.65-5.03) L 12/21/19 03:36 Hgb 9.2 gm/dl (10.1-14.3) L 12/21/19 03:36 Hct 27.3 % (30.3-42.9) L 12/21/19 03:36 MCV 105 fl (79-97) H 12/21/19 03:36 MCH 35 pg (28-32) H 12/21/19 03:36 MCHC 34 % (30-34) 12/21/19 03:36 RDW 18.6 % (13.2-15.2) H 12/21/19 03:36 Plt Count 23 K/mm3 (140-440) L 12/21/19 03:36 Lymph % (Auto) 28.9 % (13.4-35.0) 12/16/19 04:11 Chambers % (Auto) 8.7 % (0.0-7.3) H 12/16/19 04:11 Eos % (Auto) 0.4 % (0.0-4.3) 12/16/19 04:11 Baso % (Auto) 0.2 % (0.0-1.8) 12/16/19 04:11 Lymph # 2.6 K/mm3 (1.2-5.4) 12/16/19 04:11 Chambers # 0.8 K/mm3 (0.0-0.8) 12/16/19 04:11 Eos # 0.0 K/mm3 (0.0-0.4) 12/16/19 04:11 Baso # 0.0 K/mm3 (0.0-0.1) 12/16/19 04:11 Total Counted 100 12/20/19 04:17 Seg Neutrophils % 61.8 % (40.0-70.0) 12/16/19 04:11 Seg Neuts % (Manual) 68.0 % (40.0-70.0) 12/20/19 04:17 Band Neutrophils % 0 % 12/20/19 04:17 Lymphocytes % (Manual) 25.0 % (13.4-35.0) 12/20/19 04:17 Reactive Lymphs % (Man) 0 % 12/20/19 04:17 Monocytes % (Manual) 7.0 % (0.0-7.3) 12/20/19 04:17 Eosinophils % (Manual) 0 % (0.0-4.3) 12/20/19 04:17 Basophils % (Manual) 0 % (0.0-1.8) 12/20/19 04:17 Metamyelocytes % 0 % 12/20/19 04:17 Myelocytes % 0 % 12/20/19 04:17 Promyelocytes % 0 % 12/20/19 04:17 Blast Cells % 0 % 12/20/19 04:17 Nucleated RBC % 4.0 % (0.0-0.9) H 12/20/19 04:17 Seg Neutrophils # 5.5 K/mm3 (1.8-7.7) 12/16/19 04:11 Seg Neutrophils # Man 6.4 K/mm3 (1.8-7.7) 12/20/19 04:17 Band Neutrophils # 0.0 K/mm3 12/20/19 04:17 Lymphocytes # (Manual) 2.4 K/mm3 (1.2-5.4) 12/20/19 04:17 Abs React Lymphs (Man) 0.0 K/mm3 12/20/19 04:17 Monocytes # (Manual) 0.7 K/mm3 (0.0-0.8) 12/20/19 04:17 Eosinophils # (Manual) 0.0 K/mm3 (0.0-0.4) 12/20/19 04:17 Basophils # (Manual) 0.0 K/mm3 (0.0-0.1) 12/20/19 04:17 Metamyelocytes # 0.0 K/mm3 12/20/19 04:17 Myelocytes # 0.0 K/mm3 12/20/19 04:17 Promyelocytes # 0.0 K/mm3 12/20/19 04:17 Blast Cells # 0.0 K/mm3 12/20/19 04:17 Platelet Estimate Consistent w auto 12/20/19 04:17 Polychromasia Few 12/20/19 04:17 Poikilocytosis 1+ 12/20/19 04:17 Anisocytosis 1+ 12/20/19 04:17 Helmet Cells Few 12/20/19 04:17 Linette Cells 1+ 12/20/19 04:17 Acanthocytes (Spur) Few 12/20/19 04:17 Schistocytes Few 12/20/19 04:17 Haptoglobin <8 mg/dL (43-212) L 12/14/19 08:14 Hem Pathologist Commnt No 12/20/19 04:17 PT 14.0 Sec. (12.2-14.9) 12/13/19 17:46 INR 1.07 (0.87-1.13) 12/13/19 17:46 APTT 23.2 Sec. (24.2-36.6) L 12/13/19 17:46 Thrombin Time 16.4 Sec. (15.1-19.6) 12/13/19 17:46 Lupus Anticoagulant see below 12/15/19 05:25 Sodium 141 mmol/L (137-145) 12/16/19 04:11 Potassium 3.8 mmol/L (3.6-5.0) 12/16/19 04:11 Chloride 104.9 mmol/L (98-107) 12/16/19 04:11 Carbon Dioxide 24 mmol/L (22-30) 12/16/19 04:11 Anion Gap 16 mmol/L 12/16/19 04:11 BUN 13 mg/dL (7-17) 12/16/19 04:11 Creatinine 0.7 mg/dL (0.7-1.2) 12/16/19 04:11 Estimated GFR > 60 ml/min 12/16/19 04:11 BUN/Creatinine Ratio 19 % 12/16/19 04:11 Glucose 100 mg/dL (65-100) 12/16/19 04:11 POC Glucose 96 (70-105) 12/21/19 08:41 Calcium 8.7 mg/dL (8.4-10.2) 12/16/19 04:11 Total Bilirubin 3.70 mg/dL (0.1-1.2) H 12/13/19 16:51 AST 47 units/L (5-40) H 12/13/19 16:51 ALT 22 units/L (7-56) 12/13/19 16:51 Alkaline Phosphatase 47 units/L (35-129) 12/13/19 16:51 Lactate Dehydrogenase 1073 units/L (91-180) H 12/14/19 08:14 Total Creatine Kinase 51 units/L (30-135) 12/13/19 17:46 CK-MB (CK-2) 1.7 ng/mL (0.0-4.0) 12/13/19 17:46 CK-MB (CK-2) Rel Index 3.3 (0-4) 12/13/19 17:46 Troponin T 0.074 ng/mL (0.00-0.029) H 12/15/19 05:25 Total Protein 7.3 g/dL (6.3-8.2) 12/13/19 16:51 Albumin 4.1 g/dL (3.9-5) 12/13/19 16:51 Albumin/Globulin Ratio 1.3 % 12/13/19 16:51 Triglycerides 149 mg/dL (2-149) 12/13/19 17:46 Cholesterol 139 mg/dL (50-199) 12/13/19 17:46 LDL Cholesterol Direct 80 mg/dL (50-130) 12/13/19 17:46 HDL Cholesterol 45 mg/dL (40-59) 12/13/19 17:46 Cholesterol/HDL Ratio 3.08 % 12/13/19 17:46 Direct Antiglob Test Negative 12/14/19 08:14 NATALI, Poly Interpret Negative 12/14/19 08:14 Active Medications - Current Medications Current Medications: Generic Name Dose Route Start Last Admin Trade Name Marques PRN Reason Stop Dose Admin Acetaminophen 650 mg 12/13/19 20:04 12/19/19 22:33 Tylenol PO 650 mg Q4H PRN Administration Pain, Mild (1-3) Atorvastatin Calcium 40 mg 12/13/19 22:00 12/20/19 22:22 Lipitor PO 40 mg QHS PRAVEEN Administration Bisacodyl 10 mg 12/13/19 20:04 Dulcolax UT QDAY PRN Constipation Carvedilol 3.125 mg 12/13/19 22:00 12/21/19 09:14 Coreg PO 3.125 mg BID PRAVEEN Administration Docusate Sodium 100 mg 12/13/19 22:00 12/21/19 09:13 Colace PO 100 mg BID PRAVEEN Administration Famotidine 20 mg 12/21/19 10:00 12/21/19 09:13 Pepcid PO 20 mg BID PRAVEEN Administration Magnesium Hydroxide 30 ml 12/13/19 20:04 Milk Of Magnesia PO Q4H PRN Constipation Multivitamins 1 each 12/15/19 10:00 12/21/19 09:13 Theragran Tab PO 1 each QDAY PRAVEEN Administration Ondansetron HCl 4 mg 12/13/19 20:04 Zofran IV Q8H PRN Nausea And Vomiting Oxycodone/Acetaminophen 1 tab 12/13/19 21:57 12/21/19 09:51 Percocet 5/325 PO 1 tab Q6H PRN Administration Pain , Severe (7-10) Prednisone 60 mg 12/16/19 16:30 12/21/19 09:13 Deltasone PO 60 mg QDAY PRAVEEN Administration Promethazine HCl 25 mg 12/13/19 20:04 Phenergan UT Q6H PRN Nausea And Vomiting Nutrition/Malnutrition Assess - Dietary Evaluation Nutrition/Malnutrition Findings: Nutrition Notes Start: 12/21/19 12:44 Freq: Status: Active Protocol: Document 12/21/19 12:44 LM (Rec: 12/21/19 12:46 LM [email or web address]) Nutrition Notes Need for Assessment generated from: LOS Initial or Follow up Brief Note Subjective/Other Information Screen for LOS. Pt stated she has good appetite, eating meals, and has had no wt loss. Nutrition Intervention Revisit per MD consult or patient Sign Off request:
[2019-12-21] MEDS: ACETAMINOPHEN 325 MG TAB PO PRN (19:14)
[2019-12-22 06:37] LABS: Eosinophils % (Auto) 0.2 % (0.0-4.3); Monocytes # (Auto) 0.7 K/mm3 (0.0-0.8); Monocytes % (Auto) 9.2 % (0.0-7.3)
[2019-12-22 06:50] LABS: INR 1.02 (0.87-1.13)
[2019-12-22 07:01] LABS: BUN/Creatinine Ratio 23; Blood Urea Nitrogen 16 mg/dL (7-17); Calcium 8.6 mg/dL (8.4-10.2); Hemolysis Index 4
[2019-12-22 07:19] LABS: Basophils % (Auto) 0.2 % (0.0-1.8); Hematocrit 28.1 % (30.3-42.9); Hemoglobin 9.3 gm/dl (10.1-14.3); Lymphocytes # (Auto) 2.2 K/mm3 (1.2-5.4); Lymphocytes % (Auto) 26.8 % (13.4-35.0); Mean Corpuscular HGB Conc 33 % (30-34); Mean Corpuscular Volume 104 fl (79-97); Red Cell Distribution Width 18.5 % (13.2-15.2)
[2019-12-22 07:31] LABS: Platelet Count 51 K/mm3 (140-440)
--- NOTE | 2019-12-22 07:50 | Hem/Onc Progress Note ---
Assessment and Plan #v ITP Patient had low platelet at admission it was in the 30s. In past platelets were less than 10 and she received a few days of IVIG. She was discharged with prednisone however she did not keep follow-up appointment. As per the daughter patient was still taking prednisone at admission the dose is unclear. # She came to the hospital this time because of severe headache right arm weakness and twisting her face neurology has been consulted Regarding low platelets -prednisone 1 mg/kg grams and follow the patient I reviewed the deficiency investigations done last time. # anemia hemoglobin was 9.5 MCV 107 in recent past and mid-November serum iron was 143 ferritin 900 total bilirubin 3.7 B12 701 folate more than 20 Patient's MCV is high we will do haptoglobin LDH Colin testing. 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 In past colin negative blood group B Rh + anemia - with high LDH - ? hemolytic - will follow same high indirect bili - high LDH neurology adv asa - not started as PLT low IVIG trial for Low plt done s/p prednisone Price syndrome a possibility - AIHA and ITP if no improvement - ? rituxan an option due to way the dose was done by pharmacy - we gave 40 GM IVIG daily for 4 days total - last dose 12/18 spoke to pharmacy on 12/19 s/p bone marrow bx 12/20 - - as plt not improving as anticipated d/w pathologist reg bmbx and clinical scenario started pepcid on 12/21 -- PLT low before pepcid started bl sugar monitor - hospitalist to follow 12/22 - PLt 51 - OK for D/c and OP follow up ct prednisone 60 mg BMB - prelim - negative - Patient Problems (1) Thrombocytopenia Current Visit: Yes Status: Chronic Subjective Date of service: 12/22/19 Principal diagnosis: ITP Interval history: no bleeding Objective - Exam Narrative Exam: Vitals were reviewed. icterus + No neck lymph nodes Heart S1-S2 present Lungs clear to auscultation anteriorly Abdomen soft Leg no edema Female genitalia not examined alert awake oriented x3 - Constitutional Vitals: Last Vital Signs Temp 98.0 F 12/22/19 03:52 Pulse 86 12/22/19 03:52 Resp 18 12/22/19 03:52 BP 121/75 12/22/19 03:52 Pulse Ox 97 12/22/19 03:52 - Labs Lab Results: Laboratory Results - last 24 hr 12/21/19 12/21/19 12/22/19 08:41 20:40 05:10 WBC 8.1 RBC 2.70 L Hgb 9.3 L Hct 28.1 L MCV 104 H MCH 35 H MCHC 33 RDW 18.5 H Plt Count 51 L D Lymph % (Auto) 26.8 Wirt % (Auto) 9.2 H Eos % (Auto) 0.2 Baso % (Auto) 0.2 Lymph # 2.2 Wirt # 0.7 Eos # 0.0 Baso # 0.0 Seg Neutrophils % 64.7 Seg Neutrophils # 5.0 PT INR APTT Sodium Potassium Chloride Carbon Dioxide Anion Gap BUN Creatinine Estimated GFR BUN/Creatinine Ratio Glucose POC Glucose 96 Calcium Phosphorus Magnesium Blood Type B POSITIVE 12/22/19 12/22/19 05:10 06:18 WBC RBC Hgb Hct MCV MCH MCHC RDW Plt Count Lymph % (Auto) Wirt % (Auto) Eos % (Auto) Baso % (Auto) Lymph # Wirt # Eos # Baso # Seg Neutrophils % Seg Neutrophils # PT 13.5 INR 1.02 APTT 23.0 L Sodium 140 Potassium 3.8 Chloride 101.5 Carbon Dioxide 24 Anion Gap 18 BUN 16 Creatinine 0.7 Estimated GFR > 60 BUN/Creatinine Ratio 23 Glucose 81 POC Glucose Calcium 8.6 Phosphorus 3.80 Magnesium 2.00 Blood Type Medications & Allergies - Medications Allergies/Adverse Reactions: Allergies No Known Allergies Allergy (Verified 12/13/19 16:42) Home Medications: Home Medications Medication Instructions Recorded Confirmed Last Taken Type AtorvaSTATin [Lipitor] 40 mg PO QHS #30 tablet 11/21/19 12/13/19 Unknown Rx Potassium Chloride [K-Dur] 1 tab PO QDAY #30 tablet 11/21/19 12/13/19 Unknown Rx carvediloL [Coreg] 3.125 mg PO BID #60 tablet 11/21/19 12/13/19 Unknown Rx oxyCODONE /ACETAMINOPHEN [Percocet 1 tab PO Q6H PRN #15 tablet 11/21/19 12/13/19 Unknown Rx 5/325 mg] predniSONE [Deltasone] 50 mg PO QDAY #30 tablet 11/21/19 12/13/19 Unknown Rx Active Medications: Generic Name Dose Route Start Last Admin Trade Name Freq PRN Reason Stop Dose Admin Acetaminophen 650 mg 12/13/19 20:04 12/21/19 19:14 Tylenol PO 650 mg Q4H PRN Administration Pain, Mild (1-3) Atorvastatin Calcium 40 mg 12/13/19 22:00 12/21/19 21:23 Lipitor PO 40 mg QHS [facility] Administration Bisacodyl 10 mg 12/13/19 20:04 Dulcolax MS QDAY PRN Constipation Carvedilol 3.125 mg 12/13/19 22:00 12/21/19 21:23 Coreg PO 3.125 mg BID [facility] Administration Dexamethasone 40 mg 12/22/19 10:00 Decadron PO DAILY [facility] Docusate Sodium 100 mg 12/13/19 22:00 12/21/19 21:23 Colace PO 100 mg BID [facility] Administration Sodium Chloride 500 mls @ 0 mls/hr 12/21/19 17:45 Nacl 0.9% 500 Ml IV 12/22/19 17:44 ONCE [facility] As Directed Magnesium Hydroxide 30 ml 12/13/19 20:04 Milk Of Magnesia PO Q4H PRN Constipation Multivitamins 1 each 12/15/19 10:00 12/21/19 09:13 Theragran Tab PO 1 each QDAY [facility] Administration Ondansetron HCl 4 mg 12/13/19 20:04 Zofran IV Q8H PRN Nausea And Vomiting Oxycodone/Acetaminophen 1 tab 12/13/19 21:57 12/21/19 09:51 Percocet 5/325 PO 1 tab Q6H PRN Administration Pain , Severe (7-10) Pantoprazole Sodium 40 mg 12/22/19 10:00 Protonix PO QDAY [facility] Promethazine HCl 25 mg 12/13/19 20:04 Phenergan MS Q6H PRN Nausea And Vomiting
[2019-12-22 09:30] LABS: Smear for Schistocytes Rare
[2019-12-22 09:45] VITALS: BP 130/88
[2019-12-22] MEDS ORDERED: DEXAMETHASONE 4 MG TAB PO SCH (10:00)
[2019-12-22] MEDS ORDERED: PANTOPRAZOLE 40 MG TAB PO SCH (10:00)
[2019-12-22] MEDS: carvediloL 3.125 MG TAB PO SCH (10:50)
[2019-12-22] MEDS: DOCUSATE SODIUM 100 MG CAP PO SCH (10:50)
[2019-12-22] MEDS: MULTIVITAMINS ,THERAPEUTIC TAB PO SCH (10:51)
[2019-12-22] MEDS: ACETAMINOPHEN 325 MG TAB PO PRN (11:10)
--- NOTE | 2019-12-22 12:21 | Progress Note ---
Hospitalist Physical - Constitutional Vitals: Temp Pulse Resp BP Pulse Ox 98.4 F 105 H 18 130/88 100 12/22/19 09:04 12/22/19 10:50 12/22/19 09:04 12/22/19 09:04 12/22/19 09:04 General appearance: Present: no acute distress, well-nourished Results - Labs CBC & Chem 7: 12/22/19 05:10 12/22/19 05:10 Labs: Laboratory Last Values WBC 8.1 K/mm3 (4.5-11.0) 12/22/19 05:10 RBC 2.70 M/mm3 (3.65-5.03) L 12/22/19 05:10 Hgb 9.3 gm/dl (10.1-14.3) L 12/22/19 05:10 Hct 28.1 % (30.3-42.9) L 12/22/19 05:10 MCV 104 fl (79-97) H 12/22/19 05:10 MCH 35 pg (28-32) H 12/22/19 05:10 MCHC 33 % (30-34) 12/22/19 05:10 RDW 18.5 % (13.2-15.2) H 12/22/19 05:10 Plt Count 51 K/mm3 (140-440) L D 12/22/19 05:10 Lymph % (Auto) 26.8 % (13.4-35.0) 12/22/19 05:10 [place]mort[place] % (Auto) 9.2 % (0.0-7.3) H 12/22/19 05:10 Eos % (Auto) 0.2 % (0.0-4.3) 12/22/19 05:10 Baso % (Auto) 0.2 % (0.0-1.8) 12/22/19 05:10 Lymph # 2.2 K/mm3 (1.2-5.4) 12/22/19 05:10 [place] # 0.7 K/mm3 (0.0-0.8) 12/22/19 05:10 Eos # 0.0 K/mm3 (0.0-0.4) 12/22/19 05:10 Baso # 0.0 K/mm3 (0.0-0.1) 12/22/19 05:10 Total Counted 100 12/20/19 04:17 Seg Neutrophils % 64.7 % (40.0-70.0) 12/22/19 05:10 Seg Neuts % (Manual) 68.0 % (40.0-70.0) 12/20/19 04:17 Band Neutrophils % 0 % 12/20/19 04:17 Lymphocytes % (Manual) 25.0 % (13.4-35.0) 12/20/19 04:17 Reactive Lymphs % (Man) 0 % 12/20/19 04:17 Monocytes % (Manual) 7.0 % (0.0-7.3) 12/20/19 04:17 Eosinophils % (Manual) 0 % (0.0-4.3) 12/20/19 04:17 Basophils % (Manual) 0 % (0.0-1.8) 12/20/19 04:17 Metamyelocytes % 0 % 12/20/19 04:17 Myelocytes % 0 % 12/20/19 04:17 Promyelocytes % 0 % 12/20/19 04:17 Blast Cells % 0 % 12/20/19 04:17 Nucleated RBC % 4.0 % (0.0-0.9) H 12/20/19 04:17 Seg Neutrophils # 5.0 K/mm3 (1.8-7.7) 12/22/19 05:10 Seg Neutrophils # Man 6.4 K/mm3 (1.8-7.7) 12/20/19 04:17 Band Neutrophils # 0.0 K/mm3 12/20/19 04:17 Lymphocytes # (Manual) 2.4 K/mm3 (1.2-5.4) 12/20/19 04:17 Abs React Lymphs (Man) 0.0 K/mm3 12/20/19 04:17 Monocytes # (Manual) 0.7 K/mm3 (0.0-0.8) 12/20/19 04:17 Eosinophils # (Manual) 0.0 K/mm3 (0.0-0.4) 12/20/19 04:17 Basophils # (Manual) 0.0 K/mm3 (0.0-0.1) 12/20/19 04:17 Metamyelocytes # 0.0 K/mm3 12/20/19 04:17 Myelocytes # 0.0 K/mm3 12/20/19 04:17 Promyelocytes # 0.0 K/mm3 12/20/19 04:17 Blast Cells # 0.0 K/mm3 12/20/19 04:17 Platelet Estimate Consistent w auto 12/20/19 04:17 Polychromasia Few 12/20/19 04:17 Poikilocytosis 1+ 12/20/19 04:17 Anisocytosis 1+ 12/20/19 04:17 Helmet Cells Few 12/20/19 04:17 Linette Cells 1+ 12/20/19 04:17 Acanthocytes (Spur) Few 12/20/19 04:17 Schistocytes Few 12/20/19 04:17 Haptoglobin <8 mg/dL (43-212) L 12/14/19 08:14 Hem Pathologist Commnt No 12/20/19 04:17 PT 13.5 Sec. (12.2-14.9) 12/22/19 06:18 INR 1.02 (0.87-1.13) 12/22/19 06:18 APTT 23.0 Sec. (24.2-36.6) L 12/22/19 06:18 Thrombin Time 16.4 Sec. (15.1-19.6) 12/13/19 17:46 Lupus Anticoagulant see below 12/15/19 05:25 Sodium 140 mmol/L (137-145) 12/22/19 05:10 Potassium 3.8 mmol/L (3.6-5.0) 12/22/19 05:10 Chloride 101.5 mmol/L (98-107) 12/22/19 05:10 Carbon Dioxide 24 mmol/L (22-30) 12/22/19 05:10 Anion Gap 18 mmol/L 12/22/19 05:10 BUN 16 mg/dL (7-17) 12/22/19 05:10 Creatinine 0.7 mg/dL (0.7-1.2) 12/22/19 05:10 Estimated GFR > 60 ml/min 12/22/19 05:10 BUN/Creatinine Ratio 23 % 12/22/19 05:10 Glucose 81 mg/dL (65-100) 12/22/19 05:10 POC Glucose 96 (70-105) 12/21/19 08:41 Calcium 8.6 mg/dL (8.4-10.2) 12/22/19 05:10 Phosphorus 3.80 mg/dL (2.5-4.5) 12/22/19 05:10 Magnesium 2.00 mg/dL (1.7-2.3) 12/22/19 05:10 Total Bilirubin 3.70 mg/dL (0.1-1.2) H 12/13/19 16:51 AST 47 units/L (5-40) H 12/13/19 16:51 ALT 22 units/L (7-56) 12/13/19 16:51 Alkaline Phosphatase 47 units/L (35-129) 12/13/19 16:51 Lactate Dehydrogenase 1073 units/L (91-180) H 12/14/19 08:14 Total Creatine Kinase 51 units/L (30-135) 12/13/19 17:46 CK-MB (CK-2) 1.7 ng/mL (0.0-4.0) 12/13/19 17:46 CK-MB (CK-2) Rel Index 3.3 (0-4) 12/13/19 17:46 Troponin T 0.074 ng/mL (0.00-0.029) H 12/15/19 05:25 Total Protein 7.3 g/dL (6.3-8.2) 12/13/19 16:51 Albumin 4.1 g/dL (3.9-5) 12/13/19 16:51 Albumin/Globulin Ratio 1.3 % 12/13/19 16:51 Triglycerides 149 mg/dL (2-149) 12/13/19 17:46 Cholesterol 139 mg/dL (50-199) 12/13/19 17:46 LDL Cholesterol Direct 80 mg/dL (50-130) 12/13/19 17:46 HDL Cholesterol 45 mg/dL (40-59) 12/13/19 17:46 Cholesterol/HDL Ratio 3.08 % 12/13/19 17:46 Schistocytes Smear Rare 12/22/19 05:10 Blood Type B POSITIVE 12/21/19 20:40 Direct Antiglob Test Negative 12/14/19 08:14 NATALI, Poly Interpret Negative 12/14/19 08:14 Active Medications - Current Medications Current Medications: Generic Name Dose Route Start Last Admin Trade Name Freq PRN Reason Stop Dose Admin Acetaminophen 650 mg 12/13/19 20:04 12/22/19 11:10 Tylenol PO 650 mg Q4H PRN Administration Pain, Mild (1-3) Atorvastatin Calcium 40 mg 12/13/19 22:00 12/21/19 21:23 Lipitor PO 40 mg QHS PRAVEEN Administration Bisacodyl 10 mg 12/13/19 20:04 Dulcolax MD QDAY PRN Constipation Carvedilol 3.125 mg 12/13/19 22:00 12/22/19 10:50 Coreg PO 3.125 mg BID PRAVEEN Administration Dexamethasone 40 mg 12/22/19 10:00 12/22/19 10:53 Decadron PO 40 mg DAILY PRAVEEN Administration Docusate Sodium 100 mg 12/13/19 22:00 12/22/19 10:50 Colace PO 100 mg BID PRAVEEN Administration Sodium Chloride 500 mls @ 0 mls/hr 12/21/19 17:45 Nacl 0.9% 500 Ml IV 12/22/19 17:44 ONCE PRAVEEN As Directed Magnesium Hydroxide 30 ml 12/13/19 20:04 Milk Of Magnesia PO Q4H PRN Constipation Multivitamins 1 each 12/15/19 10:00 12/22/19 10:51 Theragran Tab PO 1 each QDAY PRAVEEN Administration Ondansetron HCl 4 mg 12/13/19 20:04 Zofran IV Q8H PRN Nausea And Vomiting Oxycodone/Acetaminophen 1 tab 12/13/19 21:57 12/21/19 09:51 Percocet 5/325 PO 1 tab Q6H PRN Administration Pain , Severe (7-10) Pantoprazole Sodium 40 mg 12/22/19 10:00 12/22/19 10:52 Protonix PO 40 mg QDAY PRAVEEN Administration Promethazine HCl 25 mg 12/13/19 20:04 Phenergan MD Q6H PRN Nausea And Vomiting Nutrition/Malnutrition Assess - Dietary Evaluation Nutrition/Malnutrition Findings: Nutrition Notes Start: 12/21/19 12:44 Freq: Status: Active Protocol: Document 12/21/19 12:44 LM (Rec: 12/21/19 12:46 LM [id number]) Nutrition Notes Need for Assessment generated from: LOS Initial or Follow up Brief Note Subjective/Other Information Screen for LOS. Pt stated she has good appetite, eating meals, and has had no wt loss. Nutrition Intervention Revisit per MD consult or patient Sign Off request:
--- NOTE | 2019-12-22 12:59 | Discharge Summary ---
Providers - Providers Date of Admission: 12/14/19 14:15 Attending physician: ROBIN EGUENE MD 12/13/19 Consult to Physician [CONS] Routine Comment: Consulting Provider: ANNA COKER Physician Instructions: Reason For Exam: Thrombocytopenia 12/13/19 20:04 Occupational Therapy Evaluate and Treat [CONS] Routine Comment: Reason For Exam: Neuro deficits Physical Therapy Evaluation and Treat [CONS] Routine Comment: Reason For Exam: Neuro deficits 12/14/19 15:00 Consult to Physician [CONS] Routine Comment: Consulting Provider: QASIM GARCIA Physician Instructions: Reason For Exam: acute CVA, ITp, ?use of Aspirin 12/15/19 14:01 Consult to Physician [CONS] Routine Comment: Consulting Provider: ANNA COKER Physician Instructions: Reason For Exam: Thrombocytopenia 12/20/19 07:56 Consult to Interventional Radiology [CONS] Routine Consulting Provider: NICK MUELLER Reason For Exam: bm aspiration and bx Place consult to:: Dr. Mueller Notified:: Elizabeth FOWLER Phone number called:: Was contact made?: Yes If yes, spoke with:: Tanya-office Time called:: 09:07 Primary care physician: [place] Hospitalization Condition: Stable Hospital course: 54-year-old -[place] woman well known to me from recent discharge. She has ITP. She was treated with IVIG 5 days infusion and steroids. The ITP/low plt cause NSTEMI and CVA. I discharged her on 11/21/2019 with steroids and follow up with Dr. Coker but she did not due to lack of insurance. She presents now with headache, right facial droop and slurred speech. * CT Head IMPRESSION: 1. No acute intracranial abnormality. 2. Expected evolution of previously demonstrated occipital lobe infarcts. * CT angio Head IMPRESSION: 1. No significant stenosis or large vessel occlusion in the cervical or intracranial arteries. * CT angio Neck IMPRESSION: 1. No significant stenosis or large vessel occlusion in the cervical or intracranial arteries. * Brain MRI brain without contrast Impression: Small subacute area of ischemia maybe present near the head of the left caudate, Embolic phenomenon might be consideration Acute new CVA, subacute -CT Head shows Expected evolution of previously demonstrated occipital lobe infarcts. negative for acute intracranial abnormality -CT angio Head and CT angio Neck negative -Hx CVA MRI on 11/14/2019 revealed: Subacute infarction in the right occipital lobe Infarction in the left occipital lobe ligament. Base but less than 2 weeks old -PT eval appreciated, patient home with no needs at time of discharge -On statin -Hold off on oral and anticoagulation due to thrombocytopenia, goal is to have platelets above 50 before she can be given any such medications -Continue supportive care Thrombocytopenia, ITP Platelet counts remains low, currently 20s. Patient has completed IVIG, continue steroids. Still not improving, hematology input appreciated, sp bone marrow biopsy -We will give a dose of platelets now. Elevated Trop Cardiology input appreciated, type II MN. Dehydration Resolved with IV fluids DVT PPX -On SCD's -Hold off on systemic anticoagulation d/t thrombocytopenia Patient denies any GERD or indigestion. Pepcid discontinued Disposition; home when platelet count is above 50 Disposition: DC-01 TO HOME OR SELFCARE Time spent for discharge: 33 mins Core Measure Documentation - Palliative Care Palliative Care/ Comfort Measures: Not Applicable - Core Measures Any of the following diagnoses?: none Exam - Constitutional Vitals: Temp Pulse Resp BP Pulse Ox 98.4 F 105 H 18 130/88 100 12/22/19 09:04 12/22/19 10:50 12/22/19 09:04 12/22/19 09:04 12/22/19 09:04 General appearance: Present: no acute distress, well-nourished - EENT Eyes: Present: PERRL ENT: hearing intact, clear oral mucosa - Neck Neck: Present: supple, normal ROM - Respiratory Respiratory effort: normal Respiratory: bilateral: CTA - Cardiovascular Heart Sounds: Present: S1 & S2. Absent: rub, click - Extremities Extremities: pulses symmetrical, No edema Peripheral Pulses: within normal limits - Abdominal General gastrointestinal: Present: soft, non-tender, non-distended, normal bowel sounds Female genitourinary: Present: normal - Integumentary Integumentary: Present: clear, warm, dry - Musculoskeletal Musculoskeletal: gait normal, strength equal bilaterally - Psychiatric Psychiatric: appropriate mood/affect, intact judgment & insight - Neurologic Neurologic: CNII-XII intact, moves all extremities Plan Follow up with: PRIMARY CARE, [Primary Care Provider] - 7 Days Prescriptions: dexAMETHasone [Decadron] 40 mg PO DAILY #40 tablet Multivitamin Tab [Multiple Vitamin TAB (Theragran)] 1 each PO QDAY #90 tablet Pantoprazole [Protonix TAB] 40 mg PO QDAY #30 tablet
--- NOTE | 2019-12-23 08:28 | Event Note ---
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
[2019-12-23 13:28] LABS: Hepatitis B Surface Antigen Non-Reactive (Negative); Hepatitis C Virus Antibody Non-Reactive (NonReactive)
== END 2019-12-22 17:12 | disposition home or self-care (01) | DRG 64 ==
LOC: ED 16:27 → 4A 20:04 → OBSVTOIN 12-14 14:15
PROVIDERS: ADMIT Internal Medicine; ATTEND Internal Medicine
PROC: 07DR3ZX Extraction of Iliac Bone Marrow, Percutaneous Approach, Diagnostic (ICD-10-PCS; 2019-12-20)
PROC: 30233R1 Transfusion of Nonautologous Platelets into Peripheral Vein, Percutaneous Approach (ICD-10-PCS; principal; 2019-12-22)
DX: I63.9 Cerebral infarction, unspecified (principal); I21.A1 Myocardial infarction type 2; D69.3 Immune thrombocytopenic purpura; G43.909 Migraine, unspecified, not intractable, without status migrainosus; E86.0 Dehydration; R79.89 Other specified abnormal findings of blood chemistry; I25.10 Atherosclerotic heart disease of native coronary artery without angina pectoris; G83.21 Monoplegia of upper limb affecting right dominant side; R29.810 Facial weakness; G44.319 Acute post-traumatic headache, not intractable; E78.5 Hyperlipidemia, unspecified; I10 Essential (primary) hypertension; D69.6 Thrombocytopenia, unspecified; Z90.710 Acquired absence of both cervix and uterus; Z93.6 Other artificial openings of urinary tract status; Z86.73 Personal history of transient ischemic attack (TIA), and cerebral infarction without residual deficits
CPT/HCPCS: 36415; 38222; 70450; 70496; 70498; 70551; 78452; 80048; 80053; 80061; 80074; 82550; 82553; 82607; 82962; 83010; 83615; 83735; 84100; 84436; 84439; 84443; 84484; 85007; 85025; 85027; 85097; 85610; 85613; 85670; 85730; 86880; 86900; 86901; 87116; 88161; 88305; 88311; 88313; 93005; 93010; 93017; 93308; 93321; 93325; 96374; G0378; A9270-GY; A9502; J1170; J1459; J1561; J2270; J2405; J2785; J7030; J7040; J7512; J8540; P9035; Q9967